=== PATIENT | male | born 1955 | race Caucasian/White ===

== ENCOUNTER 2018-10-16 11:41 | Inpatient (IN) | payer MEDICAID ==
[~2018-10-16] VITALS: Ht 185.4 cm; Wt 87.0 kg
[~2018-10-16 11:41] MED LIST: ALBU6.7H INH; GUAI120015 PO; NO HOME MEDS; NOR5T PO
[2018-10-16 12:18] LABS: BASOPHILS # (AUTO) 0.1 X10'3 (0-0.2); BASOPHILS % (AUTO) 0.2 % (0-1); EOSINOPHILS % (AUTO) 0 % (0-6); HEMOGLOBIN 15.7 g/dl (14.0-17.9); LYMPHOCYTES # (AUTO) 1.2 X10'3 (1.1-4.8); LYMPHOCYTES % (AUTO) 4.6 % (21-51); MEAN CORPUSCULAR HEMOGLOBIN 29.2 PG (27.0-31.0); MEAN CORPUSCULAR HGB CONC 33.4 g/dL (33.0-36.5); MEAN CORPUSCULAR VOLUME 87.4 FL (78-98); MEAN PLATELET VOLUME 8.4 FL (7.4-10.4); MONOCYTES # (AUTO) 2.9 X10'3 (0-0.9); NEUTROPHILS # (AUTO) 22.2 X10'3 (1.8-7.7); NEUTROPHILS % (AUTO) 84.2 % (42-75); PLATELET COUNT 243 X10'3 (140-440); RED BLOOD COUNT 5.38 X10'6 (4.70-6.10); RED CELL DISTRIBUTION WIDTH 14.1 % (11.5-14.5)
[2018-10-16 12:24] LABS: WHITE BLOOD COUNT 26.4 X10'3 (4.5-11.0)
--- NOTE | 2018-10-16 12:31 | NUR ---
WBC 26.4,DR LARSEN AWARE.
[2018-10-16] MEDS ORDERED: vancomycin/NS 1 GM ADD-VANTAGE 250 ML IV ONE (12:40)
[2018-10-16] MEDS ORDERED: CefTRIAXone 2gm/D5W 50ml 50 ML IV ONE (12:40)
[2018-10-16] MEDS ORDERED: normal saline 1000ML IV soln IV ONE (12:40)
[2018-10-16 12:42] LABS: PARTIAL THROMBOPLASTIN TIME 35 SECONDS (22-32); PROTHROMBIN TIME 10.5 SECONDS (9.0-12.0)
[2018-10-16 12:45] LABS: ALANINE AMINOTRANSFERASE 63 U/L (12-78); ALBUMIN 1.9 G/DL (3.4-5.0); ALBUMIN/GLOBULIN RATIO 0.5 (1.1-1.5); ALKALINE PHOSPHATASE 65 IU/L (46-116); ANION GAP 5 (8-16); ASPARTATE AMINO TRANSFERASE 107 U/L (10-37); BILIRUBIN,TOTAL 0.7 MG/DL (0.1-1.0); BLOOD UREA NITROGEN 26 MG/DL (7-18); BUN/CREATININE RATIO 20.6 (5.4-32.0); CALCIUM 7.8 MG/DL (8.5-10.1); CHLORIDE 99 MMOL/L (99-107); CREATININE 1.26 MG/DL (0.60-1.10); GLUCOSE 121 MG/DL (70-104); POTASSIUM 4.3 MMOL/L (3.5-5.1); SODIUM 132 MMOL/L (135-145); TOTAL PROTEIN 6.1 G/DL (6.4-8.2); eGFR 58 ML/MIN
[2018-10-16 12:59] LABS: PLATELET ESTIMATE NORMAL; TOTAL CELLS COUNTED 100
[2018-10-16 13:12] LABS: CLARITY,URINE CLEAR (Clear); COLOR,URINE YELLOW (Yellow); GLUCOSE, URINE NEGATIVE (Neg); KETONES,URINE NEGATIVE (Neg); LEUKOCYTE ESTERASE ,URINE NEGATIVE (Neg); NITRITES, URINE NEGATIVE (Neg); OCCULT BLOOD,URINE MODERATE (Neg); PROTEIN,URINE >=300 mg/dl (Neg)
[2018-10-16 13:14] LABS: UA COLLECTION TYPE NON-SPECIFIED
[2018-10-16 13:20] LABS: BACTERIA,URINE FEW /HPF (Neg); MUCUS STRANDS NONE SEEN /LPF (Neg); RBC,URINE 0-2 /HPF (0-2); SQUAMOUS EPITHELIAL CELL,UR FEW /LPF (FEW); WBC,URINE 0-4 /HPF (0-4)
[2018-10-16] MEDS ORDERED: iohexol 300mg/ml 100ml inj. ONE (13:33)
[2018-10-16] MEDS ORDERED: morphine 4 MG/ML inj SYRINge IV ONE (13:45)
--- NOTE | 2018-10-16 14:05 | NUR ---
PATIENT TO CT.
[2018-10-16] MEDS ORDERED: ibuprofen tablet 400 MG TABLET PO STA (15:08)
[2018-10-16] MEDS ORDERED: ibuprofen 200mg tablet PO STA (15:27)
[2018-10-16] MEDS ORDERED: potassium Cl 20 mEq SR tablet PO PRN ×2 (16:55)
[2018-10-16] MEDS ORDERED: magnesium hydroxide 30ml (MOM) UD suspension PO PRN (16:55)
[2018-10-16] MEDS ORDERED: magnesium 2GM in 50ml NS 50 ML IV PRN (16:55)
[2018-10-16] MEDS ORDERED: magnesium 4gm in 100ml NS 100 ML IV PRN (16:55)
[2018-10-16] MEDS ORDERED: potassium Cl 40MEQ/NS 500ml 500 ML IV PRN ×2 (16:55)
[2018-10-16] MEDS ORDERED: mag hydrox/Alum hydrox/simeth 30ml oral suspension PO PRN (16:55)
[2018-10-16] MEDS ORDERED: ipratropium/albuterol 3ml nebule NEB PRN (16:55)
[2018-10-16] MEDS ORDERED: ondansetron/PF 4mg/2ml inj IV PRN (16:55)
[2018-10-16] MEDS ORDERED: acetaminophen 325mg tablet PO PRN ×2 (16:55)
--- NOTE | 2018-10-16 17:15 | NUR ---
DR. PANTOJA AT BEDSIDE.
--- NOTE | 2018-10-16 17:26 | NUR ---
Patient in room ED 3. I have received report from Martin in ED, and had the opportunity to ask questions and assume patient care.
--- NOTE | 2018-10-16 17:35 | NUR ---
Pt arrived via wheelchair. Able to ambulate to bed independently.
[2018-10-16] MEDS: normal saline 1000ml 1,000 ML IV SCH (17:52)
[2018-10-16 18:06] VITALS: BP 143/68
--- NOTE | 2018-10-16 18:10 | NUR ---
Problems reprioritized. Patient report given, questions answered & plan of care reviewed with Abby.
--- NOTE | 2018-10-16 18:20 | NUR ---
Patient in room ORTHO 4021. I have received report from Catrachita GREENE and had the opportunity to ask questions and assume patient care.
[2018-10-16] MEDS: vancomycin inj 1,250 MG in normal saline 250ml IV soln 250 ML IV SCH (18:28)
--- NOTE | 2018-10-16 20:00 | NUR ---
Patient right arm is very swollen but pulse is bounding. Cap refill is 4 seconds. Patient is up to taking a warm shower.
[2018-10-16 22:00] VITALS: BP 133/74
--- NOTE | 2018-10-16 23:30 | NUR ---
Warm compress applied. Patient arm is elevated on bedside table
[2018-10-16] MEDS: HYDROcodone/acetaminophen 5mg/325mg tablet PO PRN (23:50)
[2018-10-17] MEDS: normal saline 1000ml 1,000 ML IV SCH ×2 (01:56→10:00)
--- NOTE | 2018-10-17 02:19 | NUR ---
Called hospitalist's. Patients arm is starting to become numb to patient. swelling has increased over time. Cap refill delayed in a few fingers. Still bounding pulse. Noted some pallor in fingers. Hospitalist's said to call orthopedic surgeon high school special education teacher.
--- NOTE | 2018-10-17 02:29 | NUR ---
physically impaired teacher MD notified. MD was going to call consulting MD from yesterday afternoon.
--- NOTE | 2018-10-17 02:35 | NUR ---
Dr. Cortes called me back. Informed MD of increasing pallor and decreasing capillary refill. MD said to monitor pulse and for increasing pain, tingling, redness increased, and numbness. He said to call his cell if any changes. Keep elevated and to keep the warm compress off for now. Will monitor very closely.
[2018-10-17] MEDS: HYDROcodone/acetaminophen 10/325mg tab PO PRN ×3 (03:37→17:11)
--- NOTE | 2018-10-17 03:46 | NUR ---
Blisters on upper arm has increased in size. No increase in redness. Will continue to monitor.
[2018-10-17] MEDS: vancomycin inj 1,250 MG in normal saline 250ml IV soln 250 ML IV SCH ×2 (05:41→18:27)
[2018-10-17 06:00] VITALS: BP 112/68
--- NOTE | 2018-10-17 06:05 | NUR ---
Bedside report given with Catrachita GREENE. Right arm assessed with day nurse. Pulse still strong, no new redness, fingers have some pallor still but no new areas of pallor, cap refill is still prolonged. Patient received a [place] for pain and patients pain is very minimal at this time. Patients condition has not changed since the call the the MD this AM.
--- NOTE | 2018-10-17 06:20 | NUR ---
Patient in room ORTHO 4021. I have received report from [facility] and had the opportunity to ask questions and assume patient care.
--- NOTE | 2018-10-17 06:32 | NUR ---
Problems reprioritized. Patient report given, questions answered & plan of care reviewed with Catrachita GREENE.
--- NOTE | 2018-10-17 06:50 | NUR ---
Call from , advised of current condition of pt's right arm, indicated he is coming in to see pt
[2018-10-17 06:56] LABS: BASOPHILS % (AUTO) 0.1 % (0-1); EOSINOPHILS % (AUTO) 0 % (0-6); HEMATOCRIT 41.2 % (42.0-52.0); HEMOGLOBIN 13.6 g/dl (14.0-17.9); LYMPHOCYTES % (AUTO) 5.6 % (21-51); MEAN CORPUSCULAR HEMOGLOBIN 29.2 PG (27.0-31.0); MEAN CORPUSCULAR HGB CONC 32.9 g/dL (33.0-36.5); MEAN CORPUSCULAR VOLUME 88.6 FL (78-98); MONOCYTES # (AUTO) 2.4 X10'3 (0-0.9); MONOCYTES % (AUTO) 12.9 % (2-12); NEUTROPHILS # (AUTO) 15.1 X10'3 (1.8-7.7); NEUTROPHILS % (AUTO) 81.4 % (42-75); PLATELET COUNT 236 X10'3 (140-440); RED BLOOD COUNT 4.66 X10'6 (4.70-6.10); RED CELL DISTRIBUTION WIDTH 14.1 % (11.5-14.5); WHITE BLOOD COUNT 18.5 X10'3 (4.5-11.0)
[2018-10-17 07:22] LABS: ALANINE AMINOTRANSFERASE 69 U/L (12-78); ALBUMIN 1.5 G/DL (3.4-5.0); ALBUMIN/GLOBULIN RATIO 0.4 (1.1-1.5); ALKALINE PHOSPHATASE 57 IU/L (46-116); ANION GAP 8 (8-16); ASPARTATE AMINO TRANSFERASE 111 U/L (10-37); BILIRUBIN,TOTAL 0.4 MG/DL (0.1-1.0); BLOOD UREA NITROGEN 23 MG/DL (7-18); BUN/CREATININE RATIO 23.5 (5.4-32.0); CALCIUM 7.3 MG/DL (8.5-10.1); CHLORIDE 104 MMOL/L (99-107); CHOL/HDL RATIO 2.2 (0.00-4.99); CHOLESTEROL 94 MG/DL (0-200); CREATININE 0.98 MG/DL (0.60-1.10); GLUCOSE 110 MG/DL (70-104); HDL CHOLESTEROL 43 MG/DL (35-60); LDL CHOLESTEROL 50 MG/DL (50-100); MAGNESIUM 1.7 MG/DL (1.5-2.4); POTASSIUM 4.6 MMOL/L (3.5-5.1); SODIUM 136 MMOL/L (135-145); TOTAL CARBON DIOXIDE 23.6 MMOL/L (24-32); TOTAL PROTEIN 5.2 G/DL (6.4-8.2); TRIGLYCERIDES 40 MG/DL (20-135); eGFR 78 ML/MIN
[2018-10-17] MEDS: K and/or MAG REPLACEMENT MC SCH (07:39)
[2018-10-17 07:50] LABS: TOTAL CELLS COUNTED 100
[2018-10-17 07:51] LABS: PLATELET ESTIMATE NORMAL; POIKILOCYTOSIS FEW; POLYCHROMASIA FEW
[2018-10-17] MEDS: enoxaparin 40mg/0.4ml syringe SQ SCH (08:00)
[2018-10-17] MEDS: CefTRIAXone/D5W-Rocephin 1gm 50 ML IV SCH (09:03)
[2018-10-17 10:00] VITALS: BP 148/89
[2018-10-17] MEDS: ibuprofen 200mg tablet PO SCH ×2 (13:41→17:11)
[2018-10-17] MEDS: nicotine 21mg patch - 24 hr TD SCH (13:41)
--- NOTE | 2018-10-17 14:59 | NUR ---
Purvi Consult: Met pt at bedside. Pt states he has lost 10-20# in two weeks however does not weigh himself but states he knows when he has lost weight. Reported wt loss likely false due to pt guessing wt loss. Pt states he has appetite but has trouble accessing food. Current documented PO intake 100% meeting nutrition needs, current wt appropriate for age. Pt has no visible muscle or fat wasting. Pt currently does not meet criteria for malnutrition. Pt is w/ arm infection, given written and verbal protein education. Pt is agreeable to double protein, discussed w/ dietary. LBM 10/15. Will continue to monitor. Addendum: 10/17/18 at [address] Amended: Links added. Addendum: 10/17/18 at [address] I have reviewed and agree with note by Tugboat Mate. Yudelka Batista RD
[2018-10-17 18:00] VITALS: BP 115/58
--- NOTE | 2018-10-17 18:07 | NUR ---
Problems reprioritized. Patient report given, questions answered & plan of care reviewed with Magda Vega
[2018-10-17] MEDS: lactobacillus rhamnosus 10,000 MMU CELLS/CAPSULE PO SCH (20:00)
[2018-10-17 22:00] VITALS: BP 136/65
[2018-10-18] MEDS: HYDROcodone/acetaminophen 10/325mg tab PO PRN ×4 (00:22→17:49)
[2018-10-18] MEDS ORDERED: VANCOMYCIN LEVEL IV NR (05:30)
[2018-10-18 06:00] VITALS: BP 131/79
--- NOTE | 2018-10-18 06:26 | NUR ---
Problems reprioritized. Patient report given, questions answered & plan of care reviewed with JC Nixon.
[2018-10-18] MEDS: vancomycin inj 1,250 MG in normal saline 250ml IV soln 250 ML IV SCH (06:32)
[2018-10-18 06:39] LABS: BASOPHILS # (AUTO) 0.1 X10'3 (0-0.2); BASOPHILS % (AUTO) 0.4 % (0-1); EOSINOPHILS # (AUTO) 0.3 X10'3 (0-0.9); EOSINOPHILS % (AUTO) 2.3 % (0-6); HEMATOCRIT 40.6 % (42.0-52.0); HEMOGLOBIN 13.6 g/dl (14.0-17.9); LYMPHOCYTES # (AUTO) 0.7 X10'3 (1.1-4.8); LYMPHOCYTES % (AUTO) 5.1 % (21-51); MEAN CORPUSCULAR HEMOGLOBIN 29.4 PG (27.0-31.0); MEAN CORPUSCULAR HGB CONC 33.5 g/dL (33.0-36.5); MEAN CORPUSCULAR VOLUME 87.8 FL (78-98); MEAN PLATELET VOLUME 8.2 FL (7.4-10.4); MONOCYTES % (AUTO) 13.6 % (2-12); NEUTROPHILS # (AUTO) 11.3 X10'3 (1.8-7.7); NEUTROPHILS % (AUTO) 78.6 % (42-75); PLATELET COUNT 247 X10'3 (140-440); RED BLOOD COUNT 4.63 X10'6 (4.70-6.10); WHITE BLOOD COUNT 14.4 X10'3 (4.5-11.0)
[2018-10-18 06:46] LABS: ALANINE AMINOTRANSFERASE 89 U/L (12-78); ALBUMIN 1.4 G/DL (3.4-5.0); ALBUMIN/GLOBULIN RATIO 0.4 (1.1-1.5); ALKALINE PHOSPHATASE 65 IU/L (46-116); ANION GAP 7 (8-16); ASPARTATE AMINO TRANSFERASE 132 U/L (10-37); BILIRUBIN,TOTAL 0.2 MG/DL (0.1-1.0); BLOOD UREA NITROGEN 21 MG/DL (7-18); BUN/CREATININE RATIO 22.3 (5.4-32.0); CALCIUM 7.5 MG/DL (8.5-10.1); CHLORIDE 103 MMOL/L (99-107); CREATININE 0.94 MG/DL (0.60-1.10); GLUCOSE 122 MG/DL (70-104); MAGNESIUM 1.6 MG/DL (1.5-2.4); POTASSIUM 4.8 MMOL/L (3.5-5.1); SODIUM 135 MMOL/L (135-145); TOTAL CARBON DIOXIDE 25.4 MMOL/L (24-32); TOTAL PROTEIN 5.2 G/DL (6.4-8.2); eGFR 81 ML/MIN
[2018-10-18] MEDS: K and/or MAG REPLACEMENT MC SCH (08:00)
[2018-10-18] MEDS: ibuprofen 200mg tablet PO SCH ×3 (08:52→17:40)
[2018-10-18] MEDS: lactobacillus rhamnosus 10,000 MMU CELLS/CAPSULE PO SCH ×2 (08:52→20:15)
[2018-10-18] MEDS: nicotine 21mg patch - 24 hr TD SCH (08:53)
[2018-10-18] MEDS: enoxaparin 40mg/0.4ml syringe SQ SCH (08:53)
[2018-10-18] MEDS: CefTRIAXone/D5W-Rocephin 1gm 50 ML IV SCH (09:53)
[2018-10-18 10:00] VITALS: BP 120/101
[2018-10-18 18:00] VITALS: BP 120/67
[2018-10-18 22:00] VITALS: BP 126/74
[2018-10-19] MEDS: HYDROcodone/acetaminophen 10/325mg tab PO PRN ×2 (03:29→13:45)
[2018-10-19 05:42] LABS: BASOPHILS # (AUTO) 0.1 X10'3 (0-0.2); BASOPHILS % (AUTO) 0.7 % (0-1); EOSINOPHILS # (AUTO) 0.3 X10'3 (0-0.9); EOSINOPHILS % (AUTO) 1.9 % (0-6); HEMATOCRIT 38.8 % (42.0-52.0); HEMOGLOBIN 12.9 g/dl (14.0-17.9); LYMPHOCYTES # (AUTO) 0.8 X10'3 (1.1-4.8); LYMPHOCYTES % (AUTO) 5.4 % (21-51); MEAN CORPUSCULAR HEMOGLOBIN 29.1 PG (27.0-31.0); MEAN CORPUSCULAR HGB CONC 33.3 g/dL (33.0-36.5); MEAN CORPUSCULAR VOLUME 87.5 FL (78-98); MEAN PLATELET VOLUME 8.3 FL (7.4-10.4); MONOCYTES # (AUTO) 1.9 X10'3 (0-0.9); MONOCYTES % (AUTO) 13.6 % (2-12); NEUTROPHILS % (AUTO) 78.4 % (42-75); PLATELET COUNT 236 X10'3 (140-440); RED BLOOD COUNT 4.43 X10'6 (4.70-6.10); RED CELL DISTRIBUTION WIDTH 13.8 % (11.5-14.5)
[2018-10-19 06:00] VITALS: BP 140/83
[2018-10-19 06:02] LABS: ANION GAP 4 (8-16); BLOOD UREA NITROGEN 21 MG/DL (7-18); BUN/CREATININE RATIO 20.8 (5.4-32.0); CALCIUM 7.7 MG/DL (8.5-10.1); CHLORIDE 104 MMOL/L (99-107); CREATININE 1.01 MG/DL (0.60-1.10); GLUCOSE 124 MG/DL (70-104); MAGNESIUM 1.6 MG/DL (1.5-2.4); POTASSIUM 5.4 MMOL/L (3.5-5.1); SODIUM 135 MMOL/L (135-145); TOTAL CARBON DIOXIDE 27.5 MMOL/L (24-32); eGFR 75 ML/MIN
[2018-10-19 06:03] LABS: ALANINE AMINOTRANSFERASE 105 U/L (12-78); ALBUMIN 1.4 G/DL (3.4-5.0); ALBUMIN/GLOBULIN RATIO 0.4 (1.1-1.5); ALKALINE PHOSPHATASE 68 IU/L (46-116); ASPARTATE AMINO TRANSFERASE 141 U/L (10-37); BILIRUBIN,TOTAL 0.2 MG/DL (0.1-1.0); TOTAL PROTEIN 5.1 G/DL (6.4-8.2)
--- NOTE | 2018-10-19 06:23 | NUR ---
Problems reprioritized. Patient report given, questions answered & plan of care reviewed with JC ALMEIDA.
[2018-10-19] MEDS: K and/or MAG REPLACEMENT MC SCH (08:00)
[2018-10-19] MEDS: nicotine 21mg patch - 24 hr TD SCH (08:00)
[2018-10-19] MEDS: ibuprofen 200mg tablet PO SCH ×3 (09:15→17:47)
[2018-10-19] MEDS: CefTRIAXone/D5W-Rocephin 1gm 50 ML IV SCH (09:15)
[2018-10-19] MEDS: lactobacillus rhamnosus 10,000 MMU CELLS/CAPSULE PO SCH ×2 (09:15→20:00)
[2018-10-19] MEDS: enoxaparin 40mg/0.4ml syringe SQ SCH (09:25)
[2018-10-19 10:15] VITALS: BP 146/62
[2018-10-19 14:00] VITALS: BP 129/69
[2018-10-19 17:00] VITALS: BP 139/81
[2018-10-19] MEDS ORDERED: sodium polystyrene sulfonate 15gm/60ml oral suspension PO ONE (20:00)
--- NOTE | 2018-10-19 20:45 | NUR ---
REPORT REC'D FROM JC ALMEIDA.
[2018-10-19] MEDS: cefepime 2g/NS 100ml ADVANTAGE 100 ML IV SCH (21:04)
--- NOTE | 2018-10-19 21:30 | NUR ---
PT WAS OFFERED TO CHANGE ROOMS R/T HIS ROOMMATE IS SETTING OFF ALARMS VERY FREQUENTLY. THIS PT REFUSED TO CHANGE ROOMS, STATING "HE CAN CHANGE ROOMS, NOT ME."
[2018-10-19 22:00] VITALS: BP 129/72
[2018-10-20] MEDS: HYDROcodone/acetaminophen 10/325mg tab PO PRN ×4 (00:14→19:55)
[2018-10-20] MEDS ORDERED: VANCOMYCIN LEVEL IV NR (05:30)
[2018-10-20 06:00] VITALS: BP 169/115
--- NOTE | 2018-10-20 06:03 | NUR ---
PT WAS AGGITATED AT TIME OF BLOOD DRAW AND VS ASSESSMENT. BP WAS ELEVATED AND HE STATED THAT HE WAS 10/10 PAIN. RN WENT IN TO REASSESS BP AND PT STATED THAT HE WAS NOT IN PAIN, AND WHEN BP WAS RECHECKED, IT WAS 155/94, AND HE STATED NO PAIN. "ALL THOSE PEOPLE JUST IN HERE AT THE SAME TIME, POKING AT ME." RN RELAYED TO DAY SHIFT.
[2018-10-20 06:16] LABS: ALANINE AMINOTRANSFERASE 101 U/L (12-78); ALBUMIN 1.5 G/DL (3.4-5.0); ALBUMIN/GLOBULIN RATIO 0.4 (1.1-1.5); ALKALINE PHOSPHATASE 86 IU/L (46-116); ANION GAP 5 (8-16); ASPARTATE AMINO TRANSFERASE 113 U/L (10-37); BILIRUBIN,TOTAL 0.2 MG/DL (0.1-1.0); BLOOD UREA NITROGEN 20 MG/DL (7-18); BUN/CREATININE RATIO 22.5 (5.4-32.0); CALCIUM 7.9 MG/DL (8.5-10.1); CHLORIDE 102 MMOL/L (99-107); CREATININE 0.89 MG/DL (0.60-1.10); GLUCOSE 106 MG/DL (70-104); MAGNESIUM 1.7 MG/DL (1.5-2.4); POTASSIUM 4.8 MMOL/L (3.5-5.1); SODIUM 136 MMOL/L (135-145); TOTAL CARBON DIOXIDE 29.2 MMOL/L (24-32); TOTAL PROTEIN 5.6 G/DL (6.4-8.2); eGFR 87 ML/MIN
[2018-10-20 06:18] LABS: BASOPHILS # (AUTO) 0.1 X10'3 (0-0.2); BASOPHILS % (AUTO) 0.4 % (0-1); EOSINOPHILS # (AUTO) 0.4 X10'3 (0-0.9); EOSINOPHILS % (AUTO) 3.7 % (0-6); HEMATOCRIT 39.9 % (42.0-52.0); HEMOGLOBIN 13.3 g/dl (14.0-17.9); LYMPHOCYTES # (AUTO) 0.7 X10'3 (1.1-4.8); LYMPHOCYTES % (AUTO) 5.9 % (21-51); MEAN CORPUSCULAR HEMOGLOBIN 29.2 PG (27.0-31.0); MEAN CORPUSCULAR HGB CONC 33.4 g/dL (33.0-36.5); MEAN CORPUSCULAR VOLUME 87.4 FL (78-98); MEAN PLATELET VOLUME 8.3 FL (7.4-10.4); MONOCYTES # (AUTO) 1.7 X10'3 (0-0.9); MONOCYTES % (AUTO) 14.5 % (2-12); NEUTROPHILS # (AUTO) 8.9 X10'3 (1.8-7.7); NEUTROPHILS % (AUTO) 75.5 % (42-75); PLATELET COUNT 261 X10'3 (140-440); RED BLOOD COUNT 4.56 X10'6 (4.70-6.10); RED CELL DISTRIBUTION WIDTH 13.8 % (11.5-14.5); WHITE BLOOD COUNT 11.8 X10'3 (4.5-11.0)
--- NOTE | 2018-10-20 06:34 | NUR ---
REPORT GIVEN TO JC ALMEIDA.
[2018-10-20] MEDS: nicotine 21mg patch - 24 hr TD SCH (08:00)
[2018-10-20] MEDS: enoxaparin 40mg/0.4ml syringe SQ SCH (08:00)
[2018-10-20] MEDS: K and/or MAG REPLACEMENT MC SCH (08:00)
[2018-10-20] MEDS: lactobacillus rhamnosus 10,000 MMU CELLS/CAPSULE PO SCH ×2 (08:06→19:48)
[2018-10-20] MEDS: ibuprofen 200mg tablet PO SCH ×3 (08:06→19:48)
[2018-10-20] MEDS: cefepime 2g/NS 100ml ADVANTAGE 100 ML IV SCH ×2 (08:07→19:48)
[2018-10-20 10:00] VITALS: BP 141/87
[2018-10-20 22:00] VITALS: BP 149/90
--- NOTE | 2018-10-20 22:05 | NUR ---
Patient in room ORTHO 4021. I have received report from JC Nixon and had the opportunity to ask questions and assume patient care. Addendum: 10/20/18 at 2207 by Keena Smalls RN Amended: Links added.
[2018-10-21] MEDS: HYDROcodone/acetaminophen 10/325mg tab PO PRN ×3 (05:04→22:01)
[2018-10-21 06:00] VITALS: BP 177/113
--- NOTE | 2018-10-21 06:21 | NUR ---
Problems reprioritized. Patient report given, questions answered & plan of care reviewed with JC Kelly. Addendum: 10/21/18 at 0621 by Keena Smalls RN Amended: Links added.
--- NOTE | 2018-10-21 06:30 | NUR ---
Patient in room ORTHO 4021. I have received report from Sandhya GREENE and had the opportunity to ask questions and assume patient care.
[2018-10-21] MEDS: cefepime 2g/NS 100ml ADVANTAGE 100 ML IV SCH ×2 (07:55→20:54)
[2018-10-21] MEDS: lactobacillus rhamnosus 10,000 MMU CELLS/CAPSULE PO SCH ×2 (07:55→20:54)
[2018-10-21] MEDS: ibuprofen 200mg tablet PO SCH ×3 (07:55→16:55)
[2018-10-21] MEDS: nicotine 21mg patch - 24 hr TD SCH (07:56)
[2018-10-21] MEDS: enoxaparin 40mg/0.4ml syringe SQ SCH (07:56)
[2018-10-21] MEDS: K and/or MAG REPLACEMENT MC SCH (08:00)
[2018-10-21 10:00] VITALS: BP 132/84
--- NOTE | 2018-10-21 10:44 | NUR ---
Initial: Pt PO 100% regular diet w/ double proteins meeting needs. Admit w/ R forearm cellulitis r/t IVDA. LBM 10/15; ARNOLD d/w RN for routine bowel care per MD approval. Will continue to monitor. Rec; 1. conitnue regular diet 2. wt per rx Addendum: 10/21/18 at [address] Amended: Links added.
--- NOTE | 2018-10-21 18:04 | NUR ---
Problems reprioritized. Patient report given, questions answered & plan of care reviewed with Aminata GREENE.
--- NOTE | 2018-10-21 18:07 | NUR ---
RECEIVED REPORT FROM TYRONE GREENE AND ASSUMED PATIENT CARE
[2018-10-21 18:42] LABS: BASOPHILS % (AUTO) 0.3 % (0-1); EOSINOPHILS # (AUTO) 0.6 X10'3 (0-0.9); EOSINOPHILS % (AUTO) 5.6 % (0-6); HEMOGLOBIN 13.2 g/dl (14.0-17.9); LYMPHOCYTES # (AUTO) 0.9 X10'3 (1.1-4.8); LYMPHOCYTES % (AUTO) 8.6 % (21-51); MEAN CORPUSCULAR HEMOGLOBIN 28.9 PG (27.0-31.0); MEAN CORPUSCULAR VOLUME 87.7 FL (78-98); MEAN PLATELET VOLUME 7.8 FL (7.4-10.4); MONOCYTES # (AUTO) 1.4 X10'3 (0-0.9); MONOCYTES % (AUTO) 12.9 % (2-12); NEUTROPHILS # (AUTO) 7.9 X10'3 (1.8-7.7); NEUTROPHILS % (AUTO) 72.6 % (42-75); PLATELET COUNT 321 X10'3 (140-440); RED BLOOD COUNT 4.56 X10'6 (4.70-6.10); WHITE BLOOD COUNT 10.9 X10'3 (4.5-11.0)
[2018-10-21 18:59] LABS: ALANINE AMINOTRANSFERASE 77 U/L (12-78); ALBUMIN 1.7 G/DL (3.4-5.0); ALBUMIN/GLOBULIN RATIO 0.4 (1.1-1.5); ALKALINE PHOSPHATASE 105 IU/L (46-116); ANION GAP 4 (8-16); ASPARTATE AMINO TRANSFERASE 62 U/L (10-37); BILIRUBIN,TOTAL 0.2 MG/DL (0.1-1.0); BLOOD UREA NITROGEN 20 MG/DL (7-18); BUN/CREATININE RATIO 22.2 (5.4-32.0); CALCIUM 8.2 MG/DL (8.5-10.1); CHLORIDE 102 MMOL/L (99-107); CREATINE KINASE 545 U/L (39-308); GLUCOSE 94 MG/DL (70-104); MAGNESIUM 1.7 MG/DL (1.5-2.4); POTASSIUM 4.6 MMOL/L (3.5-5.1); SODIUM 140 MMOL/L (135-145); TOTAL CARBON DIOXIDE 34.3 MMOL/L (24-32); TOTAL PROTEIN 6.3 G/DL (6.4-8.2); eGFR 86 ML/MIN
[2018-10-21 19:17] LABS: HIV ANTIBODY 1&2 RAPID NON-REACTIVE (Neg)
[2018-10-21 22:00] VITALS: BP 139/94
[2018-10-22] MEDS: HYDROcodone/acetaminophen 5mg/325mg tablet PO PRN (05:21)
[2018-10-22 06:00] VITALS: BP 155/95
--- NOTE | 2018-10-22 06:05 | NUR ---
REPORT GIVEN TO MAYRA GREENE
--- NOTE | 2018-10-22 06:20 | NUR ---
Patient in room ORTHO 4021. I have received report from Aminata GREENE and had the opportunity to ask questions and assume patient care.
[2018-10-22] MEDS: K and/or MAG REPLACEMENT MC SCH (08:00)
[2018-10-22] MEDS: enoxaparin 40mg/0.4ml syringe SQ SCH (08:00)
[2018-10-22] MEDS: cefepime 2g/NS 100ml ADVANTAGE 100 ML IV SCH (08:07)
[2018-10-22] MEDS: ibuprofen 200mg tablet PO SCH (08:07)
[2018-10-22] MEDS: lactobacillus rhamnosus 10,000 MMU CELLS/CAPSULE PO SCH (08:07)
[2018-10-22] MEDS: nicotine 21mg patch - 24 hr TD SCH (08:07)
[2018-10-22 09:01] LABS: CREATINE KINASE 356 U/L (39-308); MAGNESIUM 1.6 MG/DL (1.5-2.4)
[2018-10-22 10:00] VITALS: BP 111/66
[2018-10-22] MEDS ORDERED: NICO-687 TD (10:49)
[2018-10-22] MEDS ORDERED: LACT1CAP26 PO (10:49)
[2018-10-22] MEDS ORDERED: IBUP-2264 PO (10:49)
--- NOTE | 2018-10-22 13:32 | NUR ---
Patient discharged today. account services coordinator contacted due to homelessness. Patient was provided with community resources; Referred to the [facility]. A jacket was provided as well as a lunch to go. account services coordinator saw the patient before discharge. Patient stable for discharge today at 1300
[2018-10-23 11:15] LABS: HBSAG SCREEN Negative (Negative); HEP A AB, IGM Negative (Negative); HEP B CORE AB, IGM Negative (Negative); HEPATITIS C ANTIBODY >11.0 s/co ratio (0.0-0.9)
== END 2018-10-22 13:10 | disposition home or self-care (01) | DRG 720 ==
LOC: ER 11:41 → ED HOLD 16:51 → ORTHO 4S 17:35
PROVIDERS: ADMIT Family Medicine; ATTEND Family Medicine
PROC: BP2T1ZZ Computerized Tomography (CT Scan) of Right Upper Extremity using Low Osmolar Contrast (ICD-10-PCS; principal; 2018-10-16)
DX: A41.9 Sepsis, unspecified organism (principal); E87.5 Hyperkalemia; L03.313 Cellulitis of chest wall; F15.10 Other stimulant abuse, uncomplicated; F17.210 Nicotine dependence, cigarettes, uncomplicated; F31.9 Bipolar disorder, unspecified; G40.909 Epilepsy, unspecified, not intractable, without status epilepticus; I10 Essential (primary) hypertension; J44.9 Chronic obstructive pulmonary disease, unspecified; F12.10 Cannabis abuse, uncomplicated; L03.113 Cellulitis of right upper limb; Z91.14 Patient's other noncompliance with medication regimen; Z91.018 Allergy to other foods; Z71.6 Tobacco abuse counseling; Z79.899 Other long term (current) drug therapy; Z91.19 Patient's noncompliance with other medical treatment and regimen; Z59.0 Homelessness; Z56.0 Unemployment, unspecified; Z86.14 Personal history of Methicillin resistant Staphylococcus aureus infection
CPT/HCPCS: 36415; 71045; 73201; 80053; 80061; 80202; 81001; 82550; 83605; 83735; 84145; 85025; 85610; 85730; 86703; 86705; 86706; 86709; 86803; 87040; 87070; 87340; 93306; 93971; 94760; 96365; 96367; 99285; G0378; J0692; J0696; J1650; J3370; J7030; Q9967

== ENCOUNTER 2019-06-21 15:09 | Inpatient (IN) | payer MEDICAID ==
[~2019-06-21] VITALS: Ht 185.4 cm; Wt 79.5 kg
[~2019-06-21 15:09] MED LIST changes: -ALBU6.7H INH; -GUAI120015 PO; +IBUP-2697 PO; +LACT1CAP26 PO; +NICO-687 TD; -NO HOME MEDS; -NOR5T PO
[2019-06-21 15:41] LABS: BASOPHILS # (AUTO) 0.1 X10'3 (0-0.2); BASOPHILS % (AUTO) 0.7 % (0-1); EOSINOPHILS % (AUTO) 0.3 % (0-6); HEMATOCRIT 36.7 % (42.0-52.0); HEMOGLOBIN 11.9 g/dl (14.0-17.9); LYMPHOCYTES # (AUTO) 0.7 X10'3 (1.1-4.8); LYMPHOCYTES % (AUTO) 8.5 % (21-51); MEAN CORPUSCULAR HEMOGLOBIN 27.2 PG (27.0-31.0); MEAN CORPUSCULAR HGB CONC 32.4 g/dL (33.0-36.5); MEAN CORPUSCULAR VOLUME 83.9 FL (78-98); MEAN PLATELET VOLUME 7.9 FL (7.4-10.4); MONOCYTES # (AUTO) 1.2 X10'3 (0-0.9); MONOCYTES % (AUTO) 14.4 % (2-12); NEUTROPHILS # (AUTO) 6.1 X10'3 (1.8-7.7); NEUTROPHILS % (AUTO) 76.1 % (42-75); PLATELET COUNT 211 X10'3 (140-440); RED BLOOD COUNT 4.38 X10'6 (4.70-6.10); RED CELL DISTRIBUTION WIDTH 15.2 % (11.5-14.5)
[2019-06-21 15:52] LABS: PARTIAL THROMBOPLASTIN TIME 31 SECONDS (22-32)
[2019-06-21 15:56] LABS: ALANINE AMINOTRANSFERASE 38 U/L (12-78); ALBUMIN 2.6 G/DL (3.4-5.0); ALBUMIN/GLOBULIN RATIO 0.6 (1.1-1.5); ALKALINE PHOSPHATASE 80 IU/L (46-116); ANION GAP 4 (8-16); ASPARTATE AMINO TRANSFERASE 39 U/L (10-37); BILIRUBIN,TOTAL 0.6 MG/DL (0.1-1.0); BLOOD UREA NITROGEN 38 MG/DL (7-18); BUN/CREATININE RATIO 23.2 (5.4-32.0); CALCIUM 8.6 MG/DL (8.5-10.1); CHLORIDE 108 MMOL/L (99-107); CREATININE 1.64 MG/DL (0.60-1.10); GLUCOSE 99 MG/DL (70-104); POTASSIUM 5.8 MMOL/L (3.5-5.1); SODIUM 143 MMOL/L (135-145); TOTAL CARBON DIOXIDE 30.8 MMOL/L (24-32); TOTAL PROTEIN 7.1 G/DL (6.4-8.2); eGFR 43 ML/MIN
[2019-06-21] MEDS ORDERED: ALBU18HF2 INH (19:34)
[2019-06-21] MEDS ORDERED: furosemide 10 MG/1 ML 10ml inj IV ONE (19:55)
[2019-06-21] MEDS ORDERED: mag hydrox/Alum hydrox/simeth 30ml oral suspension PO PRN (20:10)
[2019-06-21] MEDS ORDERED: potassium Cl 20 mEq SR tablet PO PRN ×2 (20:10)
[2019-06-21] MEDS ORDERED: acetaminophen 325mg tablet PO PRN (20:10)
[2019-06-21] MEDS ORDERED: ondansetron/PF 4mg/2ml inj IV PRN (20:10)
[2019-06-21] MEDS ORDERED: magnesium 2GM in 50ml NS 50 ML IV PRN (20:10)
[2019-06-21] MEDS ORDERED: magnesium 4gm in 100ml NS 100 ML IV PRN (20:10)
[2019-06-21] MEDS ORDERED: magnesium Cl slow-release 64mg tablet PO PRN (20:10)
[2019-06-21] MEDS ORDERED: potassium CL 10mEq/100ml bag 100 ML IV PRN ×2 (20:10)
[2019-06-21] MEDS ORDERED: magnesium hydroxide 30ml (MOM) UD suspension PO PRN (20:10)
[2019-06-21 23:00] VITALS: BP 130/80
[2019-06-21] MEDS ORDERED: ipratropium/albuterol 3ml nebule NEB PRN (23:30)
[2019-06-22] MEDS: ipratropium/albuterol 3ml nebule NEB SCH ×3 (02:46→11:00)
[2019-06-22 05:56] LABS: BASOPHILS # (AUTO) 0.1 X10'3 (0-0.2); EOSINOPHILS # (AUTO) 0.2 X10'3 (0-0.9); EOSINOPHILS % (AUTO) 2.7 % (0-6); HEMATOCRIT 36.2 % (42.0-52.0); HEMOGLOBIN 12.1 g/dl (14.0-17.9); LYMPHOCYTES # (AUTO) 0.9 X10'3 (1.1-4.8); LYMPHOCYTES % (AUTO) 14.8 % (21-51); MEAN CORPUSCULAR HEMOGLOBIN 27.5 PG (27.0-31.0); MEAN CORPUSCULAR HGB CONC 33.3 g/dL (33.0-36.5); MEAN CORPUSCULAR VOLUME 82.5 FL (78-98); MEAN PLATELET VOLUME 7.8 FL (7.4-10.4); MONOCYTES % (AUTO) 15.7 % (2-12); NEUTROPHILS % (AUTO) 65.8 % (42-75); PLATELET COUNT 197 X10'3 (140-440); RED BLOOD COUNT 4.39 X10'6 (4.70-6.10); RED CELL DISTRIBUTION WIDTH 15.1 % (11.5-14.5); WHITE BLOOD COUNT 6.1 X10'3 (4.5-11.0)
[2019-06-22 06:16] LABS: ALBUMIN 2.5 G/DL (3.4-5.0); ANION GAP 5 (8-16); BLOOD UREA NITROGEN 29 MG/DL (7-18); CALCIUM 8.2 MG/DL (8.5-10.1); CHLORIDE 105 MMOL/L (99-107); CREATININE 1.45 MG/DL (0.60-1.10); GLUCOSE 144 MG/DL (70-104); MAGNESIUM 1.5 MG/DL (1.5-2.4); SODIUM 141 MMOL/L (135-145); TOTAL CARBON DIOXIDE 31.1 MMOL/L (24-32); TROPONIN I 0.04 NG/ML (0.0-0.05); eGFR 49 ML/MIN
--- NOTE | 2019-06-22 06:30 | NUR ---
Patient in room JAMA 360. I have received report from Night RN and had the opportunity to ask questions and assume patient care.
--- NOTE | 2019-06-22 06:30 | NUR ---
Patient in room JAMA 360. I have received report from JC Romeo and had the opportunity to ask questions and assume patient care.
--- NOTE | 2019-06-22 06:31 | NUR ---
Problems reprioritized. Patient report given, questions answered & plan of care reviewed with FRANCK. Addendum: 06/22/19 at 0632 by Manfred Coleman RN Amended: Links added.
--- NOTE | 2019-06-22 06:35 | NUR ---
Patient in room JAMA 360. I have received report from JC Lee and had the opportunity to ask questions and assume patient care.
[2019-06-22 06:59] LABS: PLATELET ESTIMATE NORMAL; TOTAL CELLS COUNTED 100
[2019-06-22 07:00] VITALS: BP 138/86
[2019-06-22] MEDS: K and/or MAG REPLACEMENT MC SCH (07:01)
[2019-06-22] MEDS: budesonide 0.5mg/2ml UD nebule IH SCH ×2 (07:14→20:09)
[2019-06-22] MEDS ORDERED: enoxaparin 40mg/0.4ml syringe SQ SCH (08:00)
[2019-06-22] MEDS: furosemide 40mg/4ml inj IV SCH ×2 (08:50→20:25)
[2019-06-22] MEDS: nicotine 21mg patch - 24 hr TD SCH (08:50)
--- NOTE | 2019-06-22 11:53 | NUR ---
Problems reprioritized. Patient report given, questions answered & plan of care reviewed with Agueda GREENE.
--- NOTE | 2019-06-22 11:55 | NUR ---
Problems reprioritized. Patient report given, questions answered & plan of care reviewed with JC Romeo.
[2019-06-22] MEDS: levalbuterol 0.63mg/3ml nebule IH SCH ×2 (15:00→20:09)
--- NOTE | 2019-06-22 17:45 | NUR ---
reviewed student nurse charting
--- NOTE | 2019-06-22 18:23 | NUR ---
Patient in room JAMA 347. I have received report from JC Londono and had the opportunity to ask questions and assume patient care.
--- NOTE | 2019-06-22 18:30 | NUR ---
Patient in room JAMA 347. I have received report from Agueda GREENE and had the opportunity to ask questions and assume patient care.
[2019-06-22 19:00] VITALS: BP 135/93
[2019-06-22] MEDS: carVEDilol 3.125mg tablet PO SCH (20:25)
[2019-06-22] MEDS: acetaminophen 325mg tablet PO PRN (20:38)
[2019-06-23] VITALS: BP 121/82
[2019-06-23] MEDS: levalbuterol 0.63mg/3ml nebule IH SCH ×4 (03:16→20:21)
[2019-06-23 05:04] LABS: BASOPHILS # (AUTO) 0.1 X10'3 (0-0.2); BASOPHILS % (AUTO) 0.9 % (0-1); EOSINOPHILS # (AUTO) 0.3 X10'3 (0-0.9); EOSINOPHILS % (AUTO) 4.2 % (0-6); HEMATOCRIT 40.6 % (42.0-52.0); HEMOGLOBIN 13.4 g/dl (14.0-17.9); LYMPHOCYTES % (AUTO) 14.5 % (21-51); MEAN CORPUSCULAR HEMOGLOBIN 27.4 PG (27.0-31.0); MEAN CORPUSCULAR HGB CONC 33.1 g/dL (33.0-36.5); MEAN CORPUSCULAR VOLUME 82.8 FL (78-98); MONOCYTES # (AUTO) 1.1 X10'3 (0-0.9); NEUTROPHILS # (AUTO) 4.4 X10'3 (1.8-7.7); NEUTROPHILS % (AUTO) 64.4 % (42-75); PLATELET COUNT 211 X10'3 (140-440); RED CELL DISTRIBUTION WIDTH 15.3 % (11.5-14.5); WHITE BLOOD COUNT 6.8 X10'3 (4.5-11.0)
[2019-06-23 05:34] LABS: ALBUMIN 2.5 G/DL (3.4-5.0); ANION GAP 5 (8-16); BLOOD UREA NITROGEN 29 MG/DL (7-18); BUN/CREATININE RATIO 20.6 (5.4-32.0); CALCIUM 8.3 MG/DL (8.5-10.1); CHLORIDE 101 MMOL/L (99-107); CREATININE 1.41 MG/DL (0.60-1.10); GLUCOSE 102 MG/DL (70-104); MAGNESIUM 1.8 MG/DL (1.5-2.4); POTASSIUM 4.8 MMOL/L (3.5-5.1); SODIUM 139 MMOL/L (135-145); TOTAL CARBON DIOXIDE 33.1 MMOL/L (24-32); eGFR 51 ML/MIN
--- NOTE | 2019-06-23 06:30 | NUR ---
Patient in room JAMA 347. I have received report from JC Londono and had the opportunity to ask questions and assume patient care.
--- NOTE | 2019-06-23 06:30 | NUR ---
Problems reprioritized. Patient report given, questions answered & plan of care reviewed with Agueda GREENE.
[2019-06-23 07:00] VITALS: BP 122/78
[2019-06-23] MEDS: K and/or MAG REPLACEMENT MC SCH (07:27)
[2019-06-23] MEDS: nicotine 21mg patch - 24 hr TD SCH (07:47)
[2019-06-23] MEDS: furosemide 40mg/4ml inj IV SCH ×2 (07:47→21:15)
[2019-06-23] MEDS: carVEDilol 3.125mg tablet PO SCH ×2 (07:47→21:15)
[2019-06-23] MEDS: budesonide 0.5mg/2ml UD nebule IH SCH ×2 (09:41→20:21)
--- NOTE | 2019-06-23 09:50 | NUR ---
i had to stop svn tx due to muscle spasms i will tell rn Addendum: 06/23/19 at 0951 by Jonelle Adair RT Amended: Links added.
[2019-06-23 11:34] VITALS: BP 92/67
[2019-06-23 11:49] VITALS: BP 105/72
--- NOTE | 2019-06-23 14:48 | NUR ---
patient refused svn tx due to makes ivet quiñonezck Addendum: 06/23/19 at 1449 by Jonelle Adair RT Amended: Links added.
--- NOTE | 2019-06-23 18:30 | NUR ---
Patient in room JAMA 347. I have received report from Agueda GREENE and had the opportunity to ask questions and assume patient care.
--- NOTE | 2019-06-23 18:42 | NUR ---
Problems reprioritized. Patient report given, questions answered & plan of care reviewed with JC Londono.
[2019-06-23 19:00] VITALS: BP 130/67
[2019-06-23 23:30] VITALS: BP 105/67
[2019-06-24] MEDS: levalbuterol 0.63mg/3ml nebule IH SCH ×4 (03:00→20:01)
[2019-06-24 05:16] LABS: BASOPHILS % (AUTO) 0.7 % (0-1); EOSINOPHILS # (AUTO) 0.3 X10'3 (0-0.9); EOSINOPHILS % (AUTO) 3.9 % (0-6); HEMATOCRIT 44.1 % (42.0-52.0); HEMOGLOBIN 14.4 g/dl (14.0-17.9); LYMPHOCYTES # (AUTO) 0.8 X10'3 (1.1-4.8); LYMPHOCYTES % (AUTO) 12.8 % (21-51); MEAN CORPUSCULAR HEMOGLOBIN 27.4 PG (27.0-31.0); MEAN CORPUSCULAR HGB CONC 32.6 g/dL (33.0-36.5); MEAN CORPUSCULAR VOLUME 83.9 FL (78-98); MEAN PLATELET VOLUME 7.9 FL (7.4-10.4); MONOCYTES % (AUTO) 15.2 % (2-12); NEUTROPHILS # (AUTO) 4.5 X10'3 (1.8-7.7); NEUTROPHILS % (AUTO) 67.4 % (42-75); PLATELET COUNT 235 X10'3 (140-440); RED BLOOD COUNT 5.26 X10'6 (4.70-6.10); RED CELL DISTRIBUTION WIDTH 15.4 % (11.5-14.5); WHITE BLOOD COUNT 6.6 X10'3 (4.5-11.0)
[2019-06-24 05:30] LABS: ALBUMIN 2.6 G/DL (3.4-5.0); ANION GAP 3 (8-16); BLOOD UREA NITROGEN 33 MG/DL (7-18); BUN/CREATININE RATIO 24.1 (5.4-32.0); CALCIUM 8.2 MG/DL (8.5-10.1); CHLORIDE 102 MMOL/L (99-107); CREATININE 1.37 MG/DL (0.60-1.10); GLUCOSE 101 MG/DL (70-104); MAGNESIUM 1.9 MG/DL (1.5-2.4); POTASSIUM 5.2 MMOL/L (3.5-5.1); SODIUM 140 MMOL/L (135-145); TOTAL CARBON DIOXIDE 35.5 MMOL/L (24-32); eGFR 52 ML/MIN
--- NOTE | 2019-06-24 06:20 | NUR ---
Problems reprioritized. Patient report given, questions answered & plan of care reviewed with Agueda GREENE.
--- NOTE | 2019-06-24 06:47 | NUR ---
Patient in room JAMA 347. I have received report from JC Wheeler and had the opportunity to ask questions and assume patient care. Addendum: 06/24/19 at 0700 by Frieda Nieves RN please disregard, note made on incorrect patient
--- NOTE | 2019-06-24 07:09 | NUR ---
Patient in room JAMA 347. I have received report from JC Londono and had the opportunity to ask questions and assume patient care.
[2019-06-24] MEDS: budesonide 0.5mg/2ml UD nebule IH SCH ×2 (07:14→20:01)
[2019-06-24] MEDS: K and/or MAG REPLACEMENT MC SCH (08:00)
--- NOTE | 2019-06-24 09:00 | NUR ---
Patient was upset due to his breakfast tray being less food than he wanted. Patient stated that he is just going to leave if we are going to starve him. Patient was educated that he is on a heart healthy diet and we are trying to aware of all that we give him. Patient stated that he doesn't care about that and giving him "a piece of bread and some mush" is not going to fill him up and if we aren't going to feed him then we needed to pull his IV out and let him leave. Patient was encouraged to stay and was provided with some snack. Since patient refused tray a new breakfast tray was ordered. Patient agreed to stay.
[2019-06-24] MEDS: carVEDilol 3.125mg tablet PO SCH ×2 (09:04→20:33)
[2019-06-24] MEDS: furosemide 40mg/4ml inj IV SCH ×2 (09:04→20:33)
[2019-06-24] MEDS: nicotine 21mg patch - 24 hr TD SCH (09:04)
[2019-06-24 10:29] VITALS: BP 114/78
[2019-06-24 11:00] VITALS: BP 93/55
--- NOTE | 2019-06-24 18:05 | NUR ---
Patient in room JAMA 347. I have received report from Agueda GREENE and had the opportunity to ask questions and assume patient care.
--- NOTE | 2019-06-24 18:28 | NUR ---
Problems reprioritized. Patient report given, questions answered & plan of care reviewed with JC Farley .
[2019-06-24 20:00] VITALS: BP 111/72
[2019-06-25] VITALS: BP 95/62
[2019-06-25] MEDS: levalbuterol 0.63mg/3ml nebule IH SCH ×4 (02:41→22:28)
[2019-06-25 05:01] LABS: BASOPHILS # (AUTO) 0.1 X10'3 (0-0.2); BASOPHILS % (AUTO) 0.9 % (0-1); EOSINOPHILS # (AUTO) 0.3 X10'3 (0-0.9); EOSINOPHILS % (AUTO) 3.7 % (0-6); HEMATOCRIT 41.5 % (42.0-52.0); HEMOGLOBIN 13.7 g/dl (14.0-17.9); LYMPHOCYTES % (AUTO) 12.8 % (21-51); MEAN CORPUSCULAR HGB CONC 32.9 g/dL (33.0-36.5); MONOCYTES # (AUTO) 1.2 X10'3 (0-0.9); MONOCYTES % (AUTO) 15.2 % (2-12); NEUTROPHILS # (AUTO) 5.2 X10'3 (1.8-7.7); NEUTROPHILS % (AUTO) 67.4 % (42-75); PLATELET COUNT 241 X10'3 (140-440); RED BLOOD COUNT 5.06 X10'6 (4.70-6.10); RED CELL DISTRIBUTION WIDTH 14.9 % (11.5-14.5); WHITE BLOOD COUNT 7.7 X10'3 (4.5-11.0)
[2019-06-25 05:18] LABS: ALBUMIN 2.4 G/DL (3.4-5.0); ANION GAP 3 (8-16); BLOOD UREA NITROGEN 39 MG/DL (7-18); BUN/CREATININE RATIO 27.9 (5.4-32.0); CHLORIDE 97 MMOL/L (99-107); GLUCOSE 109 MG/DL (70-104); MAGNESIUM 1.9 MG/DL (1.5-2.4); POTASSIUM 4.5 MMOL/L (3.5-5.1); SODIUM 136 MMOL/L (135-145); TOTAL CARBON DIOXIDE 35.9 MMOL/L (24-32); eGFR 51 ML/MIN
--- NOTE | 2019-06-25 06:33 | NUR ---
Problems reprioritized. Patient report given, questions answered & plan of care reviewed with Gabriela GREENE.
--- NOTE | 2019-06-25 06:43 | NUR ---
Patient in room JAMA 347. I have received report from Miguelito GREENE and had the opportunity to ask questions and assume patient care.
[2019-06-25 07:00] VITALS: BP 115/79
[2019-06-25] MEDS: K and/or MAG REPLACEMENT MC SCH (08:00)
[2019-06-25] MEDS: budesonide 0.5mg/2ml UD nebule IH SCH ×2 (08:40→22:27)
[2019-06-25] MEDS: furosemide 40mg/4ml inj IV SCH ×2 (09:42→20:34)
[2019-06-25] MEDS: carVEDilol 3.125mg tablet PO SCH ×2 (09:43→20:34)
[2019-06-25] MEDS: nicotine 21mg patch - 24 hr TD SCH (09:43)
--- NOTE | 2019-06-25 18:10 | NUR ---
Patient in room JAMA 347. I have received report from Gabriela GREENE and had the opportunity to ask questions and assume patient care.
[2019-06-25 20:00] VITALS: BP 109/62
[2019-06-26] VITALS: BP 107/70
[2019-06-26] MEDS: levalbuterol 0.63mg/3ml nebule IH SCH ×4 (03:00→19:39)
--- NOTE | 2019-06-26 06:21 | NUR ---
Problems reprioritized. Patient report given, questions answered & plan of care reviewed with Gabriela GREENE.
[2019-06-26 06:43] LABS: ALBUMIN 2.5 G/DL (3.4-5.0); ANION GAP 4 (8-16); BLOOD UREA NITROGEN 40 MG/DL (7-18); CALCIUM 8.4 MG/DL (8.5-10.1); CHLORIDE 97 MMOL/L (99-107); CREATININE 1.48 MG/DL (0.60-1.10); GLUCOSE 117 MG/DL (70-104); MAGNESIUM 1.9 MG/DL (1.5-2.4); POTASSIUM 5.1 MMOL/L (3.5-5.1); SODIUM 136 MMOL/L (135-145); TOTAL CARBON DIOXIDE 35.1 MMOL/L (24-32); eGFR 48 ML/MIN
--- NOTE | 2019-06-26 06:48 | NUR ---
Patient in room JAMA 347. I have received report from Miguelito GREENE and had the opportunity to ask questions and assume patient care.
[2019-06-26 06:51] LABS: BASOPHILS # (AUTO) 0.1 X10'3 (0-0.2); BASOPHILS % (AUTO) 0.7 % (0-1); EOSINOPHILS # (AUTO) 0.3 X10'3 (0-0.9); EOSINOPHILS % (AUTO) 3.8 % (0-6); HEMATOCRIT 43.4 % (42.0-52.0); HEMOGLOBIN 14.5 g/dl (14.0-17.9); LYMPHOCYTES # (AUTO) 0.8 X10'3 (1.1-4.8); LYMPHOCYTES % (AUTO) 10.2 % (21-51); MEAN CORPUSCULAR HEMOGLOBIN 27.4 PG (27.0-31.0); MEAN CORPUSCULAR HGB CONC 33.3 g/dL (33.0-36.5); MEAN CORPUSCULAR VOLUME 82.2 FL (78-98); MEAN PLATELET VOLUME 8.3 FL (7.4-10.4); MONOCYTES % (AUTO) 11.7 % (2-12); NEUTROPHILS % (AUTO) 73.6 % (42-75); PLATELET COUNT 249 X10'3 (140-440); RED BLOOD COUNT 5.28 X10'6 (4.70-6.10); RED CELL DISTRIBUTION WIDTH 14.8 % (11.5-14.5); WHITE BLOOD COUNT 8.1 X10'3 (4.5-11.0)
[2019-06-26 07:00] VITALS: BP 121/80
[2019-06-26] MEDS: K and/or MAG REPLACEMENT MC SCH (08:00)
[2019-06-26] MEDS: budesonide 0.5mg/2ml UD nebule IH SCH ×2 (08:54→19:39)
[2019-06-26] MEDS: carVEDilol 3.125mg tablet PO SCH ×2 (09:25→19:18)
[2019-06-26] MEDS: furosemide 40mg/4ml inj IV SCH ×2 (09:25→19:18)
[2019-06-26] MEDS: nicotine 21mg patch - 24 hr TD SCH (09:26)
--- NOTE | 2019-06-26 10:17 | NUR ---
Patient on heart healthy diet with fluid restriction, 1800 ml for nursing. Patient has great appetite, eating 100% of meals. no nutrition problem at this time. Admitted with exacerbation of CHF, pt taking lasix, DARRYN, and meth abuse per MD note. Per MD note patient will discharge when approved for LifeVest. Will follow. Recommend: 1. continue heart healthy diet 2. continue fluid restriction per MD 3. Bowel care PRN 4. Weight per rx Addendum: 06/26/19 at [address] Amended: Links added.
[2019-06-26] MEDS ORDERED: FURO20TA4 PO (15:20)
[2019-06-26] MEDS ORDERED: ATOR20TA PO (15:20)
[2019-06-26] MEDS ORDERED: LISI-604 PO (15:20)
[2019-06-26] MEDS ORDERED: NICO-687 TD (15:20)
[2019-06-26] MEDS ORDERED: COR3.125T PO (15:20)
[2019-06-26] MEDS ORDERED: ASPI-611 PO (15:20)
--- NOTE | 2019-06-26 18:10 | NUR ---
Patient in room JAMA 347. I have received report from Gabriela GREENE and had the opportunity to ask questions and assume patient care.
[2019-06-26 20:22] VITALS: BP 107/62
[2019-06-27] VITALS: BP 113/72
[2019-06-27] MEDS: levalbuterol 0.63mg/3ml nebule IH SCH ×2 (02:17→09:00)
--- NOTE | 2019-06-27 06:22 | NUR ---
Problems reprioritized. Patient report given, questions answered & plan of care reviewed with Gabriela GREENE.
--- NOTE | 2019-06-27 06:41 | NUR ---
Patient in room JAMA 347. I have received report from Miguelito GREENE and had the opportunity to ask questions and assume patient care.
[2019-06-27] MEDS: furosemide 40mg/4ml inj IV SCH (07:06)
[2019-06-27] MEDS: carVEDilol 3.125mg tablet PO SCH (07:06)
[2019-06-27] MEDS: acetaminophen 325mg tablet PO PRN (07:07)
[2019-06-27] MEDS: nicotine 21mg patch - 24 hr TD SCH (07:07)
[2019-06-27] MEDS: budesonide 0.5mg/2ml UD nebule IH SCH (08:00)
--- NOTE | 2019-06-27 12:15 | NUR ---
Pt homeless, [facility]. Pt was offered vaccination, appropriate clothes for weather outside and a lunch bag. Pt declined clothes and vaccines. Pt took lunch and also given two bus passes, one for today to go home and one to go tomorrow to follow up with the [place] volcanology teacher. Pt was DC with a life best on which he was educated on and it required returned teaching. He did good, and was able to returned teachings. Pt given protective services social worker contact number for [place], so he can also be referred to a psychologist to help him with his PTSD d/t [place] was events. Pt was very receptive to discharge instructions and expressed understanding of the importance of following up with volcanology teacher. He refused to wear the life vest on his way home, stated he will put it on when he gets to the [facility]. IV cath was removed and was intact. He was wheeled out to the front where he went to the ER to get his bike and will catch the bus afterwards. Pt A & O and in no apparent pain.
== END 2019-06-27 12:00 | disposition home or self-care (01) | DRG 194 ==
LOC: ER 15:09 → EDBEDREQSVC 21:01 → SUR 3N 21:20 → CMPBEDREQ 22:50 → SUR 3N 06-22 11:38
PROVIDERS: ADMIT Hospitalist; ATTEND Family Medicine
DX: I50.23 Acute on chronic systolic (congestive) heart failure (principal); N17.9 Acute kidney failure, unspecified; I42.7 Cardiomyopathy due to drug and external agent; N18.3 Chronic kidney disease, stage 3 (moderate); F17.200 Nicotine dependence, unspecified, uncomplicated; F31.9 Bipolar disorder, unspecified; F60.9 Personality disorder, unspecified; F15.10 Other stimulant abuse, uncomplicated; F12.90 Cannabis use, unspecified, uncomplicated; E87.6 Hypokalemia; Z59.0 Homelessness; Z86.14 Personal history of Methicillin resistant Staphylococcus aureus infection; Z91.018 Allergy to other foods; Z56.0 Unemployment, unspecified; Z79.899 Other long term (current) drug therapy
CPT/HCPCS: 36415; 71045; 80048; 80053; 83735; 83880; 84100; 84484; 85025; 85610; 85730; 87081; 93005; 93306; 94640; 94760; 96374; 99285; G0378; J1940; J7614; J7626

== ENCOUNTER 2019-07-10 08:00 | Inpatient (IN) | payer MEDICAID ==
[~2019-07-10] VITALS: Ht 185.4 cm; Wt 88.0 kg
[~2019-07-10 08:00] MED LIST changes: +ALBU18HF2 INH; +ASPI-611 PO; +ATOR20TA PO; +COR3.125T PO; +FURO20TA4 PO; -IBUP-2697 PO; -LACT1CAP26 PO; +LISI-604 PO
[2019-07-10] MEDS ORDERED: methylPREDNISolone sod succ 125mg/2ml vial IV ONE (08:25)
[2019-07-10] MEDS ORDERED: ipratropium/albuterol 3ml nebule NEB ONE (08:25)
[2019-07-10] MEDS ORDERED: furosemide 10 MG/1 ML 10ml inj IV ONE (08:25)
[2019-07-10 08:34] LABS: BASOPHILS # (AUTO) 0.1 X10'3 (0-0.2); BASOPHILS % (AUTO) 0.6 % (0-1); EOSINOPHILS # (AUTO) 0.2 X10'3 (0-0.9); EOSINOPHILS % (AUTO) 1.9 % (0-6); HEMATOCRIT 39.2 % (42.0-52.0); HEMOGLOBIN 12.7 g/dl (14.0-17.9); LYMPHOCYTES # (AUTO) 0.6 X10'3 (1.1-4.8); LYMPHOCYTES % (AUTO) 7.1 % (21-51); MEAN CORPUSCULAR HEMOGLOBIN 27.1 PG (27.0-31.0); MEAN CORPUSCULAR HGB CONC 32.3 g/dL (33.0-36.5); MEAN CORPUSCULAR VOLUME 83.9 FL (78-98); MEAN PLATELET VOLUME 7.5 FL (7.4-10.4); MONOCYTES # (AUTO) 0.8 X10'3 (0-0.9); MONOCYTES % (AUTO) 8.8 % (2-12); NEUTROPHILS # (AUTO) 7.2 X10'3 (1.8-7.7); NEUTROPHILS % (AUTO) 81.6 % (42-75); PLATELET COUNT 291 X10'3 (140-440); RED BLOOD COUNT 4.68 X10'6 (4.70-6.10); RED CELL DISTRIBUTION WIDTH 15.8 % (11.5-14.5); WHITE BLOOD COUNT 8.9 X10'3 (4.5-11.0)
[2019-07-10 08:46] LABS: PARTIAL THROMBOPLASTIN TIME 32 SECONDS (22-32)
[2019-07-10 08:48] LABS: ALANINE AMINOTRANSFERASE 31 U/L (12-78); ALBUMIN 2.2 G/DL (3.4-5.0); ALBUMIN/GLOBULIN RATIO 0.4 (1.1-1.5); ALKALINE PHOSPHATASE 87 IU/L (46-116); ANION GAP 3 (8-16); ASPARTATE AMINO TRANSFERASE 26 U/L (10-37); BILIRUBIN,TOTAL 0.4 MG/DL (0.1-1.0); BLOOD UREA NITROGEN 15 MG/DL (7-18); BUN/CREATININE RATIO 15.6 (5.4-32.0); CALCIUM 7.8 MG/DL (8.5-10.1); CHLORIDE 104 MMOL/L (99-107); CREATININE 0.96 MG/DL (0.60-1.10); GLUCOSE 124 MG/DL (70-104); POTASSIUM 4.5 MMOL/L (3.5-5.1); SODIUM 139 MMOL/L (135-145); TOTAL PROTEIN 7.1 G/DL (6.4-8.2); eGFR 79 ML/MIN
[2019-07-10 09:03] LABS: CLARITY,URINE CLEAR (Clear); COLOR,URINE YELLOW (Yellow); GLUCOSE, URINE NEGATIVE (Neg); KETONES,URINE NEGATIVE (Neg); LEUKOCYTE ESTERASE ,URINE NEGATIVE (Neg); NITRITES, URINE NEGATIVE (Neg); OCCULT BLOOD,URINE NEGATIVE (Neg); PROTEIN,URINE 100 mg/dl (Neg); UROBILINOGEN,URINE 0.2 E.U/dL (0.2-1.0)
[2019-07-10 09:04] LABS: UA COLLECTION TYPE URINAL
[2019-07-10 09:10] LABS: BACTERIA,URINE NONE SEEN /HPF (Neg); MUCUS STRANDS NONE SEEN /LPF (Neg); RBC,URINE NONE SEEN /HPF (0-2); SQUAMOUS EPITHELIAL CELL,UR NONE SEEN /LPF (FEW); WBC,URINE 0-4 /HPF (0-4)
[2019-07-10 09:17] LABS: URINE AMPHETAMINE SCREEN NEGATIVE (Neg); URINE BARBITUATE SCREEN NEGATIVE (Neg); URINE BENZODIAZEPINES SCREEN NEGATIVE (Neg); URINE CANNABINOID SCREEN POSITIVE (Neg); URINE COCAINE SCREEN NEGATIVE (Neg); URINE METHADONE SCREEN NEGATIVE (Neg); URINE OPIATE SCREEN NEGATIVE (Neg); URINE PHENCYCLIDINE SCREEN NEGATIVE (Neg)
[2019-07-10] MEDS ORDERED: NO HOME MEDS (09:22)
[2019-07-10] MEDS ORDERED: nicotine 21mg patch - 24 hr TD ONE (09:30)
[2019-07-10] MEDS ORDERED: ondansetron/PF 4mg/2ml inj IV PRN (10:00)
[2019-07-10] MEDS ORDERED: magnesium 4gm in 100ml NS 100 ML IV PRN (10:00)
[2019-07-10] MEDS ORDERED: potassium CL 10mEq/100ml bag 100 ML IV PRN ×2 (10:00)
[2019-07-10] MEDS ORDERED: magnesium 2GM in 50ml NS 50 ML IV PRN (10:00)
[2019-07-10] MEDS ORDERED: acetaminophen 325mg tablet PO PRN ×2 (10:00)
[2019-07-10] MEDS ORDERED: morphine 2 MG/ML inj. syringe IV PRN ×2 (10:00)
[2019-07-10] MEDS ORDERED: HYDROcodone/acetaminophen 5mg/325mg tablet PO PRN (10:00)
[2019-07-10] MEDS ORDERED: HYDROcodone/acetaminophen 10/325mg tab PO PRN (10:00)
[2019-07-10] MEDS ORDERED: potassium Cl 20 mEq SR tablet PO PRN ×2 (10:00)
[2019-07-10] MEDS ORDERED: magnesium Cl slow-release 64mg tablet PO PRN (10:00)
[2019-07-10] MEDS ORDERED: LORazepam 2 mg/ml vial IV PRN (10:15)
[2019-07-10] MEDS ORDERED: LORazepam 1 MG tablet PO PRN (10:15)
[2019-07-10] MEDS: nicotine 14mg patch - 24hr TD SCH (10:30)
[2019-07-10] MEDS: lisinopril 5mg tablet PO SCH (10:33)
[2019-07-10] MEDS: aspirin 81mg tab.chew PO SCH (10:33)
[2019-07-10] MEDS: levoFLOXACIN-Levaquin 500mg/D5 100 ML IV SCH (10:34)
--- NOTE | 2019-07-10 11:30 | NUR ---
Received report from ED nurse, JC Gentile. 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 Patient has been non-compliant with medications and did not pick them up from the pharmacy after a recent admit and has not worn his life-vest. Will await patient arrival to the floor.
[2019-07-10] MEDS: albuterol 2.5 MG/3 ML nebule NEB SCH ×3 (11:42→19:30)
[2019-07-10 11:45] VITALS: BP 138/99
--- NOTE | 2019-07-10 11:45 | NUR ---
Patient arrived to the ACCE unit. Patient is stable adn ambulates into the room. Assessment completed and assumed care of this patient.
[2019-07-10 15:00] VITALS: BP 146/91
[2019-07-10 18:00] VITALS: BP 153/92
--- NOTE | 2019-07-10 18:00 | NUR ---
Patient in room MED 309. I have received report from Ramona GREENE and had the opportunity to ask questions and assume patient care.
--- NOTE | 2019-07-10 18:15 | NUR ---
Problems reprioritized. Patient report given, questions answered & plan of care reviewed with JC Rogel.
[2019-07-10] MEDS: heparin, porcine 5000 units/ml vial SQ SCH (20:52)
[2019-07-10] MEDS: furosemide 40mg/4ml inj IV SCH (20:53)
[2019-07-10] MEDS: carvedilol 6.25mg tablet PO SCH (20:53)
[2019-07-10] MEDS: docusate sod 100mg capsule PO SCH (20:53)
[2019-07-10] MEDS ORDERED: temazepam 15mg capsule PO PRN (21:00)
[2019-07-10 22:00] VITALS: BP 136/84
[2019-07-11 02:00] VITALS: BP 146/97
[2019-07-11] MEDS: albuterol 2.5 MG/3 ML nebule NEB SCH ×4 (04:00→11:18)
[2019-07-11 05:17] LABS: HEMOGLOBIN 13.2 g/dl (14.0-17.9)
[2019-07-11 05:19] LABS: BASOPHILS % (AUTO) 0.1 % (0-1); EOSINOPHILS % (AUTO) 0.1 % (0-6); HEMATOCRIT 40.2 % (42.0-52.0); LYMPHOCYTES # (AUTO) 0.7 X10'3 (1.1-4.8); LYMPHOCYTES % (AUTO) 6.4 % (21-51); MEAN CORPUSCULAR HEMOGLOBIN 27.3 PG (27.0-31.0); MEAN CORPUSCULAR HGB CONC 32.8 g/dL (33.0-36.5); MEAN CORPUSCULAR VOLUME 83.3 FL (78-98); MEAN PLATELET VOLUME 7.5 FL (7.4-10.4); MONOCYTES # (AUTO) 0.9 X10'3 (0-0.9); MONOCYTES % (AUTO) 8.3 % (2-12); NEUTROPHILS % (AUTO) 85.1 % (42-75); PLATELET COUNT 350 X10'3 (140-440); RED BLOOD COUNT 4.83 X10'6 (4.70-6.10); RED CELL DISTRIBUTION WIDTH 15.7 % (11.5-14.5); WHITE BLOOD COUNT 10.6 X10'3 (4.5-11.0)
[2019-07-11 05:53] LABS: ALANINE AMINOTRANSFERASE 24 U/L (12-78); ALBUMIN 2.3 G/DL (3.4-5.0); ALBUMIN/GLOBULIN RATIO 0.5 (1.1-1.5); ALKALINE PHOSPHATASE 77 IU/L (46-116); ANION GAP 6 (8-16); ASPARTATE AMINO TRANSFERASE 20 U/L (10-37); BILIRUBIN,TOTAL 0.4 MG/DL (0.1-1.0); BLOOD UREA NITROGEN 29 MG/DL (7-18); BUN/CREATININE RATIO 25.9 (5.4-32.0); CALCIUM 8.3 MG/DL (8.5-10.1); CHLORIDE 102 MMOL/L (99-107); CREATININE 1.12 MG/DL (0.60-1.10); GLUCOSE 152 MG/DL (70-104); MAGNESIUM 1.4 MG/DL (1.5-2.4); SODIUM 140 MMOL/L (135-145); TOTAL CARBON DIOXIDE 31.8 MMOL/L (24-32); TOTAL PROTEIN 7.3 G/DL (6.4-8.2); eGFR 66 ML/MIN
[2019-07-11 06:00] VITALS: BP 138/92
--- NOTE | 2019-07-11 06:30 | NUR ---
Problems reprioritized. Patient report given, questions answered & plan of care reviewed with Deejay.
--- NOTE | 2019-07-11 06:33 | NUR ---
Patient in room MED 309. I have received report from JC Rogel and had the opportunity to ask questions and assume patient care.
[2019-07-11] MEDS: docusate sod 100mg capsule PO SCH (07:45)
[2019-07-11] MEDS: lisinopril 5mg tablet PO SCH (07:45)
[2019-07-11] MEDS: carvedilol 6.25mg tablet PO SCH (07:45)
[2019-07-11] MEDS: furosemide 40mg/4ml inj IV SCH (07:46)
[2019-07-11] MEDS: aspirin 81mg tab.chew PO SCH (07:46)
[2019-07-11] MEDS: nicotine 14mg patch - 24hr TD SCH (07:46)
[2019-07-11] MEDS: heparin, porcine 5000 units/ml vial SQ SCH (08:00)
[2019-07-11] MEDS ORDERED: levoFLOXACIN-Levaquin 500mg/D5 100 ML IV SCH (08:00)
[2019-07-11] MEDS ORDERED: atorvastatin 20mg tablet PO SCH (08:00)
[2019-07-11] MEDS ORDERED: K and/or MAG REPLACEMENT MC SCH (08:00)
[2019-07-11] MEDS ORDERED: furosemide 40mg/4ml inj IV SCH (08:00)
[2019-07-11] MEDS: levoFLOXACIN-Levaquin 500mg/D5 100 ML IV SCH (08:53)
[2019-07-11 10:00] VITALS: BP 130/86
[2019-07-11] MEDS ORDERED: CARV6.253 PO (12:11)
[2019-07-11] MEDS ORDERED: LISI-642 PO (12:11)
[2019-07-11] MEDS ORDERED: ASPI-1265 PO (12:11)
[2019-07-11] MEDS ORDERED: ATOR20TA66 PO (12:11)
[2019-07-11] MEDS ORDERED: NICO-631 TD (12:11)
[2019-07-11] MEDS ORDERED: FURO20TA4 PO (12:11)
--- NOTE | 2019-07-11 13:55 | NUR ---
Patient discharged. PIV taken out and pads taken off. Packed up belongings and was given a bus pass. Given info on the [employer] [facility] and educated to see them within a week for CHF follow-up. Educated on meds, CHF, smoking cessation and quitting drugs. Wrist band cut off. Stable for DC per MD. Meds called into [facility]
== END 2019-07-11 13:53 | disposition home or self-care (01) | DRG 194 ==
LOC: ER 08:00 → ED HOLD 10:13 → MED 3N 11:35
PROVIDERS: ADMIT Internal Medicine; ATTEND Internal Medicine
DX: I13.0 Hypertensive heart and chronic kidney disease with heart failure and stage 1 through stage 4 chronic kidney disease, or unspecified chronic kidney disease (principal); I42.7 Cardiomyopathy due to drug and external agent; N18.3 Chronic kidney disease, stage 3 (moderate); F17.200 Nicotine dependence, unspecified, uncomplicated; I50.23 Acute on chronic systolic (congestive) heart failure; J44.9 Chronic obstructive pulmonary disease, unspecified; F12.90 Cannabis use, unspecified, uncomplicated; F15.90 Other stimulant use, unspecified, uncomplicated; Z91.018 Allergy to other foods; Z59.0 Homelessness; Z91.14 Patient's other noncompliance with medication regimen; Z91.19 Patient's noncompliance with other medical treatment and regimen; Z56.0 Unemployment, unspecified; Z86.14 Personal history of Methicillin resistant Staphylococcus aureus infection; Z79.899 Other long term (current) drug therapy
CPT/HCPCS: 36415; 71045; 80053; 80305; 81001; 83735; 83880; 84484; 85025; 85610; 85730; 87081; 93005; 94640; 94760; 96374; 96375; 99285; G0378; J1644; J1940; J1956; J2930

== ENCOUNTER 2019-07-12 10:49 | Emergency (ER) | payer MEDICAID ==
[~2019-07-12] VITALS: Ht 185.4 cm; Wt 8.0 kg
[~2019-07-12 10:49] MED LIST changes: +ASPI-1265 PO; +ATOR20TA66 PO; +CARV6.253 PO; +LISI-642 PO; +NICO-631 TD; +NO HOME MEDS
[2019-07-12] MEDS ORDERED: furosemide 10 MG/1 ML 10ml inj IV ONE (11:55)
[2019-07-12 12:14] LABS: BASOPHILS # (AUTO) 0.1 X10'3 (0-0.2); BASOPHILS % (AUTO) 1.1 % (0-1); EOSINOPHILS # (AUTO) 0.1 X10'3 (0-0.9); EOSINOPHILS % (AUTO) 1.9 % (0-6); HEMATOCRIT 39.1 % (42.0-52.0); HEMOGLOBIN 12.7 g/dl (14.0-17.9); LYMPHOCYTES # (AUTO) 0.8 X10'3 (1.1-4.8); LYMPHOCYTES % (AUTO) 11.1 % (21-51); MEAN CORPUSCULAR HEMOGLOBIN 26.9 PG (27.0-31.0); MEAN CORPUSCULAR HGB CONC 32.4 g/dL (33.0-36.5); MEAN PLATELET VOLUME 7.7 FL (7.4-10.4); MONOCYTES # (AUTO) 1.1 X10'3 (0-0.9); MONOCYTES % (AUTO) 15.5 % (2-12); NEUTROPHILS # (AUTO) 5.1 X10'3 (1.8-7.7); NEUTROPHILS % (AUTO) 70.4 % (42-75); PLATELET COUNT 330 X10'3 (140-440); RED BLOOD COUNT 4.71 X10'6 (4.70-6.10); RED CELL DISTRIBUTION WIDTH 15.7 % (11.5-14.5); WHITE BLOOD COUNT 7.3 X10'3 (4.5-11.0)
--- NOTE | 2019-07-12 12:22 | NUR ---
LOVECLAR AT BEDSIDE
[2019-07-12 12:24] LABS: ALANINE AMINOTRANSFERASE 23 U/L (12-78); ALBUMIN 2.3 G/DL (3.4-5.0); ALBUMIN/GLOBULIN RATIO 0.5 (1.1-1.5); ALKALINE PHOSPHATASE 74 IU/L (46-116); ANION GAP 5 (8-16); ASPARTATE AMINO TRANSFERASE 26 U/L (10-37); BILIRUBIN,TOTAL 0.3 MG/DL (0.1-1.0); BLOOD UREA NITROGEN 35 MG/DL (7-18); BUN/CREATININE RATIO 33.3 (5.4-32.0); CALCIUM 8.2 MG/DL (8.5-10.1); CHLORIDE 102 MMOL/L (99-107); CREATININE 1.05 MG/DL (0.60-1.10); GLUCOSE 88 MG/DL (70-104); POTASSIUM 4.1 MMOL/L (3.5-5.1); SODIUM 138 MMOL/L (135-145); TOTAL PROTEIN 6.9 G/DL (6.4-8.2); eGFR 71 ML/MIN
[2019-07-12] MEDS ORDERED: iohexol 350MG/ML 100ml bottle IV ONE (12:41)
--- NOTE | 2019-07-12 13:12 | NUR ---
PT TO CT
--- NOTE | 2019-07-12 14:11 | NUR ---
SWETA LEBLANC NOTIFIED THAT PT WANT TO LEAVE AMA.
[2019-07-12 14:54] VITALS: BP 126/89
== END 2019-07-12 14:56 | disposition home or self-care (01) ==
LOC: ER 10:49
DX: R22.42 Localized swelling, mass and lump, left lower limb (principal); R60.0 Localized edema; I11.0 Hypertensive heart disease with heart failure; I50.9 Heart failure, unspecified; J44.9 Chronic obstructive pulmonary disease, unspecified; F12.90 Cannabis use, unspecified, uncomplicated; F15.90 Other stimulant use, unspecified, uncomplicated; Z59.0 Homelessness; Z56.0 Unemployment, unspecified; Z98.890 Other specified postprocedural states; Z90.89 Acquired absence of other organs; Z86.14 Personal history of Methicillin resistant Staphylococcus aureus infection; Z79.82 Long term (current) use of aspirin; Z79.899 Other long term (current) drug therapy; Z91.018 Allergy to other foods
CPT/HCPCS: 71045; 71260; 80053; 83880; 85025; 85379; 93971; 96374; 99284; J1940; Q9967; 93005

== ENCOUNTER 2019-07-29 19:52 | Emergency (ER) | payer MEDICAID ==
[~2019-07-29] VITALS: Ht 185.4 cm; Wt 86.0 kg
[~2019-07-29 19:52] MED LIST changes: -ALBU18HF2 INH; -ASPI-611 PO; -ATOR20TA PO; -COR3.125T PO; -LISI-604 PO; -NICO-687 TD; -NO HOME MEDS
[2019-07-29] MEDS ORDERED: CEPH250T PO (20:40)
[2019-07-29 21:16] VITALS: BP 113/78
== END 2019-07-29 21:19 | disposition home or self-care (01) ==
LOC: ER 19:52
DX: L03.116 Cellulitis of left lower limb (principal); I11.0 Hypertensive heart disease with heart failure; I50.9 Heart failure, unspecified; J44.9 Chronic obstructive pulmonary disease, unspecified; F12.90 Cannabis use, unspecified, uncomplicated; F15.90 Other stimulant use, unspecified, uncomplicated; Z59.0 Homelessness; Z56.0 Unemployment, unspecified; Z98.890 Other specified postprocedural states; Z90.89 Acquired absence of other organs; Z86.14 Personal history of Methicillin resistant Staphylococcus aureus infection; Z91.018 Allergy to other foods; Z79.82 Long term (current) use of aspirin; Z79.899 Other long term (current) drug therapy
CPT/HCPCS: 99283

== ENCOUNTER 2019-12-29 14:38 | Inpatient (IN) | payer MEDICAID ==
[~2019-12-29] VITALS: Ht 185.4 cm; Wt 93.2 kg
[~2019-12-29 14:38] MED LIST changes: +OLAN2.5T28 PO
[2019-12-29] MEDS ORDERED: ipratropium/albuterol 3ml nebule NEB ONE (14:55)
[2019-12-29] MEDS ORDERED: furosemide 10 MG/1 ML 10ml inj IV ONE (14:55)
[2019-12-29] MEDS ORDERED: dexamethasone sod phosphate 10mg/ml inj PO STA (14:55)
[2019-12-29 15:10] LABS: BASOPHILS # (AUTO) 0.1 X10'3 (0-0.2); EOSINOPHILS # (AUTO) 0.2 X10'3 (0-0.9); EOSINOPHILS % (AUTO) 2.5 % (0-6); HEMATOCRIT 41.7 % (42.0-52.0); HEMOGLOBIN 12.9 g/dl (14.0-17.9); LYMPHOCYTES # (AUTO) 0.9 X10'3 (1.1-4.8); LYMPHOCYTES % (AUTO) 11.9 % (21-51); MEAN CORPUSCULAR HEMOGLOBIN 25.6 PG (27.0-31.0); MEAN CORPUSCULAR HGB CONC 30.9 g/dL (33.0-36.5); MEAN CORPUSCULAR VOLUME 82.8 FL (78-98); MEAN PLATELET VOLUME 7.8 FL (7.4-10.4); MONOCYTES # (AUTO) 1.1 X10'3 (0-0.9); MONOCYTES % (AUTO) 13.7 % (2-12); NEUTROPHILS # (AUTO) 5.5 X10'3 (1.8-7.7); NEUTROPHILS % (AUTO) 70.9 % (42-75); PLATELET COUNT 173 X10'3 (140-440); RED BLOOD COUNT 5.03 X10'6 (4.70-6.10); RED CELL DISTRIBUTION WIDTH 16.3 % (11.5-14.5); WHITE BLOOD COUNT 7.7 X10'3 (4.5-11.0)
--- NOTE | 2019-12-29 15:14 | NUR ---
RT AT BEDSIDE
--- NOTE | 2019-12-29 15:19 | NUR ---
SPOKE TO DR FUNG RE: PT 02, HE DROPS DOWN TO HIGH 80'S WHEN DOING ANYTHING, WAS TRYING TO GET HIS WALLET OUT OF HIS BACK POCKET AND DROPPED DOWN, RT AT BEDSIDE, WILL RE EVAL NEED FOR 02
[2019-12-29 15:25] LABS: ALANINE AMINOTRANSFERASE 29 U/L (12-78); ALBUMIN 2.1 G/DL (3.4-5.0); ALBUMIN/GLOBULIN RATIO 0.6 (1.1-1.5); ALKALINE PHOSPHATASE 82 IU/L (46-116); ANION GAP 0 (8-16); ASPARTATE AMINO TRANSFERASE 28 U/L (10-37); BILIRUBIN,TOTAL 0.4 MG/DL (0.1-1.0); BLOOD UREA NITROGEN 17 MG/DL (7-18); BUN/CREATININE RATIO 18.1 (5.4-32.0); CALCIUM 7.6 MG/DL (8.5-10.1); CHLORIDE 105 MMOL/L (99-107); CREATININE 0.94 MG/DL (0.60-1.10); GLUCOSE 101 MG/DL (70-104); POTASSIUM 4.4 MMOL/L (3.5-5.1); SODIUM 142 MMOL/L (135-145); TOTAL CARBON DIOXIDE 37.2 MMOL/L (24-32); TOTAL PROTEIN 5.9 G/DL (6.4-8.2); eGFR 81 ML/MIN
[2019-12-29 15:34] LABS: MAGNESIUM 1.7 MG/DL (1.5-2.4)
--- NOTE | 2019-12-29 15:50 | NUR ---
PT REQ WATER, ASKED DR FUNG IF IT WAS OK, HE WAS GIVEN PITCHER OF WATER
--- NOTE | 2019-12-29 15:51 | NUR ---
GAVE PT URINAL
--- NOTE | 2019-12-29 16:05 | NUR ---
02 SAT DROPPED TO 87% PLACED HIM BACK ON 2L N/C SAT 97%
[2019-12-29] MEDS ORDERED: magnesium 2GM in 50ml NS 50 ML IV ONE (16:35)
[2019-12-29] MEDS ORDERED: methylPREDNISolone sod succ 125mg/2ml vial IV ONE (16:35)
[2019-12-29] MEDS ORDERED: CARV3.122 PO (17:51)
[2019-12-29] MEDS ORDERED: ATOR20TA PO (17:51)
[2019-12-29] MEDS ORDERED: ASPI-1265 PO (17:51)
[2019-12-29] MEDS ORDERED: FURO-150 PO (17:54)
[2019-12-29] MEDS ORDERED: OLAN5TAB5 PO (17:54)
[2019-12-29] MEDS ORDERED: LISI-604 PO (17:54)
[2019-12-29 17:55] LABS: ABG BASE EXCESS 4.3 mmol/L (-2.0-3.0); ABG HCO3 33.6 mmol/L (22.0-26.0); ABG OXYGEN SATURATION 96.7 % (95-98); ABG PCO2 (T) 73.4 mmHg (35.0-45.0); ABG PH (T) 7.278 (7.350-7.450); ABG PO2 (T) 96.9 mmHg (83-108); ALLEN'S TEST POSITIVE; FCOHb 2.4 % (0.5-1.5); FLOW 4 L/min; FMetHb 0.2 % (0.3-1.12); FO2Hb 94.2 % (94-100); TOTAL HEMOGLOBIN 13.9 G/dl (14.0-17.9)
[2019-12-29] MEDS ORDERED: LORazepam 2 mg/ml vial IV ONE (18:10)
[2019-12-29 21:11] LABS: ABG BASE EXCESS 3.9 mmol/L (-2.0-3.0); ABG HCO3 34.8 mmol/L (22.0-26.0); ABG OXYGEN SATURATION 91.4 % (95-98); ABG PCO2 (T) 84.9 mmHg (35.0-45.0); ABG PH (T) 7.231 (7.350-7.450); ABG PO2 (T) 67.2 mmHg (83-108); ALLEN'S TEST POSITIVE; FMetHb 0.3 % (0.3-1.12); FO2Hb 89.3 % (94-100); RESPIRATORY RATE 16 b/min; TOTAL HEMOGLOBIN 15.5 G/dl (14.0-17.9)
[2019-12-30 00:01] LABS: ABG BASE EXCESS 3.7 mmol/L (-2.0-3.0); ABG HCO3 31.6 mmol/L (22.0-26.0); ABG PCO2 (T) 61.4 mmHg (35.0-45.0); ABG PH (T) 7.327 (7.350-7.450); ABG PO2 (T) 65.9 mmHg (83-108); ALLEN'S TEST POSITIVE; FCOHb 2.1 % (0.5-1.5); FMetHb 0.1 % (0.3-1.12); PATIENT TEMPERATURE 36.5; RESPIRATORY RATE 22 b/min
[2019-12-30] MEDS ORDERED: albuterol 2.5 MG/3 ML nebule NEB PRN ×2 (00:30)
[2019-12-30] MEDS ORDERED: potassium Cl 20 mEq SR tablet PO PRN ×2 (00:30)
[2019-12-30] MEDS ORDERED: ondansetron/PF 4mg/2ml inj IV PRN (00:30)
[2019-12-30] MEDS ORDERED: magnesium 4gm in 100ml NS 100 ML IV PRN (00:30)
[2019-12-30] MEDS ORDERED: magnesium Cl slow-release 64mg tablet PO PRN (00:30)
[2019-12-30] MEDS ORDERED: potassium CL 10mEq/100ml bag 100 ML IV PRN ×2 (00:30)
[2019-12-30] MEDS ORDERED: acetaminophen 325mg tablet PO PRN (00:30)
[2019-12-30] MEDS ORDERED: magnesium 2GM in 50ml NS 50 ML IV PRN (00:30)
--- NOTE | 2019-12-30 00:46 | NUR ---
PATIENT BELONGINGS FOUND SMALL AMOUNT OF MARIJUANA, CALLED SECURITY AND CHARGE NURSE, CN AWARE SECURITY OBTAINED MARIJUANA AND DISPOSED OF IT APPROPRIATLY
[2019-12-30 01:30] VITALS: BP 135/95
[2019-12-30] MEDS: ipratropium/albuterol 3ml nebule NEB SCH ×7 (02:59→23:08)
--- NOTE | 2019-12-30 04:32 | NUR ---
I attempted to draw follow up abg with help from RN. Pt became belligerent. Earlier pt was extremely belligerent when drawing abg in ED. RN and I decided to wait to draw ABG until ativan has worn off and pt is more awake and cooperative. Pt currently sleeping comfortably on BIPAP
--- NOTE | 2019-12-30 06:22 | NUR ---
Patient in room PCU 3024. I have received report from JC Carrizales and had the opportunity to ask questions and assume patient care.
[2019-12-30 07:00] VITALS: BP 124/89
[2019-12-30 07:30] LABS: ABG BASE EXCESS 7.3 mmol/L (-2.0-3.0); ABG HCO3 36.6 mmol/L (22.0-26.0); ABG OXYGEN SATURATION 93.4 % (95-98); ABG PCO2 (T) 76.1 mmHg (35.0-45.0); ABG PO2 (T) 73.4 mmHg (83-108); ALLEN'S TEST POSITIVE; FCOHb 1.1 % (0.5-1.5); FLOW 2 L/min; FMetHb 0.3 % (0.3-1.12); FO2Hb 92.1 % (94-100); TOTAL HEMOGLOBIN 13.9 G/dl (14.0-17.9)
[2019-12-30] MEDS ORDERED: carvedilol 6.25mg tablet PO SCH (08:00)
[2019-12-30] MEDS ORDERED: aspirin 81mg tab.chew PO SCH (08:00)
[2019-12-30] MEDS ORDERED: lisinopril 5mg tablet PO SCH (08:00)
[2019-12-30] MEDS ORDERED: OLANZapine 2.5MG tablet PO SCH (08:00)
[2019-12-30] MEDS: methylPREDNISolone sod succ/PF 40mg inj. IV SCH ×2 (08:38→20:34)
[2019-12-30] MEDS: lisinopril 5mg tablet PO SCH (08:38)
[2019-12-30] MEDS: atorvastatin 20mg tablet PO SCH ×2 (08:38→20:35)
[2019-12-30] MEDS: OLANZapine 2.5MG tablet PO SCH (08:38)
[2019-12-30] MEDS: carVEDilol 3.125mg tablet PO SCH ×2 (08:39→20:35)
[2019-12-30] MEDS: aspirin 81mg tab.chew PO SCH (08:39)
--- NOTE | 2019-12-30 08:39 | NUR ---
Pt refuses BIPAP to be placed.
[2019-12-30] MEDS: heparin, porcine 5000 units/ml vial SQ SCH ×2 (08:40→20:34)
[2019-12-30] MEDS: nicotine 14mg patch - 24hr TD SCH (08:40)
[2019-12-30] MEDS: furosemide 40mg/4ml inj IV SCH ×2 (08:41→20:34)
[2019-12-30] MEDS: K and/or MAG REPLACEMENT MC SCH ×2 (08:41→20:00)
--- NOTE | 2019-12-30 09:19 | NUR ---
Per Arvin, new orders for a tox screen and ethanol screen for ETOH
[2019-12-30 11:00] VITALS: BP 113/83
[2019-12-30 11:53] LABS: URINE AMPHETAMINE SCREEN NEGATIVE (Neg); URINE BARBITUATE SCREEN NEGATIVE (Neg); URINE BENZODIAZEPINES SCREEN NEGATIVE (Neg); URINE CANNABINOID SCREEN POSITIVE (Neg); URINE COCAINE SCREEN NEGATIVE (Neg); URINE METHADONE SCREEN NEGATIVE (Neg); URINE OPIATE SCREEN NEGATIVE (Neg); URINE PHENCYCLIDINE SCREEN NEGATIVE (Neg)
[2019-12-30 15:00] VITALS: BP 105/70
[2019-12-30 18:00] VITALS: BP 116/75
--- NOTE | 2019-12-30 18:29 | NUR ---
Patient in room PCU 3024. I have received report from JC Carrington and had the opportunity to ask questions and assume patient care. During handoff, nurse was unable to put patient on Bipap during AM shift due to refusal.
--- NOTE | 2019-12-30 18:29 | NUR ---
Problems reprioritized. Patient report given, questions answered & plan of care reviewed with JC Campuzano.
--- NOTE | 2019-12-30 19:36 | NUR ---
pt awake and alert sitting at bedside eating a sandwich. pt told me (RT) he would try and wear the bipap for sleep tonight
[2019-12-30] MEDS: LORazepam 2 mg/ml vial IV PRN (20:41)
[2019-12-30 22:00] VITALS: BP 109/63
[2019-12-31 02:00] VITALS: BP 117/81
[2019-12-31] MEDS: ipratropium/albuterol 3ml nebule NEB SCH ×6 (02:57→23:24)
[2019-12-31 06:00] VITALS: BP 124/89
--- NOTE | 2019-12-31 06:03 | NUR ---
Problems reprioritized. Patient report given, questions answered & plan of care reviewed with JC Carrington.
--- NOTE | 2019-12-31 06:07 | NUR ---
Patient in room PCU 3024. I have received report from JC Campuzano and had the opportunity to ask questions and assume patient care.
[2019-12-31 06:17] LABS: BASOPHILS % (AUTO) 0.1 % (0-1); EOSINOPHILS % (AUTO) 0 % (0-6); HEMATOCRIT 40.2 % (42.0-52.0); HEMOGLOBIN 12.8 g/dl (14.0-17.9); LYMPHOCYTES # (AUTO) 0.4 X10'3 (1.1-4.8); LYMPHOCYTES % (AUTO) 3.9 % (21-51); MEAN CORPUSCULAR HEMOGLOBIN 26.2 PG (27.0-31.0); MEAN CORPUSCULAR HGB CONC 31.9 g/dL (33.0-36.5); MEAN PLATELET VOLUME 8.5 FL (7.4-10.4); MONOCYTES # (AUTO) 0.4 X10'3 (0-0.9); MONOCYTES % (AUTO) 3.6 % (2-12); NEUTROPHILS # (AUTO) 9.3 X10'3 (1.8-7.7); NEUTROPHILS % (AUTO) 92.4 % (42-75); PLATELET COUNT 201 X10'3 (140-440); RED CELL DISTRIBUTION WIDTH 16.7 % (11.5-14.5); WHITE BLOOD COUNT 10.1 X10'3 (4.5-11.0)
[2019-12-31 06:45] LABS: ALBUMIN 2.2 G/DL (3.4-5.0); ANION GAP 0 (8-16); BLOOD UREA NITROGEN 38 MG/DL (7-18); BUN/CREATININE RATIO 29.2 (5.4-32.0); CHLORIDE 99 MMOL/L (99-107); GLUCOSE 175 MG/DL (70-104); MAGNESIUM 1.8 MG/DL (1.5-2.4); SODIUM 136 MMOL/L (135-145); TOTAL CARBON DIOXIDE 36.8 MMOL/L (24-32); eGFR 56 ML/MIN
[2019-12-31] MEDS: aspirin 81mg tab.chew PO SCH (08:25)
[2019-12-31] MEDS: OLANZapine 2.5MG tablet PO SCH (08:25)
[2019-12-31] MEDS: atorvastatin 20mg tablet PO SCH ×2 (08:25→20:43)
[2019-12-31] MEDS: carVEDilol 3.125mg tablet PO SCH ×2 (08:25→20:43)
[2019-12-31] MEDS: lisinopril 5mg tablet PO SCH (08:25)
[2019-12-31] MEDS: heparin, porcine 5000 units/ml vial SQ SCH ×2 (08:26→20:43)
[2019-12-31] MEDS: methylPREDNISolone sod succ/PF 40mg inj. IV SCH ×2 (08:26→20:43)
[2019-12-31] MEDS: K and/or MAG REPLACEMENT MC SCH ×2 (08:26→20:00)
[2019-12-31] MEDS: nicotine 14mg patch - 24hr TD SCH (08:29)
[2019-12-31] MEDS: furosemide 40mg/4ml inj IV SCH ×2 (08:32→20:44)
--- NOTE | 2019-12-31 09:43 | NUR ---
Paged Arvin PAGER ID: [phone] MESSAGE: [id number]: Nico Nnamdi - Pt reports 7/10 shoulder pain but does not have any pain meds. Kindly advise! -Charissa [phone]
[2019-12-31] MEDS: HYDROcodone/acetaminophen 5mg/325mg tablet PO PRN ×2 (10:14→21:36)
[2019-12-31 11:00] VITALS: BP 123/87
[2019-12-31 17:00] VITALS: BP 130/85
[2019-12-31 18:00] VITALS: BP 123/73
--- NOTE | 2019-12-31 18:11 | NUR ---
Problems reprioritized. Patient report given, questions answered & plan of care reviewed with JC Campuzano.
--- NOTE | 2019-12-31 18:20 | NUR ---
Patient in room PCU 3024. I have received report from JC Carrington and had the opportunity to ask questions and assume patient care.
[2019-12-31] MEDS: LORazepam 2 mg/ml vial IV PRN (20:44)
[2019-12-31 22:00] VITALS: BP 124/71
[2020-01-01] MEDS: LORazepam 2 mg/ml vial IV PRN (00:58)
[2020-01-01 02:00] VITALS: BP 132/81
[2020-01-01] MEDS: ipratropium/albuterol 3ml nebule NEB SCH ×6 (03:25→23:33)
[2020-01-01 05:51] LABS: BASOPHILS % (AUTO) 0 % (0-1); EOSINOPHILS % (AUTO) 0 % (0-6); HEMATOCRIT 44.8 % (42.0-52.0); HEMOGLOBIN 14.1 g/dl (14.0-17.9); LYMPHOCYTES # (AUTO) 0.4 X10'3 (1.1-4.8); LYMPHOCYTES % (AUTO) 3.4 % (21-51); MEAN CORPUSCULAR HEMOGLOBIN 25.5 PG (27.0-31.0); MEAN CORPUSCULAR HGB CONC 31.5 g/dL (33.0-36.5); MEAN CORPUSCULAR VOLUME 80.9 FL (78-98); MEAN PLATELET VOLUME 8.4 FL (7.4-10.4); MONOCYTES # (AUTO) 0.5 X10'3 (0-0.9); MONOCYTES % (AUTO) 4.4 % (2-12); NEUTROPHILS # (AUTO) 10.5 X10'3 (1.8-7.7); NEUTROPHILS % (AUTO) 92.2 % (42-75); PLATELET COUNT 219 X10'3 (140-440); RED BLOOD COUNT 5.54 X10'6 (4.70-6.10); RED CELL DISTRIBUTION WIDTH 16.6 % (11.5-14.5); WHITE BLOOD COUNT 11.4 X10'3 (4.5-11.0)
[2020-01-01 06:10] LABS: ALBUMIN 2.5 G/DL (3.4-5.0); ANION GAP 1 (8-16); BLOOD UREA NITROGEN 41 MG/DL (7-18); CALCIUM 8.7 MG/DL (8.5-10.1); CHLORIDE 99 MMOL/L (99-107); CREATININE 1.17 MG/DL (0.60-1.10); GLUCOSE 121 MG/DL (70-104); MAGNESIUM 2.1 MG/DL (1.5-2.4); POTASSIUM 4.8 MMOL/L (3.5-5.1); SODIUM 137 MMOL/L (135-145); TOTAL CARBON DIOXIDE 37.4 MMOL/L (24-32); eGFR 63 ML/MIN
--- NOTE | 2020-01-01 06:20 | NUR ---
Problems reprioritized. Patient report given, questions answered & plan of care reviewed with JC Carrington.
--- NOTE | 2020-01-01 06:25 | NUR ---
Patient in room PCU 3024. I have received report from JC Campuzano and had the opportunity to ask questions and assume patient care.
[2020-01-01 07:00] VITALS: BP 142/99
--- NOTE | 2020-01-01 07:30 | NUR ---
Pt refuses IV meds
[2020-01-01] MEDS: OLANZapine 2.5MG tablet PO SCH (07:39)
[2020-01-01] MEDS: lisinopril 5mg tablet PO SCH (07:39)
[2020-01-01] MEDS: carVEDilol 3.125mg tablet PO SCH ×2 (07:39→19:09)
[2020-01-01] MEDS: nicotine 14mg patch - 24hr TD SCH (07:39)
[2020-01-01] MEDS: aspirin 81mg tab.chew PO SCH (07:39)
[2020-01-01] MEDS: atorvastatin 20mg tablet PO SCH ×2 (07:39→20:31)
[2020-01-01] MEDS: heparin, porcine 5000 units/ml vial SQ SCH ×3 (07:44→19:10)
[2020-01-01] MEDS: methylPREDNISolone sod succ/PF 40mg inj. IV SCH (07:45)
[2020-01-01] MEDS: furosemide 40mg/4ml inj IV SCH (07:45)
[2020-01-01] MEDS: K and/or MAG REPLACEMENT MC SCH ×2 (08:00→20:00)
--- NOTE | 2020-01-01 10:10 | NUR ---
Jiad Latoya PAGER ID: [phone] MESSAGE: [id number]: Nnamdi Nico - Pt is on a HH diet, but orders don't specify a dry tray. Dietary has been giving pt dry tray. No fluid restriction orders as well. Kindly advise! -Charissa [phone]
--- NOTE | 2020-01-01 10:37 | NUR ---
PT refused assessment. States that hes going to leave after he speaks to
[2020-01-01 11:00] VITALS: BP 127/83
[2020-01-01] MEDS ORDERED: IPRA3AMP9 NEB (12:20)
[2020-01-01] MEDS ORDERED: PRED20TA PO (12:20)
--- NOTE | 2020-01-01 12:37 | NUR ---
New orders from Latoya to place pt on fluid restriction of 2200cc/day
--- NOTE | 2020-01-01 12:53 | NUR ---
PAGER ID: [phone] MESSAGE: [phone]: Nico Coto: Pt is wanting to speak to you. Wanting to leave LINDEN -[id number]
[2020-01-01] MEDS: furosemide 40mg tablet PO SCH (12:59)
--- NOTE | 2020-01-01 13:14 | NUR ---
PAGER ID: [phone] MESSAGE: [id number]: Nico ABBOTT pt refuses ABGs to be drawn -Charissa [phone]
--- NOTE | 2020-01-01 13:15 | NUR ---
Pt refused abgs to be drawn per RT. States pt wants to speak to MD regarding getting his prescriptions. Wants to leave AMA.
[2020-01-01 15:00] VITALS: BP 112/63
--- NOTE | 2020-01-01 16:44 | NUR ---
Pt declined abgs to be drawn a second time. Breathing treatment given. Pt continuously asking for fluids and food.
--- NOTE | 2020-01-01 16:53 | NUR ---
Dr. Klein ordered ABG on patient, patient mario refuses ABG. Reported to Charissa Desir RN twice of patients refusal
[2020-01-01 18:00] VITALS: BP 124/75
--- NOTE | 2020-01-01 18:12 | NUR ---
Patient in room PCU 3024. I have received report from JC Carrington and had the opportunity to ask questions and assume patient care.
--- NOTE | 2020-01-01 18:12 | NUR ---
Problems reprioritized. Patient report given, questions answered & plan of care reviewed with JC Campuzano.
[2020-01-01] MEDS: HYDROcodone/acetaminophen 5mg/325mg tablet PO PRN (19:09)
[2020-01-01 22:00] VITALS: BP 122/83
[2020-01-02 02:00] VITALS: BP 101/65
[2020-01-02] MEDS: ipratropium/albuterol 3ml nebule NEB SCH ×6 (03:00→23:00)
[2020-01-02] MEDS: HYDROcodone/acetaminophen 5mg/325mg tablet PO PRN ×3 (03:30→19:23)
[2020-01-02 06:02] LABS: BASOPHILS % (AUTO) 0.5 % (0-1); EOSINOPHILS # (AUTO) 0.1 X10'3 (0-0.9); EOSINOPHILS % (AUTO) 0.7 % (0-6); HEMATOCRIT 44.7 % (42.0-52.0); LYMPHOCYTES # (AUTO) 0.9 X10'3 (1.1-4.8); MEAN CORPUSCULAR HEMOGLOBIN 25.9 PG (27.0-31.0); MEAN CORPUSCULAR HGB CONC 31.3 g/dL (33.0-36.5); MEAN CORPUSCULAR VOLUME 82.8 FL (78-98); MEAN PLATELET VOLUME 8.4 FL (7.4-10.4); MONOCYTES # (AUTO) 1.5 X10'3 (0-0.9); MONOCYTES % (AUTO) 17.4 % (2-12); NEUTROPHILS # (AUTO) 5.9 X10'3 (1.8-7.7); NEUTROPHILS % (AUTO) 70.4 % (42-75); PLATELET COUNT 193 X10'3 (140-440); RED CELL DISTRIBUTION WIDTH 16.9 % (11.5-14.5); WHITE BLOOD COUNT 8.3 X10'3 (4.5-11.0)
--- NOTE | 2020-01-02 06:07 | NUR ---
Problems reprioritized. Patient report given, questions answered & plan of care reviewed with JC Betancourt.
[2020-01-02 06:27] LABS: ALBUMIN 2.3 G/DL (3.4-5.0); ANION GAP 1 (8-16); BLOOD UREA NITROGEN 41 MG/DL (7-18); BUN/CREATININE RATIO 40.6 (5.4-32.0); CALCIUM 8.1 MG/DL (8.5-10.1); CHLORIDE 100 MMOL/L (99-107); CREATININE 1.01 MG/DL (0.60-1.10); GLUCOSE 102 MG/DL (70-104); MAGNESIUM 2.1 MG/DL (1.5-2.4); POTASSIUM 4.3 MMOL/L (3.5-5.1); SODIUM 138 MMOL/L (135-145); TOTAL CARBON DIOXIDE 36.7 MMOL/L (24-32); eGFR 75 ML/MIN
[2020-01-02 07:00] VITALS: BP 111/71
[2020-01-02] MEDS: heparin, porcine 5000 units/ml vial SQ SCH ×2 (07:20→19:24)
[2020-01-02] MEDS: furosemide 40mg tablet PO SCH (07:21)
[2020-01-02] MEDS: lisinopril 5mg tablet PO SCH (07:21)
[2020-01-02] MEDS: OLANZapine 2.5MG tablet PO SCH (07:21)
[2020-01-02] MEDS: atorvastatin 20mg tablet PO SCH ×2 (07:22→21:33)
[2020-01-02] MEDS: carVEDilol 3.125mg tablet PO SCH ×2 (07:22→19:23)
[2020-01-02] MEDS: nicotine 14mg patch - 24hr TD SCH (07:23)
[2020-01-02] MEDS: aspirin 81mg tab.chew PO SCH (07:34)
[2020-01-02] MEDS: predniSONE 20 mg tablet PO SCH (07:36)
[2020-01-02] MEDS: K and/or MAG REPLACEMENT MC SCH ×2 (08:00→20:00)
[2020-01-02 10:16] LABS: TOTAL CELLS COUNTED 100
[2020-01-02 10:19] LABS: ANISOCYTOSIS 1+; HYPOCHROMASIA 1+; PLATELET ESTIMATE NORMAL; POLYCHROMASIA FEW; STOMATOCYTES FEW
[2020-01-02 15:00] VITALS: BP 124/69
--- NOTE | 2020-01-02 18:28 | NUR ---
Problems reprioritized. Patient report given, questions answered & plan of care reviewed with JC Bay. Patient stable at transfer of care.
--- NOTE | 2020-01-02 18:30 | NUR ---
Patient in room PCU 3024. I have received report from Asia GREENE and had the opportunity to ask questions and assume patient care.
[2020-01-02 19:00] VITALS: BP 126/76
[2020-01-02 23:00] VITALS: BP 128/79
[2020-01-03 02:00] VITALS: BP 137/94
[2020-01-03] MEDS: ipratropium/albuterol 3ml nebule NEB SCH ×4 (03:00→15:01)
[2020-01-03 06:14] LABS: BASOPHILS % (AUTO) 0.5 % (0-1); EOSINOPHILS # (AUTO) 0.1 X10'3 (0-0.9); EOSINOPHILS % (AUTO) 1.5 % (0-6); HEMATOCRIT 43.8 % (42.0-52.0); HEMOGLOBIN 13.7 g/dl (14.0-17.9); LYMPHOCYTES # (AUTO) 1.1 X10'3 (1.1-4.8); LYMPHOCYTES % (AUTO) 14.5 % (21-51); MEAN CORPUSCULAR HEMOGLOBIN 25.6 PG (27.0-31.0); MEAN CORPUSCULAR HGB CONC 31.2 g/dL (33.0-36.5); MEAN CORPUSCULAR VOLUME 82.1 FL (78-98); MEAN PLATELET VOLUME 8.8 FL (7.4-10.4); MONOCYTES # (AUTO) 1.4 X10'3 (0-0.9); NEUTROPHILS # (AUTO) 4.7 X10'3 (1.8-7.7); NEUTROPHILS % (AUTO) 64.5 % (42-75); PLATELET COUNT 173 X10'3 (140-440); RED BLOOD COUNT 5.34 X10'6 (4.70-6.10); RED CELL DISTRIBUTION WIDTH 16.3 % (11.5-14.5); WHITE BLOOD COUNT 7.4 X10'3 (4.5-11.0)
--- NOTE | 2020-01-03 06:25 | NUR ---
Problems reprioritized. Patient report given, questions answered & plan of care reviewed with Pat GREENE.
[2020-01-03 06:26] LABS: ALBUMIN 2.2 G/DL (3.4-5.0); ANION GAP -2 (8-16); BLOOD UREA NITROGEN 39 MG/DL (7-18); BUN/CREATININE RATIO 38.6 (5.4-32.0); CALCIUM 8.3 MG/DL (8.5-10.1); CHLORIDE 102 MMOL/L (99-107); CREATININE 1.01 MG/DL (0.60-1.10); GLUCOSE 91 MG/DL (70-104); POTASSIUM 4.8 MMOL/L (3.5-5.1); SODIUM 140 MMOL/L (135-145); TOTAL CARBON DIOXIDE 39.6 MMOL/L (24-32); eGFR 75 ML/MIN
--- NOTE | 2020-01-03 06:26 | NUR ---
Patient in room PCU 3024. I have received report from Shanique GREENE and had the opportunity to ask questions and assume patient care.
[2020-01-03 06:53] VITALS: BP 116/73
[2020-01-03] MEDS: heparin, porcine 5000 units/ml vial SQ SCH (07:15)
[2020-01-03] MEDS: lisinopril 5mg tablet PO SCH (07:16)
[2020-01-03] MEDS: furosemide 40mg tablet PO SCH (07:17)
[2020-01-03] MEDS: HYDROcodone/acetaminophen 5mg/325mg tablet PO PRN ×2 (07:17→12:35)
[2020-01-03] MEDS: carVEDilol 3.125mg tablet PO SCH (07:18)
[2020-01-03] MEDS: atorvastatin 20mg tablet PO SCH (07:19)
[2020-01-03] MEDS: OLANZapine 2.5MG tablet PO SCH (07:19)
[2020-01-03] MEDS: predniSONE 20 mg tablet PO SCH (07:19)
[2020-01-03] MEDS: nicotine 14mg patch - 24hr TD SCH (07:20)
[2020-01-03] MEDS: K and/or MAG REPLACEMENT MC SCH (08:19)
[2020-01-03] MEDS: aspirin 81mg tab.chew PO SCH (08:30)
[2020-01-03 09:38] LABS: ANISOCYTOSIS 1+; PLATELET ESTIMATE NORMAL; TOTAL CELLS COUNTED 100
[2020-01-03 09:39] LABS: TOXIC VACUOLATION 1+
[2020-01-03 11:40] VITALS: BP 122/76
[2020-01-03 15:00] VITALS: BP 117/79
--- NOTE | 2020-01-03 17:58 | NUR ---
Spoke with international account representative with [employer], she will contact patient tomorrow 02/03/20 to set up time to deliver nebulizer and trilogy. Patient aware.
--- NOTE | 2020-01-03 17:59 | NUR ---
Patient is stable for discharge per MD orders. All discharge instructions reviewed with patient and all questions answered. New prescriptions called into pharmacy. Patient's home medications, ibuprofen, retrieved from pharmacy. PIV discontinued, cannula intact. Belongings collected and sent with patient. Taxi called and patient wheeled out to lobby by staff.
[2020-01-04] MEDS ORDERED: NEBU-208 (21:33)
[2020-01-04] MEDS ORDERED: LISI-604 PO (21:55)
[2020-01-04] MEDS ORDERED: FURO-150 PO (21:55)
[2020-01-04] MEDS ORDERED: CARV3.122 PO (21:55)
[2020-01-04] MEDS ORDERED: NICO-687 TOP (21:55)
[2020-01-04] MEDS ORDERED: OLAN2.5T28 PO (21:55)
[2020-01-04] MEDS ORDERED: ASPI-1265 PO (21:55)
[2020-01-04] MEDS ORDERED: ATOR20TA PO (21:55)
[2020-01-04] MEDS ORDERED: ALB0.5UD IH (21:59)
== END 2020-01-03 17:53 | disposition home or self-care (01) | DRG 194 ==
LOC: ER 14:38 → CANBEDREQ 23:46 → ED HOLD 12-30 00:29 → UNDOADMIN 12-30 00:39 → ED HOLD 12-30 00:39 → PCU 3S 12-30 01:30 → ED HOLD 12-30 01:30
PROVIDERS: ADMIT Internal Medicine; ATTEND Internal Medicine
PROC: 5A09357 Assistance with Respiratory Ventilation, Less than 24 Consecutive Hours, Continuous Positive Airway Pressure (ICD-10-PCS; principal; 2019-12-30)
PROC: 5A09357 Assistance with Respiratory Ventilation, Less than 24 Consecutive Hours, Continuous Positive Airway Pressure (ICD-10-PCS; 2019-12-31)
DX: I11.0 Hypertensive heart disease with heart failure (principal); J96.02 Acute respiratory failure with hypercapnia; E78.5 Hyperlipidemia, unspecified; I50.23 Acute on chronic systolic (congestive) heart failure; F17.200 Nicotine dependence, unspecified, uncomplicated; J44.1 Chronic obstructive pulmonary disease with (acute) exacerbation; F17.210 Nicotine dependence, cigarettes, uncomplicated; F12.90 Cannabis use, unspecified, uncomplicated
CPT/HCPCS: 36415; 36600; 71045; 80048; 80053; 80305; 80320; 82803; 83735; 83880; 84484; 85018; 85025; 93005; 94640; 94660; 94760; 96365; 96366; 96375; 99285; G0378; J1100; J1644; J1940; J2060; J2920; J2930; J3475; J7512

== ENCOUNTER 2020-01-04 19:21 | Emergency (ER) | payer MEDICAID ==
[~2020-01-04] VITALS: Ht 182.9 cm; Wt 90.9 kg
[~2020-01-04 19:21] MED LIST changes: +ATOR20TA PO; +CARV3.122 PO; +IPRA3AMP9 NEB; +LISI-604 PO; +OLAN5TAB5 PO; +PRED20TA PO
[2020-01-04 21:30] VITALS: BP 130/78
[2020-01-04] MEDS ORDERED: NEBU-208 (21:33)
[2020-01-04] MEDS ORDERED: ketorolac trometh. 30mg/ml inj. IM ONE (21:40)
[2020-01-04] MEDS ORDERED: albuterol 2.5 MG/3 ML nebule NEB ONE (21:40)
[2020-01-04] MEDS ORDERED: CARV3.122 PO (21:55)
[2020-01-04] MEDS ORDERED: FURO-150 PO (21:55)
[2020-01-04] MEDS ORDERED: ATOR20TA PO (21:55)
[2020-01-04] MEDS ORDERED: OLAN2.5T28 PO (21:55)
[2020-01-04] MEDS ORDERED: LISI-604 PO (21:55)
[2020-01-04] MEDS ORDERED: ASPI-1265 PO (21:55)
[2020-01-04] MEDS ORDERED: NICO-687 TOP (21:55)
[2020-01-04] MEDS ORDERED: ALB0.5UD IH (21:59)
== END 2020-01-04 22:33 | disposition home or self-care (01) ==
LOC: ER 19:22
DX: J44.9 Chronic obstructive pulmonary disease, unspecified (principal); I50.9 Heart failure, unspecified; I11.0 Hypertensive heart disease with heart failure; F31.9 Bipolar disorder, unspecified; F12.90 Cannabis use, unspecified, uncomplicated; F15.90 Other stimulant use, unspecified, uncomplicated; Z90.89 Acquired absence of other organs; Z59.0 Homelessness; Z86.14 Personal history of Methicillin resistant Staphylococcus aureus infection; Z86.69 Personal history of other diseases of the nervous system and sense organs; Z56.0 Unemployment, unspecified; Z79.82 Long term (current) use of aspirin; Z79.899 Other long term (current) drug therapy
CPT/HCPCS: 94640; 96372; 99283; J1885; 93005; 94760

== ENCOUNTER 2020-01-06 14:54 | Emergency (ER) | payer MEDICAID ==
[~2020-01-06] VITALS: Ht 185.4 cm; Wt 90.9 kg
[~2020-01-06 14:54] MED LIST changes: +ALB0.5UD IH; +FURO-150 PO; +NEBU-208; +NICO-687 TOP
[2020-01-06 15:06] VITALS: BP 140/96
--- NOTE | 2020-01-06 15:47 | NUR ---
Poison control called and spoke with Pricilla regarding patient taking 23 tablets of ibuprofen 200 mg in a 12 hour period, daily dose is no greater than 50 mg/kg per day. With this stated unless concern is for increased ibuprofen use chronically no further work up is needed. If considering acute kidney injury due to chronic senior care use of ibuprofen - obtain a metabolic panel
[2020-01-06] MEDS ORDERED: prednisone 10mg tablet PO STA (17:38)
[2020-01-06] MEDS ORDERED: orphenadrine citrate 60mg/2ml inj. IM ONE (17:40)
[2020-01-06] MEDS ORDERED: predniSONE 20 mg tablet PO STA (17:46)
[2020-01-06] MEDS ORDERED: LIDO700A32 TOP (18:12)
[2020-01-06] MEDS ORDERED: PRED20TA PO (18:12)
== END 2020-01-06 18:22 | disposition home or self-care (01) ==
LOC: ER 14:54
DX: M25.512 Pain in left shoulder (principal); G89.29 Other chronic pain; I11.0 Hypertensive heart disease with heart failure; I50.9 Heart failure, unspecified; J44.9 Chronic obstructive pulmonary disease, unspecified; F12.90 Cannabis use, unspecified, uncomplicated; F15.90 Other stimulant use, unspecified, uncomplicated; Z59.0 Homelessness; Z56.0 Unemployment, unspecified; Z86.14 Personal history of Methicillin resistant Staphylococcus aureus infection; Z98.890 Other specified postprocedural states; Z90.89 Acquired absence of other organs; Z79.899 Other long term (current) drug therapy; Z91.018 Allergy to other foods; Z79.82 Long term (current) use of aspirin
CPT/HCPCS: 73030; 96372; 99283; J2360; J7512

== ENCOUNTER 2020-02-12 00:24 | Emergency (ER) | payer MEDICAID ==
[~2020-02-12] VITALS: Ht 185.4 cm; Wt 93.0 kg
[~2020-02-12 00:24] MED LIST changes: -ALB0.5UD IH; -FURO-150 PO; +LIDO700A32 TOP; -NICO-687 TOP; -PRED20TA PO
[2020-02-12] MEDS ORDERED: ipratropium/albuterol 3ml nebule NEB ONE (00:30)
[2020-02-12] MEDS ORDERED: methylPREDNISolone sod succ 125mg/2ml vial IV ONE (00:30)
[2020-02-12] MEDS ORDERED: magnesium 2GM in 50ml NS 50 ML IV ONE (00:30)
[2020-02-12 01:25] LABS: BASOPHILS % (AUTO) 0.5 % (0-1); EOSINOPHILS # (AUTO) 0.1 X10'3 (0-0.9); HEMATOCRIT 42.5 % (42.0-52.0); HEMOGLOBIN 13.6 g/dl (14.0-17.9); LYMPHOCYTES # (AUTO) 0.9 X10'3 (1.1-4.8); LYMPHOCYTES % (AUTO) 13.2 % (21-51); MEAN CORPUSCULAR HEMOGLOBIN 27.3 PG (27.0-31.0); MEAN CORPUSCULAR VOLUME 85.3 FL (78-98); MEAN PLATELET VOLUME 8.3 FL (7.4-10.4); MONOCYTES # (AUTO) 1.3 X10'3 (0-0.9); MONOCYTES % (AUTO) 18.8 % (2-12); NEUTROPHILS # (AUTO) 4.7 X10'3 (1.8-7.7); NEUTROPHILS % (AUTO) 65.5 % (42-75); PLATELET COUNT 198 X10'3 (140-440); RED BLOOD COUNT 4.98 X10'6 (4.70-6.10); RED CELL DISTRIBUTION WIDTH 18.1 % (11.5-14.5); WHITE BLOOD COUNT 7.2 X10'3 (4.5-11.0)
[2020-02-12 01:34] LABS: ALANINE AMINOTRANSFERASE 57 U/L (12-78); ALBUMIN 2.6 G/DL (3.4-5.0); ALBUMIN/GLOBULIN RATIO 0.8 (1.1-1.5); ALKALINE PHOSPHATASE 70 IU/L (46-116); ANION GAP 3 (8-16); ASPARTATE AMINO TRANSFERASE 37 U/L (10-37); BILIRUBIN,TOTAL 0.3 MG/DL (0.1-1.0); BLOOD UREA NITROGEN 48 MG/DL (7-18); BUN/CREATININE RATIO 33.3 (5.4-32.0); CALCIUM 7.6 MG/DL (8.5-10.1); CHLORIDE 110 MMOL/L (99-107); CREATININE 1.44 MG/DL (0.60-1.10); GLUCOSE 111 MG/DL (70-104); POTASSIUM 4.1 MMOL/L (3.5-5.1); SODIUM 145 MMOL/L (135-145); TOTAL CARBON DIOXIDE 31.8 MMOL/L (24-32); TOTAL PROTEIN 5.9 G/DL (6.4-8.2); eGFR 49 ML/MIN
[2020-02-12 01:39] LABS: MAGNESIUM 2.3 MG/DL (1.5-2.4)
[2020-02-12] MEDS ORDERED: NICO-687 TOP (01:53)
[2020-02-12] MEDS ORDERED: FURO-150 PO ×2 (01:53→02:14)
[2020-02-12] MEDS ORDERED: ALBU2.5V10 NEB (01:53)
--- NOTE | 2020-02-12 02:06 | NUR ---
Pt. states that he is in the ED to have rx. refilled. His medications have all ran out and he insists to get refil this way. Pt. refuses to go to his PMD for personal issues.
[2020-02-12] MEDS ORDERED: ALB0.5UD IH (02:14)
[2020-02-12] MEDS ORDERED: CARV3.122 PO (02:14)
[2020-02-12] MEDS ORDERED: ATOR20TA PO (02:14)
[2020-02-12] MEDS ORDERED: LISI-604 PO (02:14)
[2020-02-12 02:26] VITALS: BP 139/84
== END 2020-02-12 02:33 | disposition home or self-care (01) ==
LOC: ER 00:24
DX: I50.9 Heart failure, unspecified (principal); I11.0 Hypertensive heart disease with heart failure; J44.9 Chronic obstructive pulmonary disease, unspecified; F31.9 Bipolar disorder, unspecified; F12.90 Cannabis use, unspecified, uncomplicated; F15.90 Other stimulant use, unspecified, uncomplicated; Z59.0 Homelessness; Z56.0 Unemployment, unspecified; Z86.69 Personal history of other diseases of the nervous system and sense organs; Z86.14 Personal history of Methicillin resistant Staphylococcus aureus infection; Z98.890 Other specified postprocedural states; Z91.018 Allergy to other foods; Z79.82 Long term (current) use of aspirin; Z79.899 Other long term (current) drug therapy
CPT/HCPCS: 71045; 80053; 83735; 83880; 84145; 84484; 85025; 93005; 94640; 96374; 96375; 99285; J2930; J3475; 94760

== ENCOUNTER 2020-04-12 09:49 | Inpatient (IN) | payer MEDICAID ==
[~2020-04-12] VITALS: Ht 185.4 cm; Wt 71.7 kg
[~2020-04-12 09:49] MED LIST changes: +ALBU2.5V10 NEB; -ATOR20TA66 PO; -CARV6.253 PO; +FURO-150 PO; -FURO20TA4 PO; -IPRA3AMP9 NEB; -LIDO700A32 TOP; -LISI-642 PO; -NEBU-208; -NICO-631 TD; +NICO-687 TOP; -OLAN2.5T28 PO; -OLAN5TAB5 PO
[2020-04-12] MEDS ORDERED: CefTRIAXone 2gm/D5W 50ml 50 ML IV ONE (10:15)
[2020-04-12] MEDS ORDERED: azithromycin/NS 500mg/250ml 250 ML IV ONE ×2 (10:15→14:35)
[2020-04-12] MEDS ORDERED: morphine 4 MG/ML inj SYRINge IV ONE (10:15)
[2020-04-12] MEDS ORDERED: normal saline 1000ML IV soln IV ONE (10:15)
[2020-04-12] MEDS ORDERED: CefTRIAXone inj 2,000 MG in normal saline 100ml IV soln 100 ML IV ONE ×2 (10:35→14:35)
[2020-04-12 10:41] LABS: ABG HCO3 25.7 mmol/L (22.0-26.0); ABG OXYGEN SATURATION 88.8 % (94-97); ABG PCO2 (T) 45.4 mmHg (35.0-48.0); ABG PO2 (T) 56.6 mmHg (75.0-100.0); ALLEN'S TEST POSITIVE; FCOHb 1.8 % (0.0-3.9); FMetHb 0.2 % (0.0-1.5); TOTAL HEMOGLOBIN 13.5 G/dl (14.0-18.0)
[2020-04-12 11:12] LABS: BASOPHILS # (AUTO) 0.1 X10'3 (0-0.2); BASOPHILS % (AUTO) 0.9 % (0-1); EOSINOPHILS # (AUTO) 0.1 X10'3 (0-0.9); EOSINOPHILS % (AUTO) 0.8 % (0-6); HEMATOCRIT 40.4 % (42.0-52.0); HEMOGLOBIN 12.9 g/dl (14.0-17.9); LYMPHOCYTES # (AUTO) 0.7 X10'3 (1.1-4.8); LYMPHOCYTES % (AUTO) 8.6 % (21-51); MEAN CORPUSCULAR HEMOGLOBIN 27.3 PG (27.0-31.0); MEAN CORPUSCULAR HGB CONC 31.9 g/dL (33.0-36.5); MEAN CORPUSCULAR VOLUME 85.7 FL (78-98); MEAN PLATELET VOLUME 7.9 FL (7.4-10.4); MONOCYTES # (AUTO) 1.6 X10'3 (0-0.9); MONOCYTES % (AUTO) 19.8 % (2-12); NEUTROPHILS # (AUTO) 5.6 X10'3 (1.8-7.7); NEUTROPHILS % (AUTO) 69.9 % (42-75); PLATELET COUNT 268 X10'3 (140-440); RED BLOOD COUNT 4.72 X10'6 (4.70-6.10); RED CELL DISTRIBUTION WIDTH 16.1 % (11.5-14.5); WHITE BLOOD COUNT 8.1 X10'3 (4.5-11.0)
[2020-04-12] MEDS ORDERED: furosemide 10 MG/1 ML 10ml inj IV ONE (11:15)
[2020-04-12 11:24] LABS: ALANINE AMINOTRANSFERASE 21 U/L (12-78); ALBUMIN 2.1 G/DL (3.4-5.0); ALBUMIN/GLOBULIN RATIO 0.5 (1.1-1.5); ALKALINE PHOSPHATASE 64 IU/L (46-116); ANION GAP 8 (8-16); ASPARTATE AMINO TRANSFERASE 26 U/L (10-37); BLOOD UREA NITROGEN 27 MG/DL (7-18); CHLORIDE 106 MMOL/L (99-107); GLUCOSE 105 MG/DL (70-104); POTASSIUM 4.2 MMOL/L (3.5-5.1); SODIUM 139 MMOL/L (135-145); TOTAL CARBON DIOXIDE 25.1 MMOL/L (24-32); TOTAL PROTEIN 6.4 G/DL (6.4-8.2); eGFR 75 ML/MIN
[2020-04-12] MEDS ORDERED: dexamethasone sod phosphate 10mg/ml inj IV STA (11:49)
[2020-04-12] MEDS ORDERED: albuterol 2.5 MG/3 ML nebule CONTNEB PRN (11:50)
[2020-04-12] MEDS ORDERED: ondansetron/PF 4mg/2ml inj IV ONE (11:50)
[2020-04-12 12:05] LABS: ANISOCYTOSIS 1+; PLATELET ESTIMATE NORMAL; TOTAL CELLS COUNTED 100
[2020-04-12] MEDS ORDERED: LORazepam 2 mg/ml vial IV ONE (12:05)
[2020-04-12 12:06] LABS: ELLIPTOCYTES FEW
--- NOTE | 2020-04-12 12:20 | NUR ---
PT SITTING ON SIDE OF BED LEANING ON TRAY TRIPOD BREATHING STATES HE'S FEELING NAUSEOUS, HAROLDO SOL MADE AWARE
--- NOTE | 2020-04-12 12:27 | NUR ---
HAROLDO SOL DISCUSSED WITH PT THE POSSIBILTY OF BEING INTUBATED AND THE RISKS OF NOT INTUBATING IF HIS CONDITION WORSENS. PT REFUSES INTUBATION AND REFUSES WEARING A BIPAP.
--- NOTE | 2020-04-12 12:44 | NUR ---
HAROLDO SOL AT BEDSIDE TO DISCUSS TREATMENT OPTIONS AGAIN, PT STILL REFUSING INTUBATION IF NEEDED, BUT AGREES TO TRY BIPAP.
[2020-04-12] MEDS ORDERED: nitroGLYCERIN-Tridil 50MG/D5W 250 ML IV SCH (12:45)
--- NOTE | 2020-04-12 12:45 | NUR ---
PT PLACED ON BIPAP
--- NOTE | 2020-04-12 13:07 | NUR ---
PT IS NEGATIVE FOR COVID .NOTIFIED PRIMARY NURSE JC STROUD.
[2020-04-12] MEDS ORDERED: iohexol 350MG/ML 100ml bottle IV ONE (13:31)
--- NOTE | 2020-04-12 13:40 | NUR ---
PT TO CT
[2020-04-12] MEDS ORDERED: enoxaparin 100mg/ml syringe SUBCUT ONE (14:10)
[2020-04-12 14:36] LABS: ABG BASE EXCESS -4.6 mmol/L (-2.0-2.0); ABG HCO3 26.4 mmol/L (22.0-26.0); ABG OXYGEN SATURATION 93.5 % (94-97); ABG PCO2 (T) 79.8 mmHg (35.0-48.0); ABG PO2 (T) 82.8 mmHg (75.0-100.0); ALLEN'S TEST POSITIVE; FCOHb 1.7 % (0.0-3.9); FMetHb 0.3 % (0.0-1.5); FO2Hb 91.6 % (94-97); RESPIRATORY RATE 12 b/min; TOTAL HEMOGLOBIN 13.8 G/dl (14.0-18.0)
[2020-04-12] MEDS ORDERED: magnesium hydroxide 30ml (MOM) UD suspension PO PRN (16:05)
[2020-04-12] MEDS ORDERED: HYDROcodone/acetaminophen 10/325mg tab PO PRN (16:05)
[2020-04-12] MEDS ORDERED: acetaminophen 325mg tablet PO PRN ×2 (16:05)
[2020-04-12] MEDS ORDERED: potassium Cl 20 mEq SR tablet PO PRN ×2 (16:05)
[2020-04-12] MEDS ORDERED: potassium CL 10mEq/100ml bag 100 ML IV PRN ×2 (16:05)
[2020-04-12] MEDS ORDERED: ondansetron/PF 4mg/2ml inj IV PRN (16:05)
[2020-04-12] MEDS ORDERED: magnesium Cl slow-release 64mg tablet PO PRN (16:05)
[2020-04-12] MEDS ORDERED: magnesium 4gm in 100ml NS 100 ML IV PRN (16:05)
[2020-04-12] MEDS ORDERED: acetaminophen 650mg rectal suppository RC PRN (16:05)
[2020-04-12] MEDS ORDERED: morphine 2 MG/ML inj. syringe IV PRN ×2 (16:05)
[2020-04-12] MEDS ORDERED: bisacodyl 10mg suppository rectal RC PRN (16:05)
[2020-04-12] MEDS ORDERED: magnesium 2GM in 50ml NS 50 ML IV PRN (16:05)
[2020-04-12] MEDS ORDERED: HYDROcodone/acetaminophen 5mg/325mg tablet PO PRN (16:05)
[2020-04-12] MEDS ORDERED: mag hydrox/Alum hydrox/simeth 30ml oral suspension PO PRN (16:05)
[2020-04-12] MEDS ORDERED: metoclopramide 5 mg/ml inj IV PRN (16:05)
[2020-04-12 16:11] LABS: ABG BASE EXCESS -4.6 mmol/L (-2.0-2.0); ABG HCO3 24.1 mmol/L (22.0-26.0); ABG OXYGEN SATURATION 94.1 % (94-97); ABG PCO2 (T) 60.9 mmHg (35.0-48.0); ABG PO2 (T) 79.4 mmHg (75.0-100.0); ALLEN'S TEST POSITIVE; FCOHb 1.6 % (0.0-3.9); FMetHb 0.2 % (0.0-1.5); FO2Hb 92.4 % (94-97); RESPIRATORY RATE 16 b/min; TOTAL HEMOGLOBIN 13.9 G/dl (14.0-18.0)
[2020-04-12] MEDS ORDERED: ipratropium/albuterol 3ml nebule ONE (16:13)
[2020-04-12] MEDS ORDERED: ipratropium/albuterol 3ml nebule NEB ONE (16:20)
--- NOTE | 2020-04-12 17:49 | NUR ---
Jj Tomas called Dr. King to discuss a thoracentesis for the patient. Images reveiwed by Dr. King who states we will address in AM. Info relayed to Yajaira GREENE for patient.
[2020-04-12] MEDS ORDERED: methylPREDNISolone sod succ 125mg/2ml vial IV ONE (19:30)
[2020-04-12] MEDS: K and/or MAG REPLACEMENT MC SCH (20:00)
--- NOTE | 2020-04-12 20:01 | NUR ---
Went to check pt on Bipap, however upon RT arrival the pt had ripped the mask off the head strap and it was laying on the floor. Pulseox placed back on pt's finger, sats read 69% on room air. I was able to place Bipap mask back on the pt, but after less than a min he ripped it back off and started cursing at me and swatting. I then placed him on 5 lpm nasal cannula. For now, pt is very uncooperative in regards to Bipap. Will cont to monitor.
--- NOTE | 2020-04-12 20:30 | NUR ---
called to give report nurse not avaliable
--- NOTE | 2020-04-12 20:50 | NUR ---
pt arrived to PCU unit from ER, pt on 5L NC no respiratory distress at this moment, on nitro GTT, pt A&O x4, pt is agitated and upset, will continue to monitor pt
[2020-04-12 21:00] VITALS: BP 132/92
[2020-04-12] MEDS ORDERED: temazepam 15mg capsule PO PRN (21:00)
[2020-04-12 21:15] VITALS: BP 117/86
[2020-04-12 21:30] VITALS: BP 124/89
[2020-04-12 22:00] VITALS: BP 129/92
--- NOTE | 2020-04-12 22:00 | NUR ---
pt being resistive to care and noncompliant, pt refused 2 Rn skin check, to be darted and MRSA swab
[2020-04-12] MEDS: furosemide 40mg/4ml inj IV SCH (22:05)
[2020-04-12 22:30] VITALS: BP 125/91
[2020-04-12 23:00] VITALS: BP 114/85
[2020-04-13] VITALS (11 sets, daily range): BP systolic 113–146; BP diastolic 78–92
[2020-04-13] MEDS: methylPREDNISolone sod succ 125mg/2ml vial IV SCH ×4 (02:45→20:38)
--- NOTE | 2020-04-13 06:20 | NUR ---
Patient in room PCU 3027. I have received report from Shanique GREENE and had the opportunity to ask questions and assume patient care.
--- NOTE | 2020-04-13 06:33 | NUR ---
Patient in room PCU 3027. I have received report from Shanique GREENE and had the opportunity to ask questions and assume patient care.
--- NOTE | 2020-04-13 06:36 | NUR ---
Problems reprioritized. Patient report given, questions answered & plan of care reviewed with Jasvir GREENE.
[2020-04-13] MEDS ORDERED: CefTRIAXone/D5W-Rocephin 1gm 50 ML IV SCH (08:00)
[2020-04-13] MEDS ORDERED: azithromycin 250mg tablet PO SCH (08:00)
[2020-04-13] MEDS: K and/or MAG REPLACEMENT MC SCH ×2 (08:00→20:00)
[2020-04-13] MEDS: enoxaparin 40mg/0.4ml syringe SUBCUT SCH (08:00)
[2020-04-13] MEDS: furosemide 40mg/4ml inj IV SCH ×2 (08:14→20:36)
--- NOTE | 2020-04-13 10:20 | NUR ---
Per Dr. Jones; Titrate Pt off of Nitro gtt.
--- NOTE | 2020-04-13 10:40 | NUR ---
Recephin did not scan when administering. Had to manually administer through the eMAR.
[2020-04-13 11:07] LABS: BASOPHILS % (AUTO) 0.1 % (0-1); EOSINOPHILS % (AUTO) 0 % (0-6); HEMATOCRIT 41.8 % (42.0-52.0); HEMOGLOBIN 13.3 g/dl (14.0-17.9); LYMPHOCYTES # (AUTO) 0.3 X10'3 (1.1-4.8); LYMPHOCYTES % (AUTO) 3.5 % (21-51); MEAN CORPUSCULAR HEMOGLOBIN 27.9 PG (27.0-31.0); MEAN CORPUSCULAR HGB CONC 31.9 g/dL (33.0-36.5); MEAN CORPUSCULAR VOLUME 87.6 FL (78-98); MEAN PLATELET VOLUME 7.7 FL (7.4-10.4); MONOCYTES # (AUTO) 0.6 X10'3 (0-0.9); MONOCYTES % (AUTO) 6.6 % (2-12); NEUTROPHILS # (AUTO) 7.6 X10'3 (1.8-7.7); NEUTROPHILS % (AUTO) 89.8 % (42-75); PLATELET COUNT 313 X10'3 (140-440); RED BLOOD COUNT 4.77 X10'6 (4.70-6.10); RED CELL DISTRIBUTION WIDTH 16.5 % (11.5-14.5); WHITE BLOOD COUNT 8.5 X10'3 (4.5-11.0)
[2020-04-13] MEDS ORDERED: NO HOME MEDS (11:09)
[2020-04-13 11:17] LABS: PARTIAL THROMBOPLASTIN TIME 36 SECONDS (22-32)
[2020-04-13 11:18] LABS: ALANINE AMINOTRANSFERASE 19 U/L (12-78); ALBUMIN 2.4 G/DL (3.4-5.0); ALBUMIN/GLOBULIN RATIO 0.5 (1.1-1.5); ALKALINE PHOSPHATASE 70 IU/L (46-116); ANION GAP 3 (8-16); ASPARTATE AMINO TRANSFERASE 16 U/L (10-37); BILIRUBIN,TOTAL 0.3 MG/DL (0.1-1.0); BLOOD UREA NITROGEN 41 MG/DL (7-18); BUN/CREATININE RATIO 21.2 (5.4-32.0); CALCIUM 8.2 MG/DL (8.5-10.1); CHLORIDE 103 MMOL/L (99-107); CREATININE 1.93 MG/DL (0.60-1.10); GLUCOSE 162 MG/DL (70-104); MAGNESIUM 1.9 MG/DL (1.5-2.4); POTASSIUM 5.1 MMOL/L (3.5-5.1); SODIUM 136 MMOL/L (135-145); TOTAL CARBON DIOXIDE 30.4 MMOL/L (24-32); eGFR 35 ML/MIN
--- NOTE | 2020-04-13 11:46 | NUR ---
Nitro gtt rate reduced by 50%, now running at .75ml/hour and 2.5mcg/min. Will continue to monitor Pt's vitals q 15 min.
--- NOTE | 2020-04-13 12:09 | NUR ---
PAGER ID: [phone] MESSAGE: Re: Nico Coto. Room: 3027B. Pt's ordered morning labs have resulted. kidney function has decreased. -[facility] #[phone] Dr. Jones paged concerning Pt's morning labs
--- NOTE | 2020-04-13 13:46 | NUR ---
Per Dr. Jones, Nitro gtt discontinued after titrating down. will continue to monitor patient.
--- NOTE | 2020-04-13 14:50 | NUR ---
Malnutrition consult: Pt reports 14-23 lb wt loss with decreased appetite per malnutrition risk screen with RN. Pt with fluctuating wt hx, documented at 85.8 kg with bed scale, 93.2 kg 12/29 with standing scale, and currently 84 kg with bed scale. Pt currently on a heart healthy diet documented with 100% PO intake and with 75-100% PO intake at past admits. Pt with no documented decrease in muscle strength or edema. Pt appears well developed, well nourished per ED report. Pt currently lacks a minimum of two criteria for malnutrition. Will continue to follow. Addendum: 04/13/20 at [address] Amended: Links added.
--- NOTE | 2020-04-13 18:00 | NUR ---
Orientee documentation: I have reviewed and agree with all interventions, assessments performed and documented by Zeke Bender RN.
--- NOTE | 2020-04-13 18:15 | NUR ---
Problems reprioritized. Patient report given, questions answered & plan of care reviewed with Casimiro RN.
--- NOTE | 2020-04-13 18:20 | NUR ---
Problems reprioritized. Patient report given, questions answered & plan of care reviewed with Casimiro RN.
--- NOTE | 2020-04-13 18:20 | NUR ---
Patient in room PCU 3027. I have received report from Sophy GREENE and had the opportunity to ask questions and assume patient care.
[2020-04-13] MEDS ORDERED: VANCOmycin 1250MG/NS 250ml Bag 250 ML IV SCH (21:00)
[2020-04-14] MEDS: methylPREDNISolone sod succ 125mg/2ml vial IV SCH ×4 (02:25→20:54)
[2020-04-14 03:00] VITALS: BP 134/85
[2020-04-14 06:00] VITALS: BP 143/79
[2020-04-14 06:09] LABS: BASOPHILS % (AUTO) 0.2 % (0-1); EOSINOPHILS % (AUTO) 0 % (0-6); HEMATOCRIT 41.1 % (42.0-52.0); HEMOGLOBIN 13.1 g/dl (14.0-17.9); LYMPHOCYTES # (AUTO) 0.2 X10'3 (1.1-4.8); LYMPHOCYTES % (AUTO) 1.9 % (21-51); MEAN CORPUSCULAR HEMOGLOBIN 27.5 PG (27.0-31.0); MEAN CORPUSCULAR HGB CONC 31.8 g/dL (33.0-36.5); MEAN CORPUSCULAR VOLUME 86.5 FL (78-98); MEAN PLATELET VOLUME 8.6 FL (7.4-10.4); MONOCYTES # (AUTO) 0.8 X10'3 (0-0.9); MONOCYTES % (AUTO) 6.4 % (2-12); NEUTROPHILS # (AUTO) 11.8 X10'3 (1.8-7.7); NEUTROPHILS % (AUTO) 91.5 % (42-75); PLATELET COUNT 327 X10'3 (140-440); RED BLOOD COUNT 4.76 X10'6 (4.70-6.10); WHITE BLOOD COUNT 12.9 X10'3 (4.5-11.0)
--- NOTE | 2020-04-14 06:13 | NUR ---
Problems reprioritized. Patient report given, questions answered & plan of care reviewed with Sophy GREENE.
--- NOTE | 2020-04-14 06:15 | NUR ---
Patient in room PCU 3027. I have received report from Casimiro GREENE and had the opportunity to ask questions and assume patient care.
[2020-04-14 06:25] LABS: ALANINE AMINOTRANSFERASE 21 U/L (12-78); ALBUMIN 2.4 G/DL (3.4-5.0); ALBUMIN/GLOBULIN RATIO 0.5 (1.1-1.5); ALKALINE PHOSPHATASE 67 IU/L (46-116); ANION GAP 4 (8-16); ASPARTATE AMINO TRANSFERASE 14 U/L (10-37); BILIRUBIN,TOTAL 0.3 MG/DL (0.1-1.0); BLOOD UREA NITROGEN 60 MG/DL (7-18); BUN/CREATININE RATIO 27.4 (5.4-32.0); CALCIUM 8.2 MG/DL (8.5-10.1); CHLORIDE 103 MMOL/L (99-107); CHOLESTEROL 170 MG/DL (0-200); CREATININE 2.19 MG/DL (0.60-1.10); GLUCOSE 143 MG/DL (70-104); HDL CHOLESTEROL 57 MG/DL (35-60); LDL CHOLESTEROL 99 MG/DL (50-100); POTASSIUM 5.4 MMOL/L (3.5-5.1); SODIUM 137 MMOL/L (135-145); TOTAL CARBON DIOXIDE 29.6 MMOL/L (24-32); TOTAL PROTEIN 7.2 G/DL (6.4-8.2); TRIGLYCERIDES 72 MG/DL (20-135); eGFR 30 ML/MIN
--- NOTE | 2020-04-14 06:38 | NUR ---
Patient in room PCU 3027. I have received report from Casimiro GREENE and had the opportunity to ask questions and assume patient care.
[2020-04-14] MEDS: K and/or MAG REPLACEMENT MC SCH ×2 (08:00→20:00)
[2020-04-14] MEDS: enoxaparin 40mg/0.4ml syringe SUBCUT SCH (08:00)
[2020-04-14] MEDS: furosemide 40mg/4ml inj IV SCH ×2 (09:18→20:54)
[2020-04-14 11:00] VITALS: BP 142/85
--- NOTE | 2020-04-14 11:58 | NUR ---
Pt moved to room 3020 due to history of MRSA and small open wound on angel.
[2020-04-14] MEDS ORDERED: sodium polystyrene sulfonate 15gm/60ml oral suspension PO ONE (12:00)
[2020-04-14] MEDS ORDERED: LORazepam 1 MG tablet PO PRN (12:00)
--- NOTE | 2020-04-14 12:42 | NUR ---
Paged Dr. Jones about pt refusal. PAGER ID: [phone] MESSAGE: [phone]. Nico Nnamdi. Refused the Kayexalate. Thank you. Zeke GREENE [phone]
[2020-04-14 15:00] VITALS: BP 133/80
--- NOTE | 2020-04-14 18:00 | NUR ---
Orientee documentation: I have reviewed and agree with all interventions, assessments performed and documented by Zeke Bendre RN.
--- NOTE | 2020-04-14 18:05 | NUR ---
Problems reprioritized. Patient report given, questions answered & plan of care reviewed with Casimiro RN.
--- NOTE | 2020-04-14 18:11 | NUR ---
Problems reprioritized. Patient report given, questions answered & plan of care reviewed with Casimiro RN.
[2020-04-14 19:00] VITALS: BP 133/80
[2020-04-14] MEDS: VANCOmycin 1250MG/NS 250ml Bag 250 ML IV SCH ×2 (20:54→22:19)
[2020-04-14] MEDS: lactobacillus rhamnosus 10,000 MMU CELLS/CAPSULE PO SCH (20:54)
[2020-04-14 23:00] VITALS: BP 138/92
[2020-04-15] MEDS: methylPREDNISolone sod succ 125mg/2ml vial IV SCH ×2 (02:20→07:18)
[2020-04-15 03:00] VITALS: BP 129/79
[2020-04-15 05:54] LABS: BASOPHILS % (AUTO) 0 % (0-1); EOSINOPHILS % (AUTO) 0 % (0-6); HEMATOCRIT 39.4 % (42.0-52.0); HEMOGLOBIN 12.8 g/dl (14.0-17.9); LYMPHOCYTES # (AUTO) 0.2 X10'3 (1.1-4.8); LYMPHOCYTES % (AUTO) 1.8 % (21-51); MEAN CORPUSCULAR HEMOGLOBIN 27.5 PG (27.0-31.0); MEAN CORPUSCULAR HGB CONC 32.6 g/dL (33.0-36.5); MEAN CORPUSCULAR VOLUME 84.4 FL (78-98); MEAN PLATELET VOLUME 7.7 FL (7.4-10.4); MONOCYTES # (AUTO) 0.6 X10'3 (0-0.9); MONOCYTES % (AUTO) 5.5 % (2-12); NEUTROPHILS # (AUTO) 9.4 X10'3 (1.8-7.7); NEUTROPHILS % (AUTO) 92.7 % (42-75); PLATELET COUNT 305 X10'3 (140-440); RED BLOOD COUNT 4.66 X10'6 (4.70-6.10); RED CELL DISTRIBUTION WIDTH 15.9 % (11.5-14.5); WHITE BLOOD COUNT 10.1 X10'3 (4.5-11.0)
--- NOTE | 2020-04-15 06:22 | NUR ---
Problems reprioritized. Patient report given, questions answered & plan of care reviewed with Carlene GREENE.
[2020-04-15 06:23] LABS: ALANINE AMINOTRANSFERASE 22 U/L (12-78); ALBUMIN 2.4 G/DL (3.4-5.0); ALBUMIN/GLOBULIN RATIO 0.5 (1.1-1.5); ALKALINE PHOSPHATASE 62 IU/L (46-116); ANION GAP 5 (8-16); ASPARTATE AMINO TRANSFERASE 16 U/L (10-37); BILIRUBIN,TOTAL 0.4 MG/DL (0.1-1.0); BLOOD UREA NITROGEN 63 MG/DL (7-18); CALCIUM 8.1 MG/DL (8.5-10.1); CHLORIDE 102 MMOL/L (99-107); GLUCOSE 122 MG/DL (70-104); MAGNESIUM 1.9 MG/DL (1.5-2.4); POTASSIUM 5.3 MMOL/L (3.5-5.1); SODIUM 136 MMOL/L (135-145); TOTAL CARBON DIOXIDE 28.9 MMOL/L (24-32); TOTAL PROTEIN 6.8 G/DL (6.4-8.2); eGFR 47 ML/MIN
--- NOTE | 2020-04-15 06:23 | NUR ---
Patient in room PCU 3020. I have received report from juve and had the opportunity to ask questions and assume patient care.
[2020-04-15] MEDS: K and/or MAG REPLACEMENT MC SCH (06:43)
[2020-04-15 07:01] VITALS: BP 145/100
[2020-04-15] MEDS: furosemide 40mg/4ml inj IV SCH (07:18)
[2020-04-15] MEDS: lactobacillus rhamnosus 10,000 MMU CELLS/CAPSULE PO SCH (07:18)
[2020-04-15] MEDS: enoxaparin 40mg/0.4ml syringe SUBCUT SCH (07:18)
[2020-04-15] MEDS ORDERED: PRED20TA PO (11:02)
[2020-04-15] MEDS ORDERED: ALBU8.5H8 IH (11:02)
[2020-04-15] MEDS ORDERED: LEVO500T2 PO (11:02)
[2020-04-15] MEDS ORDERED: DOXY100C76 PO (13:00)
--- NOTE | 2020-04-15 13:26 | NUR ---
IV's dc'd. Scripts called in to [facility]. Yellow cab called for pt to go to [facility]. All discharge instructions gone over with pt. Pt not very receptive to teachings. [facility].
[2020-04-16] MEDS ORDERED: VANCOMYCIN LEVEL IV ONE (20:30)
== END 2020-04-15 13:25 | disposition home or self-care (01) | DRG 194 ==
LOC: ER 09:49 → ED HOLD 16:04 → PCU 3S 20:53
PROVIDERS: ADMIT Family Medicine; ATTEND Family Medicine
PROC: 5A09357 Assistance with Respiratory Ventilation, Less than 24 Consecutive Hours, Continuous Positive Airway Pressure (ICD-10-PCS; principal; 2020-04-12)
PROC: B32T1ZZ Computerized Tomography (CT Scan) of Left Pulmonary Artery using Low Osmolar Contrast (ICD-10-PCS; 2020-04-12)
PROC: B3201ZZ Computerized Tomography (CT Scan) of Thoracic Aorta using Low Osmolar Contrast (ICD-10-PCS; 2020-04-12)
PROC: B32S1ZZ Computerized Tomography (CT Scan) of Right Pulmonary Artery using Low Osmolar Contrast (ICD-10-PCS; 2020-04-12)
DX: I13.0 Hypertensive heart and chronic kidney disease with heart failure and stage 1 through stage 4 chronic kidney disease, or unspecified chronic kidney disease (principal); E87.2 Acidosis; F31.9 Bipolar disorder, unspecified; G40.909 Epilepsy, unspecified, not intractable, without status epilepticus; I25.10 Atherosclerotic heart disease of native coronary artery without angina pectoris; F17.200 Nicotine dependence, unspecified, uncomplicated; I50.43 Acute on chronic combined systolic (congestive) and diastolic (congestive) heart failure; F12.90 Cannabis use, unspecified, uncomplicated; F15.90 Other stimulant use, unspecified, uncomplicated; R45.1 Restlessness and agitation; J44.1 Chronic obstructive pulmonary disease with (acute) exacerbation; J96.01 Acute respiratory failure with hypoxia; L03.116 Cellulitis of left lower limb; L03.115 Cellulitis of right lower limb; N17.9 Acute kidney failure, unspecified; N18.9 Chronic kidney disease, unspecified; Z59.0 Homelessness; Z86.14 Personal history of Methicillin resistant Staphylococcus aureus infection
CPT/HCPCS: 36415; 36600; 71045; 71275; 76604; 76937; 80053; 80061; 82803; 83605; 83735; 83880; 84132; 84145; 85018; 85025; 85610; 85730; 87040; 87081; 87635; 93005; 94640; 94644; 94660; 94760; 96361; 96365; 96367; 96372; 96375; 97161; 99291; G0378; J0456; J0696; J1100; J1650; J1940; J2060; J2270; J2405; J2930; J3370; J3490; J7030; Q9967

== ENCOUNTER 2020-04-23 14:54 | Inpatient (IN) | payer MEDICAID ==
[~2020-04-23] VITALS: Ht 185.4 cm; Wt 95.5 kg
[~2020-04-23 14:54] MED LIST changes: -ALBU2.5V10 NEB; +ALBU8.5H8 IH; -ASPI-1265 PO; -ATOR20TA PO; -CARV3.122 PO; +DOXY100C76 PO; -FURO-150 PO; -LISI-604 PO; -NICO-687 TOP; +PRED20TA PO
[2020-04-23] MEDS ORDERED: dexamethasone sod phosphate 10mg/ml inj IV STA (15:04)
[2020-04-23] MEDS ORDERED: ipratropium/albuterol 3ml nebule NEB ONE (15:05)
--- NOTE | 2020-04-23 15:20 | NUR ---
RT AT BEDSIDE
[2020-04-23 15:24] LABS: BASOPHILS % (AUTO) 0.3 % (0-1); EOSINOPHILS # (AUTO) 0.1 X10'3 (0-0.9); EOSINOPHILS % (AUTO) 0.8 % (0-6); HEMATOCRIT 38.9 % (42.0-52.0); HEMOGLOBIN 12.2 g/dl (14.0-17.9); LYMPHOCYTES # (AUTO) 0.6 X10'3 (1.1-4.8); LYMPHOCYTES % (AUTO) 5.5 % (21-51); MEAN CORPUSCULAR HEMOGLOBIN 27.1 PG (27.0-31.0); MEAN CORPUSCULAR HGB CONC 31.4 g/dL (33.0-36.5); MEAN CORPUSCULAR VOLUME 86.2 FL (78-98); MEAN PLATELET VOLUME 7.7 FL (7.4-10.4); MONOCYTES # (AUTO) 1.2 X10'3 (0-0.9); MONOCYTES % (AUTO) 10.7 % (2-12); NEUTROPHILS # (AUTO) 9.2 X10'3 (1.8-7.7); NEUTROPHILS % (AUTO) 82.7 % (42-75); PLATELET COUNT 232 X10'3 (140-440); RED BLOOD COUNT 4.51 X10'6 (4.70-6.10); RED CELL DISTRIBUTION WIDTH 16.3 % (11.5-14.5); WHITE BLOOD COUNT 11.2 X10'3 (4.5-11.0)
[2020-04-23] MEDS ORDERED: iohexol 350MG/ML 100ml bottle IV ONE (15:28)
[2020-04-23 15:35] LABS: D-DIMER 1.26 MG/L FEU (0-0.50)
[2020-04-23 15:41] LABS: ABG HCO3 24.8 mmol/L (22.0-26.0); ABG OXYGEN SATURATION 93.4 % (94-97); ABG PCO2 (T) 57.1 mmHg (35.0-48.0); ABG PO2 (T) 70.1 mmHg (75.0-100.0); ALLEN'S TEST POSITIVE; FCOHb 2.2 % (0.0-3.9); FMetHb 0.1 % (0.0-1.5); FO2Hb 91.3 % (94-97); TOTAL HEMOGLOBIN 12.7 G/dl (14.0-18.0)
[2020-04-23 15:42] LABS: ALANINE AMINOTRANSFERASE 68 U/L (12-78); ALBUMIN 2.1 G/DL (3.4-5.0); ALBUMIN/GLOBULIN RATIO 0.7 (1.1-1.5); ALKALINE PHOSPHATASE 77 IU/L (46-116); ANION GAP 8 (8-16); ASPARTATE AMINO TRANSFERASE 41 U/L (10-37); BILIRUBIN,TOTAL 0.4 MG/DL (0.1-1.0); BLOOD UREA NITROGEN 48 MG/DL (7-18); BUN/CREATININE RATIO 33.1 (5.4-32.0); CALCIUM 7.5 MG/DL (8.5-10.1); CHLORIDE 109 MMOL/L (99-107); CREATININE 1.45 MG/DL (0.60-1.10); GLUCOSE 123 MG/DL (70-104); POTASSIUM 4.1 MMOL/L (3.5-5.1); SODIUM 141 MMOL/L (135-145); TOTAL CARBON DIOXIDE 24.5 MMOL/L (24-32); TOTAL PROTEIN 5.3 G/DL (6.4-8.2); eGFR 49 ML/MIN
--- NOTE | 2020-04-23 18:01 | NUR ---
pt. refused bipap. said he thought it wasn't necessary.
--- NOTE | 2020-04-23 18:38 | NUR ---
RT attempted bipap again, pt. tolerated for a few seconds and then ripped it off stating "I can't do that" referring to the face mask. MD notified.
--- NOTE | 2020-04-23 23:32 | NUR ---
pt irritable and states he wants to eat , that he has been here "since yesterday" and he wants something to eat and they to go back to his hotel. I told him i would updated the DrVianey and see about food. Now sitting on the edge of the bed.
[2020-04-23] MEDS ORDERED: LORazepam 2 mg/ml vial IV ONE (23:45)
[2020-04-23] MEDS ORDERED: nitroGLYCERIN-Tridil 50MG/D5W 250 ML IV SCH (23:45)
[2020-04-24] MEDS ORDERED: furosemide 10 MG/1 ML 10ml inj IV ONE
[2020-04-24] MEDS ORDERED: albuterol 2.5 MG/3 ML nebule CONTNEB PRN ×2 (00:05)
--- NOTE | 2020-04-24 00:54 | NUR ---
pt has nitro gtt infusing and albuterol 1 hr cont neb treatment going. pt sitting at edge of bed with hob at 90 degrees and leaning against the bed and appears to be sleeping. hr 106, bp 143/96.
--- NOTE | 2020-04-24 01:11 | NUR ---
dr salinas at bedside to evaluate pt. he reports pt was also to be evaluated by intesivist service. pt assisted back to lyin on the bed with hob now at 70degrees and legs elevated (BLE with 3+nonpitting edema and some weeping. Pt with abrasion to right calf.
[2020-04-24] MEDS ORDERED: mag hydrox/Alum hydrox/simeth 30ml oral suspension PO PRN (01:35)
[2020-04-24] MEDS ORDERED: potassium CL 10mEq/100ml bag 100 ML IV PRN ×2 (01:35)
[2020-04-24] MEDS ORDERED: magnesium hydroxide 30ml (MOM) UD suspension PO PRN (01:35)
[2020-04-24] MEDS ORDERED: potassium Cl 20 mEq SR tablet PO PRN ×2 (01:35)
[2020-04-24] MEDS ORDERED: ondansetron/PF 4mg/2ml inj IV PRN (01:35)
--- NOTE | 2020-04-24 01:39 | NUR ---
WOUND PHOTO TAKEN OF PTS RIGHT CALF
--- NOTE | 2020-04-24 02:19 | NUR ---
Noise heard in pts room and staff in there immediately. pt found sitting on the floor at the side of the bed. pts rail down on right side he reported he put it down and had to pee. floor noted to be wet. states he slipped. water from bedside table had been knocked over and was likely spilt on the floor. Denied any pain. No bruising noted to back or buttock or head. manager zone, Stevie at bedside. Pt assisted to use urinal standing then mod assist back to bed. Page out to Dr. Morgan to update. Pt has room assignment, 6831a.
--- NOTE | 2020-04-24 03:00 | NUR ---
Patient in room PCU 3020. I have received report from JOHN BETANCUR RN and had the opportunity to ask questions and assume patient care. PATIENT WAS COMBATIVE IN ER, RESISTIVE TO CARE. WHEN PATIENT ARRIVED TO FLOOR PATIENT WAS CONTINUING TO BE UNCOOPERATIVE.
[2020-04-24 05:00] VITALS: BP 143/80
--- NOTE | 2020-04-24 06:20 | NUR ---
Problems reprioritized. Patient report given, questions answered & plan of care reviewed with GLADIS GREENE.
--- NOTE | 2020-04-24 06:50 | NUR ---
Patient in room PCU 3020. I have received report from Pebbles GREENE and had the opportunity to ask questions and assume patient care.
[2020-04-24 07:00] VITALS: BP 121/74
[2020-04-24] MEDS: spironolactone 25 MG tablet PO SCH (07:52)
[2020-04-24] MEDS: furosemide 20 MG/2 ML vial IV SCH ×2 (07:52→19:18)
[2020-04-24] MEDS: K and/or MAG REPLACEMENT MC SCH ×2 (08:00→20:00)
[2020-04-24] MEDS: heparin, porcine 5000 units/ml vial SQ SCH ×2 (09:04→19:20)
[2020-04-24 09:13] LABS: ALANINE AMINOTRANSFERASE 75 U/L (12-78); ALBUMIN 2.5 G/DL (3.4-5.0); ALBUMIN/GLOBULIN RATIO 0.7 (1.1-1.5); ALKALINE PHOSPHATASE 80 IU/L (46-116); ANION GAP 5 (8-16); ASPARTATE AMINO TRANSFERASE 37 U/L (10-37); BILIRUBIN,TOTAL 0.4 MG/DL (0.1-1.0); BLOOD UREA NITROGEN 45 MG/DL (7-18); BUN/CREATININE RATIO 30.4 (5.4-32.0); CALCIUM 8.2 MG/DL (8.5-10.1); CHLORIDE 107 MMOL/L (99-107); CREATININE 1.48 MG/DL (0.60-1.10); GLUCOSE 154 MG/DL (70-104); POTASSIUM 4.5 MMOL/L (3.5-5.1); SODIUM 140 MMOL/L (135-145); TOTAL CARBON DIOXIDE 27.7 MMOL/L (24-32); TOTAL PROTEIN 6.2 G/DL (6.4-8.2); eGFR 48 ML/MIN
--- NOTE | 2020-04-24 10:00 | NUR ---
Patient has been extremely agitated, refusing care, non compliant. When patient stood up, he was unsteady on his feet, nurse tried to assist him in getting to the chair and he punched at nursing. Pt. was educated on not being aggressive with staff when trying to assist him. Pt. stated he was does not want to be touched. Pt. stated, "If I fall, I fall, i'ts on me." Pt. prefers to sit in a chair, declines getting back into bed. Pt. has been offered snacks, 1:1 and active listening. Pt's mood shifts quickly. Nursing continues to round frequently.
[2020-04-24 11:00] VITALS: BP 126/85
--- NOTE | 2020-04-24 11:03 | NUR ---
PAGER ID: [phone] MESSAGE: [phone] Nico Coto, refused CBC. Also, requesting PRN Isael for back pain. Ijeoma GREENE [phone]
--- NOTE | 2020-04-24 13:29 | NUR ---
MD decline request for Homer, and stated she needs to look at his chart more thoroughly. Chest Fluroscopy reviewed with patient and she gave no new orders.
--- NOTE | 2020-04-24 14:27 | NUR ---
Patient allowed nursing to obtain BP but declined other vital signs. RR was noted to be 18, in no apparent distress.
[2020-04-24 15:00] VITALS: BP 130/83
[2020-04-24] MEDS: albuterol 2.5 MG/3 ML nebule NEB PRN (16:16)
--- NOTE | 2020-04-24 16:52 | NUR ---
PAGER ID: [phone] MESSAGE: [phone] Nnamdi Walsh. Can patient have an order for Tylenol for shoulder pain? Ijeoma [facility] [id number]
[2020-04-24] MEDS: acetaminophen 325mg tablet PO PRN (17:24)
[2020-04-24 18:00] VITALS: BP 116/62
--- NOTE | 2020-04-24 18:18 | NUR ---
Problems reprioritized. Patient report given, questions answered & plan of care reviewed with Nasir RN. Pt. repositioned for comfort and watching t.v.
--- NOTE | 2020-04-24 18:30 | NUR ---
Patient in room PCU 3020. I have received report from Ijeoma GREENE and had the opportunity to ask questions and assume patient care.
[2020-04-24] MEDS: HYDROcodone/acetaminophen 5mg/325mg tablet PO PRN (19:20)
[2020-04-24] MEDS: carVEDilol 3.125mg tablet PO SCH (19:21)
--- NOTE | 2020-04-24 21:09 | NUR ---
pt difficult to arouse and was sleeping slumped over guard rail. Pt had bedside inhaler that I took and gave to his nurse. Pt in no apparent distress at this time.
[2020-04-24 22:00] VITALS: BP 116/67
--- NOTE | 2020-04-24 23:25 | NUR ---
pt has been non-compliant with positioning, pt insists on sitting up with legs down. however pt has been observed turning self/shifting bottom back and forth and laying down (with legs dangling). education provided will continue to monitor
[2020-04-25] MEDS ORDERED: LORazepam 2 mg/ml vial IV PRN (02:15)
[2020-04-25] MEDS: Melatonin 3mg tablet PO PRN (02:27)
[2020-04-25] MEDS: albuterol 2.5 MG/3 ML nebule NEB PRN ×2 (02:53→15:15)
[2020-04-25 06:13] LABS: BASOPHILS # (AUTO) 0.1 X10'3 (0-0.2); BASOPHILS % (AUTO) 0.4 % (0-1); EOSINOPHILS # (AUTO) 0.1 X10'3 (0-0.9); EOSINOPHILS % (AUTO) 0.7 % (0-6); HEMATOCRIT 38.1 % (42.0-52.0); LYMPHOCYTES # (AUTO) 0.8 X10'3 (1.1-4.8); LYMPHOCYTES % (AUTO) 6.6 % (21-51); MEAN CORPUSCULAR HEMOGLOBIN 27.3 PG (27.0-31.0); MEAN CORPUSCULAR HGB CONC 31.5 g/dL (33.0-36.5); MEAN CORPUSCULAR VOLUME 86.9 FL (78-98); MEAN PLATELET VOLUME 8.2 FL (7.4-10.4); MONOCYTES # (AUTO) 1.1 X10'3 (0-0.9); MONOCYTES % (AUTO) 9.3 % (2-12); NEUTROPHILS # (AUTO) 9.7 X10'3 (1.8-7.7); PLATELET COUNT 197 X10'3 (140-440); RED BLOOD COUNT 4.38 X10'6 (4.70-6.10); RED CELL DISTRIBUTION WIDTH 16.8 % (11.5-14.5); WHITE BLOOD COUNT 11.6 X10'3 (4.5-11.0)
[2020-04-25 06:26] LABS: ALANINE AMINOTRANSFERASE 51 U/L (12-78); ALBUMIN/GLOBULIN RATIO 0.6 (1.1-1.5); ALKALINE PHOSPHATASE 75 IU/L (46-116); ANION GAP 4 (8-16); ASPARTATE AMINO TRANSFERASE 33 U/L (10-37); BILIRUBIN,TOTAL 0.3 MG/DL (0.1-1.0); BLOOD UREA NITROGEN 51 MG/DL (7-18); BUN/CREATININE RATIO 28.8 (5.4-32.0); CALCIUM 7.7 MG/DL (8.5-10.1); CHLORIDE 107 MMOL/L (99-107); CREATININE 1.77 MG/DL (0.60-1.10); GLUCOSE 109 MG/DL (70-104); POTASSIUM 4.5 MMOL/L (3.5-5.1); SODIUM 140 MMOL/L (135-145); TOTAL CARBON DIOXIDE 29.3 MMOL/L (24-32); TOTAL PROTEIN 5.3 G/DL (6.4-8.2); eGFR 39 ML/MIN
--- NOTE | 2020-04-25 06:40 | NUR ---
Problems reprioritized. Patient report given, questions answered & plan of care reviewed with Saulo GREENE.
[2020-04-25 07:00] VITALS: BP 158/108
[2020-04-25] MEDS: K and/or MAG REPLACEMENT MC SCH ×2 (08:00→20:00)
[2020-04-25] MEDS: carVEDilol 3.125mg tablet PO SCH ×2 (08:00→19:34)
[2020-04-25] MEDS: HYDROcodone/acetaminophen 5mg/325mg tablet PO PRN ×2 (08:03→12:53)
[2020-04-25] MEDS: heparin, porcine 5000 units/ml vial SQ SCH ×2 (08:04→19:34)
[2020-04-25] MEDS: furosemide 20 MG/2 ML vial IV SCH ×2 (08:04→19:34)
[2020-04-25] MEDS: spironolactone 25 MG tablet PO SCH (08:13)
--- NOTE | 2020-04-25 08:30 | NUR ---
Patient refusing repositioning and will not place feet up in non-dependent position as instructed.
[2020-04-25 11:00] VITALS: BP 122/70
--- NOTE | 2020-04-25 14:44 | NUR ---
Paged Dr. Klein. Nico Coto. [phone]. FYI Patient is requesting to leave A. He has signed the paperwork. Saulo [phone]
--- NOTE | 2020-04-25 15:27 | NUR ---
RT PAGED FOR PRN TREATMENT, RT ARRIVED AT PT'S ROOM, PT SITTING IN CHAIR ON THE OPPOSITE SIDE OF O2 FLOWMETER. UPON OBTAINING PT'S VITALS, PT'S SPO2 WAS 83% ON ROOM AIR. SVN TX WAS ADMINISTERED AND PT WAS PLACED BACK ON O2, 3L. PT'S SPO2 IN THE MID 90'S POST TREATMENT ON 3L. NO SOB OR DISTRESS NOTED. Addendum: 04/25/20 at 1532 by Clari Pisano RT Amended: Links added.
--- NOTE | 2020-04-25 15:30 | NUR ---
Patient refused 1500 VS
--- NOTE | 2020-04-25 16:29 | NUR ---
Paged Dr. Klein. Nico Coto. [id number]. Patient did not end up leaving AMA. His IV is out and 2 RN have attempted with no luck. Charge would like to know if we can leave without IV and convert meds to PO. Saulo [phone]
--- NOTE | 2020-04-25 17:33 | NUR ---
Dr. Klein wants the patient to have IV. She wants the patient to have an IV. hourly shift manager will have to try per hot metal charger Gary.
--- NOTE | 2020-04-25 17:33 | NUR ---
Paged Dr. Klein. Nico Coto, [phone]. Patient has no IV since he tried to leave AMA and did not end up leaving. RN's no luck starting IV. Can he be left without IV and converted to PO meds? Saulo [phone]
--- NOTE | 2020-04-25 18:12 | NUR ---
Problems reprioritized. Patient report given, questions answered & plan of care reviewed with Nasir RN.
--- NOTE | 2020-04-25 18:30 | NUR ---
Patient in room PCU 3020. I have received report from Saulo GREENE and had the opportunity to ask questions and assume patient care.
[2020-04-26] MEDS: Melatonin 3mg tablet PO PRN (00:41)
[2020-04-26] MEDS: HYDROcodone/acetaminophen 5mg/325mg tablet PO PRN ×2 (00:41→08:16)
--- NOTE | 2020-04-26 05:05 | NUR ---
pt has been highly irritable tonight, he has refused VS all night and now is refusing morning lab draws. will leave morning lab orders as active in hopes that pt will be agreeable at a later time today.
--- NOTE | 2020-04-26 06:28 | NUR ---
Problems reprioritized. Patient report given, questions answered & plan of care reviewed with Yodit Varma RN.
--- NOTE | 2020-04-26 06:37 | NUR ---
Patient in room PCU 3020. I have received report from Nasir RN and had the opportunity to ask questions and assume patient care.
--- NOTE | 2020-04-26 07:03 | NUR ---
Patient sitting at edge of bed despite interventions to keep legs up. Patient also refused vital signs this am. Will continue to monitor.
[2020-04-26] MEDS: K and/or MAG REPLACEMENT MC SCH ×2 (08:00→19:33)
--- NOTE | 2020-04-26 08:17 | NUR ---
Patient was upset and agitated. Refused AM medication and to put feet back up in bed. Patient however did respond to taking pain medication and will continue to prompt in being complaint. Feet are swollen and pants are soiled with liquid on legs.
[2020-04-26] MEDS: furosemide 20 MG/2 ML vial IV SCH ×2 (09:42→19:25)
[2020-04-26] MEDS: carVEDilol 3.125mg tablet PO SCH ×2 (09:44→19:25)
[2020-04-26] MEDS: spironolactone 25 MG tablet PO SCH (09:44)
[2020-04-26] MEDS: heparin, porcine 5000 units/ml vial SQ SCH ×2 (09:45→19:25)
[2020-04-26 09:49] VITALS: BP 138/90
[2020-04-26 11:00] VITALS: BP 136/84
--- NOTE | 2020-04-26 11:05 | NUR ---
Patient refused 1100 vitals.
--- NOTE | 2020-04-26 11:20 | NUR ---
Was able to obtain HR and BP and O2. Patient appears confused BP: 136/84, HR: 100, O2: 88% 2LNC. ABG show evidence of needing bipap, Patient refused. Started to become agitated and aggressive. Will continue to monitor.
--- NOTE | 2020-04-26 11:26 | NUR ---
Dr. Klein at bedside with patient and nurse. Patient leaning over bed seems annoyed and confused. New order to order labs and ABG. MD is aware of pain medications and norco 5 not working as well as not using Ativan given pt disposition. Will continue to use interventions to promote health.
--- NOTE | 2020-04-26 11:31 | NUR ---
Paged respiratory Re: Nico Coto [phone]. ABG is needed siobhan. Pt is willing to comply. Yodit GREENE [phone]
--- NOTE | 2020-04-26 11:31 | NUR ---
Called Lab to obtain labs. Will be sending person up soon. Will continue to promote compliance.
[2020-04-26 12:10] LABS: ABG BASE EXCESS 2.6 mmol/L (-2.0-2.0); ABG HCO3 31.9 mmol/L (22.0-26.0); ABG OXYGEN SATURATION 93.5 % (94-97); ABG PCO2 (T) 73.9 mmHg (35.0-48.0); ABG PO2 (T) 70.6 mmHg (75.0-100.0); ALLEN'S TEST POSITIVE; FCOHb 0.2 % (0.0-3.9); FLOW 2 L/min; FMetHb 0.2 % (0.0-1.5); FO2Hb 93.1 % (94-97); TOTAL HEMOGLOBIN 13.1 G/dl (14.0-18.0)
--- NOTE | 2020-04-26 12:13 | NUR ---
Patient was able to let labs draw blood and do ABG. Patient needs BIPAP but is refusing, respiratory therapist also tried to get patient to comply he said no and to, "Be quiet". Will continue to monitor.
[2020-04-26 12:28] LABS: BASOPHILS # (AUTO) 0.1 X10'3 (0-0.2); BASOPHILS % (AUTO) 0.7 % (0-1); EOSINOPHILS # (AUTO) 0.1 X10'3 (0-0.9); EOSINOPHILS % (AUTO) 0.8 % (0-6); HEMATOCRIT 39.9 % (42.0-52.0); HEMOGLOBIN 12.8 g/dl (14.0-17.9); LYMPHOCYTES # (AUTO) 0.6 X10'3 (1.1-4.8); LYMPHOCYTES % (AUTO) 5.3 % (21-51); MEAN CORPUSCULAR HEMOGLOBIN 27.6 PG (27.0-31.0); MEAN CORPUSCULAR HGB CONC 32.1 g/dL (33.0-36.5); MEAN CORPUSCULAR VOLUME 85.9 FL (78-98); MONOCYTES # (AUTO) 0.9 X10'3 (0-0.9); MONOCYTES % (AUTO) 8.4 % (2-12); NEUTROPHILS # (AUTO) 9.1 X10'3 (1.8-7.7); NEUTROPHILS % (AUTO) 84.8 % (42-75); PLATELET COUNT 162 X10'3 (140-440); RED BLOOD COUNT 4.64 X10'6 (4.70-6.10); RED CELL DISTRIBUTION WIDTH 16.9 % (11.5-14.5); WHITE BLOOD COUNT 10.8 X10'3 (4.5-11.0)
[2020-04-26 12:41] LABS: ALANINE AMINOTRANSFERASE 42 U/L (12-78); ALBUMIN 2.2 G/DL (3.4-5.0); ALBUMIN/GLOBULIN RATIO 0.6 (1.1-1.5); ALKALINE PHOSPHATASE 66 IU/L (46-116); ANION GAP 1 (8-16); ASPARTATE AMINO TRANSFERASE 35 U/L (10-37); BILIRUBIN,TOTAL 0.4 MG/DL (0.1-1.0); BLOOD UREA NITROGEN 48 MG/DL (7-18); BUN/CREATININE RATIO 36.1 (5.4-32.0); CALCIUM 8.1 MG/DL (8.5-10.1); CHLORIDE 104 MMOL/L (99-107); CREATININE 1.33 MG/DL (0.60-1.10); GLUCOSE 94 MG/DL (70-104); SODIUM 138 MMOL/L (135-145); TOTAL CARBON DIOXIDE 32.8 MMOL/L (24-32); TOTAL PROTEIN 5.8 G/DL (6.4-8.2); eGFR 54 ML/MIN
[2020-04-26 12:44] LABS: POTASSIUM 4.7 MMOL/L (3.5-5.1)
--- NOTE | 2020-04-26 15:00 | NUR ---
Patient refused vital signs
--- NOTE | 2020-04-26 17:51 | NUR ---
Patient yelling about his room being messy and that he wants his floor and bathroom cleaned. Patient was talked to about not yelling and use inside voices due to respect on other patients. Patient seemed to understand and was able to calm down alittle. Patient explained, "he was starving and no one lets him drink anything here". Room was picked up and the bedding was changed. I offered to set up the shower for the patient but he refused. Patient was given 2 juices. We will continue to monitor.
--- NOTE | 2020-04-26 18:05 | NUR ---
Patient in room PCU 3020. I have received report from Yodit GREENE and had the opportunity to ask questions and assume patient care.
--- NOTE | 2020-04-26 18:08 | NUR ---
Problems reprioritized. Patient report given, questions answered & plan of care reviewed with Xochitl GREENE.
[2020-04-26] MEDS: albuterol 2.5 MG/3 ML nebule NEB PRN (19:01)
[2020-04-26 22:00] VITALS: BP 137/91
--- NOTE | 2020-04-27 01:23 | NUR ---
Patient refused 1800 vitals.
[2020-04-27 02:00] VITALS: BP 149/86
[2020-04-27 05:58] LABS: ALANINE AMINOTRANSFERASE 44 U/L (12-78); ALBUMIN 2.4 G/DL (3.4-5.0); ALBUMIN/GLOBULIN RATIO 0.6 (1.1-1.5); ALKALINE PHOSPHATASE 81 IU/L (46-116); ANION GAP 2 (8-16); ASPARTATE AMINO TRANSFERASE 32 U/L (10-37); BILIRUBIN,TOTAL 0.5 MG/DL (0.1-1.0); BLOOD UREA NITROGEN 42 MG/DL (7-18); BUN/CREATININE RATIO 34.1 (5.4-32.0); CALCIUM 8.4 MG/DL (8.5-10.1); CHLORIDE 103 MMOL/L (99-107); CREATININE 1.23 MG/DL (0.60-1.10); GLUCOSE 107 MG/DL (70-104); POTASSIUM 4.2 MMOL/L (3.5-5.1); SODIUM 141 MMOL/L (135-145); TOTAL PROTEIN 6.1 G/DL (6.4-8.2); eGFR 59 ML/MIN
[2020-04-27 06:00] VITALS: BP 150/98
[2020-04-27 06:06] LABS: BASOPHILS % (AUTO) 0.3 % (0-1); EOSINOPHILS # (AUTO) 0.1 X10'3 (0-0.9); HEMATOCRIT 40.2 % (42.0-52.0); LYMPHOCYTES # (AUTO) 0.7 X10'3 (1.1-4.8); MEAN CORPUSCULAR HEMOGLOBIN 27.8 PG (27.0-31.0); MEAN CORPUSCULAR HGB CONC 32.2 g/dL (33.0-36.5); MEAN CORPUSCULAR VOLUME 86.5 FL (78-98); MEAN PLATELET VOLUME 8.4 FL (7.4-10.4); MONOCYTES % (AUTO) 8.2 % (2-12); NEUTROPHILS # (AUTO) 10.4 X10'3 (1.8-7.7); NEUTROPHILS % (AUTO) 84.5 % (42-75); PLATELET COUNT 153 X10'3 (140-440); RED BLOOD COUNT 4.65 X10'6 (4.70-6.10); RED CELL DISTRIBUTION WIDTH 16.1 % (11.5-14.5); WHITE BLOOD COUNT 12.4 X10'3 (4.5-11.0)
--- NOTE | 2020-04-27 06:25 | NUR ---
Problems reprioritized. Patient report given, questions answered & plan of care reviewed with Maggie GREENE.
--- NOTE | 2020-04-27 06:30 | NUR ---
Patient in room PCU 3020. I have received report from JC Tarango and had the opportunity to ask questions and assume patient care.
[2020-04-27] MEDS: K and/or MAG REPLACEMENT MC SCH ×2 (08:00→19:10)
[2020-04-27] MEDS: spironolactone 25 MG tablet PO SCH (08:11)
[2020-04-27] MEDS: carVEDilol 3.125mg tablet PO SCH ×2 (08:11→19:10)
[2020-04-27] MEDS: heparin, porcine 5000 units/ml vial SQ SCH ×2 (08:19→19:10)
[2020-04-27] MEDS: furosemide 20 MG/2 ML vial IV SCH (08:26)
[2020-04-27 11:00] VITALS: BP 146/86
[2020-04-27] MEDS ORDERED: LORazepam 2 mg/ml vial IV PRN (11:35)
[2020-04-27 13:31] LABS: ABG BASE EXCESS 9.6 mmol/L (-2.0-2.0); ABG PCO2 (T) 71.2 mmHg (35.0-48.0); ABG PO2 (T) 94.7 mmHg (75.0-100.0); ALLEN'S TEST POSITIVE; FCOHb 0.2 % (0.0-3.9); FLOW 2 L/min; FMetHb 0.2 % (0.0-1.5); FO2Hb 96.6 % (94-97); TOTAL HEMOGLOBIN 13.1 G/dl (14.0-18.0)
[2020-04-27 15:00] VITALS: BP 159/119
[2020-04-27 18:00] VITALS: BP 138/85
--- NOTE | 2020-04-27 18:04 | NUR ---
Problems reprioritized. Patient report given, questions answered & plan of care reviewed with Emelina GREENE.
--- NOTE | 2020-04-27 18:52 | NUR ---
Patient in room PCU 3020. I have received report from Maggie GREENE and had the opportunity to ask questions and assume patient care.
[2020-04-27] MEDS: furosemide 40mg/4ml inj IV SCH (19:09)
[2020-04-27] MEDS: methylPREDNISolone sod succ/PF 40mg inj. IV SCH (19:09)
[2020-04-27 22:00] VITALS: BP 123/82
[2020-04-28 02:00] VITALS: BP 140/92
[2020-04-28 06:00] VITALS: BP 131/82
[2020-04-28 06:02] LABS: BASOPHILS % (AUTO) 0.1 % (0-1); EOSINOPHILS % (AUTO) 0 % (0-6); HEMATOCRIT 38.6 % (42.0-52.0); HEMOGLOBIN 12.4 g/dl (14.0-17.9); LYMPHOCYTES # (AUTO) 0.2 X10'3 (1.1-4.8); LYMPHOCYTES % (AUTO) 2.5 % (21-51); MEAN CORPUSCULAR HEMOGLOBIN 27.5 PG (27.0-31.0); MEAN CORPUSCULAR HGB CONC 32.2 g/dL (33.0-36.5); MEAN CORPUSCULAR VOLUME 85.5 FL (78-98); MEAN PLATELET VOLUME 8.4 FL (7.4-10.4); MONOCYTES # (AUTO) 0.2 X10'3 (0-0.9); MONOCYTES % (AUTO) 1.8 % (2-12); NEUTROPHILS # (AUTO) 8.5 X10'3 (1.8-7.7); NEUTROPHILS % (AUTO) 95.6 % (42-75); PLATELET COUNT 146 X10'3 (140-440); RED BLOOD COUNT 4.52 X10'6 (4.70-6.10); RED CELL DISTRIBUTION WIDTH 16.5 % (11.5-14.5); WHITE BLOOD COUNT 8.9 X10'3 (4.5-11.0)
--- NOTE | 2020-04-28 06:10 | NUR ---
Patient in room PCU 3020. I have received report from Sola GREENE and had the opportunity to ask questions and assume patient care.
[2020-04-28 06:22] LABS: ALANINE AMINOTRANSFERASE 42 U/L (12-78); ALBUMIN 2.2 G/DL (3.4-5.0); ALBUMIN/GLOBULIN RATIO 0.5 (1.1-1.5); ALKALINE PHOSPHATASE 64 IU/L (46-116); ANION GAP -1 (8-16); ASPARTATE AMINO TRANSFERASE 28 U/L (10-37); BILIRUBIN,TOTAL 0.5 MG/DL (0.1-1.0); BLOOD UREA NITROGEN 41 MG/DL (7-18); CALCIUM 8.2 MG/DL (8.5-10.1); CHLORIDE 102 MMOL/L (99-107); CREATININE 1.17 MG/DL (0.60-1.10); GLUCOSE 155 MG/DL (70-104); SODIUM 139 MMOL/L (135-145); TOTAL CARBON DIOXIDE 37.7 MMOL/L (24-32); TOTAL PROTEIN 6.5 G/DL (6.4-8.2); eGFR 63 ML/MIN
--- NOTE | 2020-04-28 06:34 | NUR ---
Problems reprioritized. Patient report given, questions answered & plan of care reviewed with Maggie GREENE.
[2020-04-28] MEDS: acetaminophen 325mg tablet PO PRN (07:33)
[2020-04-28] MEDS: carVEDilol 3.125mg tablet PO SCH (07:33)
[2020-04-28] MEDS: methylPREDNISolone sod succ/PF 40mg inj. IV SCH (07:36)
[2020-04-28] MEDS: furosemide 40mg/4ml inj IV SCH (07:40)
[2020-04-28] MEDS: heparin, porcine 5000 units/ml vial SQ SCH (07:41)
[2020-04-28] MEDS: K and/or MAG REPLACEMENT MC SCH (08:00)
[2020-04-28] MEDS: spironolactone 25 MG tablet PO SCH (10:06)
[2020-04-28 11:00] VITALS: BP 146/92
--- NOTE | 2020-04-28 11:17 | NUR ---
O2 Sat at rest on room air: 87% If below 89%: Recovery O2 Sat at rest on 2LPM: 94% via nasal cannula (mask/nasal cannula, etc..) No further documentation is necessary.
[2020-04-28 15:00] VITALS: BP 143/93
--- NOTE | 2020-04-28 15:18 | NUR ---
PAGER ID: [phone] MESSAGE: Re: CotoNico. 3020. Patient ambulated 300 feet on Room air. Patient saturated 90% while ambulating. Satted 87% when standing and sitting after walking. 2L brought PT up to 95%
--- NOTE | 2020-04-28 16:54 | NUR ---
will put in DC orders. PAGER ID: [phone] MESSAGE: Re: Nico Coto. 3020. Pt's insurance approved oxygen. David dropped off 02 and compressor. Pt. wants to DC. Maggie N #[phone]
[2020-04-28] MEDS ORDERED: FURO20TA4 PO (16:59)
[2020-04-28] MEDS ORDERED: ALBU2.5V7 NEB (16:59)
[2020-04-28] MEDS ORDERED: COR3.125T PO (16:59)
[2020-04-28] MEDS ORDERED: ALBU8.5H8 IH (17:00)
[2020-04-28] MEDS ORDERED: SPIR25TA PO (17:11)
--- NOTE | 2020-04-28 18:00 | NUR ---
Stable for discharge per md orders. All discharge instructions reviewed with the patient and all questions answered. Strict follow up criteria given, patient given orientation to oxygen tank and compressor from [facility] pharmacy assistance representative. Patient verbalized understanding of follow up at [facility] wound clinic on friday05/02/20 and was given a phone number to have transport pick him up. PIV discontinued with cannula intact. equipment monitor phototypesetting discontinued. Belongings collected and sent with patient. Patient wheeled to the [facility] by Serena CNA. Jose Enrique was awaiting patient in front of hospital. Patient armbands were cut off at the time of discharge. Addendum: 04/28/20 at 1839 by Maggie Brown RN Perscriptions were called into [facility]
== END 2020-04-28 18:05 | disposition home or self-care (01) | DRG 140 ==
LOC: ER 14:55 → ED HOLD 04-24 01:31 → PCU 3S 04-24 03:06
PROVIDERS: ADMIT Internal Medicine; ATTEND Internal Medicine
PROC: 5A09357 Assistance with Respiratory Ventilation, Less than 24 Consecutive Hours, Continuous Positive Airway Pressure (ICD-10-PCS; principal; 2020-04-27)
DX: J44.1 Chronic obstructive pulmonary disease with (acute) exacerbation (principal); J96.01 Acute respiratory failure with hypoxia; J96.02 Acute respiratory failure with hypercapnia; I13.0 Hypertensive heart and chronic kidney disease with heart failure and stage 1 through stage 4 chronic kidney disease, or unspecified chronic kidney disease; I50.23 Acute on chronic systolic (congestive) heart failure; B18.2 Chronic viral hepatitis C; D64.9 Anemia, unspecified; E78.5 Hyperlipidemia, unspecified; F31.9 Bipolar disorder, unspecified; I25.10 Atherosclerotic heart disease of native coronary artery without angina pectoris; I27.20 Pulmonary hypertension, unspecified; N17.9 Acute kidney failure, unspecified; N18.9 Chronic kidney disease, unspecified; Z59.0 Homelessness
CPT/HCPCS: 36415; 36600; 71045; 71048; 71270; 74174; 80053; 82803; 83880; 84484; 85018; 85025; 85379; 87081; 93005; 94640; 94644; 94660; 94760; 96365; 96375; 99291; G0378; J1100; J1644; J1940; J2060; J2920; J3490; Q9967

== ENCOUNTER 2020-05-19 07:11 | Inpatient (IN) | payer MEDICAID ==
[~2020-05-19] VITALS: Ht 185.4 cm; Wt 95.0 kg
[~2020-05-19 07:11] MED LIST changes: +ALBU2.5V7 NEB; +COR3.125T PO; -DOXY100C76 PO; +FURO20TA4 PO; -PRED20TA PO; +SPIR25TA PO
[2020-05-19] MEDS ORDERED: dexamethasone sod phosphate 10mg/ml inj IV STA (08:01)
[2020-05-19] MEDS ORDERED: ipratropium/albuterol 3ml nebule NEB ONE (08:05)
--- NOTE | 2020-05-19 08:07 | NUR ---
2 RNS ATTEMPTED IV X4 WITHOUT SUCCESS. IV U/S BEING ATTEMPTED NOW. PT HAS BILAT WEEPING LOWER LEG WOUNDS WHICH WERE WRAPPED AT [facility] 05/17/20 AND A DUODERM ON HIS COCCYX.
[2020-05-19] MEDS ORDERED: ipratropium/albuterol 3ml nebule ONE ×2 (08:20→08:35)
[2020-05-19 08:32] LABS: BASOPHILS # (AUTO) 0.1 X10'3 (0-0.2); BASOPHILS % (AUTO) 0.6 % (0-1); EOSINOPHILS # (AUTO) 0.1 X10'3 (0-0.9); EOSINOPHILS % (AUTO) 0.6 % (0-6); HEMATOCRIT 46.9 % (42.0-52.0); LYMPHOCYTES # (AUTO) 0.4 X10'3 (1.1-4.8); LYMPHOCYTES % (AUTO) 4.2 % (21-51); MEAN CORPUSCULAR HEMOGLOBIN 27.6 PG (27.0-31.0); MEAN CORPUSCULAR HGB CONC 32.1 g/dL (33.0-36.5); MEAN CORPUSCULAR VOLUME 86.1 FL (78-98); MEAN PLATELET VOLUME 8.1 FL (7.4-10.4); MONOCYTES % (AUTO) 10.1 % (2-12); NEUTROPHILS # (AUTO) 8.1 X10'3 (1.8-7.7); NEUTROPHILS % (AUTO) 84.5 % (42-75); PLATELET COUNT 176 X10'3 (140-440); RED BLOOD COUNT 5.44 X10'6 (4.70-6.10); RED CELL DISTRIBUTION WIDTH 17.2 % (11.5-14.5); WHITE BLOOD COUNT 9.6 X10'3 (4.5-11.0)
[2020-05-19 08:37] LABS: PARTIAL THROMBOPLASTIN TIME 31 SECONDS (22-32)
--- NOTE | 2020-05-19 08:37 | NUR ---
rt at bedside, abg drawn, neb tx now then cpap
[2020-05-19 08:49] LABS: ALANINE AMINOTRANSFERASE 993 U/L (12-78); ALBUMIN 2.6 G/DL (3.4-5.0); ALBUMIN/GLOBULIN RATIO 0.6 (1.1-1.5); ALKALINE PHOSPHATASE 163 IU/L (46-116); ANION GAP 6 (8-16); ASPARTATE AMINO TRANSFERASE 148 U/L (10-37); BILIRUBIN,TOTAL 1.3 MG/DL (0.1-1.0); BLOOD UREA NITROGEN 44 MG/DL (7-18); BUN/CREATININE RATIO 29.5 (5.4-32.0); CHLORIDE 106 MMOL/L (99-107); CREATININE 1.49 MG/DL (0.60-1.10); GLUCOSE 98 MG/DL (70-104); POTASSIUM 4.6 MMOL/L (3.5-5.1); SODIUM 144 MMOL/L (135-145); TOTAL CARBON DIOXIDE 32.4 MMOL/L (24-32); TOTAL PROTEIN 7.3 G/DL (6.4-8.2); eGFR 47 ML/MIN
[2020-05-19] MEDS ORDERED: morphine 4 MG/ML inj SYRINge IV ONE (09:25)
[2020-05-19] MEDS ORDERED: ondansetron/PF 4mg/2ml inj IV ONE (09:25)
--- NOTE | 2020-05-19 09:54 | NUR ---
BACK FROM CT
--- NOTE | 2020-05-19 12:02 | NUR ---
PT WASUPOUT OF BED TRYINGTO URINATE. PT URINATED ON THE FLOOR. I CLEANED THE URINE UUP OFFOF THE FLOOR, PT IS NOW BACK IN BED WITH ALL MONITOR EQUIPMENT BACK ON THE PT.
[2020-05-19 12:19] LABS: CLARITY,URINE CLEAR (Clear); COLOR,URINE YELLOW (Yellow); GLUCOSE, URINE NEGATIVE (Neg); KETONES,URINE NEGATIVE (Neg); LEUKOCYTE ESTERASE ,URINE NEGATIVE (Neg); NITRITES, URINE NEGATIVE (Neg); OCCULT BLOOD,URINE NEGATIVE (Neg); PH,URINE 6.5 (4.8-8.0); PROTEIN,URINE 30 mg/dl (Neg); UROBILINOGEN,URINE 0.2 E.U/dL (0.2-1.0)
[2020-05-19 12:31] LABS: UA COLLECTION TYPE CLN CATCH MIDSTREAM
[2020-05-19 12:32] LABS: BACTERIA,URINE NONE SEEN /HPF (Neg); MUCUS STRANDS FEW /LPF (Neg); RBC,URINE 0-2 /HPF (0-2); SQUAMOUS EPITHELIAL CELL,UR NONE SEEN /LPF (FEW); WBC,URINE 0-4 /HPF (0-4)
[2020-05-19 12:33] LABS: URINE AMPHETAMINE SCREEN NEGATIVE (Neg); URINE BARBITUATE SCREEN NEGATIVE (Neg); URINE BENZODIAZEPINES SCREEN NEGATIVE (Neg); URINE CANNABINOID SCREEN NEGATIVE (Neg); URINE COCAINE SCREEN NEGATIVE (Neg); URINE METHADONE SCREEN NEGATIVE (Neg); URINE OPIATE SCREEN POSITIVE (Neg); URINE PHENCYCLIDINE SCREEN NEGATIVE (Neg)
--- NOTE | 2020-05-19 14:14 | NUR ---
Phoned lab and they have not heard from Infection Control to authorize the Rapid COVID-19 swab. Paged Hospitalist regarding the communication with Infection Control to get the swab authorized. Pt is sitting upright in a position of comfort on the gurney at this time. Additional admission orders and admission bed assignment is pending after the results of the COVID swab.
--- NOTE | 2020-05-19 14:18 | NUR ---
Dr. Suggs contacted Dr. Arizmendi regarding the processing of the Rapid COVID swab.
[2020-05-19] MEDS ORDERED: SPIR25TA5 PO (14:20)
[2020-05-19] MEDS ORDERED: FURO-149 PO (14:20)
[2020-05-19] MEDS ORDERED: ALBU8HFA PO (14:20)
[2020-05-19] MEDS ORDERED: CARV3.12 PO (14:20)
[2020-05-19] MEDS ORDERED: magnesium Cl slow-release 64mg tablet PO PRN (15:10)
[2020-05-19] MEDS ORDERED: potassium CL 10mEq/100ml bag 100 ML IV PRN ×2 (15:10)
[2020-05-19] MEDS ORDERED: ondansetron/PF 4mg/2ml inj IV PRN (15:10)
[2020-05-19] MEDS ORDERED: acetaminophen 650mg rectal suppository RC PRN (15:10)
[2020-05-19] MEDS ORDERED: mag hydrox/Alum hydrox/simeth 30ml oral suspension PO PRN (15:10)
[2020-05-19] MEDS ORDERED: magnesium 2GM in 50ml NS 50 ML IV PRN (15:10)
[2020-05-19] MEDS ORDERED: potassium Cl 20 mEq SR tablet PO PRN ×2 (15:10)
[2020-05-19] MEDS ORDERED: acetaminophen 325mg tablet PO PRN ×2 (15:10)
[2020-05-19] MEDS ORDERED: magnesium 4gm in 100ml NS 100 ML IV PRN (15:10)
[2020-05-19] MEDS ORDERED: bisacodyl 10mg suppository rectal RC PRN (15:10)
[2020-05-19] MEDS ORDERED: diphenhydrAMINE 25mg capsule PO PRN (15:10)
[2020-05-19] MEDS ORDERED: morphine 2 MG/ML inj. syringe IV PRN ×2 (15:10)
[2020-05-19] MEDS ORDERED: furosemide 10 MG/1 ML 10ml inj IV SCH (15:10)
[2020-05-19] MEDS ORDERED: magnesium hydroxide 30ml (MOM) UD suspension PO PRN (15:10)
[2020-05-19] MEDS: furosemide 40mg/4ml inj IV SCH ×2 (15:32→20:10)
[2020-05-19] MEDS: normal saline 1000ml 1,000 ML IV SCH (15:41)
[2020-05-19 15:50] LABS: HEMOGLOBIN A1C 6.1 % (4.5-6.2)
--- NOTE | 2020-05-19 19:25 | NUR ---
received report from alesia GREENE ER, had opportunity to ask questions, pt AMAed from [facility] this AM and came here for treatment. awaiting arrival on floor.
[2020-05-19 19:58] VITALS: BP 116/78
[2020-05-19] MEDS: ipratropium/albuterol 3ml nebule NEB SCH ×2 (19:59→23:11)
[2020-05-19] MEDS: K and/or MAG REPLACEMENT MC SCH (20:00)
[2020-05-19] MEDS: HYDROcodone/acetaminophen 10/325mg tab PO PRN (20:09)
[2020-05-19] MEDS: carVEDilol 3.125mg tablet PO SCH (20:09)
[2020-05-19] MEDS: methylPREDNISolone sod succ 125mg/2ml vial IV SCH (20:09)
[2020-05-19] MEDS: heparin, porcine 5000 units/ml vial SQ SCH (20:10)
--- NOTE | 2020-05-19 20:34 | NUR ---
pt arrived to floor with all belongings, pt oriented to floor, tele attached to pt VS stable. Addendum: 05/19/20 at 2222 by Heladio Cabrera RN time should be 19305/19/20
--- NOTE | 2020-05-19 20:41 | NUR ---
pt is non-compliant with care plan. pt is receiving lasix, frequent urination, pt states he needs to stand to urinate but calls staff "fags" if they try to help stabalize him while he stands. pt is verbally abusive and despite the need for assistance refuses help. pt is angry with staff and states "i cant piss with you staring at me" for these reasons we will not be in the room while he stands to urinate per pt request.
[2020-05-19 22:00] VITALS: BP 106/70
[2020-05-20] VITALS (7 sets, daily range): BP systolic 117–147; BP diastolic 67–93
[2020-05-20] MEDS ORDERED: lisinopril 10 MG tablet PO ONE (00:25)
[2020-05-20] MEDS: methylPREDNISolone sod succ 125mg/2ml vial IV SCH ×4 (01:33→20:28)
[2020-05-20] MEDS: levoFLOXACIN-Levaquin 750MG/D5 150 ML IV SCH (01:43)
--- NOTE | 2020-05-20 01:56 | NUR ---
pt refused blood draw attempted one blood draw and it was unsuccessful, pt jerks and moves, when setting up for a second attempt pt stated " we are done get someone else, actually we can do it in the morning". educated pt on the need for a zero hour troponin. pt continued to refuse. will attempt again at next scheduled time.
[2020-05-20] MEDS: ipratropium/albuterol 3ml nebule NEB SCH ×6 (03:00→22:52)
[2020-05-20 05:32] LABS: BASOPHILS % (AUTO) 0.1 % (0-1); EOSINOPHILS % (AUTO) 0 % (0-6); HEMATOCRIT 45.6 % (42.0-52.0); HEMOGLOBIN 14.3 g/dl (14.0-17.9); LYMPHOCYTES # (AUTO) 0.2 X10'3 (1.1-4.8); LYMPHOCYTES % (AUTO) 2.5 % (21-51); MEAN CORPUSCULAR HEMOGLOBIN 27.7 PG (27.0-31.0); MEAN CORPUSCULAR HGB CONC 31.2 g/dL (33.0-36.5); MEAN CORPUSCULAR VOLUME 88.6 FL (78-98); MEAN PLATELET VOLUME 8.8 FL (7.4-10.4); MONOCYTES # (AUTO) 0.2 X10'3 (0-0.9); MONOCYTES % (AUTO) 2.4 % (2-12); NEUTROPHILS # (AUTO) 6.4 X10'3 (1.8-7.7); PLATELET COUNT 179 X10'3 (140-440); RED BLOOD COUNT 5.15 X10'6 (4.70-6.10); RED CELL DISTRIBUTION WIDTH 17.4 % (11.5-14.5); WHITE BLOOD COUNT 6.8 X10'3 (4.5-11.0)
[2020-05-20 06:00] LABS: ALANINE AMINOTRANSFERASE 781 U/L (12-78); ALBUMIN 2.4 G/DL (3.4-5.0); ALBUMIN/GLOBULIN RATIO 0.5 (1.1-1.5); ALKALINE PHOSPHATASE 144 IU/L (46-116); ANION GAP 5 (8-16); ASPARTATE AMINO TRANSFERASE 97 U/L (10-37); BILIRUBIN,TOTAL 0.8 MG/DL (0.1-1.0); BLOOD UREA NITROGEN 47 MG/DL (7-18); BUN/CREATININE RATIO 28.8 (5.4-32.0); CALCIUM 8.3 MG/DL (8.5-10.1); CHLORIDE 104 MMOL/L (99-107); CHOL/HDL RATIO 4.2 (0.00-4.99); CHOLESTEROL 207 MG/DL (0-200); CREATININE 1.63 MG/DL (0.60-1.10); GLUCOSE 122 MG/DL (70-104); HDL CHOLESTEROL 49 MG/DL (35-60); LDL CHOLESTEROL 138 MG/DL (50-100); MAGNESIUM 1.4 MG/DL (1.5-2.4); POTASSIUM 4.9 MMOL/L (3.5-5.1); SODIUM 142 MMOL/L (135-145); TOTAL CARBON DIOXIDE 33.1 MMOL/L (24-32); TOTAL PROTEIN 7.1 G/DL (6.4-8.2); TRIGLYCERIDES 73 MG/DL (20-135); eGFR 43 ML/MIN
[2020-05-20 06:04] LABS: HIV ANTIBODY 1&2 RAPID NON-REACTIVE (Neg)
--- NOTE | 2020-05-20 06:10 | NUR ---
Patient in room PCU 3011. I have received report from Nasir RN and had the opportunity to ask questions and assume patient care.
--- NOTE | 2020-05-20 06:10 | NUR ---
Problems reprioritized. Patient report given, questions answered & plan of care reviewed with Yodit Varma RN.
[2020-05-20] MEDS: HYDROcodone/acetaminophen 10/325mg tab PO PRN ×2 (07:30→20:29)
[2020-05-20] MEDS: carVEDilol 3.125mg tablet PO SCH ×2 (07:30→20:29)
[2020-05-20] MEDS: levoTHYROXINE 25mcg tablet PO SCH (07:30)
[2020-05-20] MEDS: furosemide 40mg/4ml inj IV SCH ×2 (07:31→20:26)
[2020-05-20] MEDS: lisinopril 10 MG tablet PO SCH (07:31)
[2020-05-20] MEDS: spironolactone 25 MG tablet PO SCH (07:31)
[2020-05-20] MEDS: heparin, porcine 5000 units/ml vial SQ SCH ×2 (07:31→20:29)
[2020-05-20] MEDS: K and/or MAG REPLACEMENT MC SCH ×2 (08:00→20:00)
--- NOTE | 2020-05-20 09:12 | NUR ---
Paged radiology and US Re: Nnamdi Walsh RM 3019. Patient is needing an Ultra Sound. Please advise Nurse TRACEY. Thank you Yodit GREENE [phone] Addendum: 05/20/20 at 1013 by Yodit Lieberman RN Ultra sound responded to page and confirmed pt is NPO now. Ultra sound is scheduled at 1500 today. Will continue to monitor.
--- NOTE | 2020-05-20 10:13 | NUR ---
Patient refused wound pictures for monitoring Bilateral Lower Legs. MD is aware and charge nurse. Dr. You at bedside and was shown lower leg wounds and edema. Will continue to educate and monitor going forward. Pt refused SCDS and a full assessment.
--- NOTE | 2020-05-20 12:05 | NUR ---
Paged Dr. You regarding pt pain and extrem edema Re: Nico vigil RM 2088. Pt is stating extreme pain. scrotal area very red and swollen 4x. Pt will not allow me to completely assess. Please advise. Thank you Yodit GREENE [phone]
--- NOTE | 2020-05-20 14:53 | NUR ---
RT in room to administer scheduled treatment, pt consented to svn treatment, when I went to hand pt the nebulizer he told me "To Get The Fuck Out of his Room and get me the dr because my throat is raw" I left room and reported to Yodit Lieberman RN Addendum: 05/20/20 at 1455 by Anny Hernandez RT Amended: Links added.
--- NOTE | 2020-05-20 18:22 | NUR ---
Problems reprioritized. Patient report given, questions answered & plan of care reviewed with Nasir RN.
--- NOTE | 2020-05-20 18:30 | NUR ---
Patient in room PCU 3011. I have received report from Yodit Varma RN and had the opportunity to ask questions and assume patient care.
[2020-05-21] MEDS: methylPREDNISolone sod succ 125mg/2ml vial IV SCH ×4 (01:39→19:13)
[2020-05-21] MEDS: levoFLOXACIN-Levaquin 750MG/D5 150 ML IV SCH (01:39)
--- NOTE | 2020-05-21 01:50 | NUR ---
pt has NS canula set up and placed in his nose frequently but pt continues to take it off on his own accord. frequent education given, but pt is non-compliant.
[2020-05-21 02:00] VITALS: BP 128/90
[2020-05-21] MEDS: ipratropium/albuterol 3ml nebule NEB SCH ×6 (03:37→22:55)
[2020-05-21 06:00] VITALS: BP 127/78
--- NOTE | 2020-05-21 06:13 | NUR ---
Problems reprioritized. Patient report given, questions answered & plan of care reviewed with Ruma GREENE.
[2020-05-21] MEDS: levoTHYROXINE 25mcg tablet PO SCH (07:59)
[2020-05-21] MEDS: K and/or MAG REPLACEMENT MC SCH ×2 (08:00→20:00)
[2020-05-21] MEDS: spironolactone 25 MG tablet PO SCH (08:03)
[2020-05-21] MEDS: furosemide 40mg/4ml inj IV SCH ×2 (08:04→19:14)
[2020-05-21] MEDS: heparin, porcine 5000 units/ml vial SQ SCH ×2 (08:05→19:14)
[2020-05-21] MEDS: carVEDilol 3.125mg tablet PO SCH ×2 (08:06→19:15)
[2020-05-21] MEDS: lisinopril 10 MG tablet PO SCH (08:06)
[2020-05-21 08:10] LABS: BASOPHILS # (AUTO) 0.1 X10'3 (0-0.2); BASOPHILS % (AUTO) 0.4 % (0-1); EOSINOPHILS % (AUTO) 0 % (0-6); HEMATOCRIT 40.7 % (42.0-52.0); HEMOGLOBIN 12.6 g/dl (14.0-17.9); LYMPHOCYTES # (AUTO) 0.2 X10'3 (1.1-4.8); LYMPHOCYTES % (AUTO) 0.9 % (21-51); MEAN CORPUSCULAR VOLUME 87.1 FL (78-98); MEAN PLATELET VOLUME 9.3 FL (7.4-10.4); MONOCYTES # (AUTO) 0.5 X10'3 (0-0.9); MONOCYTES % (AUTO) 2.6 % (2-12); NEUTROPHILS # (AUTO) 16.9 X10'3 (1.8-7.7); NEUTROPHILS % (AUTO) 96.1 % (42-75); PLATELET COUNT 142 X10'3 (140-440); RED BLOOD COUNT 4.68 X10'6 (4.70-6.10); RED CELL DISTRIBUTION WIDTH 17.3 % (11.5-14.5); WHITE BLOOD COUNT 17.6 X10'3 (4.5-11.0)
[2020-05-21 08:19] LABS: ALANINE AMINOTRANSFERASE 557 U/L (12-78); ALBUMIN 2.2 G/DL (3.4-5.0); ALBUMIN/GLOBULIN RATIO 0.5 (1.1-1.5); ALKALINE PHOSPHATASE 175 IU/L (46-116); ANION GAP 3 (8-16); ASPARTATE AMINO TRANSFERASE 60 U/L (10-37); BILIRUBIN,TOTAL 0.4 MG/DL (0.1-1.0); BLOOD UREA NITROGEN 57 MG/DL (7-18); BUN/CREATININE RATIO 36.5 (5.4-32.0); CALCIUM 8.4 MG/DL (8.5-10.1); CHLORIDE 103 MMOL/L (99-107); CREATININE 1.56 MG/DL (0.60-1.10); GLUCOSE 158 MG/DL (70-104); MAGNESIUM 1.5 MG/DL (1.5-2.4); PHOSPHORUS 4.1 MG/DL (2.3-4.5); POTASSIUM 5.1 MMOL/L (3.5-5.1); SODIUM 137 MMOL/L (135-145); TOTAL CARBON DIOXIDE 30.8 MMOL/L (24-32); TOTAL PROTEIN 6.4 G/DL (6.4-8.2); eGFR 45 ML/MIN
[2020-05-21 11:00] VITALS: BP 114/79
--- NOTE | 2020-05-21 12:33 | NUR ---
MRSA positive nasal
[2020-05-21] MEDS: HYDROcodone/acetaminophen 10/325mg tab PO PRN (12:58)
[2020-05-21 15:00] VITALS: BP 113/70
[2020-05-21] MEDS: normal saline 1000ml 1,000 ML IV SCH (15:08)
[2020-05-21 18:00] VITALS: BP_SYST 121; BP_SYST 127; BP_DIAS 77; BP_DIAS 79
--- NOTE | 2020-05-21 18:30 | NUR ---
Patient in room PCU 3011. I have received report from Ruma GREENE and had the opportunity to ask questions and assume patient care.
[2020-05-21] MEDS: lactobacillus rhamnosus 10,000 MMU CELLS/CAPSULE PO SCH (19:15)
--- NOTE | 2020-05-21 20:00 | NUR ---
pt refuses to use NC pt has NC set up with O2 running but frequently pulls it off. education provided but pt is non-compliant.
[2020-05-21 22:00] VITALS: BP 114/72
[2020-05-22] MEDS: levoFLOXACIN-Levaquin 750MG/D5 150 ML IV SCH (01:34)
[2020-05-22] MEDS: methylPREDNISolone sod succ 125mg/2ml vial IV SCH ×2 (01:34→07:52)
[2020-05-22 02:00] VITALS: BP 134/79
[2020-05-22] MEDS: ipratropium/albuterol 3ml nebule NEB SCH ×6 (03:23→23:06)
[2020-05-22 06:09] LABS: BASOPHILS % (AUTO) 0.1 % (0-1); EOSINOPHILS % (AUTO) 0 % (0-6); HEMATOCRIT 40.2 % (42.0-52.0); HEMOGLOBIN 12.7 g/dl (14.0-17.9); LYMPHOCYTES # (AUTO) 0.1 X10'3 (1.1-4.8); LYMPHOCYTES % (AUTO) 0.5 % (21-51); MEAN CORPUSCULAR HEMOGLOBIN 27.4 PG (27.0-31.0); MEAN CORPUSCULAR HGB CONC 31.6 g/dL (33.0-36.5); MEAN CORPUSCULAR VOLUME 86.9 FL (78-98); MEAN PLATELET VOLUME 8.5 FL (7.4-10.4); MONOCYTES # (AUTO) 0.4 X10'3 (0-0.9); MONOCYTES % (AUTO) 2.7 % (2-12); NEUTROPHILS # (AUTO) 15.9 X10'3 (1.8-7.7); NEUTROPHILS % (AUTO) 96.7 % (42-75); PLATELET COUNT 145 X10'3 (140-440); RED BLOOD COUNT 4.63 X10'6 (4.70-6.10); RED CELL DISTRIBUTION WIDTH 16.8 % (11.5-14.5); WHITE BLOOD COUNT 16.5 X10'3 (4.5-11.0)
[2020-05-22 06:13] LABS: ALANINE AMINOTRANSFERASE 476 U/L (12-78); ALBUMIN 2.2 G/DL (3.4-5.0); ALBUMIN/GLOBULIN RATIO 0.6 (1.1-1.5); ALKALINE PHOSPHATASE 154 IU/L (46-116); ANION GAP 5 (8-16); ASPARTATE AMINO TRANSFERASE 52 U/L (10-37); BILIRUBIN,TOTAL 0.5 MG/DL (0.1-1.0); BLOOD UREA NITROGEN 63 MG/DL (7-18); BUN/CREATININE RATIO 39.9 (5.4-32.0); CALCIUM 8.1 MG/DL (8.5-10.1); CHLORIDE 101 MMOL/L (99-107); CREATININE 1.58 MG/DL (0.60-1.10); GLUCOSE 199 MG/DL (70-104); MAGNESIUM 1.3 MG/DL (1.5-2.4); PHOSPHORUS 3.8 MG/DL (2.3-4.5); POTASSIUM 4.8 MMOL/L (3.5-5.1); SODIUM 135 MMOL/L (135-145); TOTAL CARBON DIOXIDE 29.4 MMOL/L (24-32); TOTAL PROTEIN 6.2 G/DL (6.4-8.2); eGFR 44 ML/MIN
--- NOTE | 2020-05-22 06:18 | NUR ---
Patient in room PCU 3011. I have received report from JC Best and had the opportunity to ask questions and assume patient care.
--- NOTE | 2020-05-22 06:18 | NUR ---
Problems reprioritized. Patient report given, questions answered & plan of care reviewed with Oneida GREENE.
--- NOTE | 2020-05-22 06:43 | NUR ---
Patient in room PCU 3011. I have received report from JC Best and had the opportunity to ask questions and assume patient care.
[2020-05-22 07:19] VITALS: BP 136/88
[2020-05-22] MEDS: levoTHYROXINE 25mcg tablet PO SCH (07:50)
[2020-05-22] MEDS: lactobacillus rhamnosus 10,000 MMU CELLS/CAPSULE PO SCH ×2 (07:50→19:35)
[2020-05-22] MEDS: lisinopril 10 MG tablet PO SCH (07:51)
[2020-05-22] MEDS: spironolactone 25 MG tablet PO SCH (07:52)
[2020-05-22] MEDS: furosemide 40mg/4ml inj IV SCH ×2 (07:52→19:37)
[2020-05-22] MEDS: heparin, porcine 5000 units/ml vial SQ SCH ×2 (07:52→19:37)
[2020-05-22] MEDS: K and/or MAG REPLACEMENT MC SCH ×2 (07:53→20:00)
[2020-05-22] MEDS: carVEDilol 3.125mg tablet PO SCH ×2 (07:54→19:37)
[2020-05-22 08:00] VITALS: BP_SYST 113; BP_SYST 122; BP_DIAS 75; BP_DIAS 77
[2020-05-22] MEDS: methylPREDNISolone sod succ/PF 40mg inj. IV SCH ×2 (08:05→19:37)
[2020-05-22 11:00] VITALS: BP_SYST 122; BP_SYST 142; BP_DIAS 77; BP_DIAS 88
[2020-05-22] MEDS: HYDROcodone/acetaminophen 10/325mg tab PO PRN (16:28)
[2020-05-22 18:00] VITALS: BP 117/75
--- NOTE | 2020-05-22 18:19 | NUR ---
Problems reprioritized. Patient report given, questions answered & plan of care reviewed with Nasir RN.
--- NOTE | 2020-05-22 18:30 | NUR ---
Patient in room PCU 3011. I have received report from Oneida GREENE and had the opportunity to ask questions and assume patient care.
--- NOTE | 2020-05-22 20:00 | NUR ---
pt refused orthostatic VS
[2020-05-22 22:00] VITALS: BP 122/75
[2020-05-23] MEDS: levoFLOXACIN-Levaquin 750MG/D5 150 ML IV SCH (01:36)
[2020-05-23 02:00] VITALS: BP 142/91
[2020-05-23] MEDS: ipratropium/albuterol 3ml nebule NEB SCH ×6 (02:45→23:07)
[2020-05-23] MEDS: HYDROcodone/acetaminophen 10/325mg tab PO PRN ×4 (02:57→20:16)
[2020-05-23 05:24] LABS: ALANINE AMINOTRANSFERASE 378 U/L (12-78); ALBUMIN 2.2 G/DL (3.4-5.0); ALBUMIN/GLOBULIN RATIO 0.6 (1.1-1.5); ALKALINE PHOSPHATASE 169 IU/L (46-116); ANION GAP 2 (8-16); BILIRUBIN,TOTAL 0.6 MG/DL (0.1-1.0); BLOOD UREA NITROGEN 61 MG/DL (7-18); BUN/CREATININE RATIO 41.8 (5.4-32.0); CALCIUM 8.2 MG/DL (8.5-10.1); CHLORIDE 102 MMOL/L (99-107); CREATININE 1.46 MG/DL (0.60-1.10); GLUCOSE 151 MG/DL (70-104); SODIUM 137 MMOL/L (135-145); TOTAL CARBON DIOXIDE 33.2 MMOL/L (24-32); TOTAL PROTEIN 6.1 G/DL (6.4-8.2); eGFR 49 ML/MIN
[2020-05-23 05:34] LABS: BASOPHILS % (AUTO) 0.2 % (0-1); EOSINOPHILS % (AUTO) 0 % (0-6); HEMATOCRIT 38.5 % (42.0-52.0); HEMOGLOBIN 12.1 g/dl (14.0-17.9); LYMPHOCYTES # (AUTO) 0.1 X10'3 (1.1-4.8); LYMPHOCYTES % (AUTO) 0.5 % (21-51); MEAN CORPUSCULAR HEMOGLOBIN 27.4 PG (27.0-31.0); MEAN CORPUSCULAR HGB CONC 31.4 g/dL (33.0-36.5); MEAN CORPUSCULAR VOLUME 87.2 FL (78-98); MEAN PLATELET VOLUME 8.5 FL (7.4-10.4); MONOCYTES # (AUTO) 0.7 X10'3 (0-0.9); MONOCYTES % (AUTO) 4.2 % (2-12); NEUTROPHILS # (AUTO) 15.4 X10'3 (1.8-7.7); NEUTROPHILS % (AUTO) 95.1 % (42-75); PLATELET COUNT 146 X10'3 (140-440); RED BLOOD COUNT 4.42 X10'6 (4.70-6.10); RED CELL DISTRIBUTION WIDTH 17.3 % (11.5-14.5); WHITE BLOOD COUNT 16.2 X10'3 (4.5-11.0)
[2020-05-23 05:38] LABS: ASPARTATE AMINO TRANSFERASE 50 U/L (10-37); PHOSPHORUS 4.1 MG/DL (2.3-4.5); POTASSIUM 4.6 MMOL/L (3.5-5.1)
[2020-05-23 06:00] VITALS: BP 129/77
--- NOTE | 2020-05-23 06:12 | NUR ---
Problems reprioritized. Patient report given, questions answered & plan of care reviewed with Danyelle GREENE.
--- NOTE | 2020-05-23 06:15 | NUR ---
Patient in room PCU 3011. I have received report from Nasir RN and had the opportunity to ask questions and assume patient care.
--- NOTE | 2020-05-23 06:20 | NUR ---
Patient refused AM weight
[2020-05-23] MEDS: levoTHYROXINE 25mcg tablet PO SCH (07:05)
[2020-05-23] MEDS: carVEDilol 3.125mg tablet PO SCH ×2 (07:05→19:32)
[2020-05-23] MEDS: lactobacillus rhamnosus 10,000 MMU CELLS/CAPSULE PO SCH ×2 (07:05→19:33)
[2020-05-23] MEDS: lisinopril 10 MG tablet PO SCH (07:05)
[2020-05-23] MEDS: methylPREDNISolone sod succ/PF 40mg inj. IV SCH ×2 (07:06→19:33)
[2020-05-23] MEDS: furosemide 40mg/4ml inj IV SCH ×2 (07:06→19:33)
[2020-05-23] MEDS: heparin, porcine 5000 units/ml vial SQ SCH ×2 (07:06→19:32)
[2020-05-23] MEDS: spironolactone 25 MG tablet PO SCH (07:06)
[2020-05-23] MEDS: K and/or MAG REPLACEMENT MC SCH ×2 (07:12→20:00)
--- NOTE | 2020-05-23 08:57 | NUR ---
Refused to let RN obtain orthostatic vital signs, will continue to monitor closely.
[2020-05-23 11:00] VITALS: BP 137/84
[2020-05-23 11:40] LABS: ABG BASE EXCESS 4.1 mmol/L (-2.0-2.0); ABG HCO3 29.3 mmol/L (22.0-26.0); ABG OXYGEN SATURATION 94.4 % (94-97); ABG PO2 (T) 65.6 mmHg (75.0-100.0); ALLEN'S TEST POSITIVE; FCOHb 1.7 % (0.0-3.9); FMetHb 0.1 % (0.0-1.5); FO2Hb 92.7 % (94-97); TOTAL HEMOGLOBIN 14.6 G/dl (14.0-18.0)
--- NOTE | 2020-05-23 13:49 | NUR ---
Educated patient that per wound care he should not have his legs in a dependent position for more than 1 hour to help relieve edema, patient refusing to have legs in non dependent position, states "I need to sit up so that i can breathe, i don't want to lay in bed", will continue to educate and intervene as needed
--- NOTE | 2020-05-23 14:44 | NUR ---
Sent a page to Dr Avelino burgos PAGER ID: [phone] MESSAGE: Danyelle GREENE [phone] R MILENA Coto pt refusing VL arterial/venous, thanks
[2020-05-23 15:00] VITALS: BP 134/85
--- NOTE | 2020-05-23 15:05 | NUR ---
Patient refused vascular/arterial US, refused to work with PT, states he wants a shower, educated at this point the RN does not feel safe letting him be in the shower by himself but that RN would help him use the Ready Bath wipes to clean up and a shampoo shower cap and a linen change, patient refused this offer. RN offered to give him these supplies so he could do his skin care by himself, patient refused this as well. Will continue to monitor closely.
[2020-05-23] MEDS: HYDROcodone/acetaminophen 5mg/325mg tablet PO PRN (15:56)
[2020-05-23] MEDS: normal saline 1000ml 1,000 ML IV SCH (15:56)
[2020-05-23 18:00] VITALS: BP 120/79
--- NOTE | 2020-05-23 18:18 | NUR ---
Problems reprioritized. Patient report given, questions answered & plan of care reviewed with IVY RN.
--- NOTE | 2020-05-23 18:30 | NUR ---
Patient in room PCU 3011. I have received report from Danyelle GREENE and had the opportunity to ask questions and assume patient care.
--- NOTE | 2020-05-23 21:06 | NUR ---
pt NON-COMPLIANT pt refusing: VS, assessment, lay down in bed to prevent dependant drainage (help with bilat LE swelling), wear O2 NC as prescribed. pt refused VS during protocol time and when RN in room for assessment did allow BP ONLY for lasix and coreg. pr refused to be assessed when asked pt would not allow for palpitation of pulses, ausiltation of heart or lungs, or to be touched in general. pt educated on importance of limiting sitting up at bedside to prevent dependant drainage but got agitated and refused to lay down. pt has O2 NC set up and running but repeatedly takes it off, pt states "you know, too much oxygen is bad for you". education provided and after talking with RT pt informed that his last O2 sat was low (pt would not wear spO2 for me), and that he is admitted for respiratory failure so wearing oxygen is a good idea. pt stated " well maybe for other people but it gets too high and i forget things, that oxygen makes me forgetful i dont want it". pt later ambulated to toilet (with assistance) and was SOB and put O2 back on for a short time. will continue to educate pt.
[2020-05-24] MEDS: levoFLOXACIN-Levaquin 750MG/D5 150 ML IV SCH (01:41)
[2020-05-24] MEDS: ipratropium/albuterol 3ml nebule NEB SCH ×6 (02:49→23:05)
[2020-05-24 05:55] LABS: BASOPHILS % (AUTO) 0.1 % (0-1); EOSINOPHILS % (AUTO) 0 % (0-6); HEMATOCRIT 41.6 % (42.0-52.0); HEMOGLOBIN 12.9 g/dl (14.0-17.9); LYMPHOCYTES # (AUTO) 0.2 X10'3 (1.1-4.8); MEAN CORPUSCULAR HGB CONC 31.1 g/dL (33.0-36.5); MEAN CORPUSCULAR VOLUME 86.9 FL (78-98); MEAN PLATELET VOLUME 8.5 FL (7.4-10.4); MONOCYTES % (AUTO) 5.8 % (2-12); NEUTROPHILS # (AUTO) 16.6 X10'3 (1.8-7.7); NEUTROPHILS % (AUTO) 93.1 % (42-75); PLATELET COUNT 133 X10'3 (140-440); RED BLOOD COUNT 4.78 X10'6 (4.70-6.10); RED CELL DISTRIBUTION WIDTH 17.8 % (11.5-14.5); WHITE BLOOD COUNT 17.8 X10'3 (4.5-11.0)
[2020-05-24 06:00] VITALS: BP 113/82
[2020-05-24 06:05] LABS: ALANINE AMINOTRANSFERASE 318 U/L (12-78); ALBUMIN 2.3 G/DL (3.4-5.0); ALBUMIN/GLOBULIN RATIO 0.6 (1.1-1.5); ALKALINE PHOSPHATASE 179 IU/L (46-116); ANION GAP 4 (8-16); ASPARTATE AMINO TRANSFERASE 43 U/L (10-37); BILIRUBIN,TOTAL 0.5 MG/DL (0.1-1.0); BLOOD UREA NITROGEN 61 MG/DL (7-18); BUN/CREATININE RATIO 43.6 (5.4-32.0); CALCIUM 8.5 MG/DL (8.5-10.1); CHLORIDE 103 MMOL/L (99-107); GLUCOSE 165 MG/DL (70-104); MAGNESIUM 1.8 MG/DL (1.5-2.4); PHOSPHORUS 3.5 MG/DL (2.3-4.5); POTASSIUM 4.4 MMOL/L (3.5-5.1); SODIUM 139 MMOL/L (135-145); TOTAL CARBON DIOXIDE 31.6 MMOL/L (24-32); TOTAL PROTEIN 6.3 G/DL (6.4-8.2); eGFR 51 ML/MIN
--- NOTE | 2020-05-24 06:12 | NUR ---
Problems reprioritized. Patient report given, questions answered & plan of care reviewed with Danyelle GREENE.
--- NOTE | 2020-05-24 06:21 | NUR ---
Patient in room PCU 3011. I have received report from Nasir RN and had the opportunity to ask questions and assume patient care.
[2020-05-24] MEDS: lisinopril 10 MG tablet PO SCH (07:44)
[2020-05-24] MEDS: levoTHYROXINE 25mcg tablet PO SCH (07:44)
[2020-05-24] MEDS: lactobacillus rhamnosus 10,000 MMU CELLS/CAPSULE PO SCH ×2 (07:44→19:46)
[2020-05-24] MEDS: HYDROcodone/acetaminophen 10/325mg tab PO PRN ×2 (07:44→19:47)
[2020-05-24] MEDS: spironolactone 25 MG tablet PO SCH (07:44)
[2020-05-24] MEDS: carVEDilol 3.125mg tablet PO SCH ×2 (07:45→19:47)
[2020-05-24] MEDS: heparin, porcine 5000 units/ml vial SQ SCH ×2 (07:45→19:47)
[2020-05-24] MEDS: methylPREDNISolone sod succ/PF 40mg inj. IV SCH (07:45)
[2020-05-24] MEDS: furosemide 40mg/4ml inj IV SCH ×2 (07:45→19:47)
[2020-05-24] MEDS: K and/or MAG REPLACEMENT MC SCH ×2 (07:52→19:52)
--- NOTE | 2020-05-24 08:53 | NUR ---
Patient refused to let RN perform wound care or obtain orthostatic vital signs, educated to not keep legs in dependent position for more than an hour a day, patient non compliant with keeping legs in non dependent position, will continue to educate as needed
--- NOTE | 2020-05-24 09:50 | NUR ---
Refused teaching from RN, will continue to monitor
[2020-05-24 11:00] VITALS: BP 134/82
--- NOTE | 2020-05-24 12:28 | NUR ---
PO intake 100% of heart healthy diet. Per Progress note patient admitted with acute on chronic respiratory failure secondary to exacerbation of CHF and COPD, transaminitis, ascites, noncompliance, acute on chronic renal failure, acute bronchitis with history of meth abuse. [facility] is following patient with BLE small ring of venous ulcer, partial thickness and edematous. Has increased protein needs r/t wound healing venous ulcer healing needs and COPD exacerbation. Recommend to send double meat lunch and dinner, and double eggs with breakfast. Rec: 1. continue heart healthy diet 2. weight per rx 3. double meat lunch and dinner, double eggs with breakfast Addendum: 05/24/20 at [address] Amended: Links added.
[2020-05-24 13:05] LABS: HBSAG SCREEN Negative (Negative); HEP A AB, IGM Negative (Negative); HEPATITIS C ANTIBODY >11.0 s/co ratio (0.0-0.9)
[2020-05-24 15:00] VITALS: BP 133/81
[2020-05-24] MEDS: HYDROcodone/acetaminophen 5mg/325mg tablet PO PRN (15:13)
[2020-05-24 18:00] VITALS: BP 126/69
--- NOTE | 2020-05-24 18:18 | NUR ---
Problems reprioritized. Patient report given, questions answered & plan of care reviewed with SHANNAN GREENE.
--- NOTE | 2020-05-24 18:32 | NUR ---
Patient in room U 3011. I have received report from JC Bassett and had the opportunity to ask questions and assume patient care. Addendum: 05/24/20 at 1833 by Clari Perez RN Amended: Links added.
[2020-05-24 20:45] VITALS: BP_SYST 120; BP_SYST 126; BP_DIAS 68; BP_DIAS 70
[2020-05-24 22:00] VITALS: BP 123/79
[2020-05-25] VITALS (8 sets, daily range): BP systolic 113–143; BP diastolic 68–91
[2020-05-25] MEDS: HYDROcodone/acetaminophen 5mg/325mg tablet PO PRN (02:49)
[2020-05-25] MEDS: ipratropium/albuterol 3ml nebule NEB SCH ×6 (03:02→23:23)
--- NOTE | 2020-05-25 06:19 | NUR ---
Problems reprioritized. Patient report given, questions answered & plan of care reviewed with JC Betancourt.
--- NOTE | 2020-05-25 06:43 | NUR ---
Patient in room U 3011. I have received report from JC Montague and had the opportunity to ask questions and assume patient care. Patient awake and sitting up on the side of the bed and in no acute distress.
[2020-05-25] MEDS: K and/or MAG REPLACEMENT MC SCH ×2 (08:00→20:00)
[2020-05-25] MEDS: heparin, porcine 5000 units/ml vial SQ SCH ×2 (08:36→20:03)
[2020-05-25] MEDS: furosemide 40mg/4ml inj IV SCH ×2 (08:36→20:03)
[2020-05-25] MEDS: lisinopril 10 MG tablet PO SCH (08:36)
[2020-05-25] MEDS: carVEDilol 3.125mg tablet PO SCH ×2 (08:37→20:03)
[2020-05-25] MEDS: levoTHYROXINE 25mcg tablet PO SCH (08:38)
[2020-05-25] MEDS: lactobacillus rhamnosus 10,000 MMU CELLS/CAPSULE PO SCH ×2 (08:38→20:03)
[2020-05-25] MEDS: predniSONE 20 mg tablet PO SCH (08:38)
[2020-05-25] MEDS: spironolactone 25 MG tablet PO SCH (08:39)
--- NOTE | 2020-05-25 10:18 | NUR ---
Paged Dr. You regarding patient wanting to be discharged today. PAGER ID: [phone] MESSAGE: [phone]. Nico Coto. Patient would like to be discharged today. Thank you. Asia GREENE x [phone]
--- NOTE | 2020-05-25 10:33 | NUR ---
0700 svn treatment triaged, assisting renita chandra bronchoscopy.
--- NOTE | 2020-05-25 11:03 | NUR ---
Paged Dr. You regarding patient wanting to stay one more night instead of being discharged. PAGER ID: [phone] MESSAGE: [phone]. Nico Coto. Patient would like to stay one more night now. Thank you. Asia GREENE x [phone]
--- NOTE | 2020-05-25 13:34 | NUR ---
Patient working with PT right now.
[2020-05-25] MEDS: normal saline 1000ml 1,000 ML IV SCH (15:50)
--- NOTE | 2020-05-25 18:11 | NUR ---
Problems reprioritized. Patient report given, questions answered & plan of care reviewed with JC Wiggins. Patient stable at transfer of care.
--- NOTE | 2020-05-25 18:53 | NUR ---
Patient in room PCU 3011. I have received report from JC Betancourt and had the opportunity to ask questions and assume patient care.
[2020-05-26 02:26] VITALS: BP 130/77
[2020-05-26] MEDS: ipratropium/albuterol 3ml nebule NEB SCH ×3 (02:57→12:35)
--- NOTE | 2020-05-26 05:59 | NUR ---
Problems reprioritized. Patient report given, questions answered & plan of care reviewed with JC Betancourt.
--- NOTE | 2020-05-26 06:16 | NUR ---
Patient in room U 3011. I have received report from JC Wiggins and had the opportunity to ask questions and assume patient care. Patient awake and sitting at the side of the bed and in no acute distress.
[2020-05-26] MEDS: spironolactone 25 MG tablet PO SCH (07:38)
[2020-05-26] MEDS: HYDROcodone/acetaminophen 10/325mg tab PO PRN (07:38)
[2020-05-26] MEDS: lisinopril 10 MG tablet PO SCH (07:39)
[2020-05-26] MEDS: predniSONE 20 mg tablet PO SCH (07:39)
[2020-05-26] MEDS: lactobacillus rhamnosus 10,000 MMU CELLS/CAPSULE PO SCH (07:39)
[2020-05-26] MEDS: carVEDilol 3.125mg tablet PO SCH (07:40)
[2020-05-26] MEDS: levoTHYROXINE 25mcg tablet PO SCH (07:40)
[2020-05-26] MEDS: heparin, porcine 5000 units/ml vial SQ SCH (07:41)
[2020-05-26] MEDS: furosemide 40mg/4ml inj IV SCH (07:41)
[2020-05-26] MEDS: K and/or MAG REPLACEMENT MC SCH (07:46)
[2020-05-26 08:00] VITALS: BP_SYST 107; BP_SYST 114; BP_SYST 123; BP_DIAS 61; BP_DIAS 67; BP_DIAS 72
[2020-05-26 11:00] VITALS: BP 109/60
[2020-05-26] MEDS ORDERED: LISI10TA4 PO (12:01)
[2020-05-26] MEDS ORDERED: LEVO25TA7 PO (12:01)
[2020-05-26] MEDS ORDERED: PRED10TA23 PO (12:01)
--- NOTE | 2020-05-26 14:41 | NUR ---
Called to set up transport for patient. Ly will be here at 1500 for hand picker.
--- NOTE | 2020-05-26 15:10 | NUR ---
Patient stable for discharge per MD orders. All discharge instructions reviewed and questions answered appropriately. Belongings collected and sent with patient. Patient wanted wound dressings to BLE off, but wound care provided for patient for discharge. Patient said that he would make follow up appointment with PCP. New prescriptions e-scripted to [facility]. Transportation arranged for patient, and [facility] will pick patient up at 1530. Patient wanted to wait down in the lobby to be picked up. PIV discontinued. child monitor discontinued. Patient wheeled down to lobby with belongings.
== END 2020-05-26 15:10 | disposition home or self-care (01) | DRG 133 ==
LOC: ER 07:12 → ED HOLD 15:08 → PCU 3S 19:45 → CMPBEDREQ 05-22 19:21
PROVIDERS: ADMIT Family Medicine; ATTEND Family Medicine
DX: J96.22 Acute and chronic respiratory failure with hypercapnia (principal); K70.31 Alcoholic cirrhosis of liver with ascites; I11.0 Hypertensive heart disease with heart failure; J44.1 Chronic obstructive pulmonary disease with (acute) exacerbation; I50.23 Acute on chronic systolic (congestive) heart failure; I42.7 Cardiomyopathy due to drug and external agent; I25.10 Atherosclerotic heart disease of native coronary artery without angina pectoris; I42.2 Other hypertrophic cardiomyopathy; G93.40 Encephalopathy, unspecified; B19.20 Unspecified viral hepatitis C without hepatic coma; E78.5 Hyperlipidemia, unspecified; E87.3 Alkalosis; K56.7 Ileus, unspecified; N17.9 Acute kidney failure, unspecified; F15.10 Other stimulant abuse, uncomplicated; F17.200 Nicotine dependence, unspecified, uncomplicated; N50.89 Other specified disorders of the male genital organs; G40.909 Epilepsy, unspecified, not intractable, without status epilepticus; Z91.19 Patient's noncompliance with other medical treatment and regimen; Z79.899 Other long term (current) drug therapy; Z20.828 Contact with and (suspected) exposure to other viral communicable diseases; Z59.0 Homelessness
CPT/HCPCS: 36415; 36600; 71045; 71250; 74176; 76700; 76705; 80053; 80061; 80305; 81001; 82803; 83036; 83605; 83735; 83880; 84100; 84145; 84443; 84484; 85018; 85025; 85610; 85730; 86703; 86705; 86706; 86709; 86803; 87040; 87081; 87340; 87635; 92508; 92616; 93005; 94640; 94760; 97110; 97116; 97161; 97530; 99291; G0378; J1100; J1644; J1940; J1956; J2270; J2405; J2920; J2930; J3475; J7030; J7512; Q0163

== ENCOUNTER 2020-06-07 20:36 | Inpatient (IN) | payer MEDICAID ==
[~2020-06-07] VITALS: Ht 185.4 cm; Wt 85.8 kg
[~2020-06-07 20:36] MED LIST changes: -ALBU2.5V7 NEB; -ALBU8.5H8 IH; +ALBU8HFA PO; +CARV3.12 PO; -COR3.125T PO; +FURO-149 PO; -FURO20TA4 PO; +LEVO25TA7 PO; +LISI10TA4 PO; +PRED10TA23 PO; -SPIR25TA PO; +SPIR25TA5 PO
[2020-06-07 21:40] LABS: BASOPHILS # (AUTO) 0.1 X10'3 (0-0.2); BASOPHILS % (AUTO) 1.3 % (0-1); EOSINOPHILS % (AUTO) 0.5 % (0-6); HEMATOCRIT 38.2 % (42.0-52.0); HEMOGLOBIN 11.9 g/dl (14.0-17.9); LYMPHOCYTES # (AUTO) 0.7 X10'3 (1.1-4.8); LYMPHOCYTES % (AUTO) 9.8 % (21-51); MEAN CORPUSCULAR HEMOGLOBIN 27.3 PG (27.0-31.0); MEAN CORPUSCULAR HGB CONC 31.2 g/dL (33.0-36.5); MEAN CORPUSCULAR VOLUME 87.3 FL (78-98); MEAN PLATELET VOLUME 8.3 FL (7.4-10.4); MONOCYTES # (AUTO) 1.2 X10'3 (0-0.9); MONOCYTES % (AUTO) 16.7 % (2-12); NEUTROPHILS # (AUTO) 5.1 X10'3 (1.8-7.7); NEUTROPHILS % (AUTO) 71.7 % (42-75); PLATELET COUNT 330 X10'3 (140-440); RED BLOOD COUNT 4.38 X10'6 (4.70-6.10); RED CELL DISTRIBUTION WIDTH 17.8 % (11.5-14.5); WHITE BLOOD COUNT 7.1 X10'3 (4.5-11.0)
[2020-06-07 21:59] LABS: ALANINE AMINOTRANSFERASE 47 U/L (12-78); ALBUMIN 2.8 G/DL (3.4-5.0); ALBUMIN/GLOBULIN RATIO 0.6 (1.1-1.5); ALKALINE PHOSPHATASE 121 IU/L (46-116); ANION GAP 6 (8-16); ASPARTATE AMINO TRANSFERASE 31 U/L (10-37); BILIRUBIN,TOTAL 0.9 MG/DL (0.1-1.0); BLOOD UREA NITROGEN 34 MG/DL (7-18); BUN/CREATININE RATIO 20.6 (5.4-32.0); CALCIUM 8.3 MG/DL (8.5-10.1); CHLORIDE 103 MMOL/L (99-107); CREATININE 1.65 MG/DL (0.60-1.10); GLUCOSE 112 MG/DL (70-104); POTASSIUM 4.8 MMOL/L (3.5-5.1); SODIUM 141 MMOL/L (135-145); TOTAL CARBON DIOXIDE 31.7 MMOL/L (24-32); TOTAL PROTEIN 7.4 G/DL (6.4-8.2); eGFR 42 ML/MIN
--- NOTE | 2020-06-07 22:00 | NUR ---
PATIENT SPO2 LESS THAN OPTIMAL APPLIED NON-REBREATHER PATIENT SPO2 100% ON 10 LITERS
[2020-06-07] MEDS ORDERED: methylPREDNISolone sod succ 125mg/2ml vial IV ONE (22:55)
[2020-06-07] MEDS ORDERED: furosemide 40mg/4ml inj IV ONE (22:55)
[2020-06-07] MEDS ORDERED: albuterol 2.5 MG/3 ML nebule NEB ONE (22:55)
[2020-06-07] MEDS ORDERED: succinylcholine 20mg/ml inj IV ONE (23:00)
[2020-06-07] MEDS ORDERED: etomidate 2mg/ml inj. IV ONE (23:00)
[2020-06-07] MEDS ORDERED: nitroGLYCERIN 0.4mg/hour patch TD ONE (23:00)
[2020-06-07] MEDS ORDERED: midazolam 100mg in NS 100ml 100 ML IV ONE (23:00)
[2020-06-07] MEDS ORDERED: nitroGLYCERIN 0.4mg SUBLingual tab SL PRN (23:00)
[2020-06-07] MEDS ORDERED: MIDAZolam 5mg/ml 2ml vial IV ONE (23:00)
[2020-06-07 23:03] LABS: ETHANOL < 0.010 GM/DL (0.0-0.010)
[2020-06-07 23:10] LABS: ABG BASE EXCESS -2.4 mmol/L (-2.0-2.0); ABG HCO3 29.7 mmol/L (22.0-26.0); ABG OXYGEN SATURATION 87.6 % (94-97); ABG PCO2 (T) 94.4 mmHg (35.0-48.0); ABG PO2 (T) 65.7 mmHg (75.0-100.0); ALLEN'S TEST POSITIVE; FCOHb 1.4 % (0.0-3.9); FMetHb 0.2 % (0.0-1.5); FO2Hb 86.2 % (94-97); PATIENT TEMPERATURE 36.2; TOTAL HEMOGLOBIN 12.8 G/dl (14.0-18.0)
[2020-06-07 23:17] LABS: MAGNESIUM 1.7 MG/DL (1.5-2.4)
--- NOTE | 2020-06-07 23:20 | NUR ---
MD in to assess pt. ordered ABG d/t condition requiring non rebreather mask. upon results stated RSI required.
--- NOTE | 2020-06-07 23:20 | NUR ---
Robin monk in ED - 06/08/20 at 0107 by DOUGIE MD in to assess pt. ordered ABG d/t condition requiring non rebreather mask. upon results stated RSI reqw
[2020-06-07 23:42] LABS: PARTIAL THROMBOPLASTIN TIME 33 SECONDS (22-32)
[2020-06-07] MEDS ORDERED: LIDOcaine 2% 10ml TOPICAL JELLY (Urojet) TP ONE (23:55)
[2020-06-08] VITALS (21 sets, daily range): BP systolic 104–147; BP diastolic 60–107
[2020-06-08] MEDS ORDERED: succinylcholine 20mg/ml inj IV ONE (00:10)
[2020-06-08] MEDS ORDERED: etomidate 2mg/ml inj. IV ONE (00:10)
[2020-06-08] MEDS ORDERED: enoxaparin 100mg/ml syringe SUBCUT ONE (00:25)
[2020-06-08 00:46] LABS: ABG BASE EXCESS 1.7 mmol/L (-2.0-2.0); ABG HCO3 30.1 mmol/L (22.0-26.0); ABG OXYGEN SATURATION 94.8 % (94-97); ABG PCO2 (T) 67.5 mmHg (35.0-48.0); ABG PO2 (T) 86.6 mmHg (75.0-100.0); FO2Hb 93.9 % (94-97); PEEP 5 cm H2O; RESPIRATORY RATE 20 b/min; TIDAL VOLUME 400 mL; TOTAL HEMOGLOBIN 11.5 G/dl (14.0-18.0)
[2020-06-08 00:49] LABS: CLARITY,URINE CLEAR (Clear); COLOR,URINE YELLOW (Yellow); GLUCOSE, URINE NEGATIVE (Neg); KETONES,URINE NEGATIVE (Neg); LEUKOCYTE ESTERASE ,URINE NEGATIVE (Neg); NITRITES, URINE NEGATIVE (Neg); OCCULT BLOOD,URINE TRACE-INTACT (Neg); PH,URINE 5.5 (4.8-8.0); PROTEIN,URINE >=300 mg/dl (Neg)
[2020-06-08 00:55] LABS: UA COLLECTION TYPE FOLEY CATH
[2020-06-08 00:57] LABS: AMORPHOUS URATES 1+; RBC,URINE 0-2 /HPF (0-2); URINE AMPHETAMINE SCREEN POSITIVE (Neg); URINE BARBITUATE SCREEN NEGATIVE (Neg); URINE BENZODIAZEPINES SCREEN NEGATIVE (Neg); URINE CANNABINOID SCREEN POSITIVE (Neg); URINE COCAINE SCREEN NEGATIVE (Neg); URINE METHADONE SCREEN NEGATIVE (Neg); URINE OPIATE SCREEN NEGATIVE (Neg); URINE PHENCYCLIDINE SCREEN NEGATIVE (Neg)
[2020-06-08 00:58] LABS: BACTERIA,URINE 2+ /HPF (Neg)
[2020-06-08 00:59] LABS: SQUAMOUS EPITHELIAL CELL,UR FEW /LPF (FEW)
[2020-06-08 01:01] LABS: CREATINE KINASE 76 U/L (39-308)
[2020-06-08] MEDS ORDERED: acetaminophen 650mg rectal suppository RC PRN (02:15)
[2020-06-08] MEDS ORDERED: albuterol 2.5 MG/3 ML nebule NEB PRN (02:15)
[2020-06-08] MEDS ORDERED: acetaminophen 325mg tablet PO PRN ×2 (02:15)
[2020-06-08] MEDS ORDERED: potassium CL 10mEq/100ml bag 100 ML IV PRN ×2 (02:15)
[2020-06-08] MEDS ORDERED: ondansetron/PF 4mg/2ml inj IV PRN (02:15)
[2020-06-08] MEDS ORDERED: midazolam 100mg in NS 100ml 100 ML IV PRN (02:15)
[2020-06-08] MEDS ORDERED: FENTANYL-0.9 % NACL/PF 100 ML IV PRN (02:15)
[2020-06-08] MEDS ORDERED: magnesium 2GM in 50ml NS 50 ML IV ONE (03:05)
[2020-06-08 03:26] LABS: BASOPHILS % (AUTO) 0.8 % (0-1); EOSINOPHILS % (AUTO) 0.2 % (0-6); HEMOGLOBIN 10.9 g/dl (14.0-17.9); LYMPHOCYTES # (AUTO) 0.2 X10'3 (1.1-4.8); LYMPHOCYTES % (AUTO) 3.6 % (21-51); MEAN CORPUSCULAR HEMOGLOBIN 27.7 PG (27.0-31.0); MEAN CORPUSCULAR HGB CONC 32.1 g/dL (33.0-36.5); MEAN CORPUSCULAR VOLUME 86.3 FL (78-98); MEAN PLATELET VOLUME 8.3 FL (7.4-10.4); MONOCYTES # (AUTO) 0.3 X10'3 (0-0.9); NEUTROPHILS # (AUTO) 4.9 X10'3 (1.8-7.7); NEUTROPHILS % (AUTO) 89.4 % (42-75); PLATELET COUNT 258 X10'3 (140-440); RED BLOOD COUNT 3.94 X10'6 (4.70-6.10); RED CELL DISTRIBUTION WIDTH 17.5 % (11.5-14.5); WHITE BLOOD COUNT 5.5 X10'3 (4.5-11.0)
[2020-06-08 03:38] LABS: ALANINE AMINOTRANSFERASE 49 U/L (12-78); ALBUMIN 2.8 G/DL (3.4-5.0); ALBUMIN/GLOBULIN RATIO 0.6 (1.1-1.5); ALKALINE PHOSPHATASE 127 IU/L (46-116); ANION GAP 4 (8-16); ASPARTATE AMINO TRANSFERASE 33 U/L (10-37); BILIRUBIN,TOTAL 1.4 MG/DL (0.1-1.0); BLOOD UREA NITROGEN 36 MG/DL (7-18); BUN/CREATININE RATIO 21.4 (5.4-32.0); CALCIUM 8.7 MG/DL (8.5-10.1); CHLORIDE 103 MMOL/L (99-107); CREATININE 1.68 MG/DL (0.60-1.10); GLUCOSE 95 MG/DL (70-104); POTASSIUM 4.5 MMOL/L (3.5-5.1); SODIUM 141 MMOL/L (135-145); TOTAL PROTEIN 7.4 G/DL (6.4-8.2); eGFR 41 ML/MIN
[2020-06-08 03:42] LABS: MAGNESIUM 1.7 MG/DL (1.5-2.4); PHOSPHORUS 5.5 MG/DL (2.3-4.5)
--- NOTE | 2020-06-08 04:00 | NUR ---
Patient in room CICU 2008. I have received report from Jah RN (ED) and had the opportunity to ask questions and assume patient care. Patient was brought to CICU room 2008 by melany with valuables at his side. He is intubated, FI02 35%/ PEEP 5/ RR 20/ VT 400. He is hypertensive but all other VS are WNL. Versed is running at 4mcg/hr and he is completely sedated. Skin check performed, wound pictures taken, and valuables placed in bedside drawer. Will continue to monitor.
[2020-06-08] MEDS: ipratropium/albuterol 3ml nebule NEB SCH ×6 (04:11→23:01)
[2020-06-08 05:36] LABS: ABG BASE EXCESS 1.6 mmol/L (-2.0-2.0); ABG HCO3 27.1 mmol/L (22.0-26.0); ABG OXYGEN SATURATION 95.8 % (94-97); ABG PCO2 (T) 45.3 mmHg (35.0-48.0); ABG PO2 (T) 80.1 mmHg (75.0-100.0); ALLEN'S TEST POSITIVE; FCOHb 0.6 % (0.0-3.9); FMetHb 0.4 % (0.0-1.5); FO2Hb 94.8 % (94-97); PATIENT TEMPERATURE 36.3; PEEP 5 cm H2O; RESPIRATORY RATE 20 b/min; TIDAL VOLUME 400 mL; TOTAL HEMOGLOBIN 12.2 G/dl (14.0-18.0)
--- NOTE | 2020-06-08 06:20 | NUR ---
Problems reprioritized. Patient report given, questions answered & plan of care reviewed with Rocky GREENE.
[2020-06-08] MEDS: methylPREDNISolone sod succ 125mg/2ml vial IV SCH ×3 (07:41→19:55)
[2020-06-08] MEDS: docusate sodium 100mg/10ml UD cup PO SCH ×2 (07:41→19:54)
[2020-06-08] MEDS: pantoprazole 40 MG vial IV SCH (07:41)
[2020-06-08] MEDS: levoFLOXACIN-Levaquin 500mg/D5 100 ML IV SCH (07:41)
[2020-06-08] MEDS: heparin, porcine 5000 units/ml vial SQ SCH ×2 (07:42→19:54)
[2020-06-08] MEDS: furosemide 40mg/4ml inj IV SCH ×2 (07:42→19:54)
[2020-06-08] MEDS ORDERED: midazolam 100mg in NS 100ml 100 ML IV ONE (09:57)
--- NOTE | 2020-06-08 12:25 | NUR ---
Marcio Consult: Marcio 12; sores and scabs to R lower leg pending [facility] note. Pt intubated DX acute respiratory failure, COPD and CHF exacerbation, meth abuse, and acute troponin elevation likely r/t demand ischemia per EMR. Hx homeless and meth abuse per EMR. OG in place w/ MAP 107 this AM. Current wt 175kg though no method yet this admit and pending bed scale wt at this time per RN. Will use IBW for EN recs below in case prolonged intubation. Started on routine colace. Will continue to monitor. Rec: 1. IF TF; Vital High Protein at 100ml/hr 2. IF TF; additional water flush 100ml Q4 3. IF TF; PALB Q /; daily wts 4. routine bowel care 5. upon extubation; advance diet as medically indicated to heart healthy Addendum: 06/08/20 at [address] Amended: Links added.
--- NOTE | 2020-06-08 15:30 | NUR ---
I have reviewed and agree with all medications administered and interventions performed by [facility] Student Gabbi Portillo Addendum: 06/08/20 at 1531 by Sharyn Weller RT Amended: Links added.
--- NOTE | 2020-06-08 18:17 | NUR ---
Patient report given, questions answered & plan of care reviewed with Kriss GREENE.
[2020-06-08] MEDS ORDERED: LISI10TA4 PO (19:24)
[2020-06-08] MEDS ORDERED: LEVO50TA8 PO (19:24)
[2020-06-08] MEDS: normal saline 1000ml 1,000 ML IV SCH (21:46)
[2020-06-09] VITALS (23 sets, daily range): BP systolic 112–140; BP diastolic 68–100
[2020-06-09] MEDS: methylPREDNISolone sod succ 125mg/2ml vial IV SCH ×4 (01:54→20:06)
[2020-06-09] MEDS: ipratropium/albuterol 3ml nebule NEB SCH ×6 (03:23→23:17)
[2020-06-09 03:36] LABS: ABG HCO3 27.5 mmol/L (22.0-26.0); ABG OXYGEN SATURATION 92.6 % (94-97); ABG PCO2 (T) 43.9 mmHg (35.0-48.0); ABG PO2 (T) 63.6 mmHg (75.0-100.0); ALLEN'S TEST POSITIVE; FCOHb 0.6 % (0.0-3.9); FMetHb 0.2 % (0.0-1.5); FO2Hb 91.9 % (94-97); PATIENT TEMPERATURE 35.7; PEEP 5 cm H2O; RESPIRATORY RATE 20 b/min; TIDAL VOLUME 400 mL; TOTAL HEMOGLOBIN 12.5 G/dl (14.0-18.0)
[2020-06-09 05:50] LABS: EOSINOPHILS % (AUTO) 0 % (0-6); WHITE BLOOD COUNT 4.4 X10'3 (4.5-11.0)
[2020-06-09 05:52] LABS: BASOPHILS % (AUTO) 0.1 % (0-1); HEMATOCRIT 37.6 % (42.0-52.0); HEMOGLOBIN 12.2 g/dl (14.0-17.9); LYMPHOCYTES # (AUTO) 0.2 X10'3 (1.1-4.8); LYMPHOCYTES % (AUTO) 3.5 % (21-51); MEAN CORPUSCULAR HEMOGLOBIN 27.8 PG (27.0-31.0); MEAN CORPUSCULAR HGB CONC 32.3 g/dL (33.0-36.5); MEAN CORPUSCULAR VOLUME 86.1 FL (78-98); MEAN PLATELET VOLUME 8.3 FL (7.4-10.4); MONOCYTES # (AUTO) 0.2 X10'3 (0-0.9); MONOCYTES % (AUTO) 4.6 % (2-12); NEUTROPHILS % (AUTO) 91.8 % (42-75); PLATELET COUNT 316 X10'3 (140-440); RED BLOOD COUNT 4.37 X10'6 (4.70-6.10); RED CELL DISTRIBUTION WIDTH 17.4 % (11.5-14.5)
[2020-06-09 06:11] LABS: ALANINE AMINOTRANSFERASE 31 U/L (12-78); ALBUMIN 2.1 G/DL (3.4-5.0); ALBUMIN/GLOBULIN RATIO 0.6 (1.1-1.5); ALKALINE PHOSPHATASE 91 IU/L (46-116); ANION GAP 8 (8-16); ASPARTATE AMINO TRANSFERASE 18 U/L (10-37); BILIRUBIN,TOTAL 0.6 MG/DL (0.1-1.0); BLOOD UREA NITROGEN 48 MG/DL (7-18); BUN/CREATININE RATIO 22.9 (5.4-32.0); CHLORIDE 105 MMOL/L (99-107); GLUCOSE 152 MG/DL (70-104); MAGNESIUM 1.8 MG/DL (1.5-2.4); PHOSPHORUS 6.1 MG/DL (2.3-4.5); POTASSIUM 4.5 MMOL/L (3.5-5.1); SODIUM 142 MMOL/L (135-145); TOTAL CARBON DIOXIDE 29.1 MMOL/L (24-32); TOTAL PROTEIN 5.8 G/DL (6.4-8.2); eGFR 32 ML/MIN
--- NOTE | 2020-06-09 06:41 | NUR ---
Patient in room CICU 2008. I have received report from CJ Monterroso and had the opportunity to ask questions and assume patient care.
[2020-06-09] MEDS: docusate sodium 100mg/10ml UD cup PO SCH ×2 (09:29→20:06)
[2020-06-09] MEDS: furosemide 40mg/4ml inj IV SCH ×2 (09:29→20:06)
[2020-06-09] MEDS: pantoprazole 40 MG vial IV SCH (09:30)
[2020-06-09] MEDS: levoFLOXACIN-Levaquin 500mg/D5 100 ML IV SCH (09:30)
[2020-06-09] MEDS: heparin, porcine 5000 units/ml vial SQ SCH ×2 (09:31→20:06)
[2020-06-09] MEDS ORDERED: dexmedetomidine/D5W 100mL 100 ML IV PRN (09:40)
[2020-06-09] MEDS: mineral oil/petrolatum ophthal oint EACHEYE SCH ×3 (09:46→20:06)
[2020-06-09] MEDS ORDERED: albuterol 2.5 MG/3 ML nebule NEB PRN (10:55)
[2020-06-09] MEDS: FENTANYL-0.9 % NACL/PF 100 ML IV PRN (10:57)
[2020-06-09] MEDS ORDERED: midazolam 2 mg/2 ml injection IV ONE (11:20)
[2020-06-09] MEDS ORDERED: fentaNYL/PF 50MCG/1 ML 2ML syringe IV PRN (11:20)
[2020-06-09] MEDS: QUEtiapine 25mg tablet PO SCH ×2 (13:17→20:06)
[2020-06-09] MEDS: normal saline 1000ml 1,000 ML IV SCH (16:53)
[2020-06-09] MEDS: dexmedetomidine/D5W 100mL 100 ML IV PRN ×2 (17:21→22:45)
--- NOTE | 2020-06-09 18:29 | NUR ---
I have reviewed and agree with all medications administered and interventions performed by [facility] Student Maynor Camargo
--- NOTE | 2020-06-09 18:44 | NUR ---
Problems reprioritized. Patient report given, questions answered & plan of care reviewed with JC Monterroso.
[2020-06-09] MEDS: carVEDilol 3.125mg tablet PO SCH (20:06)
[2020-06-09] MEDS: midazolam 100mg in NS 100ml 100 ML IV SCH (20:06)
[2020-06-10] VITALS (24 sets, daily range): BP systolic 128–147; BP diastolic 84–103
[2020-06-10] MEDS: methylPREDNISolone sod succ 125mg/2ml vial IV SCH ×4 (02:03→20:09)
[2020-06-10] MEDS: mineral oil/petrolatum ophthal oint EACHEYE SCH ×4 (02:03→20:09)
[2020-06-10] MEDS: ipratropium/albuterol 3ml nebule NEB SCH ×6 (03:01→23:35)
[2020-06-10 03:16] LABS: ABG BASE EXCESS 2.7 mmol/L (-2.0-2.0); ABG HCO3 27.3 mmol/L (22.0-26.0); ABG OXYGEN SATURATION 93.4 % (94-97); ABG PCO2 (T) 41.4 mmHg (35.0-48.0); ABG PO2 (T) 68.3 mmHg (75.0-100.0); ALLEN'S TEST POSITIVE; FCOHb 0.4 % (0.0-3.9); FMetHb 0.2 % (0.0-1.5); FO2Hb 92.8 % (94-97); PATIENT TEMPERATURE 36.5; PEEP 5 cm H2O; RESPIRATORY RATE 20 b/min; TIDAL VOLUME 400 mL; TOTAL HEMOGLOBIN 13.6 G/dl (14.0-18.0)
[2020-06-10] MEDS: dexmedetomidine/D5W 100mL 100 ML IV PRN ×5 (03:24→22:07)
[2020-06-10 06:05] LABS: MEAN PLATELET VOLUME 8.2 FL (7.4-10.4); RED CELL DISTRIBUTION WIDTH 17.6 % (11.5-14.5)
[2020-06-10 06:09] LABS: BASOPHILS % (AUTO) 0 % (0-1); EOSINOPHILS % (AUTO) 0 % (0-6); HEMATOCRIT 40.4 % (42.0-52.0); HEMOGLOBIN 13.3 g/dl (14.0-17.9); LYMPHOCYTES # (AUTO) 0.1 X10'3 (1.1-4.8); LYMPHOCYTES % (AUTO) 1.3 % (21-51); MEAN CORPUSCULAR HEMOGLOBIN 28.2 PG (27.0-31.0); MEAN CORPUSCULAR HGB CONC 32.9 g/dL (33.0-36.5); MEAN CORPUSCULAR VOLUME 85.7 FL (78-98); MONOCYTES # (AUTO) 0.2 X10'3 (0-0.9); MONOCYTES % (AUTO) 2.7 % (2-12); NEUTROPHILS # (AUTO) 7.2 X10'3 (1.8-7.7); PLATELET COUNT 316 X10'3 (140-440); RED BLOOD COUNT 4.72 X10'6 (4.70-6.10); WHITE BLOOD COUNT 7.5 X10'3 (4.5-11.0)
[2020-06-10 06:45] LABS: ALANINE AMINOTRANSFERASE 29 U/L (12-78); ALBUMIN 2.3 G/DL (3.4-5.0); ALBUMIN/GLOBULIN RATIO 0.6 (1.1-1.5); ALKALINE PHOSPHATASE 92 IU/L (46-116); ANION GAP 12 (8-16); ASPARTATE AMINO TRANSFERASE 18 U/L (10-37); BILIRUBIN,TOTAL 0.5 MG/DL (0.1-1.0); BLOOD UREA NITROGEN 54 MG/DL (7-18); BUN/CREATININE RATIO 28.4 (5.4-32.0); CALCIUM 8.2 MG/DL (8.5-10.1); CHLORIDE 103 MMOL/L (99-107); GLUCOSE 151 MG/DL (70-104); MAGNESIUM 1.8 MG/DL (1.5-2.4); PHOSPHORUS 5.9 MG/DL (2.3-4.5); POTASSIUM 4.3 MMOL/L (3.5-5.1); SODIUM 143 MMOL/L (135-145); TOTAL CARBON DIOXIDE 27.6 MMOL/L (24-32); TOTAL PROTEIN 6.3 G/DL (6.4-8.2); eGFR 36 ML/MIN
[2020-06-10] MEDS ORDERED: furosemide 40mg tablet PO SCH (08:00)
[2020-06-10] MEDS: docusate sodium 100mg/10ml UD cup PO SCH ×2 (09:33→20:10)
[2020-06-10] MEDS: pantoprazole 40 MG vial IV SCH (09:34)
[2020-06-10] MEDS: levoTHYROXINE 25mcg tablet PO SCH (09:34)
[2020-06-10] MEDS: spironolactone 25 MG tablet PO SCH (09:34)
[2020-06-10] MEDS: furosemide 40mg/4ml inj IV SCH ×2 (09:34→20:09)
[2020-06-10] MEDS: carVEDilol 3.125mg tablet PO SCH ×2 (09:34→20:10)
[2020-06-10] MEDS: levoFLOXACIN-Levaquin 500mg/D5 100 ML IV SCH (09:35)
[2020-06-10] MEDS: QUEtiapine 25mg tablet PO SCH ×2 (09:44→20:10)
[2020-06-10] MEDS: heparin, porcine 5000 units/ml vial SQ SCH ×2 (09:44→20:09)
[2020-06-10] MEDS: normal saline 1000ml 1,000 ML IV SCH (13:35)
--- NOTE | 2020-06-10 13:41 | NUR ---
Patient still tolerating spont, but not waking up since turning the versed off about two hours ago. Moves all extremities in response to deep pain Addendum: 06/10/20 at 1353 by Sushil Ro RN Updated Dr Schaffer. Orders to place patient back on a rate for manufacturing shift supervisor, and resume spont on day shift. If patient wakes up before manufacturing shift supervisor, we will try to extubate
[2020-06-10] MEDS: lactulose 20gm/30ml cup PO PRN (14:03)
[2020-06-10] MEDS: midazolam 100mg in NS 100ml 100 ML IV SCH (22:58)
[2020-06-10] MEDS: FENTANYL-0.9 % NACL/PF 100 ML IV PRN (23:27)
[2020-06-11] VITALS (23 sets, daily range): BP systolic 129–156; BP diastolic 79–105
[2020-06-11] MEDS: lactulose 20gm/30ml cup PO PRN (02:06)
[2020-06-11] MEDS: mineral oil/petrolatum ophthal oint EACHEYE SCH ×4 (02:06→19:32)
[2020-06-11] MEDS: methylPREDNISolone sod succ 125mg/2ml vial IV SCH ×4 (02:06→19:34)
[2020-06-11] MEDS: dexmedetomidine/D5W 100mL 100 ML IV PRN (02:47)
[2020-06-11] MEDS: ipratropium/albuterol 3ml nebule NEB SCH ×6 (03:07→22:50)
[2020-06-11 03:26] LABS: ABG BASE EXCESS 3.1 mmol/L (-2.0-2.0); ABG HCO3 27.3 mmol/L (22.0-26.0); ABG OXYGEN SATURATION 88.4 % (94-97); ABG PO2 (T) 58.1 mmHg (75.0-100.0); ALLEN'S TEST POSITIVE; FCOHb 0.6 % (0.0-3.9); FMetHb 0.2 % (0.0-1.5); FO2Hb 87.7 % (94-97); PATIENT TEMPERATURE 37.4; PEEP 5 cm H2O; RESPIRATORY RATE 20 b/min; TIDAL VOLUME 400 mL; TOTAL HEMOGLOBIN 14.5 G/dl (14.0-18.0)
--- NOTE | 2020-06-11 06:49 | NUR ---
Patient in room CICU 2008. I have received report from JC Seo and had the opportunity to ask questions and assume patient care. Pt resting at change of shift, no signs of distress.
[2020-06-11] MEDS: dexmedetomidin/NS 400mcg/100ml 100 ML IV PRN ×5 (07:25→22:44)
[2020-06-11 07:29] LABS: BASOPHILS % (AUTO) 0.1 % (0-1); EOSINOPHILS % (AUTO) 0 % (0-6); HEMATOCRIT 43.6 % (42.0-52.0); LYMPHOCYTES # (AUTO) 0.1 X10'3 (1.1-4.8); LYMPHOCYTES % (AUTO) 1.1 % (21-51); MEAN CORPUSCULAR HEMOGLOBIN 27.5 PG (27.0-31.0); MEAN CORPUSCULAR HGB CONC 32.1 g/dL (33.0-36.5); MEAN CORPUSCULAR VOLUME 85.6 FL (78-98); MONOCYTES # (AUTO) 0.2 X10'3 (0-0.9); MONOCYTES % (AUTO) 2.5 % (2-12); NEUTROPHILS # (AUTO) 7.9 X10'3 (1.8-7.7); NEUTROPHILS % (AUTO) 96.3 % (42-75); PLATELET COUNT 314 X10'3 (140-440); RED BLOOD COUNT 5.09 X10'6 (4.70-6.10); RED CELL DISTRIBUTION WIDTH 17.2 % (11.5-14.5); WHITE BLOOD COUNT 8.2 X10'3 (4.5-11.0)
[2020-06-11 08:45] LABS: ALANINE AMINOTRANSFERASE 22 U/L (12-78); ALBUMIN 2.2 G/DL (3.4-5.0); ALBUMIN/GLOBULIN RATIO 0.6 (1.1-1.5); ALKALINE PHOSPHATASE 84 IU/L (46-116); ANION GAP 4 (8-16); ASPARTATE AMINO TRANSFERASE 13 U/L (10-37); BILIRUBIN,TOTAL 0.5 MG/DL (0.1-1.0); BLOOD UREA NITROGEN 53 MG/DL (7-18); BUN/CREATININE RATIO 30.6 (5.4-32.0); CHLORIDE 104 MMOL/L (99-107); CREATININE 1.73 MG/DL (0.60-1.10); GLUCOSE 164 MG/DL (70-104); MAGNESIUM 1.5 MG/DL (1.5-2.4); PHOSPHORUS 5.4 MG/DL (2.3-4.5); POTASSIUM 4.3 MMOL/L (3.5-5.1); SODIUM 141 MMOL/L (135-145); TOTAL CARBON DIOXIDE 33.4 MMOL/L (24-32); eGFR 40 ML/MIN
[2020-06-11] MEDS: pantoprazole 40 MG vial IV SCH (09:09)
[2020-06-11] MEDS: furosemide 40mg/4ml inj IV SCH ×2 (09:09→19:33)
[2020-06-11] MEDS: heparin, porcine 5000 units/ml vial SQ SCH ×3 (09:09→19:53)
[2020-06-11] MEDS: levoFLOXACIN-Levaquin 500mg/D5 100 ML IV SCH (09:10)
[2020-06-11] MEDS: carVEDilol 3.125mg tablet PO SCH (09:30)
[2020-06-11] MEDS: levoTHYROXINE 25mcg tablet PO SCH (09:30)
[2020-06-11] MEDS: docusate sodium 100mg/10ml UD cup PO SCH (09:30)
[2020-06-11] MEDS: QUEtiapine 25mg tablet PO SCH (09:30)
[2020-06-11] MEDS: normal saline 1000ml 1,000 ML IV SCH (09:31)
[2020-06-11] MEDS: spironolactone 25 MG tablet PO SCH (09:31)
--- NOTE | 2020-06-11 11:48 | NUR ---
DM/TF Consult: OGTF to start today per MD recs below using IBW since no wt method noted this admit; ARNOLD d/w RN for updated bed scale wt if possible. Glu 150 receiving steroids w/ A1C 6.1 and no hx DM; not appropriate for DM ed this admit. Receiving routine colace and lactulose pending BM this admit. Will monitor for EN tolerance. Rec: 1. OGTF using Vital High Protein at 100ml/hr; to provide 2400ml fluid, 2400kcals, 2016ml free water, and 210g protein. 2. additional water flush 100ml Q4 3. PALB Q /; daily wts 4. routine bowel care 5. upon extubation; advance diet as medically indicated to heart healthy Addendum: 06/11/20 at [address] Amended: Links added.
[2020-06-11] MEDS ORDERED: acetaminophen 325mg tablet OGT PRN ×2 (11:57)
[2020-06-11] MEDS ORDERED: lactulose 20gm/30ml cup OGT PRN (11:58)
[2020-06-11] MEDS ORDERED: QUEtiapine 25mg tablet OGT SCH (11:59)
--- NOTE | 2020-06-11 18:13 | NUR ---
Problems reprioritized. Patient report given, questions answered & plan of care reviewed with JC Amaral. Pt resting comfortably, no signs of distress. All pt needs met at this time.
--- NOTE | 2020-06-11 18:30 | NUR ---
Patient in room CICU 2008. I have received report from Yodit GREENE and had the opportunity to ask questions and assume patient care.
--- NOTE | 2020-06-11 18:30 | NUR ---
Patient in room CICU 2008. I have received report from Yodit GREENE and had the opportunity to ask questions and assume patient care.
[2020-06-11] MEDS: docusate sodium 100mg/10ml UD cup OGT SCH (19:33)
[2020-06-11] MEDS: lactobacillus rhamnosus 10,000 MMU CELLS/CAPSULE PO SCH (19:37)
[2020-06-11] MEDS: carVEDilol 3.125mg tablet OGT SCH (19:37)
[2020-06-11] MEDS ORDERED: ziprasidone IM 20mg inj **IM only IM ONE (20:00)
[2020-06-11] MEDS: midazolam 100mg in NS 100ml 100 ML IV SCH (20:49)
[2020-06-12] VITALS (24 sets, daily range): BP systolic 90–155; BP diastolic 50–100
[2020-06-12] MEDS: dexmedetomidin/NS 400mcg/100ml 100 ML IV PRN ×6 (01:37→22:33)
[2020-06-12] MEDS: FENTANYL-0.9 % NACL/PF 100 ML IV PRN (01:37)
[2020-06-12] MEDS: mineral oil/petrolatum ophthal oint EACHEYE SCH ×4 (02:23→21:35)
[2020-06-12] MEDS: methylPREDNISolone sod succ 125mg/2ml vial IV SCH ×4 (02:25→21:33)
[2020-06-12] MEDS: ipratropium/albuterol 3ml nebule NEB SCH ×6 (03:34→23:12)
[2020-06-12] MEDS: normal saline 1000ml 1,000 ML IV SCH (03:46)
[2020-06-12 03:51] LABS: ABG BASE EXCESS 5.9 mmol/L (-2.0-2.0); ABG HCO3 29.9 mmol/L (22.0-26.0); ABG OXYGEN SATURATION 90.9 % (94-97); ABG PCO2 (T) 43.7 mmHg (35.0-48.0); ABG PO2 (T) 65.7 mmHg (75.0-100.0); ALLEN'S TEST POSITIVE; FCOHb 0.9 % (0.0-3.9); FMetHb 0.1 % (0.0-1.5); PATIENT TEMPERATURE 38.4; PEEP 5 cm H2O; RESPIRATORY RATE 20 b/min; TIDAL VOLUME 400 mL; TOTAL HEMOGLOBIN 15.3 G/dl (14.0-18.0)
--- NOTE | 2020-06-12 05:14 | NUR ---
Student documentation: I have reviewed and agree with all interventions, assessments performed and documented by Ck GREENE. Student Medication Administration: For this medication-pass time frame, all medication were reviewed, dispensed, administered and documented per hospital policy by Ck GREENE.
[2020-06-12 05:34] LABS: BASOPHILS % (AUTO) 0.1 % (0-1); EOSINOPHILS % (AUTO) 0 % (0-6); HEMATOCRIT 46.6 % (42.0-52.0); HEMOGLOBIN 15.2 g/dl (14.0-17.9); LYMPHOCYTES # (AUTO) 0.1 X10'3 (1.1-4.8); LYMPHOCYTES % (AUTO) 2.2 % (21-51); MEAN CORPUSCULAR HEMOGLOBIN 27.6 PG (27.0-31.0); MEAN CORPUSCULAR HGB CONC 32.6 g/dL (33.0-36.5); MEAN CORPUSCULAR VOLUME 84.5 FL (78-98); MEAN PLATELET VOLUME 7.9 FL (7.4-10.4); MONOCYTES # (AUTO) 0.3 X10'3 (0-0.9); MONOCYTES % (AUTO) 4.5 % (2-12); NEUTROPHILS # (AUTO) 5.6 X10'3 (1.8-7.7); NEUTROPHILS % (AUTO) 93.2 % (42-75); PLATELET COUNT 291 X10'3 (140-440); RED BLOOD COUNT 5.52 X10'6 (4.70-6.10); RED CELL DISTRIBUTION WIDTH 17.4 % (11.5-14.5)
[2020-06-12 05:35] LABS: ALANINE AMINOTRANSFERASE 21 U/L (12-78); ALBUMIN 2.2 G/DL (3.4-5.0); ALBUMIN/GLOBULIN RATIO 0.6 (1.1-1.5); ALKALINE PHOSPHATASE 83 IU/L (46-116); ANION GAP 6 (8-16); ASPARTATE AMINO TRANSFERASE 15 U/L (10-37); BILIRUBIN,TOTAL 0.7 MG/DL (0.1-1.0); BLOOD UREA NITROGEN 52 MG/DL (7-18); BUN/CREATININE RATIO 36.6 (5.4-32.0); CALCIUM 8.3 MG/DL (8.5-10.1); CHLORIDE 102 MMOL/L (99-107); CREATININE 1.42 MG/DL (0.60-1.10); GLUCOSE 173 MG/DL (70-104); MAGNESIUM 1.5 MG/DL (1.5-2.4); PHOSPHORUS 4.5 MG/DL (2.3-4.5); POTASSIUM 3.8 MMOL/L (3.5-5.1); PREALBUMIN 22.2 MG/DL (19-36); SODIUM 142 MMOL/L (135-145); TOTAL CARBON DIOXIDE 34.4 MMOL/L (24-32); TOTAL PROTEIN 6.1 G/DL (6.4-8.2); eGFR 50 ML/MIN
--- NOTE | 2020-06-12 06:24 | NUR ---
Problems reprioritized. Patient report given, questions answered & plan of care reviewed with Yumi GREENE.
[2020-06-12] MEDS ORDERED: QUEtiapine 25mg tablet PO SCH (08:00)
[2020-06-12] MEDS: pantoprazole 40 MG vial IV SCH (08:24)
[2020-06-12] MEDS: heparin, porcine 5000 units/ml vial SQ SCH ×2 (08:25→21:35)
[2020-06-12] MEDS: levoFLOXACIN-Levaquin 500mg/D5 100 ML IV SCH (08:25)
[2020-06-12] MEDS: furosemide 40mg/4ml inj IV SCH ×2 (08:25→21:32)
[2020-06-12] MEDS: levoTHYROXINE 25mcg tablet OGT SCH (08:26)
[2020-06-12] MEDS: carVEDilol 3.125mg tablet OGT SCH ×2 (08:27→21:34)
[2020-06-12] MEDS: spironolactone 25 MG tablet OGT SCH (08:27)
[2020-06-12] MEDS: lactobacillus rhamnosus 10,000 MMU CELLS/CAPSULE PO SCH (08:27)
[2020-06-12] MEDS ORDERED: QUEtiapine 25mg tablet OGT SCH (09:55)
[2020-06-12] MEDS ORDERED: haloperidol 1mg tablet OGT ONE (11:45)
[2020-06-12] MEDS: docusate sodium 100mg/10ml UD cup OGT SCH ×2 (12:15→21:33)
[2020-06-12] MEDS ORDERED: racepinephrine 11.25mg/0.5ml nebule IH PRN (16:25)
--- NOTE | 2020-06-12 17:00 | NUR ---
Extubated at 1640 to 4 liters nasal cannula. Able to follow instructions for cough and deep breathing. Upset he cant have water yet. Given oral swab to moisten mouth. Discussed not pulling at lines and tubes as he is becoming restless. Pt agreed not to.
[2020-06-12] MEDS ORDERED: haloperidol lactate 5mg/ml inj IM PRN (17:45)
--- NOTE | 2020-06-12 17:55 | NUR ---
Yelling at nursing staff for water and threatening, agitated. Bird ordered prn per Dr Schaffer.
[2020-06-12] MEDS: lactobacillus rhamnosus 10,000 MMU CELLS/CAPSULE OGT SCH (21:33)
[2020-06-12] MEDS: QUEtiapine 25mg tablet OGT SCH (21:34)
[2020-06-13] VITALS (24 sets, daily range): BP systolic 92–145; BP diastolic 46–94
[2020-06-13] MEDS: normal saline 1000ml 1,000 ML IV SCH (01:59)
[2020-06-13] MEDS: methylPREDNISolone sod succ 125mg/2ml vial IV SCH ×4 (01:59→20:10)
[2020-06-13] MEDS: mineral oil/petrolatum ophthal oint EACHEYE SCH ×2 (02:00→08:00)
[2020-06-13] MEDS: dexmedetomidin/NS 400mcg/100ml 100 ML IV PRN ×3 (02:01→15:19)
[2020-06-13] MEDS: ipratropium/albuterol 3ml nebule NEB SCH ×5 (03:15→19:31)
[2020-06-13 03:54] LABS: BASOPHILS % (AUTO) 0 % (0-1); EOSINOPHILS % (AUTO) 0 % (0-6); HEMATOCRIT 44.6 % (42.0-52.0); HEMOGLOBIN 14.4 g/dl (14.0-17.9); LYMPHOCYTES # (AUTO) 0.1 X10'3 (1.1-4.8); LYMPHOCYTES % (AUTO) 1.5 % (21-51); MEAN CORPUSCULAR HEMOGLOBIN 27.6 PG (27.0-31.0); MEAN CORPUSCULAR HGB CONC 32.2 g/dL (33.0-36.5); MEAN CORPUSCULAR VOLUME 85.5 FL (78-98); MEAN PLATELET VOLUME 8.4 FL (7.4-10.4); MONOCYTES # (AUTO) 0.3 X10'3 (0-0.9); MONOCYTES % (AUTO) 3.8 % (2-12); NEUTROPHILS # (AUTO) 6.6 X10'3 (1.8-7.7); NEUTROPHILS % (AUTO) 94.7 % (42-75); PLATELET COUNT 254 X10'3 (140-440); RED BLOOD COUNT 5.21 X10'6 (4.70-6.10); RED CELL DISTRIBUTION WIDTH 16.7 % (11.5-14.5)
[2020-06-13 04:11] LABS: ALANINE AMINOTRANSFERASE 21 U/L (12-78); ALBUMIN 2.3 G/DL (3.4-5.0); ALBUMIN/GLOBULIN RATIO 0.6 (1.1-1.5); ALKALINE PHOSPHATASE 79 IU/L (46-116); ANION GAP 2 (8-16); ASPARTATE AMINO TRANSFERASE 18 U/L (10-37); BILIRUBIN,TOTAL 0.8 MG/DL (0.1-1.0); BLOOD UREA NITROGEN 53 MG/DL (7-18); BUN/CREATININE RATIO 40.5 (5.4-32.0); CALCIUM 8.4 MG/DL (8.5-10.1); CHLORIDE 101 MMOL/L (99-107); CREATININE 1.31 MG/DL (0.60-1.10); GLUCOSE 152 MG/DL (70-104); MAGNESIUM 1.5 MG/DL (1.5-2.4); PHOSPHORUS 4.3 MG/DL (2.3-4.5); SODIUM 140 MMOL/L (135-145); TOTAL CARBON DIOXIDE 36.7 MMOL/L (24-32); TOTAL PROTEIN 6.2 G/DL (6.4-8.2); eGFR 55 ML/MIN
[2020-06-13] MEDS: heparin, porcine 5000 units/ml vial SQ SCH ×2 (08:05→20:11)
[2020-06-13] MEDS: pantoprazole 40 MG vial IV SCH (08:05)
[2020-06-13] MEDS: docusate sodium 100mg/10ml UD cup OGT SCH ×2 (08:06→20:12)
[2020-06-13] MEDS: levoTHYROXINE 25mcg tablet OGT SCH (08:06)
[2020-06-13] MEDS: QUEtiapine 25mg tablet OGT SCH ×2 (08:07→20:11)
[2020-06-13] MEDS: lactobacillus rhamnosus 10,000 MMU CELLS/CAPSULE OGT SCH ×2 (08:10→20:12)
[2020-06-13] MEDS: furosemide 40mg/4ml inj IV SCH (08:10)
[2020-06-13] MEDS: spironolactone 25 MG tablet OGT SCH (08:11)
[2020-06-13] MEDS: carVEDilol 3.125mg tablet OGT SCH ×2 (08:11→20:11)
[2020-06-13] MEDS ORDERED: MESSAGE TO PHARMACY PO ONE (15:50)
[2020-06-13] MEDS ORDERED: glucagon, human recombinant 1mg kit SUBCUT PRN (15:50)
[2020-06-13] MEDS ORDERED: dextrose ORAL solution 15 GM/59 ML bottle PO PRN ×2 (15:50)
[2020-06-13] MEDS ORDERED: dextrose 50%-water 50ml dispensing syringe IV PRN ×2 (15:50)
[2020-06-13] MEDS ORDERED: insulin Lispro (HumaLOG) vial - multi-dose SQ SCH (15:50)
[2020-06-13] MEDS: furosemide 40mg tablet PO SCH (20:11)
[2020-06-13] MEDS: HYDROcodone/acetaminophen 5mg/325mg tablet PO PRN (20:39)
[2020-06-14] VITALS (19 sets, daily range): BP systolic 96–154; BP diastolic 60–85
[2020-06-14] MEDS: ipratropium/albuterol 3ml nebule NEB SCH ×7 (00:05→23:03)
[2020-06-14] MEDS: methylPREDNISolone sod succ 125mg/2ml vial IV SCH ×3 (01:51→13:37)
[2020-06-14 05:27] LABS: BASOPHILS % (AUTO) 0.1 % (0-1); EOSINOPHILS % (AUTO) 0 % (0-6); HEMATOCRIT 44.8 % (42.0-52.0); HEMOGLOBIN 14.2 g/dl (14.0-17.9); LYMPHOCYTES # (AUTO) 0.1 X10'3 (1.1-4.8); LYMPHOCYTES % (AUTO) 1.9 % (21-51); MEAN CORPUSCULAR HEMOGLOBIN 27.3 PG (27.0-31.0); MEAN CORPUSCULAR HGB CONC 31.7 g/dL (33.0-36.5); MEAN PLATELET VOLUME 8.1 FL (7.4-10.4); MONOCYTES # (AUTO) 0.3 X10'3 (0-0.9); MONOCYTES % (AUTO) 3.6 % (2-12); NEUTROPHILS # (AUTO) 6.7 X10'3 (1.8-7.7); NEUTROPHILS % (AUTO) 94.4 % (42-75); PLATELET COUNT 209 X10'3 (140-440); RED CELL DISTRIBUTION WIDTH 16.7 % (11.5-14.5); WHITE BLOOD COUNT 7.1 X10'3 (4.5-11.0)
[2020-06-14 05:41] LABS: ALANINE AMINOTRANSFERASE 25 U/L (12-78); ALBUMIN 2.3 G/DL (3.4-5.0); ALBUMIN/GLOBULIN RATIO 0.6 (1.1-1.5); ALKALINE PHOSPHATASE 87 IU/L (46-116); ANION GAP 5 (8-16); ASPARTATE AMINO TRANSFERASE 21 U/L (10-37); BILIRUBIN,TOTAL 0.6 MG/DL (0.1-1.0); BLOOD UREA NITROGEN 62 MG/DL (7-18); BUN/CREATININE RATIO 50.8 (5.4-32.0); CALCIUM 8.2 MG/DL (8.5-10.1); CHLORIDE 101 MMOL/L (99-107); CREATININE 1.22 MG/DL (0.60-1.10); GLUCOSE 126 MG/DL (70-104); MAGNESIUM 1.6 MG/DL (1.5-2.4); PHOSPHORUS 3.7 MG/DL (2.3-4.5); POTASSIUM 3.8 MMOL/L (3.5-5.1); SODIUM 140 MMOL/L (135-145); TOTAL CARBON DIOXIDE 33.8 MMOL/L (24-32); eGFR 60 ML/MIN
--- NOTE | 2020-06-14 06:23 | NUR ---
Patient in room CICU 2008. I have received report from Yordy GREENE and had the opportunity to ask questions and assume patient care.
--- NOTE | 2020-06-14 06:45 | NUR ---
Patient in room CICU 2008. I have received report from Yordy GREENE and had the opportunity to ask questions and assume patient care.
[2020-06-14] MEDS: carVEDilol 3.125mg tablet OGT SCH (07:52)
[2020-06-14] MEDS: levoTHYROXINE 25mcg tablet OGT SCH (07:52)
[2020-06-14] MEDS: furosemide 40mg tablet PO SCH ×2 (07:52→21:14)
[2020-06-14] MEDS: lactobacillus rhamnosus 10,000 MMU CELLS/CAPSULE OGT SCH ×2 (07:53→21:14)
[2020-06-14] MEDS: spironolactone 25 MG tablet OGT SCH (07:53)
[2020-06-14] MEDS: docusate sodium 100mg/10ml UD cup OGT SCH (07:53)
[2020-06-14] MEDS: QUEtiapine 25mg tablet OGT SCH (07:53)
[2020-06-14] MEDS: pantoprazole 40 MG vial IV SCH (07:54)
[2020-06-14] MEDS: heparin, porcine 5000 units/ml vial SQ SCH ×2 (07:54→21:13)
[2020-06-14] MEDS ORDERED: acetaminophen 325mg tablet PO PRN ×2 (10:24→10:25)
[2020-06-14] MEDS ORDERED: lactulose 20gm/30ml cup PO PRN (10:25)
--- NOTE | 2020-06-14 11:59 | NUR ---
Reassessment: Pt extubated. Passed BSS, per NETWORK DESKTOP SUPPORT SPECIALIST pt with difficulty chewing and recommends mechanical soft chopped diet/soft bite sized. Eating well, 75-100% average PO Intake. Weights significantly different d/t error. Weight range this admission with bedscale 85 kg-94.4 kg, weight differences may be associated with lasix and edema. Will continue to follow. Rec: 1. Continue soft bite sized/chop all soft diet per NETWORK DESKTOP SUPPORT SPECIALIST recs 2. routine bowel care 3. weight per rx Addendum: 06/14/20 at [address] Amended: Links added.
[2020-06-14] MEDS ORDERED: ipratropium 0.5 MG/2.5ML nebule IH PRN (14:05)
--- NOTE | 2020-06-14 16:26 | NUR ---
Problems reprioritized. Patient report given, questions answered & plan of care reviewed with Norma GREENE.
--- NOTE | 2020-06-14 16:30 | NUR ---
Patient in room CICU 2008. I have received report from JC Vernon in CICU and had the opportunity to ask questions and assume patient care.
--- NOTE | 2020-06-14 16:53 | NUR ---
Patient thinks he may have had a wallet when he came in, but he is not totally sure. Nothing documented in admission assessment. Only shoes, shirt and pants in patient room. Most likely was left at his hotel room when picked up by EMS.
--- NOTE | 2020-06-14 18:50 | NUR ---
Problems reprioritized. Patient report given, questions answered & plan of care reviewed with JC Farley.
[2020-06-14] MEDS: docusate sodium 100mg/10ml UD cup PO SCH (20:00)
[2020-06-14] MEDS: HYDROcodone/acetaminophen 5mg/325mg tablet PO PRN (21:13)
[2020-06-14] MEDS: QUEtiapine 25mg tablet PO SCH (21:14)
[2020-06-14] MEDS: carVEDilol 3.125mg tablet PO SCH (21:14)
[2020-06-15] VITALS: BP 130/73
[2020-06-15] MEDS: ipratropium/albuterol 3ml nebule NEB SCH ×5 (03:00→22:42)
[2020-06-15 07:00] VITALS: BP 142/84
[2020-06-15 07:05] LABS: ALANINE AMINOTRANSFERASE 37 U/L (12-78); ALBUMIN 2.7 G/DL (3.4-5.0); ALBUMIN/GLOBULIN RATIO 0.7 (1.1-1.5); ALKALINE PHOSPHATASE 92 IU/L (46-116); ANION GAP 5 (8-16); ASPARTATE AMINO TRANSFERASE 35 U/L (10-37); BILIRUBIN,TOTAL 0.7 MG/DL (0.1-1.0); BLOOD UREA NITROGEN 54 MG/DL (7-18); BUN/CREATININE RATIO 56.8 (5.4-32.0); CALCIUM 8.3 MG/DL (8.5-10.1); CHLORIDE 101 MMOL/L (99-107); CREATININE 0.95 MG/DL (0.60-1.10); GLUCOSE 78 MG/DL (70-104); MAGNESIUM 1.6 MG/DL (1.5-2.4); PHOSPHORUS 2.4 MG/DL (2.3-4.5); PREALBUMIN 28.3 MG/DL (19-36); SODIUM 140 MMOL/L (135-145); TOTAL CARBON DIOXIDE 34.4 MMOL/L (24-32); TOTAL PROTEIN 6.5 G/DL (6.4-8.2); eGFR 80 ML/MIN
[2020-06-15 07:08] LABS: POTASSIUM 3.1 MMOL/L (3.5-5.1)
[2020-06-15] MEDS: pantoprazole 40 MG vial IV SCH (07:47)
[2020-06-15] MEDS: nicotine 21mg patch - 24 hr TD SCH (07:49)
[2020-06-15] MEDS: levoTHYROXINE 25mcg tablet PO SCH (07:51)
[2020-06-15] MEDS: docusate sodium 100mg/10ml UD cup PO SCH ×3 (07:51→19:52)
[2020-06-15] MEDS: lactobacillus rhamnosus 10,000 MMU CELLS/CAPSULE OGT SCH ×2 (07:53→19:47)
[2020-06-15] MEDS: QUEtiapine 25mg tablet PO SCH ×2 (07:53→19:47)
[2020-06-15] MEDS: heparin, porcine 5000 units/ml vial SQ SCH ×2 (07:53→19:50)
[2020-06-15] MEDS: furosemide 40mg tablet PO SCH ×2 (07:54→19:47)
[2020-06-15] MEDS: carVEDilol 3.125mg tablet PO SCH ×2 (07:54→19:47)
[2020-06-15] MEDS: spironolactone 25 MG tablet PO SCH (07:55)
[2020-06-15 11:00] VITALS: BP 104/57
--- NOTE | 2020-06-15 12:33 | NUR ---
Student documentation: I have reviewed all interventions, assessments performed and documented by Mounika MCLEAN from [facility]. Student Medication Administration: For all medication-pass' in the time frame of 7922-7741, all medications were reviewed, dispensed, administered and documented per hospital policy by Mounika MCLEAN from [facility].
[2020-06-15 14:16] LABS: BASOPHILS % (AUTO) 0.1 % (0-1); EOSINOPHILS % (AUTO) 0.2 % (0-6); HEMATOCRIT 42.7 % (42.0-52.0); HEMOGLOBIN 13.9 g/dl (14.0-17.9); LYMPHOCYTES # (AUTO) 0.3 X10'3 (1.1-4.8); LYMPHOCYTES % (AUTO) 3.9 % (21-51); MEAN CORPUSCULAR HEMOGLOBIN 27.7 PG (27.0-31.0); MEAN CORPUSCULAR HGB CONC 32.7 g/dL (33.0-36.5); MEAN PLATELET VOLUME 8.5 FL (7.4-10.4); MONOCYTES % (AUTO) 11.2 % (2-12); NEUTROPHILS # (AUTO) 7.5 X10'3 (1.8-7.7); NEUTROPHILS % (AUTO) 84.6 % (42-75); PLATELET COUNT 218 X10'3 (140-440); RED BLOOD COUNT 5.02 X10'6 (4.70-6.10); RED CELL DISTRIBUTION WIDTH 16.6 % (11.5-14.5); WHITE BLOOD COUNT 8.9 X10'3 (4.5-11.0)
--- NOTE | 2020-06-15 17:48 | NUR ---
I have reviewed and agree with all medications administered and interventions performed by [facility] Student Maynor Allred.
--- NOTE | 2020-06-15 18:34 | NUR ---
Problems reprioritized. Patient report given, questions answered & plan of care reviewed with Bibi Carrillo RN .
[2020-06-15 19:00] VITALS: BP 126/78
--- NOTE | 2020-06-15 19:08 | NUR ---
Patient in room JAMA 340. I have received report from JC Barrett and had the opportunity to ask questions and assume patient care.
[2020-06-15] MEDS: HYDROcodone/acetaminophen 5mg/325mg tablet PO PRN (19:48)
--- NOTE | 2020-06-15 20:59 | NUR ---
patient's K was 3.1 this am and is refusing to take K replacement,
[2020-06-15] MEDS ORDERED: potassium Cl 20 mEq SR tablet PO PRN ×2 (22:55)
[2020-06-16] VITALS: BP 118/74
[2020-06-16] MEDS: ipratropium/albuterol 3ml nebule NEB SCH ×6 (03:00→23:00)
--- NOTE | 2020-06-16 05:57 | NUR ---
patient took 1 x of K 20 mEq and refused after that
--- NOTE | 2020-06-16 06:00 | NUR ---
Patient in room JAMA 340. I have received report from Bibi Zuniga RN and had the opportunity to ask questions and assume patient care.
--- NOTE | 2020-06-16 06:20 | NUR ---
Problems reprioritized. Patient report given, questions answered & plan of care reviewed with JC Gray.
[2020-06-16 07:00] VITALS: BP 153/89
[2020-06-16] MEDS: docusate sodium 100mg/10ml UD cup PO SCH ×2 (08:00→20:00)
[2020-06-16] MEDS: carVEDilol 3.125mg tablet PO SCH ×2 (08:08→20:58)
[2020-06-16] MEDS: QUEtiapine 25mg tablet PO SCH ×2 (08:08→20:58)
[2020-06-16] MEDS: lactobacillus rhamnosus 10,000 MMU CELLS/CAPSULE OGT SCH ×2 (08:08→20:58)
[2020-06-16] MEDS: furosemide 40mg tablet PO SCH ×2 (08:09→20:58)
[2020-06-16] MEDS: levoTHYROXINE 25mcg tablet PO SCH (08:09)
[2020-06-16] MEDS: spironolactone 25 MG tablet PO SCH (08:09)
[2020-06-16] MEDS: pantoprazole 40 MG vial IV SCH (08:10)
[2020-06-16] MEDS: nicotine 21mg patch - 24 hr TD SCH (08:10)
[2020-06-16] MEDS: heparin, porcine 5000 units/ml vial SQ SCH ×2 (08:13→20:58)
[2020-06-16] MEDS: HYDROcodone/acetaminophen 5mg/325mg tablet PO PRN ×2 (08:38→21:11)
[2020-06-16 11:58] LABS: BASOPHILS % (AUTO) 0.1 % (0-1); EOSINOPHILS % (AUTO) 0.4 % (0-6); HEMATOCRIT 38.6 % (42.0-52.0); HEMOGLOBIN 12.3 g/dl (14.0-17.9); LYMPHOCYTES # (AUTO) 0.4 X10'3 (1.1-4.8); MEAN CORPUSCULAR HEMOGLOBIN 27.2 PG (27.0-31.0); MEAN CORPUSCULAR HGB CONC 31.9 g/dL (33.0-36.5); MEAN CORPUSCULAR VOLUME 85.5 FL (78-98); MEAN PLATELET VOLUME 8.4 FL (7.4-10.4); MONOCYTES # (AUTO) 0.9 X10'3 (0-0.9); MONOCYTES % (AUTO) 12.3 % (2-12); NEUTROPHILS # (AUTO) 6.1 X10'3 (1.8-7.7); NEUTROPHILS % (AUTO) 82.2 % (42-75); PLATELET COUNT 213 X10'3 (140-440); RED BLOOD COUNT 4.52 X10'6 (4.70-6.10); RED CELL DISTRIBUTION WIDTH 16.5 % (11.5-14.5); WHITE BLOOD COUNT 7.5 X10'3 (4.5-11.0)
[2020-06-16 12:12] LABS: ALANINE AMINOTRANSFERASE 84 U/L (12-78); ALBUMIN 2.4 G/DL (3.4-5.0); ALBUMIN/GLOBULIN RATIO 0.7 (1.1-1.5); ALKALINE PHOSPHATASE 107 IU/L (46-116); ANION GAP 1 (8-16); ASPARTATE AMINO TRANSFERASE 72 U/L (10-37); BILIRUBIN,TOTAL 0.7 MG/DL (0.1-1.0); BLOOD UREA NITROGEN 43 MG/DL (7-18); BUN/CREATININE RATIO 45.7 (5.4-32.0); CALCIUM 7.7 MG/DL (8.5-10.1); CHLORIDE 103 MMOL/L (99-107); CREATININE 0.94 MG/DL (0.60-1.10); GLUCOSE 101 MG/DL (70-104); MAGNESIUM 1.3 MG/DL (1.5-2.4); PHOSPHORUS 1.8 MG/DL (2.3-4.5); POTASSIUM 3.3 MMOL/L (3.5-5.1); SODIUM 143 MMOL/L (135-145); TOTAL CARBON DIOXIDE 39.4 MMOL/L (24-32); TOTAL PROTEIN 5.7 G/DL (6.4-8.2); eGFR 81 ML/MIN
--- NOTE | 2020-06-16 18:22 | NUR ---
Problems reprioritized. Patient report given, questions answered & plan of care reviewed with Bibi Ramos RN.
[2020-06-16 18:30] VITALS: BP 157/75
--- NOTE | 2020-06-16 18:34 | NUR ---
Patient in room JAMA 340. I have received report from JC MIRZA and had the opportunity to ask questions and assume patient care. Addendum: 06/16/20 at 1835 by Clari Perez RN Amended: Links added.
--- NOTE | 2020-06-16 18:39 | NUR ---
1500 SVN treatment triaged.
[2020-06-17 00:30] VITALS: BP 131/84
[2020-06-17] MEDS: ipratropium/albuterol 3ml nebule NEB SCH ×4 (02:51→14:49)
--- NOTE | 2020-06-17 06:28 | NUR ---
Problems reprioritized. Patient report given, questions answered & plan of care reviewed with JC Griffiths.
[2020-06-17 07:12] VITALS: BP 153/88
[2020-06-17] MEDS: QUEtiapine 25mg tablet PO SCH (07:39)
[2020-06-17] MEDS: spironolactone 25 MG tablet PO SCH (07:39)
[2020-06-17] MEDS: levoTHYROXINE 25mcg tablet PO SCH (07:40)
[2020-06-17] MEDS: furosemide 40mg tablet PO SCH (07:40)
[2020-06-17] MEDS: lactobacillus rhamnosus 10,000 MMU CELLS/CAPSULE OGT SCH (07:40)
[2020-06-17] MEDS: carVEDilol 3.125mg tablet PO SCH (07:40)
[2020-06-17] MEDS: nicotine 21mg patch - 24 hr TD SCH (07:42)
[2020-06-17] MEDS: heparin, porcine 5000 units/ml vial SQ SCH (07:45)
[2020-06-17] MEDS: docusate sodium 100mg/10ml UD cup PO SCH (07:46)
[2020-06-17] MEDS: pantoprazole 40 MG vial IV SCH (07:48)
--- NOTE | 2020-06-17 08:38 | NUR ---
PAGER ID: [phone] MESSAGE: Casimiro surg [phone] re:[id number] Rosy Coto patient is really wanting to be discharged, removed his IV early this morning, refused labs, 02 sats are 94 on room air while eating.
[2020-06-17 11:00] VITALS: BP 119/73
--- NOTE | 2020-06-17 12:06 | NUR ---
Reassessment: Pt continues on mechanical soft chop all (SB6) diet with average 75-100% PO intake meeting estimated nutrient needs. LB 06/16. No nutrition intervention warranted at this time. Will continue to follow. Rec: 1. Continue soft bite sized/chop all soft diet per SURGICAL NURSE recs 2. routine bowel care 3. weight per rx Addendum: 06/17/20 at [address] Amended: Links added.
[2020-06-17] MEDS ORDERED: NICO-687 TD (13:11)
--- NOTE | 2020-06-17 18:51 | NUR ---
PATIENT DISCHARGED PRIOR TO SHIFT CHANGE, IV TAKEN OUT PRIOR TO DISCHARGE, PATIENT EXPRESSED VERBAL UNDERSTAINDING OF DISCHARGE TEACHING. PATIENT UNDERSTANDS DISCHARGE TEACHING AND WAS TAKING TO LOBBY VIA WHEEL CHAIR AND TAKEN BY FRIEND IN PRIVATE VEHICLE.
== END 2020-06-17 16:40 | disposition home or self-care (01) | DRG 130 ==
LOC: ER 20:36 → ED HOLD 06-08 02:15 → CICU 2S 06-08 03:16 → SUR 3N 06-14 16:49
PROC: 5A1955Z Respiratory Ventilation, Greater than 96 Consecutive Hours (ICD-10-PCS; principal; 2020-06-08)
PROC: 0BH17EZ Insertion of Endotracheal Airway into Trachea, Via Natural or Artificial Opening (ICD-10-PCS; 2020-06-08)
DX: J96.21 Acute and chronic respiratory failure with hypoxia (principal); I11.0 Hypertensive heart disease with heart failure; I50.33 Acute on chronic diastolic (congestive) heart failure; I21.A1 Myocardial infarction type 2; J96.22 Acute and chronic respiratory failure with hypercapnia; J44.1 Chronic obstructive pulmonary disease with (acute) exacerbation; E78.5 Hyperlipidemia, unspecified; F15.10 Other stimulant abuse, uncomplicated; Z87.891 Personal history of nicotine dependence; Z99.81 Dependence on supplemental oxygen; Z59.0 Homelessness; Z20.828 Contact with and (suspected) exposure to other viral communicable diseases
CPT/HCPCS: 31500; 36415; 36600; 71045; 80053; 80305; 80320; 81001; 82550; 82803; 82948; 83605; 83735; 83874; 83880; 84100; 84134; 84145; 84484; 85018; 85025; 85610; 85730; 87040; 87070; 87077; 87081; 87185; 87186; 87635; 92508; 92616; 93005; 93306; 93308; 94002; 94003; 94640; 94760; 96372; 96374; 96375; 97116; 97161; 97530; 99291; C9113; G0378; J0330; J1644; J1650; J1815; J1940; J1956; J2250; J2930; J3010; J3475; J3486; J7030

== ENCOUNTER 2020-06-21 15:02 | Inpatient (IN) | payer MEDICAID ==
[~2020-06-21] VITALS: Ht 185.4 cm; Wt 87.1 kg
[~2020-06-21 15:02] MED LIST changes: -LEVO25TA7 PO; +LEVO50TA8 PO; +NICO-687 TD; -PRED10TA23 PO; +rocuronium 10mg/ml inj IV ONE
[2020-06-21] MEDS ORDERED: normal saline 1000ML IV soln IVB ONE ×2 (15:10→17:35)
[2020-06-21 15:52] LABS: BASOPHILS # (AUTO) 0.1 X10'3 (0-0.2); BASOPHILS % (AUTO) 0.5 % (0-1); EOSINOPHILS % (AUTO) 0.1 % (0-6); HEMATOCRIT 36.2 % (42.0-52.0); HEMOGLOBIN 11.4 g/dl (14.0-17.9); LYMPHOCYTES # (AUTO) 0.4 X10'3 (1.1-4.8); LYMPHOCYTES % (AUTO) 2.9 % (21-51); MEAN CORPUSCULAR HEMOGLOBIN 27.6 PG (27.0-31.0); MEAN CORPUSCULAR HGB CONC 31.5 g/dL (33.0-36.5); MEAN CORPUSCULAR VOLUME 87.8 FL (78-98); MEAN PLATELET VOLUME 8.2 FL (7.4-10.4); MONOCYTES # (AUTO) 1.3 X10'3 (0-0.9); NEUTROPHILS # (AUTO) 11.3 X10'3 (1.8-7.7); NEUTROPHILS % (AUTO) 86.5 % (42-75); PLATELET COUNT 192 X10'3 (140-440); RED BLOOD COUNT 4.12 X10'6 (4.70-6.10); RED CELL DISTRIBUTION WIDTH 17.6 % (11.5-14.5); WHITE BLOOD COUNT 13.1 X10'3 (4.5-11.0)
[2020-06-21 16:07] LABS: ALANINE AMINOTRANSFERASE 99 U/L (12-78); ALBUMIN 2.7 G/DL (3.4-5.0); ALBUMIN/GLOBULIN RATIO 0.8 (1.1-1.5); ALKALINE PHOSPHATASE 122 IU/L (46-116); ANION GAP 7 (8-16); ASPARTATE AMINO TRANSFERASE 83 U/L (10-37); BILIRUBIN,TOTAL 1.3 MG/DL (0.1-1.0); BLOOD UREA NITROGEN 29 MG/DL (7-18); CALCIUM 7.8 MG/DL (8.5-10.1); CHLORIDE 105 MMOL/L (99-107); CREATININE 1.53 MG/DL (0.60-1.10); GLUCOSE 111 MG/DL (70-104); POTASSIUM 3.6 MMOL/L (3.5-5.1); SODIUM 146 MMOL/L (135-145); TOTAL CARBON DIOXIDE 33.6 MMOL/L (24-32); TOTAL PROTEIN 5.9 G/DL (6.4-8.2); eGFR 46 ML/MIN
[2020-06-21 16:10] LABS: TROPONIN I 0.09 NG/ML (0.0-0.05)
[2020-06-21] MEDS ORDERED: piperacillin/tazo 3.375gm/50ml 50 ML IV ONE (16:10)
[2020-06-21 16:12] LABS: ETHANOL < 0.010 GM/DL (0.0-0.010)
[2020-06-21] MEDS ORDERED: NICO-687 TOP (16:15)
--- NOTE | 2020-06-21 16:39 | NUR ---
Dr. Cramer at bedside to re-eval patient. Pt to receive another liter of NS for a total of 3 Liters.
[2020-06-21 17:10] LABS: ANISOCYTOSIS 1+; PLATELET ESTIMATE NORMAL; TOTAL CELLS COUNTED 100
--- NOTE | 2020-06-21 17:43 | NUR ---
Orthostatics attempted. Pt unable to stand on his own. Dr. Cramer aware. Pt cleaned from incontinence. New gown placed on patient with warm blanket. Pt updated with plan of care and is awaiting admission.
--- NOTE | 2020-06-21 19:07 | NUR ---
Pt had a witnessed sezuire. Pt given 2mg ativan IVP verbal order by Dr. Cramer. Pt suctioned and seizure pads in place.
[2020-06-21] MEDS ORDERED: levetiracetam inj 1,000 MG in normal saline 100ml IV soln 90 ML IV STA (19:08)
[2020-06-21] MEDS ORDERED: LORazepam 2 mg/ml vial IV ONE (19:10)
--- NOTE | 2020-06-21 19:11 | NUR ---
Pt BP 67/46 Dr. Cramer aware.
[2020-06-21] MEDS ORDERED: levetiracetam-NS 1000mg/100ml 100 ML IV STA (19:16)
[2020-06-21] MEDS ORDERED: rocuronium 10mg/ml inj IV ONE (20:00)
[2020-06-21] MEDS ORDERED: magnesium 2GM in 50ml NS 50 ML IV ONE (20:05)
[2020-06-21] MEDS ORDERED: methylPREDNISolone sod succ 125mg/2ml vial IV ONE (20:05)
[2020-06-21] MEDS ORDERED: LIDOcaine 2% 10ml TOPICAL JELLY (Urojet) TP ONE (20:15)
[2020-06-21] MEDS ORDERED: CEPH500C5 PO (20:20)
[2020-06-21] MEDS ORDERED: etomidate 2mg/ml inj. IV ONE (20:25)
[2020-06-21 20:43] LABS: VANCOMYCIN,RANDOM 0.1 UG/ML
[2020-06-21] MEDS: midazolam 100mg in NS 100ml 100 ML IV PRN ×2 (20:47→23:23)
[2020-06-21 21:01] LABS: ABG BASE EXCESS -0.2 mmol/L (-2.0-2.0); ABG HCO3 26.1 mmol/L (22.0-26.0); ABG OXYGEN SATURATION 99.4 % (94-97); ABG PCO2 (T) 50.1 mmHg (35.0-48.0); ABG PO2 (T) 400.6 mmHg (75.0-100.0); FCOHb 0.2 % (0.0-3.9); FMetHb 0.2 % (0.0-1.5); PEEP 5 cm H2O; RESPIRATORY RATE 20 b/min; TIDAL VOLUME 400 mL; TOTAL HEMOGLOBIN 11.5 G/dl (14.0-18.0)
--- NOTE | 2020-06-21 21:06 | NUR ---
BETTINA PEOPLESOFT FUNCTIONAL ANALYST AT BEDSIDE ASSESSING PATIENT GOING TO WAIT TO ADMIT UNTIL AFTER HEAD CT
[2020-06-21 21:23] LABS: CLARITY,URINE CLEAR (Clear); COLOR,URINE AMBER (Yellow); GLUCOSE, URINE NEGATIVE (Neg); KETONES,URINE TRACE mg/dl (Neg); LEUKOCYTE ESTERASE ,URINE NEGATIVE (Neg); NITRITES, URINE NEGATIVE (Neg); OCCULT BLOOD,URINE SMALL (Neg); PROTEIN,URINE >=300 mg/dl (Neg)
[2020-06-21 21:24] LABS: UA COLLECTION TYPE FOLEY CATH
[2020-06-21 21:28] LABS: WBC,URINE 0-4 /HPF (0-4)
[2020-06-21 21:29] LABS: BACTERIA,URINE NONE SEEN /HPF (Neg); RBC,URINE 0-2 /HPF (0-2); SQUAMOUS EPITHELIAL CELL,UR FEW /LPF (FEW)
[2020-06-21] MEDS ORDERED: acetaminophen 650mg rectal suppository RC PRN (21:30)
[2020-06-21] MEDS ORDERED: acetaminophen 325mg tablet PO PRN ×2 (21:30)
[2020-06-21] MEDS ORDERED: midazolam 100mg in NS 100ml 100 ML IV PRN (21:30)
[2020-06-21] MEDS ORDERED: normal saline 1000ml 1,000 ML IV SCH (21:30)
[2020-06-21] MEDS ORDERED: ondansetron/PF 4mg/2ml inj IV PRN (21:30)
[2020-06-21] MEDS ORDERED: FENTANYL-0.9 % NACL/PF 100 ML IV PRN (21:30)
[2020-06-21] MEDS ORDERED: albuterol 2.5 MG/3 ML nebule NEB PRN (21:30)
[2020-06-21] MEDS ORDERED: NORepinephrine 8mg/ 250ml NS 250 ML IV PRN (21:30)
[2020-06-21 21:37] LABS: URINE AMPHETAMINE SCREEN POSITIVE (Neg); URINE BARBITUATE SCREEN NEGATIVE (Neg); URINE BENZODIAZEPINES SCREEN NEGATIVE (Neg); URINE CANNABINOID SCREEN POSITIVE (Neg); URINE COCAINE SCREEN NEGATIVE (Neg); URINE METHADONE SCREEN NEGATIVE (Neg); URINE OPIATE SCREEN NEGATIVE (Neg); URINE PHENCYCLIDINE SCREEN NEGATIVE (Neg)
[2020-06-21] MEDS: FENTANYL-0.9 % NACL/PF 100 ML IV PRN (21:43)
--- NOTE | 2020-06-21 22:24 | NUR ---
Patient currently in room ED 5. I have received report from JC Lee and had the opportunity to ask questions. Patient to be transferred to room 2043.
[2020-06-21] MEDS ORDERED: labetalol 20mg/4ml (5mg/ml) syringe IV ONE (23:15)
[2020-06-21] MEDS: SODIUM CHLORIDE IV SCH (23:32)
[2020-06-21] MEDS: VANCOMYCIN IV SCH (23:32)
[2020-06-21 23:40] LABS: OXYGEN SATURATION (MIXED VEN) 72.2 % (60-80); PO2 MIXED VENOUS (TEMP COR) 35.2 mmHg (35-46)
[2020-06-21] MEDS: ipratropium/albuterol 3ml nebule NEB SCH (23:59)
[2020-06-22] VITALS (23 sets, daily range): BP systolic 80–173; BP diastolic 51–106
[2020-06-22 01:36] LABS: BASOPHILS % (AUTO) 0.2 % (0-1); EOSINOPHILS % (AUTO) 0 % (0-6); HEMATOCRIT 36.1 % (42.0-52.0); HEMOGLOBIN 11.4 g/dl (14.0-17.9); LYMPHOCYTES # (AUTO) 0.3 X10'3 (1.1-4.8); LYMPHOCYTES % (AUTO) 2.3 % (21-51); MEAN CORPUSCULAR HEMOGLOBIN 27.1 PG (27.0-31.0); MEAN CORPUSCULAR HGB CONC 31.6 g/dL (33.0-36.5); MEAN CORPUSCULAR VOLUME 85.8 FL (78-98); MONOCYTES # (AUTO) 0.5 X10'3 (0-0.9); MONOCYTES % (AUTO) 3.9 % (2-12); NEUTROPHILS # (AUTO) 11.2 X10'3 (1.8-7.7); NEUTROPHILS % (AUTO) 93.6 % (42-75); PLATELET COUNT 146 X10'3 (140-440); RED CELL DISTRIBUTION WIDTH 17.6 % (11.5-14.5); WHITE BLOOD COUNT 11.9 X10'3 (4.5-11.0)
[2020-06-22] MEDS: VANCOMYCIN IV SCH (01:43)
[2020-06-22] MEDS: SODIUM CHLORIDE IV SCH (01:43)
[2020-06-22] MEDS: piperacillin/tazo 3.375gm/50ml 50 ML IV SCH ×4 (01:46→23:43)
[2020-06-22 01:48] LABS: PARTIAL THROMBOPLASTIN TIME 30 SECONDS (22-32)
[2020-06-22 01:56] LABS: ALBUMIN 2.6 G/DL (3.4-5.0); ALBUMIN/GLOBULIN RATIO 0.9 (1.1-1.5); ALKALINE PHOSPHATASE 131 IU/L (46-116); ANION GAP 9 (8-16); BLOOD UREA NITROGEN 30 MG/DL (7-18); BUN/CREATININE RATIO 20.7 (5.4-32.0); CALCIUM 7.4 MG/DL (8.5-10.1); CHLORIDE 106 MMOL/L (99-107); CREATININE 1.45 MG/DL (0.60-1.10); GLUCOSE 90 MG/DL (70-104); MAGNESIUM 1.8 MG/DL (1.5-2.4); PHOSPHORUS 4.3 MG/DL (2.3-4.5); POTASSIUM 3.3 MMOL/L (3.5-5.1); SODIUM 147 MMOL/L (135-145); TOTAL CARBON DIOXIDE 32.3 MMOL/L (24-32); TOTAL PROTEIN 5.6 G/DL (6.4-8.2); eGFR 49 ML/MIN
[2020-06-22 02:01] LABS: ALANINE AMINOTRANSFERASE 1150 U/L (12-78); ASPARTATE AMINO TRANSFERASE 1463 U/L (10-37)
[2020-06-22] MEDS ORDERED: enalaprilat dihydrate 2.5mg/2ml vial IV ONE (02:10)
[2020-06-22] MEDS ORDERED: sodium chloride 0.45% 1,000 ML IV SCH (02:10)
--- NOTE | 2020-06-22 02:11 | NUR ---
Rubin Wyatt,COLLATOR at bedside. Patient continues to have BP 175/105. Will place orders.
[2020-06-22] MEDS: ipratropium/albuterol 3ml nebule NEB SCH ×3 (03:44→22:42)
[2020-06-22] MEDS: potassium Cl 20mEq/100mL bag 100 ML IV PRN ×2 (04:18→05:26)
[2020-06-22 05:36] LABS: ABG BASE EXCESS 4.6 mmol/L (-2.0-2.0); ABG HCO3 29.3 mmol/L (22.0-26.0); ABG OXYGEN SATURATION 97.6 % (94-97); ABG PCO2 (T) 41.2 mmHg (35.0-48.0); ABG PO2 (T) 92.9 mmHg (75.0-100.0); ALLEN'S TEST POSITIVE; FCOHb 0.4 % (0.0-3.9); FMetHb 0.2 % (0.0-1.5); PATIENT TEMPERATURE 35.5; PEEP 5 cm H2O; RESPIRATORY RATE 20 b/min; TIDAL VOLUME 450 mL; TOTAL HEMOGLOBIN 12.9 G/dl (14.0-18.0)
--- NOTE | 2020-06-22 06:00 | NUR ---
Blankets provided to patient.
--- NOTE | 2020-06-22 06:42 | NUR ---
Problems reprioritized. Patient report given, questions answered & plan of care reviewed with JC Ling.
[2020-06-22] MEDS ORDERED: levoTHYROXINE 25mcg tablet PO SCH (07:00)
[2020-06-22] MEDS: pantoprazole 40 MG vial IV SCH (07:53)
[2020-06-22] MEDS: heparin, porcine 5000 units/ml vial SQ SCH ×2 (07:53→19:25)
[2020-06-22] MEDS: Levetiracetam-NS 500mg/100ml 100 ML IV SCH ×2 (07:54→19:22)
[2020-06-22] MEDS ORDERED: lisinopril 10 MG tablet PO SCH (08:00)
[2020-06-22] MEDS ORDERED: carVEDilol 3.125mg tablet PO SCH (08:00)
--- NOTE | 2020-06-22 11:07 | NUR ---
Md is aware that patient is making 5-20ML of urine/hr
--- NOTE | 2020-06-22 11:30 | NUR ---
Malnutrition Consult: Pt intubated s/p seizure found down in tar heel positive for meth and hx meth abuse/homeless per EMR. DX bilateral PNA, aspiration PNA, and meth abuse. OG in place to suction w/ MAP 99 this AM. Receiving electrolyte replacements per protocol. EN recs below in case prolonged intubation. Will continue to monitor. Rec: 1. IF TF; Vital High Protein at 75ml/hr 2. IF TF; water flush 200ml Q4 3. IF TF; PALB Q /; daily wts 4. routine bowel care 5. upon extubation; advance diet as medically indicated to regular Addendum: 06/22/20 at [address] Amended: Links added. Addendum: 06/22/20 at [address] Malnutrition Consult: Pt intubated s/p seizure found down in tar heel positive for meth and hx meth abuse/homeless per EMR. DX bilateral PNA, aspiration PNA, and meth abuse. OG in place to suction w/ MAP 99 this AM. Receiving electrolyte replacements per protocol. EN recs below in case prolonged intubation. Pt has no edema/wounds, no significant wt loss hx, and currently does not meet minimum malnutrition criteria at this time. Will continue to monitor.
[2020-06-22] MEDS ORDERED: acetaminophen 325mg/10.15ml oral unit dose solution OGT PRN (11:37)
[2020-06-22] MEDS: normal saline 1000ml 1,000 ML IV SCH (13:26)
[2020-06-22] MEDS: vancomycin/NS 1 GM ADD-VANTAGE 250 ML IV SCH (13:31)
--- NOTE | 2020-06-22 14:40 | NUR ---
patient hypotensive. BP improved with passive leg raise. BP dropped again with normal positioning. MD notified. Orders for 1L bolus NS
[2020-06-22] MEDS ORDERED: normal saline 1000ml 1,000 ML IV ONE ×2 (14:45→17:10)
[2020-06-22] MEDS: FENTANYL-0.9 % NACL/PF 100 ML IV PRN (17:24)
--- NOTE | 2020-06-22 19:00 | NUR ---
Patient in room ICU 2043. I have received report from Sushil GREENE and had the opportunity to ask questions and assume patient care.
[2020-06-22] MEDS: carVEDilol 3.125mg tablet OGT SCH (20:00)
--- NOTE | 2020-06-22 22:00 | NUR ---
Asked Howard Lambert about patient's poor urine output which is about 5-10 ml/hr. he said: no new orders, Have re-evaluate in the am.
[2020-06-23] VITALS (24 sets, daily range): BP systolic 82–117; BP diastolic 47–76
[2020-06-23] MEDS: vancomycin/NS 1 GM ADD-VANTAGE 250 ML IV SCH (01:16)
[2020-06-23 03:17] LABS: BASOPHILS % (AUTO) 0.1 % (0-1); EOSINOPHILS % (AUTO) 0 % (0-6); HEMOGLOBIN 12.2 g/dl (14.0-17.9); LYMPHOCYTES # (AUTO) 0.4 X10'3 (1.1-4.8); MONOCYTES # (AUTO) 0.6 X10'3 (0-0.9)
[2020-06-23 03:19] LABS: HEMATOCRIT 38.2 % (42.0-52.0); LYMPHOCYTES % (AUTO) 2.7 % (21-51); MEAN CORPUSCULAR HEMOGLOBIN 27.4 PG (27.0-31.0); MEAN CORPUSCULAR HGB CONC 31.9 g/dL (33.0-36.5); MEAN PLATELET VOLUME 8.9 FL (7.4-10.4); NEUTROPHILS # (AUTO) 13.1 X10'3 (1.8-7.7); NEUTROPHILS % (AUTO) 93.2 % (42-75); PLATELET COUNT 180 X10'3 (140-440); RED BLOOD COUNT 4.44 X10'6 (4.70-6.10); RED CELL DISTRIBUTION WIDTH 17.9 % (11.5-14.5); WHITE BLOOD COUNT 14.1 X10'3 (4.5-11.0)
[2020-06-23] MEDS: ipratropium/albuterol 3ml nebule NEB SCH ×6 (03:23→22:57)
[2020-06-23 03:36] LABS: ABG HCO3 24.1 mmol/L (22.0-26.0); ABG OXYGEN SATURATION 96.4 % (94-97); ABG PCO2 (T) 36.2 mmHg (35.0-48.0); ABG PO2 (T) 83.4 mmHg (75.0-100.0); ALLEN'S TEST POSITIVE; FMetHb 0.1 % (0.0-1.5); FO2Hb 96.3 % (94-97); PEEP 5 cm H2O; RESPIRATORY RATE 20 b/min; TIDAL VOLUME 450 mL; TOTAL HEMOGLOBIN 13.1 G/dl (14.0-18.0)
[2020-06-23 03:40] LABS: ALBUMIN 1.9 G/DL (3.4-5.0); ALBUMIN/GLOBULIN RATIO 0.7 (1.1-1.5); ALKALINE PHOSPHATASE 105 IU/L (46-116); ANION GAP 10 (8-16); BLOOD UREA NITROGEN 47 MG/DL (7-18); BUN/CREATININE RATIO 22.4 (5.4-32.0); CALCIUM 7.3 MG/DL (8.5-10.1); CHLORIDE 108 MMOL/L (99-107); GLUCOSE 102 MG/DL (70-104); MAGNESIUM 1.7 MG/DL (1.5-2.4); PHOSPHORUS 5.6 MG/DL (2.3-4.5); POTASSIUM 3.9 MMOL/L (3.5-5.1); SODIUM 147 MMOL/L (135-145); TOTAL CARBON DIOXIDE 28.9 MMOL/L (24-32); TOTAL PROTEIN 4.5 G/DL (6.4-8.2); eGFR 32 ML/MIN
[2020-06-23 03:59] LABS: ALANINE AMINOTRANSFERASE 2182 U/L (12-78); ASPARTATE AMINO TRANSFERASE 1596 U/L (10-37)
[2020-06-23] MEDS: mineral oil/petrolatum ophthal oint EACHEYE SCH ×4 (04:05→20:00)
[2020-06-23] MEDS: midazolam 100mg in NS 100ml 100 ML IV PRN (04:06)
[2020-06-23] MEDS: normal saline 1000ml 1,000 ML IV SCH ×3 (04:11→12:02)
[2020-06-23] MEDS: lisinopril 10 MG tablet OGT SCH (06:56)
[2020-06-23] MEDS: carVEDilol 3.125mg tablet OGT SCH ×2 (08:00→20:00)
[2020-06-23] MEDS: pantoprazole 40 MG vial IV SCH (08:24)
[2020-06-23] MEDS: piperacillin/tazo 3.375gm/50ml 50 ML IV SCH ×2 (08:24→16:46)
[2020-06-23] MEDS: Levetiracetam-NS 500mg/100ml 100 ML IV SCH ×2 (08:24→21:00)
[2020-06-23] MEDS: heparin, porcine 5000 units/ml vial SQ SCH ×2 (08:26→21:10)
[2020-06-23] MEDS: levoTHYROXINE 25mcg tablet OGT SCH (08:29)
[2020-06-23] MEDS ORDERED: normal saline 1000ml 1,000 ML IV ONE (12:00)
[2020-06-23] MEDS ORDERED: VANCOMYCIN LEVEL IV ONE (12:30)
[2020-06-23 12:34] LABS: CLARITY,URINE SLIGHTLY CLOUDY (Clear); COLOR,URINE YELLOW (Yellow); GLUCOSE, URINE NEGATIVE (Neg); KETONES,URINE NEGATIVE (Neg); LEUKOCYTE ESTERASE ,URINE NEGATIVE (Neg); NITRITES, URINE NEGATIVE (Neg); OCCULT BLOOD,URINE MODERATE (Neg); PH,URINE 5.5 (4.8-8.0); PROTEIN,URINE 30 mg/dl (Neg); UROBILINOGEN,URINE 0.2 E.U/dL (0.2-1.0)
[2020-06-23 13:02] LABS: UA COLLECTION TYPE FOLEY CATH
[2020-06-23 13:04] LABS: BACTERIA,URINE FEW /HPF (Neg); WBC,URINE 0-4 /HPF (0-4)
[2020-06-23 13:05] LABS: MUCUS STRANDS NONE SEEN /LPF (Neg); SQUAMOUS EPITHELIAL CELL,UR NONE SEEN /LPF (FEW); URIC ACID CRYSTALS 3+ /HPF (NEGATIVE)
[2020-06-23 13:47] LABS: UA EOSINOPHILS NO EOS /HPF
--- NOTE | 2020-06-23 16:47 | NUR ---
Weaning parameters reported to . He does not want to extubate this late in the day. sedating restarted at half rate
[2020-06-23] MEDS ORDERED: lactulose 20gm/30ml cup OGT PRN (21:30)
[2020-06-24] VITALS (24 sets, daily range): BP systolic 108–159; BP diastolic 64–99
[2020-06-24] MEDS: vancomycin inj 500 MG in normal saline 100ml IV soln 100 ML IV SCH ×2 (01:33→13:15)
[2020-06-24] MEDS: piperacillin/tazo 3.375gm/50ml 50 ML IV SCH ×4 (01:34→23:50)
[2020-06-24] MEDS: normal saline 1000ml 1,000 ML IV SCH ×3 (02:25→23:19)
[2020-06-24 03:05] LABS: BASOPHILS # (AUTO) 0.1 X10'3 (0-0.2); BASOPHILS % (AUTO) 0.6 % (0-1); EOSINOPHILS % (AUTO) 0 % (0-6); HEMOGLOBIN 11.6 g/dl (14.0-17.9); LYMPHOCYTES # (AUTO) 0.4 X10'3 (1.1-4.8); MEAN CORPUSCULAR HEMOGLOBIN 27.5 PG (27.0-31.0); MEAN CORPUSCULAR HGB CONC 31.4 g/dL (33.0-36.5); MEAN CORPUSCULAR VOLUME 87.5 FL (78-98); MEAN PLATELET VOLUME 8.5 FL (7.4-10.4); MONOCYTES # (AUTO) 0.6 X10'3 (0-0.9); MONOCYTES % (AUTO) 5.8 % (2-12); NEUTROPHILS # (AUTO) 9.1 X10'3 (1.8-7.7); NEUTROPHILS % (AUTO) 89.6 % (42-75); PLATELET COUNT 139 X10'3 (140-440); RED BLOOD COUNT 4.23 X10'6 (4.70-6.10); RED CELL DISTRIBUTION WIDTH 18.5 % (11.5-14.5); WHITE BLOOD COUNT 10.2 X10'3 (4.5-11.0)
[2020-06-24] MEDS: ipratropium/albuterol 3ml nebule NEB SCH ×5 (03:25→23:24)
[2020-06-24 03:38] LABS: ALBUMIN/GLOBULIN RATIO 0.7 (1.1-1.5); ALKALINE PHOSPHATASE 91 IU/L (46-116); ANION GAP 8 (8-16); ASPARTATE AMINO TRANSFERASE 535 U/L (10-37); BILIRUBIN,TOTAL 0.8 MG/DL (0.1-1.0); BLOOD UREA NITROGEN 49 MG/DL (7-18); BUN/CREATININE RATIO 22.4 (5.4-32.0); CALCIUM 7.3 MG/DL (8.5-10.1); CHLORIDE 111 MMOL/L (99-107); CREATININE 2.19 MG/DL (0.60-1.10); GLUCOSE 75 MG/DL (70-104); MAGNESIUM 1.7 MG/DL (1.5-2.4); POTASSIUM 3.4 MMOL/L (3.5-5.1); SODIUM 148 MMOL/L (135-145); TOTAL CARBON DIOXIDE 29.2 MMOL/L (24-32); TOTAL PROTEIN 4.8 G/DL (6.4-8.2); eGFR 30 ML/MIN
[2020-06-24 03:39] LABS: ALANINE AMINOTRANSFERASE 1589 U/L (12-78)
[2020-06-24 03:45] LABS: ABG HCO3 26.6 mmol/L (22.0-26.0); ABG OXYGEN SATURATION 92.9 % (94-97); ABG PO2 (T) 68.3 mmHg (75.0-100.0); ALLEN'S TEST POSITIVE; FCOHb 0.2 % (0.0-3.9); FMetHb 0.2 % (0.0-1.5); FO2Hb 92.5 % (94-97); PATIENT TEMPERATURE 35.7; PEEP 5 cm H2O; TOTAL HEMOGLOBIN 12.8 G/dl (14.0-18.0)
[2020-06-24] MEDS: Levetiracetam-NS 500mg/100ml 100 ML IV SCH ×2 (07:11→20:42)
[2020-06-24] MEDS: levoTHYROXINE 25mcg tablet OGT SCH (07:15)
[2020-06-24] MEDS: pantoprazole 40 MG vial IV SCH (07:15)
[2020-06-24] MEDS: carVEDilol 3.125mg tablet OGT SCH ×3 (07:15→20:42)
[2020-06-24] MEDS: mineral oil/petrolatum ophthal oint EACHEYE SCH ×4 (07:15→20:00)
[2020-06-24] MEDS: lisinopril 10 MG tablet OGT SCH (07:16)
[2020-06-24] MEDS: heparin, porcine 5000 units/ml vial SQ SCH ×2 (07:16→20:41)
[2020-06-24] MEDS: potassium Cl 20mEq/100mL bag 100 ML IV PRN ×2 (08:07→09:16)
[2020-06-24] MEDS ORDERED: dextrose 50%-water 50ml dispensing syringe IV ONE (08:09)
[2020-06-24] MEDS ORDERED: ipratropium/albuterol 3ml nebule NEB PRN (12:25)
[2020-06-24] MEDS ORDERED: racepinephrine 11.25mg/0.5ml nebule NEB PRN (12:25)
--- NOTE | 2020-06-24 18:30 | NUR ---
Patient in room ICU 2043. I have received report from Paige GREENE and had the opportunity to ask questions and assume patient care.
--- NOTE | 2020-06-24 22:34 | NUR ---
Problems reprioritized. Patient report given, questions answered & plan of care reviewed with Zeke GREENE.
--- NOTE | 2020-06-24 22:40 | NUR ---
Patient in room ICU 2043. I have received report from Julisa GREENE and Student Nurse and had the opportunity to ask questions and assume patient care.
[2020-06-25] VITALS (16 sets, daily range): BP systolic 126–164; BP diastolic 76–106
[2020-06-25] MEDS: vancomycin inj 500 MG in normal saline 100ml IV soln 100 ML IV SCH (00:26)
[2020-06-25] MEDS: mineral oil/petrolatum ophthal oint EACHEYE SCH ×5 (02:00→23:04)
[2020-06-25 03:32] LABS: BASOPHILS # (AUTO) 0.1 X10'3 (0-0.2); BASOPHILS % (AUTO) 0.7 % (0-1); EOSINOPHILS % (AUTO) 0.1 % (0-6); HEMATOCRIT 40.6 % (42.0-52.0); HEMOGLOBIN 12.5 g/dl (14.0-17.9); LYMPHOCYTES # (AUTO) 0.5 X10'3 (1.1-4.8); LYMPHOCYTES % (AUTO) 3.7 % (21-51); MEAN CORPUSCULAR HEMOGLOBIN 27.2 PG (27.0-31.0); MEAN CORPUSCULAR HGB CONC 30.9 g/dL (33.0-36.5); MEAN CORPUSCULAR VOLUME 88.1 FL (78-98); MEAN PLATELET VOLUME 8.1 FL (7.4-10.4); MONOCYTES # (AUTO) 0.7 X10'3 (0-0.9); MONOCYTES % (AUTO) 5.2 % (2-12); NEUTROPHILS # (AUTO) 11.6 X10'3 (1.8-7.7); NEUTROPHILS % (AUTO) 90.3 % (42-75); PLATELET COUNT 145 X10'3 (140-440); RED BLOOD COUNT 4.61 X10'6 (4.70-6.10); WHITE BLOOD COUNT 12.8 X10'3 (4.5-11.0)
[2020-06-25] MEDS: ipratropium/albuterol 3ml nebule NEB SCH ×4 (03:39→20:54)
[2020-06-25 04:01] LABS: ALBUMIN 2.4 G/DL (3.4-5.0); ALBUMIN/GLOBULIN RATIO 0.7 (1.1-1.5); ALKALINE PHOSPHATASE 95 IU/L (46-116); ANION GAP 9 (8-16); ASPARTATE AMINO TRANSFERASE 195 U/L (10-37); BLOOD UREA NITROGEN 40 MG/DL (7-18); CALCIUM 7.9 MG/DL (8.5-10.1); CHLORIDE 113 MMOL/L (99-107); GLUCOSE 87 MG/DL (70-104); MAGNESIUM 1.5 MG/DL (1.5-2.4); PHOSPHORUS 4.3 MG/DL (2.3-4.5); POTASSIUM 4.3 MMOL/L (3.5-5.1); SODIUM 151 MMOL/L (135-145); TOTAL CARBON DIOXIDE 29.4 MMOL/L (24-32); TOTAL PROTEIN 5.9 G/DL (6.4-8.2); eGFR 34 ML/MIN
[2020-06-25 04:12] LABS: ALANINE AMINOTRANSFERASE 1095 U/L (12-78)
--- NOTE | 2020-06-25 06:46 | NUR ---
Problems reprioritized. Patient report given, questions answered & plan of care reviewed with Paige GREENE.
[2020-06-25] MEDS: levoTHYROXINE 25mcg tablet OGT SCH (07:00)
[2020-06-25] MEDS ORDERED: dextrose 50%-water 50ml dispensing syringe IV ONE (07:54)
[2020-06-25] MEDS: pantoprazole 40 MG vial IV SCH (07:58)
[2020-06-25] MEDS: piperacillin/tazo 3.375gm/50ml 50 ML IV SCH ×2 (07:58→15:20)
[2020-06-25] MEDS: heparin, porcine 5000 units/ml vial SQ SCH ×2 (07:59→20:00)
[2020-06-25] MEDS: lisinopril 10 MG tablet OGT SCH (08:00)
[2020-06-25] MEDS: carVEDilol 3.125mg tablet OGT SCH ×2 (08:00→19:29)
[2020-06-25] MEDS: normal saline 1000ml 1,000 ML IV SCH (08:25)
[2020-06-25] MEDS: Levetiracetam-NS 500mg/100ml 100 ML IV SCH ×2 (08:43→20:47)
[2020-06-25] MEDS: potassium Cl 20mEq in D5-NS 1,000 ML IV SCH ×2 (10:46→23:54)
[2020-06-25] MEDS ORDERED: VANCOMYCIN LEVEL IV ONE (12:30)
[2020-06-25] MEDS ORDERED: vancomycin/NS 1 GM ADD-VANTAGE 250 ML X 1 DOSE IV PRN (13:05)
--- NOTE | 2020-06-25 16:05 | NUR ---
Transferred pt to Room 3012A. Gave report to Stacey (RN), Pt stable upon transfer. Per Dr. Vences ok to leave central line in as unable to start PIV after 3 nurses tried.
--- NOTE | 2020-06-25 16:07 | NUR ---
Patient in room PCU 3012. I have received report from Paige GREENE and had the opportunity to ask questions and assume patient care.
[2020-06-25] MEDS: acetaminophen 325mg/10.15ml oral unit dose solution OGT PRN (17:07)
--- NOTE | 2020-06-25 18:19 | NUR ---
Problems reprioritized. Patient report given, questions answered & plan of care reviewed with Ana GREENE.
--- NOTE | 2020-06-25 18:30 | NUR ---
Patient in room PCU 3012. I have received report from Vanessa GREENE and had the opportunity to ask questions and assume patient care.
[2020-06-25] MEDS: lactobacillus rhamnosus 10,000 MMU CELLS/CAPSULE OGT SCH (19:29)
--- NOTE | 2020-06-25 21:49 | NUR ---
pt did allow blood glucose to be checked but refused heparin, stated I don't want anymore shots. pt refused bed bath.
[2020-06-26] MEDS: piperacillin/tazo 3.375gm/50ml 50 ML IV SCH ×3 (00:25→16:36)
[2020-06-26 02:22] VITALS: BP 162/96
[2020-06-26] MEDS: ipratropium/albuterol 3ml nebule NEB SCH ×4 (02:30→20:03)
[2020-06-26] MEDS ORDERED: dextrose ORAL solution 15 GM/59 ML bottle PO PRN ×2 (02:45)
[2020-06-26] MEDS ORDERED: dextrose 50%-water 50ml dispensing syringe IV PRN ×2 (02:45)
[2020-06-26] MEDS ORDERED: glucagon, human recombinant 1mg kit SUBCUT PRN (02:45)
[2020-06-26] MEDS ORDERED: VANCOMYCIN LEVEL IV SCH (03:00)
--- NOTE | 2020-06-26 06:09 | NUR ---
Problems reprioritized. Patient report given, questions answered & plan of care reviewed with Vanessa GREENE.
[2020-06-26 07:00] VITALS: BP 136/55
--- NOTE | 2020-06-26 07:10 | NUR ---
Patient in room PCU 3012. I have received report from Ana GREENE and had the opportunity to ask questions and assume patient care.
[2020-06-26] MEDS: mineral oil/petrolatum ophthal oint EACHEYE SCH ×3 (08:00→19:20)
[2020-06-26] MEDS: carVEDilol 3.125mg tablet OGT SCH ×2 (08:04→19:07)
[2020-06-26] MEDS: levoTHYROXINE 25mcg tablet OGT SCH (08:06)
[2020-06-26] MEDS: lactobacillus rhamnosus 10,000 MMU CELLS/CAPSULE OGT SCH ×2 (08:06→19:07)
[2020-06-26] MEDS: lisinopril 10 MG tablet OGT SCH (08:06)
[2020-06-26] MEDS: heparin, porcine 5000 units/ml vial SQ SCH ×2 (08:08→19:09)
[2020-06-26 09:52] LABS: ALANINE AMINOTRANSFERASE 709 U/L (12-78); ALBUMIN 2.5 G/DL (3.4-5.0); ALBUMIN/GLOBULIN RATIO 0.7 (1.1-1.5); ALKALINE PHOSPHATASE 97 IU/L (46-116); ANION GAP 10 (8-16); ASPARTATE AMINO TRANSFERASE 99 U/L (10-37); BILIRUBIN,TOTAL 1.2 MG/DL (0.1-1.0); BLOOD UREA NITROGEN 30 MG/DL (7-18); BUN/CREATININE RATIO 35.3 (5.4-32.0); CALCIUM 8.2 MG/DL (8.5-10.1); CHLORIDE 113 MMOL/L (99-107); CREATININE 0.85 MG/DL (0.60-1.10); GLUCOSE 145 MG/DL (70-104); MAGNESIUM 1.3 MG/DL (1.5-2.4); PHOSPHORUS 3.1 MG/DL (2.3-4.5); POTASSIUM 4.6 MMOL/L (3.5-5.1); SODIUM 150 MMOL/L (135-145); TOTAL CARBON DIOXIDE 27.3 MMOL/L (24-32); TOTAL PROTEIN 6.3 G/DL (6.4-8.2); VANCOMYCIN,RANDOM 16.9 UG/ML; eGFR > 90 ML/MIN
[2020-06-26] MEDS: pantoprazole 40 MG vial IV SCH (10:37)
[2020-06-26] MEDS: Levetiracetam-NS 500mg/100ml 100 ML IV SCH ×2 (10:37→20:34)
[2020-06-26 11:00] VITALS: BP 149/101
[2020-06-26 11:25] LABS: BASOPHILS % (AUTO) 0.1 % (0-1); EOSINOPHILS # (AUTO) 0.1 X10'3 (0-0.9); EOSINOPHILS % (AUTO) 0.5 % (0-6); HEMATOCRIT 41.9 % (42.0-52.0); HEMOGLOBIN 13.1 g/dl (14.0-17.9); LYMPHOCYTES # (AUTO) 0.4 X10'3 (1.1-4.8); LYMPHOCYTES % (AUTO) 2.9 % (21-51); MEAN CORPUSCULAR HEMOGLOBIN 27.8 PG (27.0-31.0); MEAN CORPUSCULAR HGB CONC 31.3 g/dL (33.0-36.5); MEAN CORPUSCULAR VOLUME 88.7 FL (78-98); MEAN PLATELET VOLUME 8.2 FL (7.4-10.4); MONOCYTES # (AUTO) 1.1 X10'3 (0-0.9); MONOCYTES % (AUTO) 8.1 % (2-12); NEUTROPHILS % (AUTO) 88.4 % (42-75); PLATELET COUNT 132 X10'3 (140-440); RED BLOOD COUNT 4.73 X10'6 (4.70-6.10); RED CELL DISTRIBUTION WIDTH 18.7 % (11.5-14.5); WHITE BLOOD COUNT 13.5 X10'3 (4.5-11.0)
--- NOTE | 2020-06-26 11:56 | NUR ---
Reassessment: Pt s/p extubation advanced to pureed/thin/regular diet per CITY DIRECTOR/MD recs. First BM this admit today per RN. PO 100% first PO meals breakfast this AM. Na 150 receiving KCL/NS/dextrose. Will continue to monitor for PO hx and additional protein/kcal needs s/p extubation. Rec: 1. Continue regular/pureed/thin diet per CITY DIRECTOR/MD 2. monitor for ONS needs pending further PO hx 3. routine bowel care 4. weekly wts Addendum: 06/26/20 at [address] Amended: Links added.
[2020-06-26] MEDS: potassium Cl 20mEq in D5-NS 1,000 ML IV SCH (12:15)
[2020-06-26] MEDS: dextrose 5%-water 1,000 ML IV SCH (14:48)
[2020-06-26 15:00] VITALS: BP 136/80
[2020-06-26] MEDS: acetaminophen 325mg/10.15ml oral unit dose solution OGT PRN (17:53)
[2020-06-26 18:00] VITALS: BP 141/86
--- NOTE | 2020-06-26 18:14 | NUR ---
Problems reprioritized. Patient report given, questions answered & plan of care reviewed with Miguelito GREENE.
--- NOTE | 2020-06-26 18:28 | NUR ---
Patient in room PCU 3012. I have received report from Vanessa GREENE and had the opportunity to ask questions and assume patient care.
[2020-06-26] MEDS ORDERED: magnesium Cl slow-release 64mg tablet PO ONE (20:00)
--- NOTE | 2020-06-26 20:01 | NUR ---
Called KARRIE Lambert regarding low magnesium level, received telephone orders for one time mag replacement order.
[2020-06-26 22:00] VITALS: BP 145/83
[2020-06-27] VITALS (14 sets, daily range): BP systolic 113–183; BP diastolic 75–114
[2020-06-27] MEDS: piperacillin/tazo 3.375gm/50ml 50 ML IV SCH ×3 (00:27→16:05)
[2020-06-27] MEDS: mineral oil/petrolatum ophthal oint EACHEYE SCH ×4 (02:00→20:00)
[2020-06-27] MEDS: ipratropium/albuterol 3ml nebule NEB SCH ×4 (02:33→23:32)
--- NOTE | 2020-06-27 04:02 | NUR ---
Called pharmacy regarding patient's zosyn that was not given due to clamped IV. Was instructed to give still to maintain schedule.
--- NOTE | 2020-06-27 06:18 | NUR ---
Problems reprioritized. Patient report given, questions answered & plan of care reviewed with Vanessa GREENE.
[2020-06-27 06:19] LABS: ALANINE AMINOTRANSFERASE 448 U/L (12-78); ALBUMIN 2.1 G/DL (3.4-5.0); ALBUMIN/GLOBULIN RATIO 0.6 (1.1-1.5); ALKALINE PHOSPHATASE 91 IU/L (46-116); ANION GAP 4 (8-16); ASPARTATE AMINO TRANSFERASE 54 U/L (10-37); BASOPHILS # (AUTO) 0.1 X10'3 (0-0.2); BASOPHILS % (AUTO) 0.6 % (0-1); BILIRUBIN,TOTAL 0.7 MG/DL (0.1-1.0); BLOOD UREA NITROGEN 26 MG/DL (7-18); BUN/CREATININE RATIO 21.8 (5.4-32.0); CALCIUM 7.7 MG/DL (8.5-10.1); CHLORIDE 111 MMOL/L (99-107); CREATININE 1.19 MG/DL (0.60-1.10); EOSINOPHILS # (AUTO) 0.2 X10'3 (0-0.9); EOSINOPHILS % (AUTO) 1.3 % (0-6); GLUCOSE 125 MG/DL (70-104); HEMATOCRIT 38.1 % (42.0-52.0); HEMOGLOBIN 11.9 g/dl (14.0-17.9); LYMPHOCYTES # (AUTO) 0.4 X10'3 (1.1-4.8); LYMPHOCYTES % (AUTO) 3.2 % (21-51); MAGNESIUM 1.2 MG/DL (1.5-2.4); MEAN CORPUSCULAR HEMOGLOBIN 27.4 PG (27.0-31.0); MEAN CORPUSCULAR HGB CONC 31.4 g/dL (33.0-36.5); MEAN CORPUSCULAR VOLUME 87.2 FL (78-98); MEAN PLATELET VOLUME 8.5 FL (7.4-10.4); MONOCYTES # (AUTO) 0.6 X10'3 (0-0.9); MONOCYTES % (AUTO) 4.6 % (2-12); NEUTROPHILS # (AUTO) 10.9 X10'3 (1.8-7.7); NEUTROPHILS % (AUTO) 90.3 % (42-75); PHOSPHORUS 2.9 MG/DL (2.3-4.5); PLATELET COUNT 123 X10'3 (140-440); POTASSIUM 4.4 MMOL/L (3.5-5.1); RED BLOOD COUNT 4.36 X10'6 (4.70-6.10); RED CELL DISTRIBUTION WIDTH 18.7 % (11.5-14.5); SODIUM 143 MMOL/L (135-145); TOTAL CARBON DIOXIDE 28.4 MMOL/L (24-32); TOTAL PROTEIN 5.5 G/DL (6.4-8.2); WHITE BLOOD COUNT 12.1 X10'3 (4.5-11.0); eGFR 62 ML/MIN
--- NOTE | 2020-06-27 06:34 | NUR ---
Patient in room PCU 3012. I have received report from Miguelito GREENE and had the opportunity to ask questions and assume patient care.
--- NOTE | 2020-06-27 07:34 | NUR ---
Page Sent promotional table spacer PAGER ID: [phone] MESSAGE: [id number] Coto. Patient SOB , c/o chest pain, high BP 118/114. Getting EKG now. Would you like an ABG or chest xray? Mag also low 1.2. Vanessa [phone]
[2020-06-27] MEDS ORDERED: LORazepam 2 mg/ml vial IV PRN (07:40)
[2020-06-27] MEDS: levoTHYROXINE 25mcg tablet OGT SCH (07:44)
--- NOTE | 2020-06-27 07:44 | NUR ---
Page Sent promotional table spacer PAGER ID: [phone] MESSAGE: [id number] Coto . Pt BP increased from 118/114 to 180/114. Can I get a PRN for BP? EKG - no stemi Read by ER doc Vanessa [phone]
[2020-06-27] MEDS: Levetiracetam-NS 500mg/100ml 100 ML IV SCH ×2 (07:47→19:25)
[2020-06-27] MEDS: lactobacillus rhamnosus 10,000 MMU CELLS/CAPSULE OGT SCH ×2 (07:47→19:26)
[2020-06-27] MEDS: carVEDilol 3.125mg tablet OGT SCH ×2 (07:47→19:26)
[2020-06-27] MEDS: pantoprazole 40 MG vial IV SCH (07:47)
[2020-06-27] MEDS: lisinopril 10 MG tablet OGT SCH (07:48)
[2020-06-27] MEDS: heparin, porcine 5000 units/ml vial SQ SCH ×2 (07:48→19:26)
[2020-06-27] MEDS ORDERED: hydrALAZINE 20mg/ml inj. IV ONE (07:50)
[2020-06-27 08:01] LABS: ABG BASE EXCESS 2.4 mmol/L (-2.0-2.0); ABG HCO3 31.7 mmol/L (22.0-26.0); ABG OXYGEN SATURATION 95.1 % (94-97); ABG PCO2 (T) 73.5 mmHg (35.0-48.0); ABG PO2 (T) 79.9 mmHg (75.0-100.0); ALLEN'S TEST POSITIVE; FCOHb 0.8 % (0.0-3.9); FLOW 6 L/min; FMetHb 0.3 % (0.0-1.5); FO2Hb 94.1 % (94-97); TOTAL HEMOGLOBIN 13.3 G/dl (14.0-18.0)
--- NOTE | 2020-06-27 08:27 | NUR ---
After paging Dr Avelino Mckeon received telephone orders for an AGB, one time 10 mg hydralazine IV for BP of 180/114, and a one view chest xray. Patient already had bipap order. Respiratory set up bipap and patient is on 40% FIO2. We placed patient mobile to monitor vitals while on bipap
[2020-06-27 09:07] LABS: PLATELET ESTIMATE DECREASED
[2020-06-27 09:08] LABS: ANISOCYTOSIS 2+
[2020-06-27] MEDS: dextrose 5%-water 1,000 ML IV SCH (09:21)
[2020-06-27] MEDS: methylPREDNISolone sod succ 125mg/2ml vial IV SCH ×2 (09:22→19:25)
[2020-06-27 09:30] LABS: ABG BASE EXCESS 1.3 mmol/L (-2.0-2.0); ABG HCO3 27.7 mmol/L (22.0-26.0); ABG OXYGEN SATURATION 97.6 % (94-97); ABG PO2 (T) 99.2 mmHg (75.0-100.0); ALLEN'S TEST POSITIVE; FCOHb 0.5 % (0.0-3.9); FMetHb 0.3 % (0.0-1.5); FO2Hb 96.8 % (94-97); RESPIRATORY RATE 18 b/min
[2020-06-27] MEDS ORDERED: furosemide 40mg/4ml inj IV ONE (11:50)
--- NOTE | 2020-06-27 14:02 | NUR ---
Page Sent promotional table spacer PAGER ID: [phone] MESSAGE: [id number] Nnamdi. MILENA I found spots on patient's side that look like ringworm. Vanessa [phone]
--- NOTE | 2020-06-27 18:18 | NUR ---
Problems reprioritized. Patient report given, questions answered & plan of care reviewed with Stella GREENE.
--- NOTE | 2020-06-27 18:31 | NUR ---
Patient in room PCU 3012. I have received report from Vanessa GREENE and had the opportunity to ask questions and assume patient care.
[2020-06-27] MEDS: furosemide 40mg/4ml inj IV SCH (19:25)
[2020-06-28] MEDS: piperacillin/tazo 3.375gm/50ml 50 ML IV SCH ×4 (00:17→23:55)
[2020-06-28 02:00] VITALS: BP 141/75
[2020-06-28] MEDS: mineral oil/petrolatum ophthal oint EACHEYE SCH ×4 (02:00→20:00)
[2020-06-28] MEDS: ipratropium/albuterol 3ml nebule NEB SCH ×4 (03:03→20:16)
[2020-06-28 05:40] LABS: BASOPHILS % (AUTO) 0.1 % (0-1); EOSINOPHILS % (AUTO) 0 % (0-6); HEMATOCRIT 43.1 % (42.0-52.0); HEMOGLOBIN 13.8 g/dl (14.0-17.9); LYMPHOCYTES # (AUTO) 0.2 X10'3 (1.1-4.8); LYMPHOCYTES % (AUTO) 2.7 % (21-51); MEAN CORPUSCULAR HEMOGLOBIN 27.5 PG (27.0-31.0); MEAN CORPUSCULAR HGB CONC 32.1 g/dL (33.0-36.5); MEAN CORPUSCULAR VOLUME 85.9 FL (78-98); MEAN PLATELET VOLUME 8.4 FL (7.4-10.4); MONOCYTES # (AUTO) 0.1 X10'3 (0-0.9); MONOCYTES % (AUTO) 1.5 % (2-12); NEUTROPHILS % (AUTO) 95.7 % (42-75); PLATELET COUNT 141 X10'3 (140-440); RED BLOOD COUNT 5.02 X10'6 (4.70-6.10); RED CELL DISTRIBUTION WIDTH 18.8 % (11.5-14.5); WHITE BLOOD COUNT 6.3 X10'3 (4.5-11.0)
[2020-06-28 05:50] LABS: ALANINE AMINOTRANSFERASE 321 U/L (12-78); ALBUMIN 2.2 G/DL (3.4-5.0); ALBUMIN/GLOBULIN RATIO 0.6 (1.1-1.5); ALKALINE PHOSPHATASE 83 IU/L (46-116); ANION GAP 5 (8-16); ASPARTATE AMINO TRANSFERASE 33 U/L (10-37); BILIRUBIN,TOTAL 0.9 MG/DL (0.1-1.0); BLOOD UREA NITROGEN 25 MG/DL (7-18); BUN/CREATININE RATIO 23.4 (5.4-32.0); CALCIUM 7.8 MG/DL (8.5-10.1); CHLORIDE 104 MMOL/L (99-107); CREATININE 1.07 MG/DL (0.60-1.10); GLUCOSE 152 MG/DL (70-104); PHOSPHORUS 3.3 MG/DL (2.3-4.5); POTASSIUM 4.3 MMOL/L (3.5-5.1); SODIUM 141 MMOL/L (135-145); TOTAL PROTEIN 5.9 G/DL (6.4-8.2); eGFR 70 ML/MIN
[2020-06-28 06:00] VITALS: BP 149/93
--- NOTE | 2020-06-28 06:38 | NUR ---
Patient in room PCU 3012. I have received report from Stella GREENE and had the opportunity to ask questions and assume patient care.
[2020-06-28] MEDS ORDERED: potassium Cl 20 mEq SR tablet PO PRN ×2 (06:45)
[2020-06-28] MEDS: lactobacillus rhamnosus 10,000 MMU CELLS/CAPSULE OGT SCH ×2 (07:47→19:35)
[2020-06-28] MEDS: Levetiracetam-NS 500mg/100ml 100 ML IV SCH ×2 (07:47→19:48)
[2020-06-28] MEDS: magnesium Cl slow-release 64mg tablet PO PRN ×2 (07:47→19:35)
[2020-06-28] MEDS: lisinopril 10 MG tablet OGT SCH (07:48)
[2020-06-28] MEDS: pantoprazole 40 MG vial IV SCH (07:48)
[2020-06-28] MEDS: carVEDilol 3.125mg tablet OGT SCH ×2 (07:48→19:35)
[2020-06-28] MEDS: levoTHYROXINE 25mcg tablet OGT SCH (07:48)
[2020-06-28] MEDS: furosemide 40mg/4ml inj IV SCH ×2 (07:49→19:36)
[2020-06-28] MEDS: heparin, porcine 5000 units/ml vial SQ SCH ×2 (07:49→19:36)
[2020-06-28] MEDS: methylPREDNISolone sod succ 125mg/2ml vial IV SCH ×2 (07:50→19:36)
[2020-06-28 08:10] LABS: PLATELET ESTIMATE NORMAL
[2020-06-28 08:11] LABS: ANISOCYTOSIS 2+; ELLIPTOCYTES FEW; SCHISTOCYTES FEW
[2020-06-28] MEDS ORDERED: MESSAGE TO PHARMACY PO ONE (10:55)
[2020-06-28] MEDS ORDERED: dextrose 50%-water 50ml dispensing syringe IV PRN ×2 (10:55)
[2020-06-28] MEDS ORDERED: dextrose ORAL solution 15 GM/59 ML bottle PO PRN ×2 (10:55)
[2020-06-28] MEDS ORDERED: glucagon, human recombinant 1mg kit SUBCUT PRN (10:55)
[2020-06-28 11:00] VITALS: BP 154/75
[2020-06-28 15:00] VITALS: BP 142/78
[2020-06-28] MEDS: acetaminophen 325mg/10.15ml oral unit dose solution OGT PRN (16:06)
[2020-06-28 18:00] VITALS: BP 126/84
--- NOTE | 2020-06-28 18:22 | NUR ---
Problems reprioritized. Patient report given, questions answered & plan of care reviewed with Stella GREENE.
--- NOTE | 2020-06-28 18:36 | NUR ---
Patient in room PCU 3012. I have received report from Saulo GREENE and had the opportunity to ask questions and assume patient care.
[2020-06-28] MEDS: insulin Lispro (HumaLOG) vial - multi-dose SQ SCH (19:39)
[2020-06-28] MEDS ORDERED: magnesium 4gm in 100ml NS 100 ML IV PRN (20:05)
[2020-06-28] MEDS: insulin glargine (Lantus) pen - multi-dose SQ SCH (21:14)
[2020-06-28 22:00] VITALS: BP 144/94
[2020-06-29] VITALS (7 sets, daily range): BP systolic 110–160; BP diastolic 61–94
[2020-06-29] MEDS: mineral oil/petrolatum ophthal oint EACHEYE SCH ×5 (02:00→22:59)
[2020-06-29] MEDS: ipratropium/albuterol 3ml nebule NEB SCH ×4 (02:50→21:17)
--- NOTE | 2020-06-29 06:17 | NUR ---
Problems reprioritized. Patient report given, questions answered & plan of care reviewed with Yodit GREENE. patient stable at transfer of care. all current needs met.
[2020-06-29 06:22] LABS: BASOPHILS % (AUTO) 0.1 % (0-1); EOSINOPHILS % (AUTO) 0 % (0-6); HEMATOCRIT 43.7 % (42.0-52.0); HEMOGLOBIN 14.1 g/dl (14.0-17.9); LYMPHOCYTES # (AUTO) 0.2 X10'3 (1.1-4.8); LYMPHOCYTES % (AUTO) 2.2 % (21-51); MEAN CORPUSCULAR HGB CONC 32.2 g/dL (33.0-36.5); MEAN CORPUSCULAR VOLUME 86.7 FL (78-98); MEAN PLATELET VOLUME 8.8 FL (7.4-10.4); MONOCYTES # (AUTO) 0.3 X10'3 (0-0.9); NEUTROPHILS % (AUTO) 94.7 % (42-75); PLATELET COUNT 206 X10'3 (140-440); RED BLOOD COUNT 5.04 X10'6 (4.70-6.10); RED CELL DISTRIBUTION WIDTH 18.7 % (11.5-14.5); WHITE BLOOD COUNT 10.6 X10'3 (4.5-11.0)
[2020-06-29 06:26] LABS: ALANINE AMINOTRANSFERASE 287 U/L (12-78); ALBUMIN 2.5 G/DL (3.4-5.0); ALBUMIN/GLOBULIN RATIO 0.7 (1.1-1.5); ALKALINE PHOSPHATASE 82 IU/L (46-116); ANION GAP 5 (8-16); ASPARTATE AMINO TRANSFERASE 31 U/L (10-37); BILIRUBIN,TOTAL 0.6 MG/DL (0.1-1.0); BLOOD UREA NITROGEN 34 MG/DL (7-18); BUN/CREATININE RATIO 29.6 (5.4-32.0); CALCIUM 8.2 MG/DL (8.5-10.1); CHLORIDE 102 MMOL/L (99-107); CREATININE 1.15 MG/DL (0.60-1.10); GLUCOSE 133 MG/DL (70-104); MAGNESIUM 1.2 MG/DL (1.5-2.4); PHOSPHORUS 3.5 MG/DL (2.3-4.5); SODIUM 140 MMOL/L (135-145); TOTAL CARBON DIOXIDE 32.7 MMOL/L (24-32); TOTAL PROTEIN 6.3 G/DL (6.4-8.2); eGFR 64 ML/MIN
--- NOTE | 2020-06-29 06:36 | NUR ---
Patient in room U 3012A. I have received report from Tess GREENE and had the opportunity to ask questions and assume patient care. Patient sitting up in recliner, eyes closed, no signs of distress, NC in place.
[2020-06-29] MEDS ORDERED: magnesium 2GM in 50ml NS 50 ML IV PRN (06:40)
[2020-06-29 07:31] LABS: ANISOCYTOSIS 2+; LARGE PLATELETS FEW; PLATELET ESTIMATE NORMAL
[2020-06-29] MEDS: furosemide 40mg/4ml inj IV SCH ×2 (07:37→19:20)
[2020-06-29] MEDS: Levetiracetam-NS 500mg/100ml 100 ML IV SCH ×2 (07:37→19:29)
[2020-06-29] MEDS: heparin, porcine 5000 units/ml vial SQ SCH ×2 (07:37→19:21)
[2020-06-29] MEDS: lactobacillus rhamnosus 10,000 MMU CELLS/CAPSULE OGT SCH ×2 (07:38→19:20)
[2020-06-29] MEDS: lisinopril 10 MG tablet OGT SCH (07:38)
[2020-06-29] MEDS: methylPREDNISolone sod succ 125mg/2ml vial IV SCH (07:38)
[2020-06-29] MEDS: pantoprazole 40 MG vial IV SCH (07:38)
[2020-06-29] MEDS: carVEDilol 3.125mg tablet OGT SCH ×2 (07:38→19:19)
[2020-06-29] MEDS: levoTHYROXINE 25mcg tablet OGT SCH (07:38)
[2020-06-29] MEDS: K and/or MAG REPLACEMENT MC SCH ×2 (08:02→20:00)
[2020-06-29] MEDS: piperacillin/tazo 3.375gm/50ml 50 ML IV SCH (08:48)
[2020-06-29] MEDS: methylPREDNISolone sod succ/PF 40mg inj. IV SCH (10:15)
[2020-06-29 11:06] LABS: ABG HCO3 32.3 mmol/L (22.0-26.0); ABG PCO2 (T) 65.4 mmHg (35.0-48.0); ABG PO2 (T) 70.7 mmHg (75.0-100.0); ALLEN'S TEST POSITIVE; FCOHb 0.5 % (0.0-3.9); FLOW 4 L/min; FMetHb 0.3 % (0.0-1.5); FO2Hb 92.3 % (94-97); TOTAL HEMOGLOBIN 14.2 G/dl (14.0-18.0)
--- NOTE | 2020-06-29 13:49 | NUR ---
Patient taken off BiPAP for lunch, does not want to put BiPAP back on. Patient on 4L NC with orders to attempt to titrate O2 on patient. Attempted to turn oxygen to 3L and O2 dropped to 82%
--- NOTE | 2020-06-29 17:31 | NUR ---
patient was not given AM or lunch time insulin for coverage. Patient did not want to receive insulin. Patient educated, states that his blood sugars drop and does not want to experience this.
--- NOTE | 2020-06-29 18:19 | NUR ---
Problems reprioritized. Patient report given, questions answered & plan of care reviewed with Casimiro RN.
[2020-06-29] MEDS: insulin Lispro (HumaLOG) vial - multi-dose SQ SCH (19:18)
[2020-06-29] MEDS: insulin glargine (Lantus) pen - multi-dose SQ SCH (22:56)
--- NOTE | 2020-06-29 22:56 | NUR ---
Non-administered Lantus per concern over risk of hypoglycemia. Patient was treated for dinner insulin and pre dinner blood sugar. Patient was given two sugar packets by accident by a assistant in nursing with coffee. Patient was not treated for this additional sugar in his coffee and his 0900 blood sugar was 105. This RN heard via report that day shift had provided the patient with frequent snacks which had made his blood sugars inaccurate as they were not fasting causing him to met our insulin protocol. He may be brittle to additional insulin due to this thus will non admin lantus and will continue to monitor.
[2020-06-30 03:00] VITALS: BP 106/71
[2020-06-30] MEDS: ipratropium/albuterol 3ml nebule NEB SCH ×4 (03:07→20:56)
[2020-06-30 06:00] VITALS: BP 106/71
[2020-06-30 06:09] LABS: ALANINE AMINOTRANSFERASE 219 U/L (12-78); ALBUMIN 2.3 G/DL (3.4-5.0); ALBUMIN/GLOBULIN RATIO 0.7 (1.1-1.5); ALKALINE PHOSPHATASE 82 IU/L (46-116); ANION GAP 1 (8-16); ASPARTATE AMINO TRANSFERASE 33 U/L (10-37); BILIRUBIN,TOTAL 0.4 MG/DL (0.1-1.0); BLOOD UREA NITROGEN 40 MG/DL (7-18); BUN/CREATININE RATIO 29.2 (5.4-32.0); CHLORIDE 103 MMOL/L (99-107); CREATININE 1.37 MG/DL (0.60-1.10); GLUCOSE 90 MG/DL (70-104); MAGNESIUM 1.9 MG/DL (1.5-2.4); PHOSPHORUS 3.5 MG/DL (2.3-4.5); POTASSIUM 3.8 MMOL/L (3.5-5.1); SODIUM 139 MMOL/L (135-145); TOTAL CARBON DIOXIDE 35.3 MMOL/L (24-32); TOTAL PROTEIN 5.6 G/DL (6.4-8.2); eGFR 52 ML/MIN
[2020-06-30 06:10] LABS: BASOPHILS % (AUTO) 0.1 % (0-1); EOSINOPHILS % (AUTO) 0 % (0-6); HEMATOCRIT 40.1 % (42.0-52.0); HEMOGLOBIN 12.8 g/dl (14.0-17.9); LYMPHOCYTES # (AUTO) 0.5 X10'3 (1.1-4.8); MEAN CORPUSCULAR HEMOGLOBIN 27.6 PG (27.0-31.0); MEAN CORPUSCULAR VOLUME 86.4 FL (78-98); MEAN PLATELET VOLUME 8.6 FL (7.4-10.4); MONOCYTES # (AUTO) 0.9 X10'3 (0-0.9); MONOCYTES % (AUTO) 7.7 % (2-12); NEUTROPHILS # (AUTO) 10.5 X10'3 (1.8-7.7); NEUTROPHILS % (AUTO) 88.2 % (42-75); PLATELET COUNT 217 X10'3 (140-440); RED BLOOD COUNT 4.64 X10'6 (4.70-6.10); RED CELL DISTRIBUTION WIDTH 18.9 % (11.5-14.5); WHITE BLOOD COUNT 11.9 X10'3 (4.5-11.0)
--- NOTE | 2020-06-30 06:10 | NUR ---
Patient in room PCU 3012A. I have received report from Casimiro GREENE and had the opportunity to ask questions and assume patient care. Patient laying in bed, eyes closed, BiPAP in place, no signs of distress. Will continue to monitor.
--- NOTE | 2020-06-30 06:15 | NUR ---
Problems reprioritized. Patient report given, questions answered & plan of care reviewed with Yodit GREENE.
--- NOTE | 2020-06-30 06:19 | NUR ---
Reverted heparin allergy and medication d/c - amend for wrong patient
[2020-06-30] MEDS: mineral oil/petrolatum ophthal oint EACHEYE SCH ×4 (07:51→20:41)
[2020-06-30] MEDS: K and/or MAG REPLACEMENT MC SCH ×2 (08:00→20:00)
[2020-06-30] MEDS: pantoprazole 40 MG vial IV SCH ×2 (08:06→11:34)
[2020-06-30] MEDS: Levetiracetam-NS 500mg/100ml 100 ML IV SCH ×3 (08:06→19:34)
[2020-06-30] MEDS: furosemide 40mg/4ml inj IV SCH ×3 (08:06→19:22)
[2020-06-30] MEDS: heparin, porcine 5000 units/ml vial SQ SCH ×2 (08:07→19:29)
[2020-06-30] MEDS: lisinopril 10 MG tablet OGT SCH (08:07)
[2020-06-30] MEDS: methylPREDNISolone sod succ/PF 40mg inj. IV SCH (08:07)
[2020-06-30] MEDS: lactobacillus rhamnosus 10,000 MMU CELLS/CAPSULE OGT SCH ×2 (08:07→19:20)
[2020-06-30] MEDS: levoTHYROXINE 25mcg tablet OGT SCH (08:07)
[2020-06-30] MEDS: carVEDilol 3.125mg tablet OGT SCH ×2 (08:07→19:19)
[2020-06-30 11:00] VITALS: BP 128/53
[2020-06-30] MEDS: nicotine 14mg patch - 24hr TD SCH (11:35)
--- NOTE | 2020-06-30 11:49 | NUR ---
PAGER ID: [phone] MESSAGE: Yodit petty [phone]. Sis [place] [id number]. Pt needs something for pain, has 10/10 back pain, only has liquid Tylenol ordered. Thanks!
[2020-06-30] MEDS: traMADol 50MG tablet PO PRN (13:19)
[2020-06-30] MEDS: CefTRIAXone 2gm/D5W 50ml BAG 50 ML IV SCH (13:19)
[2020-06-30 15:00] VITALS: BP 114/71
--- NOTE | 2020-06-30 15:12 | NUR ---
Reassessment: Per WOC notes pt with BLE stable wounds of mixed vascular etiologies with no signs of infection at this time. Pt s/p f/u BSS with ST recs diet advancement to minced moist food and thin liquids though patient's diet was further advanced to mechanical soft chop all (SB6) today. Pt documented with 75-100% PO intake meeting estimated nutrient needs. Per RN note 06/29 pt receiving snacks. Pt started receiving double protein TID for satiety today. LBM 06/28. Will continue to follow and monitor need for further nutrition intervention. Rec: 1. Continue mechanical soft chop all (SB6) diet; consider discontinuing CHO controlled diet given no PMH DM and A1c 6.1% 05/19/20 2. Double eggs q breakfast, double meat BIDLD 3. routine bowel care 4. weekly scaled wts Addendum: 06/30/20 at [address] Amended: Links added.
--- NOTE | 2020-06-30 18:21 | NUR ---
Problems reprioritized. Patient report given, questions answered & plan of care reviewed with Casimiro RN.
[2020-06-30 19:00] VITALS: BP 127/88
[2020-06-30] MEDS: mineral oil/petrolatum, white cream 113gm jar TP SCH (20:38)
[2020-06-30 23:00] VITALS: BP 136/81
[2020-07-01] MEDS: ipratropium/albuterol 3ml nebule NEB SCH ×4 (02:36→21:16)
[2020-07-01 03:00] VITALS: BP 119/73
[2020-07-01 06:00] VITALS: BP 128/63
--- NOTE | 2020-07-01 06:17 | NUR ---
Patient in room PCU 3012. I have received report from JC Kirkpatrick and had the opportunity to ask questions and assume patient care.
--- NOTE | 2020-07-01 06:18 | NUR ---
Problems reprioritized. Patient report given, questions answered & plan of care reviewed with Viviana GREENE.
[2020-07-01 06:33] LABS: BASOPHILS % (AUTO) 0.1 % (0-1); EOSINOPHILS % (AUTO) 0.2 % (0-6); HEMATOCRIT 39.1 % (42.0-52.0); HEMOGLOBIN 12.6 g/dl (14.0-17.9); LYMPHOCYTES # (AUTO) 0.5 X10'3 (1.1-4.8); LYMPHOCYTES % (AUTO) 5.6 % (21-51); MEAN CORPUSCULAR HEMOGLOBIN 28.3 PG (27.0-31.0); MEAN CORPUSCULAR HGB CONC 32.2 g/dL (33.0-36.5); MEAN PLATELET VOLUME 8.4 FL (7.4-10.4); MONOCYTES # (AUTO) 1.1 X10'3 (0-0.9); MONOCYTES % (AUTO) 11.8 % (2-12); NEUTROPHILS # (AUTO) 7.4 X10'3 (1.8-7.7); NEUTROPHILS % (AUTO) 82.3 % (42-75); PLATELET COUNT 224 X10'3 (140-440); RED BLOOD COUNT 4.45 X10'6 (4.70-6.10); RED CELL DISTRIBUTION WIDTH 18.8 % (11.5-14.5)
[2020-07-01 06:35] LABS: ALANINE AMINOTRANSFERASE 238 U/L (12-78); ALBUMIN 2.3 G/DL (3.4-5.0); ALBUMIN/GLOBULIN RATIO 0.7 (1.1-1.5); ALKALINE PHOSPHATASE 106 IU/L (46-116); ANION GAP 2 (8-16); ASPARTATE AMINO TRANSFERASE 80 U/L (10-37); BILIRUBIN,TOTAL 0.3 MG/DL (0.1-1.0); BLOOD UREA NITROGEN 41 MG/DL (7-18); BUN/CREATININE RATIO 37.3 (5.4-32.0); CALCIUM 8.2 MG/DL (8.5-10.1); CHLORIDE 101 MMOL/L (99-107); GLUCOSE 100 MG/DL (70-104); MAGNESIUM 1.6 MG/DL (1.5-2.4); PHOSPHORUS 3.6 MG/DL (2.3-4.5); POTASSIUM 3.8 MMOL/L (3.5-5.1); SODIUM 141 MMOL/L (135-145); TOTAL CARBON DIOXIDE 38.5 MMOL/L (24-32); TOTAL PROTEIN 5.8 G/DL (6.4-8.2); eGFR 67 ML/MIN
[2020-07-01] MEDS: K and/or MAG REPLACEMENT MC SCH ×2 (08:00→20:00)
[2020-07-01] MEDS: mineral oil/petrolatum ophthal oint EACHEYE SCH ×2 (08:00→10:30)
[2020-07-01] MEDS: Levetiracetam-NS 500mg/100ml 100 ML IV SCH ×2 (09:11→19:37)
[2020-07-01] MEDS: levoTHYROXINE 25mcg tablet OGT SCH (09:13)
[2020-07-01] MEDS: nicotine 14mg patch - 24hr TD SCH (09:13)
[2020-07-01] MEDS: carVEDilol 3.125mg tablet OGT SCH ×2 (09:13→19:36)
[2020-07-01] MEDS: lactobacillus rhamnosus 10,000 MMU CELLS/CAPSULE OGT SCH ×2 (09:13→19:36)
[2020-07-01] MEDS: lisinopril 10 MG tablet OGT SCH (09:13)
[2020-07-01] MEDS: pantoprazole 40 MG vial IV SCH (09:14)
[2020-07-01] MEDS: methylPREDNISolone sod succ/PF 40mg inj. IV SCH (09:14)
[2020-07-01] MEDS: heparin, porcine 5000 units/ml vial SQ SCH ×2 (09:14→19:35)
[2020-07-01] MEDS: furosemide 40mg/4ml inj IV SCH ×2 (09:14→19:33)
[2020-07-01] MEDS: CefTRIAXone 2gm/D5W 50ml BAG 50 ML IV SCH (09:46)
[2020-07-01] MEDS: mineral oil/petrolatum, white cream 113gm jar TP SCH ×2 (09:50→19:37)
[2020-07-01 11:00] VITALS: BP 105/68
[2020-07-01] MEDS: traMADol 50MG tablet PO PRN ×2 (11:22→19:41)
[2020-07-01 15:00] VITALS: BP 106/62
--- NOTE | 2020-07-01 18:06 | NUR ---
Problems reprioritized. Patient report given, questions answered & plan of care reviewed with JC Kirkpatrick.
--- NOTE | 2020-07-01 18:30 | NUR ---
Patient in room PCU 3012. I have received report from Frieda GREENE and had the opportunity to ask questions and assume patient care.
[2020-07-01 19:00] VITALS: BP 117/70
[2020-07-01 23:00] VITALS: BP 111/68
[2020-07-02] MEDS: ipratropium/albuterol 3ml nebule NEB SCH ×4 (03:22→21:26)
[2020-07-02 05:47] LABS: BASOPHILS % (AUTO) 0.1 % (0-1); EOSINOPHILS % (AUTO) 0.3 % (0-6); HEMATOCRIT 39.7 % (42.0-52.0); HEMOGLOBIN 12.5 g/dl (14.0-17.9); LYMPHOCYTES # (AUTO) 0.4 X10'3 (1.1-4.8); LYMPHOCYTES % (AUTO) 4.7 % (21-51); MEAN CORPUSCULAR HEMOGLOBIN 27.5 PG (27.0-31.0); MEAN CORPUSCULAR HGB CONC 31.4 g/dL (33.0-36.5); MEAN CORPUSCULAR VOLUME 87.5 FL (78-98); MEAN PLATELET VOLUME 8.6 FL (7.4-10.4); MONOCYTES # (AUTO) 0.9 X10'3 (0-0.9); MONOCYTES % (AUTO) 11.7 % (2-12); NEUTROPHILS # (AUTO) 6.7 X10'3 (1.8-7.7); NEUTROPHILS % (AUTO) 83.2 % (42-75); PLATELET COUNT 260 X10'3 (140-440); RED BLOOD COUNT 4.54 X10'6 (4.70-6.10); WHITE BLOOD COUNT 8.1 X10'3 (4.5-11.0)
[2020-07-02 05:54] LABS: ALANINE AMINOTRANSFERASE 245 U/L (12-78); ALBUMIN 2.5 G/DL (3.4-5.0); ALBUMIN/GLOBULIN RATIO 0.7 (1.1-1.5); ALKALINE PHOSPHATASE 123 IU/L (46-116); ANION GAP -1 (8-16); ASPARTATE AMINO TRANSFERASE 83 U/L (10-37); BILIRUBIN,TOTAL 0.3 MG/DL (0.1-1.0); BLOOD UREA NITROGEN 38 MG/DL (7-18); BUN/CREATININE RATIO 35.8 (5.4-32.0); CALCIUM 8.2 MG/DL (8.5-10.1); CHLORIDE 102 MMOL/L (99-107); CREATININE 1.06 MG/DL (0.60-1.10); GLUCOSE 96 MG/DL (70-104); MAGNESIUM 1.5 MG/DL (1.5-2.4); PHOSPHORUS 2.7 MG/DL (2.3-4.5); POTASSIUM 3.8 MMOL/L (3.5-5.1); SODIUM 140 MMOL/L (135-145); TOTAL CARBON DIOXIDE 38.8 MMOL/L (24-32); TOTAL PROTEIN 6.1 G/DL (6.4-8.2); eGFR 70 ML/MIN
--- NOTE | 2020-07-02 06:26 | NUR ---
Student documentation: I have reviewed and agree with all interventions, assessments performed and documented by LEN SERNA RN. Student Medication Administration: For this medication-pass time frame, all medication were reviewed, dispensed, administered and documented per hospital policy by LEN SERNA RN. Problems reprioritized. Patient report given by Len Serna RN, questions answered & plan of care reviewed with SEUN GREENE.
[2020-07-02] MEDS: Levetiracetam-NS 500mg/100ml 100 ML IV SCH ×2 (07:40→20:56)
[2020-07-02] MEDS: mineral oil/petrolatum, white cream 113gm jar TP SCH ×2 (08:00→20:00)
[2020-07-02] MEDS: heparin, porcine 5000 units/ml vial SQ SCH ×2 (08:00→20:56)
[2020-07-02] MEDS: furosemide 40mg/4ml inj IV SCH ×2 (08:12→20:56)
[2020-07-02] MEDS: CefTRIAXone 2gm/D5W 50ml BAG 50 ML IV SCH (08:12)
[2020-07-02] MEDS: nicotine 14mg patch - 24hr TD SCH (08:13)
[2020-07-02] MEDS: lactobacillus rhamnosus 10,000 MMU CELLS/CAPSULE OGT SCH ×2 (08:13→20:56)
[2020-07-02] MEDS: methylPREDNISolone sod succ/PF 40mg inj. IV SCH (08:14)
[2020-07-02] MEDS: carVEDilol 3.125mg tablet OGT SCH ×2 (08:15→20:56)
[2020-07-02] MEDS: pantoprazole 40 MG vial IV SCH (08:15)
[2020-07-02] MEDS: levoTHYROXINE 25mcg tablet OGT SCH (08:15)
[2020-07-02] MEDS: lisinopril 10 MG tablet OGT SCH (08:19)
[2020-07-02] MEDS: K and/or MAG REPLACEMENT MC SCH ×2 (08:24→20:00)
[2020-07-02] MEDS: traMADol 50MG tablet PO PRN ×2 (08:29→21:07)
[2020-07-02 11:00] VITALS: BP 128/75
[2020-07-02 15:00] VITALS: BP 129/74
[2020-07-02 18:00] VITALS: BP 113/72
--- NOTE | 2020-07-02 18:45 | NUR ---
Patient in room PCU 3012. I have received report from Ruma GREENE and had the opportunity to ask questions and assume patient care.
[2020-07-02 22:00] VITALS: BP 138/75
--- NOTE | 2020-07-02 22:59 | NUR ---
NON-COMPLIANT pt refuses to elevate legs to prevent swelling, pt refused eucerin cream, pt is generally non-compliant with his healthcare plan. will continue to educate and try to provide care as pt will allow.
[2020-07-03] VITALS (7 sets, daily range): BP systolic 118–151; BP diastolic 7–89
[2020-07-03] MEDS: ipratropium/albuterol 3ml nebule NEB SCH ×4 (03:44→21:06)
[2020-07-03 05:20] LABS: ALKALINE PHOSPHATASE 108 IU/L (46-116); ANION GAP 1 (8-16); ASPARTATE AMINO TRANSFERASE 63 U/L (10-37); BASOPHILS % (AUTO) 0.1 % (0-1); BILIRUBIN,TOTAL 0.4 MG/DL (0.1-1.0); CHLORIDE 99 MMOL/L (99-107); EOSINOPHILS # (AUTO) 0.1 X10'3 (0-0.9); EOSINOPHILS % (AUTO) 0.7 % (0-6); HEMATOCRIT 39.3 % (42.0-52.0); HEMOGLOBIN 12.7 g/dl (14.0-17.9); LYMPHOCYTES # (AUTO) 0.6 X10'3 (1.1-4.8); LYMPHOCYTES % (AUTO) 7.3 % (21-51); MEAN CORPUSCULAR HEMOGLOBIN 28.3 PG (27.0-31.0); MEAN CORPUSCULAR HGB CONC 32.2 g/dL (33.0-36.5); MEAN CORPUSCULAR VOLUME 87.8 FL (78-98); MEAN PLATELET VOLUME 8.5 FL (7.4-10.4); MONOCYTES # (AUTO) 1.1 X10'3 (0-0.9); MONOCYTES % (AUTO) 13.8 % (2-12); NEUTROPHILS # (AUTO) 6.4 X10'3 (1.8-7.7); NEUTROPHILS % (AUTO) 78.1 % (42-75); PLATELET COUNT 241 X10'3 (140-440); POTASSIUM 4.3 MMOL/L (3.5-5.1); RED BLOOD COUNT 4.48 X10'6 (4.70-6.10); SODIUM 139 MMOL/L (135-145); TOTAL CARBON DIOXIDE 39.1 MMOL/L (24-32); TOTAL PROTEIN 6.3 G/DL (6.4-8.2); WHITE BLOOD COUNT 8.2 X10'3 (4.5-11.0)
[2020-07-03 05:35] LABS: ALANINE AMINOTRANSFERASE 221 U/L (12-78); ALBUMIN 2.6 G/DL (3.4-5.0); ALBUMIN/GLOBULIN RATIO 0.7 (1.1-1.5); BLOOD UREA NITROGEN 39 MG/DL (7-18); BUN/CREATININE RATIO 39.8 (5.4-32.0); CALCIUM 8.6 MG/DL (8.5-10.1); CREATININE 0.98 MG/DL (0.60-1.10); GLUCOSE 96 MG/DL (70-104); MAGNESIUM 1.4 MG/DL (1.5-2.4); PHOSPHORUS 2.3 MG/DL (2.3-4.5); eGFR 77 ML/MIN
--- NOTE | 2020-07-03 06:29 | NUR ---
Problems reprioritized. Patient report given, questions answered & plan of care reviewed with Karthik GREENE.
--- NOTE | 2020-07-03 06:51 | NUR ---
Patient in room PCU 3012. I have received report from JC HAYNES and had the opportunity to ask questions and assume patient care.
[2020-07-03] MEDS: pantoprazole 40 MG vial IV SCH (07:56)
[2020-07-03] MEDS: methylPREDNISolone sod succ/PF 40mg inj. IV SCH (07:56)
[2020-07-03] MEDS: furosemide 40mg/4ml inj IV SCH ×2 (07:56→20:10)
[2020-07-03] MEDS: Levetiracetam-NS 500mg/100ml 100 ML IV SCH ×2 (07:58→20:11)
[2020-07-03] MEDS: heparin, porcine 5000 units/ml vial SQ SCH ×2 (07:58→20:13)
[2020-07-03 08:00] LABS: ANISOCYTOSIS 2+; PLATELET ESTIMATE NORMAL
[2020-07-03] MEDS: mineral oil/petrolatum, white cream 113gm jar TP SCH ×2 (08:00→20:13)
[2020-07-03] MEDS: K and/or MAG REPLACEMENT MC SCH ×2 (08:00→20:12)
[2020-07-03 08:01] LABS: LARGE PLATELETS FEW
[2020-07-03] MEDS: nicotine 14mg patch - 24hr TD SCH (08:13)
[2020-07-03] MEDS: carVEDilol 3.125mg tablet OGT SCH ×2 (08:14→20:12)
[2020-07-03] MEDS: lisinopril 10 MG tablet OGT SCH (08:14)
[2020-07-03] MEDS: lactobacillus rhamnosus 10,000 MMU CELLS/CAPSULE OGT SCH ×2 (08:14→20:12)
[2020-07-03] MEDS: levoTHYROXINE 25mcg tablet OGT SCH (08:14)
[2020-07-03] MEDS: CefTRIAXone 2gm/D5W 50ml BAG 50 ML IV SCH (08:20)
--- NOTE | 2020-07-03 08:23 | NUR ---
In patient room for medications administration patient agitated. He had pillow covering his face and stating,"just hurry and get it done. Why are we just having a bbq" Explained to patient prepping his medications to be administered. Patient quickly sat up on to side of bed aggressively and stated "don't touch me!" No one was touching patient, PCT Camille at bedside and another RN attempting to calm down patient. Patienng, " I want to throw this coffee at someone" and refusing to have physical assessment "no, no, no!"
--- NOTE | 2020-07-03 10:07 | NUR ---
Patient continues to refuse physical assessment. Educated reasoning for physical assessment and patient continues to refuse. He states, "Oh come on! No!"
--- NOTE | 2020-07-03 12:02 | NUR ---
Patient up and ambulating with PT.
[2020-07-03] MEDS ORDERED: potassium CL 10mEq/100ml bag 100 ML IV PRN (12:20)
[2020-07-03] MEDS ORDERED: magnesium 4gm in 100ml NS 100 ML IV PRN (12:20)
[2020-07-03] MEDS ORDERED: potassium Cl 20 mEq SR tablet PO PRN ×2 (12:20)
[2020-07-03] MEDS ORDERED: predniSONE 20 mg tablet PO ONE (12:55)
[2020-07-03] MEDS: magnesium Cl slow-release 64mg tablet PO PRN ×2 (13:10→20:12)
--- NOTE | 2020-07-03 14:34 | NUR ---
Patient refused eucerin cream
[2020-07-03] MEDS: traMADol 50MG tablet PO PRN (17:53)
--- NOTE | 2020-07-03 18:42 | NUR ---
Problems reprioritized. Patient report given, questions answered & plan of care reviewed with JC Lee.
[2020-07-04] VITALS (7 sets, daily range): BP systolic 107–139; BP diastolic 57–86
[2020-07-04] MEDS: ipratropium/albuterol 3ml nebule NEB SCH ×4 (03:00→21:00)
[2020-07-04 06:21] LABS: BASOPHILS % (AUTO) 0.3 % (0-1); EOSINOPHILS % (AUTO) 0.3 % (0-6); HEMATOCRIT 37.8 % (42.0-52.0); HEMOGLOBIN 12.2 g/dl (14.0-17.9); LYMPHOCYTES # (AUTO) 0.5 X10'3 (1.1-4.8); LYMPHOCYTES % (AUTO) 5.7 % (21-51); MEAN CORPUSCULAR HEMOGLOBIN 27.9 PG (27.0-31.0); MEAN CORPUSCULAR HGB CONC 32.2 g/dL (33.0-36.5); MEAN CORPUSCULAR VOLUME 86.5 FL (78-98); MEAN PLATELET VOLUME 8.3 FL (7.4-10.4); MONOCYTES # (AUTO) 0.9 X10'3 (0-0.9); MONOCYTES % (AUTO) 11.3 % (2-12); NEUTROPHILS # (AUTO) 6.6 X10'3 (1.8-7.7); NEUTROPHILS % (AUTO) 82.4 % (42-75); PLATELET COUNT 250 X10'3 (140-440); RED BLOOD COUNT 4.37 X10'6 (4.70-6.10)
--- NOTE | 2020-07-04 06:40 | NUR ---
Patient in room PCU 3012. I have received report from Jesus GREENE and had the opportunity to ask questions and assume patient care.
--- NOTE | 2020-07-04 06:44 | NUR ---
Problems reprioritized. Patient report given, questions answered & plan of care reviewed with Marva. Addendum: 07/04/20 at 0645 by Manfred Coleman RN Amended: Links added.
[2020-07-04 06:48] LABS: ALANINE AMINOTRANSFERASE 170 U/L (12-78); ALBUMIN 2.5 G/DL (3.4-5.0); ALBUMIN/GLOBULIN RATIO 0.7 (1.1-1.5); ALKALINE PHOSPHATASE 120 IU/L (46-116); ANION GAP 6 (8-16); ASPARTATE AMINO TRANSFERASE 45 U/L (10-37); BILIRUBIN,TOTAL 0.4 MG/DL (0.1-1.0); BLOOD UREA NITROGEN 36 MG/DL (7-18); BUN/CREATININE RATIO 46.8 (5.4-32.0); CALCIUM 8.1 MG/DL (8.5-10.1); CHLORIDE 100 MMOL/L (99-107); CREATININE 0.77 MG/DL (0.60-1.10); GLUCOSE 114 MG/DL (70-104); MAGNESIUM 1.4 MG/DL (1.5-2.4); PHOSPHORUS 2.5 MG/DL (2.3-4.5); POTASSIUM 4.3 MMOL/L (3.5-5.1); SODIUM 142 MMOL/L (135-145); TOTAL CARBON DIOXIDE 36.4 MMOL/L (24-32); TOTAL PROTEIN 6.1 G/DL (6.4-8.2); eGFR > 90 ML/MIN
[2020-07-04] MEDS: K and/or MAG REPLACEMENT MC SCH ×2 (08:00→20:00)
[2020-07-04] MEDS: pantoprazole 40 MG vial IV SCH (08:47)
[2020-07-04] MEDS: CefTRIAXone 2gm/D5W 50ml BAG 50 ML IV SCH (08:48)
[2020-07-04] MEDS: furosemide 40mg/4ml inj IV SCH ×2 (08:50→20:00)
[2020-07-04] MEDS: Levetiracetam-NS 500mg/100ml 100 ML IV SCH ×2 (08:50→20:00)
[2020-07-04] MEDS: mineral oil/petrolatum, white cream 113gm jar TP SCH ×2 (08:54→20:00)
[2020-07-04] MEDS: nicotine 14mg patch - 24hr TD SCH (08:54)
[2020-07-04] MEDS: predniSONE 20 mg tablet PO SCH (08:54)
[2020-07-04] MEDS: carVEDilol 3.125mg tablet OGT SCH ×2 (08:55→20:00)
[2020-07-04] MEDS: lactobacillus rhamnosus 10,000 MMU CELLS/CAPSULE OGT SCH ×2 (08:55→20:00)
[2020-07-04] MEDS: lisinopril 10 MG tablet OGT SCH (08:55)
[2020-07-04] MEDS: heparin, porcine 5000 units/ml vial SQ SCH ×2 (08:58→20:00)
[2020-07-04] MEDS: levoTHYROXINE 25mcg tablet OGT SCH (09:04)
[2020-07-04 09:27] LABS: ANISOCYTOSIS 2+; PLATELET ESTIMATE NORMAL
[2020-07-04] MEDS: traMADol 50MG tablet PO PRN ×2 (17:41→22:54)
--- NOTE | 2020-07-04 19:00 | NUR ---
Problems reprioritized. Patient report given, questions answered & plan of care reviewed with Liseth GREENE.
--- NOTE | 2020-07-04 19:01 | NUR ---
Patient in room PCU 3012. I have received report from SUDHIR GREENE and had the opportunity to ask questions and assume patient care.
--- NOTE | 2020-07-04 20:00 | NUR ---
Patient refused assessment, wound care and medications. Re-institute teachings regarding the importance of taking his medications, however, patient continued to refuse meds and states "I will take them tomorrow".
[2020-07-05 02:00] VITALS: BP 122/66
[2020-07-05] MEDS: ipratropium/albuterol 3ml nebule NEB SCH ×4 (03:00→21:10)
[2020-07-05 06:00] VITALS: BP 127/75
[2020-07-05 06:02] LABS: BASOPHILS % (AUTO) 0.1 % (0-1); EOSINOPHILS # (AUTO) 0.1 X10'3 (0-0.9); EOSINOPHILS % (AUTO) 1.6 % (0-6); HEMATOCRIT 37.1 % (42.0-52.0); LYMPHOCYTES # (AUTO) 0.6 X10'3 (1.1-4.8); LYMPHOCYTES % (AUTO) 8.8 % (21-51); MEAN CORPUSCULAR HEMOGLOBIN 28.6 PG (27.0-31.0); MEAN CORPUSCULAR HGB CONC 32.4 g/dL (33.0-36.5); MEAN CORPUSCULAR VOLUME 88.2 FL (78-98); MONOCYTES # (AUTO) 0.9 X10'3 (0-0.9); MONOCYTES % (AUTO) 13.3 % (2-12); NEUTROPHILS # (AUTO) 5.1 X10'3 (1.8-7.7); NEUTROPHILS % (AUTO) 76.2 % (42-75); PLATELET COUNT 234 X10'3 (140-440); RED CELL DISTRIBUTION WIDTH 19.2 % (11.5-14.5); WHITE BLOOD COUNT 6.7 X10'3 (4.5-11.0)
[2020-07-05 06:11] LABS: ALBUMIN 2.4 G/DL (3.4-5.0); ANION GAP -2 (8-16); BILIRUBIN,TOTAL 0.3 MG/DL (0.1-1.0); BLOOD UREA NITROGEN 36 MG/DL (7-18); BUN/CREATININE RATIO 52.9 (5.4-32.0); CALCIUM 8.5 MG/DL (8.5-10.1); CHLORIDE 103 MMOL/L (99-107); CREATININE 0.68 MG/DL (0.60-1.10); GLUCOSE 87 MG/DL (70-104); MAGNESIUM 1.6 MG/DL (1.5-2.4); PHOSPHORUS 2.7 MG/DL (2.3-4.5); POTASSIUM 4.3 MMOL/L (3.5-5.1); SODIUM 143 MMOL/L (135-145); TOTAL PROTEIN 5.8 G/DL (6.4-8.2); eGFR > 90 ML/MIN
[2020-07-05 06:12] LABS: ALANINE AMINOTRANSFERASE 164 U/L (12-78); ALBUMIN/GLOBULIN RATIO 0.7 (1.1-1.5); ALKALINE PHOSPHATASE 98 IU/L (46-116); ASPARTATE AMINO TRANSFERASE 60 U/L (10-37)
[2020-07-05 06:22] LABS: TOTAL CARBON DIOXIDE 42.2 MMOL/L (24-32)
--- NOTE | 2020-07-05 06:30 | NUR ---
Problems reprioritized. Patient report given, questions answered & plan of care reviewed with Ruma GREENE.
--- NOTE | 2020-07-05 06:40 | NUR ---
PAGED DR. GARDNER REGARDING CRITICAL CO2 42.2 STILL AWAITING CALL BACK.
--- NOTE | 2020-07-05 06:55 | NUR ---
Patient in room PCU 3012. I have received report from Noy GREENE/Lia Perez and had the opportunity to ask questions and assume patient care.
[2020-07-05] MEDS: levoTHYROXINE 25mcg tablet OGT SCH (07:00)
--- NOTE | 2020-07-05 07:20 | NUR ---
Spoke with Dr You re: critical CO2 42.2. paged RT to place pt onto BIPAP for couple hours per MD order
[2020-07-05] MEDS: CefTRIAXone 2gm/D5W 50ml BAG 50 ML IV SCH (08:00)
[2020-07-05] MEDS: furosemide 40mg/4ml inj IV SCH ×2 (08:00→22:09)
[2020-07-05] MEDS: pantoprazole 40 MG vial IV SCH (08:00)
[2020-07-05] MEDS: Levetiracetam-NS 500mg/100ml 100 ML IV SCH ×2 (08:00→22:10)
[2020-07-05] MEDS: nicotine 14mg patch - 24hr TD SCH (08:00)
[2020-07-05] MEDS: carVEDilol 3.125mg tablet OGT SCH ×2 (08:00→22:10)
[2020-07-05] MEDS: mineral oil/petrolatum, white cream 113gm jar TP SCH ×2 (08:00→22:12)
[2020-07-05] MEDS: heparin, porcine 5000 units/ml vial SQ SCH ×2 (08:00→22:10)
[2020-07-05] MEDS: K and/or MAG REPLACEMENT MC SCH ×2 (08:00→20:00)
[2020-07-05] MEDS: lactobacillus rhamnosus 10,000 MMU CELLS/CAPSULE OGT SCH ×2 (08:00→22:10)
[2020-07-05] MEDS: lisinopril 10 MG tablet OGT SCH (08:00)
--- NOTE | 2020-07-05 08:08 | NUR ---
patient refused all meds at this time, pt educated yet continued to refused meds yelling "get out of here". assembler unit notified, aware. Will continue to monitor.
[2020-07-05] MEDS: predniSONE 20 mg tablet PO SCH (08:30)
[2020-07-05 09:48] LABS: ANISOCYTOSIS 2+; PLATELET ESTIMATE NORMAL
[2020-07-05 09:50] LABS: LARGE PLATELETS FEW
--- NOTE | 2020-07-05 10:00 | NUR ---
Pt agitated, RR 40 with CPAP machine on. Removed CPAP, pt calmed, RR 30. O2 1L NC placed with O2Sat 93-94%, RR 22. Pt c/o of pain, Ultram given as ordered. Will continue to monitor.
[2020-07-05] MEDS: traMADol 50MG tablet PO PRN (10:12)
[2020-07-05 11:00] VITALS: BP 134/74
--- NOTE | 2020-07-05 14:30 | NUR ---
Pt's O2 Sat 83% on Room air, RR 30, placed onto 1L O2 NC with Sats to 97%, RR to 20. Will continue to monitor.
[2020-07-05 15:00] VITALS: BP 112/64
[2020-07-05 18:00] VITALS: BP 121/68
--- NOTE | 2020-07-05 18:43 | NUR ---
Problems reprioritized. Patient report given, questions answered & plan of care reviewed with Aminata GREENE.
[2020-07-05 22:00] VITALS: BP 147/76
[2020-07-06 02:00] VITALS: BP 128/64
[2020-07-06] MEDS: ipratropium/albuterol 3ml nebule NEB SCH ×2 (02:21→08:18)
[2020-07-06] MEDS: traMADol 50MG tablet PO PRN (05:18)
--- NOTE | 2020-07-06 07:20 | NUR ---
pT. REFUSED ASSESSMENT. sTATED HE WANTED PRIVACY SEVERAL TIMES AND WANTED "THIS TO BE OVER WITH".
[2020-07-06 07:25] VITALS: BP 162/96
[2020-07-06] MEDS: nicotine 14mg patch - 24hr TD SCH (07:43)
[2020-07-06] MEDS: acetaminophen 325mg/10.15ml oral unit dose solution OGT PRN (07:46)
[2020-07-06] MEDS: lactobacillus rhamnosus 10,000 MMU CELLS/CAPSULE OGT SCH (07:47)
[2020-07-06] MEDS: predniSONE 20 mg tablet PO SCH (07:47)
[2020-07-06] MEDS: levoTHYROXINE 25mcg tablet OGT SCH (07:47)
[2020-07-06] MEDS: carVEDilol 3.125mg tablet OGT SCH (07:47)
[2020-07-06] MEDS: pantoprazole 40 MG vial IV SCH (07:48)
[2020-07-06] MEDS: furosemide 40mg/4ml inj IV SCH (07:48)
[2020-07-06] MEDS: lisinopril 10 MG tablet OGT SCH (07:48)
[2020-07-06] MEDS: CefTRIAXone 2gm/D5W 50ml BAG 50 ML IV SCH (07:49)
[2020-07-06] MEDS: heparin, porcine 5000 units/ml vial SQ SCH (07:49)
[2020-07-06] MEDS: K and/or MAG REPLACEMENT MC SCH (07:50)
[2020-07-06] MEDS: mineral oil/petrolatum, white cream 113gm jar TP SCH (08:00)
[2020-07-06] MEDS: Levetiracetam-NS 500mg/100ml 100 ML IV SCH (11:03)
--- NOTE | 2020-07-06 11:28 | NUR ---
PT TALKED TO CM ABOUT DISCHARGE. DISGRUNTLED ABOUT NT HAVING A HOME. STATED HE WOULD NOT GO [facility] [employer] HIS PRESCRIPTIONS BECAUSE THEY WOULD JUST GET "LOST LIKE THE LAST ONES". cm SAID THAT HE COULD HAVE ONE TAXI CAB RIDE OR [facility]EN [facility] RIDE E[facility]ER TO [facility] OR TO PHARMACY. PT WOULD LIKE TO [facility]. P/U TIME FOR RIDE IS 1215 PER CM. FWW PROVIDED TO PT. ALTHOUGH HE HAD ONE BEFORE AND LOST IT.
--- NOTE | 2020-07-06 11:49 | NUR ---
PAGER ID: [phone] MESSAGE: PT. JASMIN YOUNG. RIDE ARRANGED BY CM WILL BE HERE IN 30 MIN. THIS RN WILL NOT DISCHARGE PT. WITHOUT DISCHARGE MEDICATION LISTED OR CLARIFICATION THAT IT IS OK FOR PT TO DISCHARGE WITHOUT ANY MEDICATIONS. 3266
[2020-07-06] MEDS ORDERED: PRED10TA23 PO (11:57)
[2020-07-06] MEDS ORDERED: KEP500T PO (11:57)
[2020-07-06 11:58] VITALS: BP 133/79
--- NOTE | 2020-07-06 15:12 | NUR ---
Pt. discharged. Reviewed discharge paperwork with pt. Pt. refused any teaching about medications. Pt. is aware however that he can picker feeder medications if he wants at his preferred pharmacy. IV DC'd pressure bandage applied, no s/sx bleeding noted. Pt. was given a FWW by CM, although the pt. has recently received a walker from this hospital and his insurance will not cover a new one. Pt. states he has no idea where his walker is. Pt provided clean clothes and a bag lunch. Breathing well with VSS on RA. Pt. gathered all his belongings here and was escorted in a w/c to downstairs where enrique cargo picked [facility] up [facility]. FWW left with pt. as well.
== END 2020-07-06 15:14 | disposition home or self-care (01) | DRG 194 ==
LOC: ER 15:03 → ED HOLD 21:29 → ICU 2S 22:55 → PCU 3S 06-25 15:55
PROVIDERS: ADMIT Internal Medicine Critical Care Medicine; ATTEND Internal Medicine Critical Care Medicine
DX: I11.0 Hypertensive heart disease with heart failure (principal); I50.43 Acute on chronic combined systolic (congestive) and diastolic (congestive) heart failure; J44.1 Chronic obstructive pulmonary disease with (acute) exacerbation; J69.0 Pneumonitis due to inhalation of food and vomit; J96.00 Acute respiratory failure, unspecified whether with hypoxia or hypercapnia; E16.2 Hypoglycemia, unspecified; E87.0 Hyperosmolality and hypernatremia; E78.5 Hyperlipidemia, unspecified; F15.10 Other stimulant abuse, uncomplicated; G40.901 Epilepsy, unspecified, not intractable, with status epilepticus; F12.90 Cannabis use, unspecified, uncomplicated; I25.2 Old myocardial infarction; Z59.0 Homelessness; Z87.891 Personal history of nicotine dependence; Z91.19 Patient's noncompliance with other medical treatment and regimen; Z88.8 Allergy status to other drugs, medicaments and biological substances
CPT/HCPCS: 31500; 36415; 36556; 36600; 70450; 71045; 76937; 80053; 80202; 80305; 80320; 81001; 82140; 82570; 82803; 82810; 82948; 83605; 83735; 84100; 84145; 84300; 84484; 85007; 85008; 85018; 85025; 85610; 85730; 87040; 87070; 87207; 92508; 92616; 93005; 94002; 94003; 94640; 94660; 94667; 94760; 96365; 96367; 97110; 97116; 97162; 97530; 99291; C9113; G0378; J0360; J0696; J1644; J1815; J1940; J1953; J2060; J2543; J2920; J2930; J3010; J3370; J3475; J3480; J3490; J7030; J7070; J7512

== ENCOUNTER 2020-07-27 13:00 | Emergency (ER) | payer MEDICAID ==
[~2020-07-27 13:00] MED LIST changes: +KEP500T PO; -NICO-687 TD; +NICO-687 TOP; +PRED10TA23 PO; +calcium chloride 100 MG/1 ML inj IV ONE; +epiNEPHrine 0.1mg/ml 10ml syringe ONE; +naloxone 0.4 mg/ml inj ONE; -rocuronium 10mg/ml inj IV ONE; +sodium bicarbonate (8.4%) 1 mEq/ml syringe ONE
--- NOTE | 2020-07-27 13:30 | NUR ---
See Code charting.
--- NOTE | 2020-07-27 13:40 | NUR ---
Patient next of kin, Oneida davis, notified regarding by Dr. Sams. Patient stated to me that she was not related to patient and that she had no plans for and/or mortuary transport. I asked if there were any family that we were able to contact, but she stated all relatives she knows up have pass way. I notified her that I would also be contacting the case maker and the donor network. Oneida stated that she didn't think he was a donor and that he also was Hepatitis C positive. Oneida continued to ask about possible housing for herself due to homelessness. Oneida stated patient paid for cell phone for her and motel at the [facility]. I educated her that if she needed more help to just call back. At which time, we discontinued conversation.
--- NOTE | 2020-07-27 14:00 | NUR ---
Spoke with Tootie from case management due to next of kin Oneida stating that she was not family to patient. Tootie stated that she has working with the patient in previous visits and ex is how patient addressed her.
--- NOTE | 2020-07-27 17:18 | NUR ---
Mortuary stated that they would not take valuables with them. I contacted vinyl top installer arina who stated that he is unsure of policy of the mortuary, but vinyl top installer stated to itemize patients belongings, lock them up and they will be coming to pepper picker belongings tomorrow 07/28/20. Belongings locked up and placed into Room 29. Copies of face sheet and expiration form given to Hayden with Ryan and Traci peters.
--- NOTE | 2020-07-27 17:31 | NUR ---
Called Oneida Aguirre at listed number. I spoke with her regarding patients belongings and that they would with the supervisor [employer]loom because they would be picking them up tomorrow. Oneida states, "oh no, I can't have those. I have no where to put them." I also told her that patient had just left being transported [facility] [place] Oneida had no further questions and we discontinued call.
== END 2020-07-27 17:27 | disposition expired ==
LOC: ER 13:01
DX: I46.9 Cardiac arrest, cause unspecified (principal); I11.0 Hypertensive heart disease with heart failure; I50.9 Heart failure, unspecified; J44.9 Chronic obstructive pulmonary disease, unspecified; F31.9 Bipolar disorder, unspecified; F12.90 Cannabis use, unspecified, uncomplicated; F15.90 Other stimulant use, unspecified, uncomplicated; Z86.69 Personal history of other diseases of the nervous system and sense organs; Z86.14 Personal history of Methicillin resistant Staphylococcus aureus infection; Z98.890 Other specified postprocedural states; Z90.89 Acquired absence of other organs; Z56.0 Unemployment, unspecified; Z59.0 Homelessness; Z91.018 Allergy to other foods; Z79.899 Other long term (current) drug therapy
CPT/HCPCS: 31500; 82948; 92950; 99285; J0171; J2310; 99291